=== PATIENT | male | born 1970 | race Caucasian/White ===

== ENCOUNTER → 2017-09-21 10:00 | Outpatient (CLI) | payer BC, SELFPAY ==
[2017-09-21 15:05] LABS: Hematocrit 44.1 % (40-54); Hemoglobin 15.4 g/dl (13.0-16.5); Mean Corp Hgb Conc 34.9 g/gl (32-36); Mean Corpuscular Hgb 31.1 pg (27.0-32.0); Mean Corpuscular Volume 89.1 fL (80-94); Mean Platelet Vol. 10.1 fl (6.2-12.0); Platelet Count 236 K/mm3 (150-450); RBC Distribution Width CV 12.4 % (11.6-14.6); RBC Distribution Width SD 39.9 fl (35.1-43.9); Red Blood Count 4.95 M/mm3 (4.6-6.2); White Blood Count 6.4 K/mm3 (4.4-11.0)
[2017-09-21 15:07] LABS: Scan Indicated on CBC? Y/N NO
[2017-09-21 15:53] LABS: Anion Gap 7 (5-15); BUN 15 mg/dL (7-18); BUN/Creat Ratio 18.7 RATIO (10-20); Chloride 102 mmol/L (98-107); Cholesterol 202 mg/dL (200); EST Glomerular Filtration Rate 110 mL/min (>60); Est Glom Filt Rate - Afr Amer 133 mL/min (>60); Glucose 93 mg/dL (74-106); High Density Lipoprotein 37 mg/dL; Magnesium 2.1 mg/dL (1.6-2.6); PSA,Total - Annual Screen 0.92 ng/mL (0.00-4.00); Potassium 3.6 mmol/L (3.5-5.1); Sodium Level 137 mmol/L (136-145); Triglycerides 156 mg/dL; Very Low Density Lipoprotein 31 mg/dL (5-40)
== END ==
PROVIDERS: Family Provider Internal Medicine; PCP Internal Medicine; Visit Provider Internal Medicine
DX: I10 Essential (primary) hypertension (principal); Z12.5 Encounter for screening for malignant neoplasm of prostate
CPT/HCPCS: 36415; 80048; 80061; 83735; 84153; 85027; G0103

== ENCOUNTER → 2018-12-06 16:47 | Outpatient (CLI) | payer BC, SELFPAY ==
--- NOTE | 2018-12-06 16:50 | RAD_ITS ---
STUDY: X-RAY - RIGHT ELBOW REASON FOR EXAM: Male, 48 years old. Trauma TECHNIQUE: 3 view(s) of the elbow. COMPARISON: None. FINDINGS: Normal visualized humerus, radius and ulna. Normal radiocapitellar and ulnotrochlear articulations. The soft tissue structures are unremarkable. RAD/Elbow min 3 Views IMPRESSION: Normal x-ray examination of the elbow. Electronically Signed: Ede Dickson MD at 23:56 EDT , Service support ,
== END ==
PROVIDERS: Family Provider Internal Medicine; PCP Internal Medicine; Referring Provider Internal Medicine; Visit Provider Internal Medicine
DX: S59.901S Unspecified injury of right elbow, sequela (principal); X58.XXXS Exposure to other specified factors, sequela
CPT/HCPCS: 73080

== ENCOUNTER → 2019-04-14 13:27 | Outpatient (CLI) | payer BC, SELFPAY ==
--- NOTE | 2019-04-14 13:42 | RAD_ITS ---
HISTORY: CONGESTION X 1 MONTH. COUGHING UP FLIM. ADDITIONAL HISTORY: None provided. COMPARISON: None TECHNIQUE: Frontal and lateral chest radiographs. Number of images including paperwork: 2 FINDINGS: LUNGS AND PLEURA: No consolidation, mass or pleural effusion. Peribronchial thickening. Thin linear opacities in the lingula, possibly subsegmental atelectasis versus scarring. CARDIAC SILHOUETTE: Unremarkable. MEDIASTINUM AND DEBORAH: Unremarkable. UPPER ABDOMEN: Unremarkable. SKELETON AND SOFT TISSUES: No acute findings. Degenerative changes. OTHER DEVICES AND HARDWARE: None. RAD/Chest PA and Lateral IMPRESSION: Peribronchial thickening as can be seen with bronchitis and airways disease. Minimal lingular subsegmental atelectasis versus scarring. at 0045 Reported and signed by: Clau Guillermo MD Electronically Signed: Clau Guillermo MD at 0:45 EST Tel , Service support ,
[2019-04-14 14:49] LABS: Hematocrit 46.5 % (40-54); Hemoglobin 15.5 g/dL (13.0-16.5); Mean Corp Hgb Conc 33.3 g/dL (32-36); Mean Corpuscular Hgb 30.5 pg (27.0-32.0); Mean Corpuscular Volume 91.5 fL (80-94); Platelet Count 236 K/mm3 (150-450); RBC Distribution Width CV 12.3 % (11.6-14.6); Red Blood Count 5.08 M/mm3 (4.6-6.2); White Blood Count 6.1 K/mm3 (4.4-11.0)
[2019-04-14 15:23] LABS: BUN 19 mg/dL (7-18); Creatinine, Serum 0.84 mg/dL (0.70-1.30); EST Glomerular Filtration Rate 104 mL/min (>60); Glucose 114 mg/dL (74-106)
[2019-04-14 15:24] LABS: Anion Gap 5 (5-15); BUN/Creat Ratio 22.7 RATIO (10-20); Chloride 102 mmol/L (98-107); Cholesterol 226 mg/dL (200); Est Glom Filt Rate - Afr Amer 126 mL/min (>60); High Density Lipoprotein 44 mg/dL; Potassium 3.9 mmol/L (3.5-5.1); Sodium Level 138 mmol/L (136-145); Triglycerides 147 mg/dL; Very Low Density Lipoprotein 29 mg/dL (5-40)
== END ==
PROVIDERS: Family Provider Internal Medicine; PCP Internal Medicine; Referring Provider Internal Medicine; Visit Provider Internal Medicine
DX: Z79.899 Other long term (current) drug therapy (principal); R05 Cough
CPT/HCPCS: 36415; 71046; 80048; 80061; 85027

== ENCOUNTER → 2019-08-02 18:53 | Outpatient (CLI) | payer BC, SELFPAY ==
--- NOTE | 2019-08-02 18:56 | US_ITS ---
STUDY: SCROTUM ULTRASOUND REASON FOR EXAM: Male, 48 years old. RT INGUINAL DISCOMFORT COMES AND GOES RT TESTICLE SWELLING TECHNIQUE: Ultrasound evaluation of the scrotum was performed with color Doppler and static ulloa-scale imaging. COMPARISON: 06/18/2012. FINDINGS: RIGHT TESTICLE INTRATESTICULAR: There is a normal size of the right testicle. The right testicle measures 4.3 x 3.0 x 2.7 cm. There is a homogenous echotexture. There is normal arterial and normal venous vascularity. There is no demonstrated right testicular mass or cyst. EXTRATESTICULAR: The epididymis is mildly enlarged. The epididymis head measures 1.8 cm. There is normal vascularity of the epididymis. There is no demonstrated epididymal cystic structure. There is a small hydrocele. There is no demonstrated varicocele. There is no demonstrated extratesticular mass or cyst. No hernia is seen. LEFT TESTICLE INTRATESTICULAR: There is a normal size of the left testicle. The left testicle measures 4.3 x 2.8 x 2.3 cm. There is a homogenous echotexture. There is normal arterial and normal venous vascularity. There is no demonstrated left testicular mass or cyst. EXTRATESTICULAR: The epididymis is normal in size. The epididymis head measures 1.3 cm. There is normal vascularity of the epididymis. There is no demonstrated epididymal cystic structure. There is a small hydrocele. There are prominent extratesticular veins consistent with a varicocele. There is no demonstrated extratesticular mass or cyst. US/Testicular with Arterial Flow IMPRESSION: Normal bilateral testicles. Bilateral small hydroceles. Small left varicocele. No hernia seen. Electronically Signed: Cj Sanchez MD at 19:55 EDT , Service support ,
== END ==
PROVIDERS: PCP Internal Medicine; Referring Provider Internal Medicine; Visit Provider Internal Medicine
DX: R10.31 Right lower quadrant pain (principal); N50.811 Right testicular pain; K40.90 Unilateral inguinal hernia, without obstruction or gangrene, not specified as recurrent
CPT/HCPCS: 76870; 93976

== ENCOUNTER → 2019-12-07 17:17 | Outpatient (CLI) | payer BC, SELFPAY ==
[2019-12-07 17:39] LABS: Absolute Lymphocyte Count 1.86 X10^3/uL (0.83-4.51); Absolute Neutrophil Count 3.5 X10^3/uL (2.0-7.7); Basophil# 0.02 X10^3/uL; Basophil% 0.3 % (0-1); Eosinophil# 0.08 X10^3/uL; Eosinophils% 1.3 % (0-5); Hematocrit 45.6 % (40-54); Hemoglobin 15.1 g/dL (13.0-16.5); Lymphocyte # 1.86 X10^3/ul (4.0); Lymphocyte % 30.8 % (19-41); Mean Corp Hgb Conc 33.1 g/dL (32-36); Mean Corpuscular Hgb 29.8 pg (27.0-32.0); Mean Corpuscular Volume 89.9 fL (80-94); Mean Platelet Vol. 9.3 fl (6.2-12.0); NRBC Flagged by Analyzer 0 % (0-5); Neutrophil # 3.46 X10^3/uL (2.7-7.7); Neutrophil % 57.4 % (47-70); Platelet Count 245 K/mm3 (150-450); RBC Distribution Width CV 12.6 % (11.6-14.6); RBC Distribution Width SD 41.1 fl (35.1-43.9); Red Blood Count 5.07 M/mm3 (4.6-6.2)
[2019-12-07 18:38] LABS: ALB/GLOB Ratio 1.1 RATIO (0.9-2.4); AST(SGOT) 19 U/L (15-37); Alanine Aminotransfer ALT/SGPT 36 U/L (16-61); Alkaline Phosphatase 71 U/L (45-117); Anion Gap 6 (5-15); BUN 14 mg/dL (7-18); BUN/Creat Ratio 16.1 RATIO (10-20); Calcium,Total 8.8 mg/dL (8.5-10.1); Chloride 100 mmol/L (98-107); Cholesterol 205 mg/dL (200); Creatinine, Serum 0.87 mg/dL (0.70-1.30); EST Glomerular Filtration Rate 99 mL/min (>60); Est Glom Filt Rate - Afr Amer 120 mL/min (>60); Globulin 3.7 g/dL (2.2-4.2); Glucose 95 mg/dL (74-106); High Density Lipoprotein 42 mg/dL; Potassium 3.8 mmol/L (3.5-5.1); Protein, Total 7.7 g/dL (6.4-8.2); Sodium Level 137 mmol/L (136-145); Triglycerides 156 mg/dL; Very Low Density Lipoprotein 31 mg/dL (5-40)
== END ==
PROVIDERS: PCP Internal Medicine; Visit Provider Internal Medicine
DX: Z00.00 Encounter for general adult medical examination without abnormal findings (principal)
CPT/HCPCS: 36415; 80053; 80061; 85025

== ENCOUNTER → 2020-09-28 08:08 | Outpatient (CLI) | payer BC, SELFPAY | PROVIDERS: PCP Internal Medicine; Visit Provider Pediatrics | DX: Z03.818 Encounter for observation for suspected exposure to other biological agents ruled out (principal) | CPT/HCPCS: 87635; U0002 ==

== ENCOUNTER → 2021-01-23 16:24 | Outpatient (CLI) | payer BC, SELFPAY | PROVIDERS: PCP Internal Medicine; Referring Provider Nurse Practitioner Primary Care; Visit Provider Nurse Practitioner Primary Care | DX: Z20.822 Contact with and (suspected) exposure to COVID-19 (principal) | CPT/HCPCS: 87635; C9803; U0005; U0003 ==

== ENCOUNTER 2021-02-15 05:26 | Day surgery (SDC) | payer BC, SELFPAY ==
[2021-02-15] VITALS (8 sets, daily range): BP systolic 131–151; BP diastolic 78–99; PULSE 54–59; RESP 16; TEMP 36–36.8; O2SAT 93–98; BMI 34.7
[2021-02-15] MEDS: Lactated Ringers 1,000 ML 100 ML IV (05:59)
--- NOTE | 2021-02-15 06:11 | HP.PCM_ITS ---
HPI - General HPI Narrative ROGER MCGOWAN, is a 50 M who presents for screening colonoscopy today. He has no personal history or family history of colon polyps or colon cancer. He enjoys good health. He presents via open access today. He is previously had symptoms of COVID-19 but tested negative. He has been vaccinated. [facility] Medical History (Updated 02/15/21 @ 06:[address] Juan Pablo Lemus MD) Back pain Chronic cough History of stress test HTN (hypertension) Non-smoker Testicular pain, right Wears glasses Home Medications hydrochlorothiazide 25 mg tablet 25 mg PO QDAY 05/04/17 [History Last Taken Unknown] Allergy/AdvReac Type Severity Reaction Status Date / Time azithromycin AdvReac Severe severe Verified 02/15/21 05:45 [From Zithromax Z-Gregg] abdominal pain Family History Mother Heart disease Diabetes Father Heart disease Surgical History S/P cholecystectomy S/P vasectomy Status post scrotal varicocelectomy Social History (Updated 11/30/20 @ 11:28 by Lili Barnett) Smoking Status: Never smoker alcohol intake: former substance use type: does not use ROS Constitutional Constitutional: Reports systems reviewed and no addt'l complaints, except as documented Cardiovascular Cardiovascular: Denies chest pain Respiratory/Chest Respiratory/Chest: Denies shortness of breath at rest Gastrointestinal Gastrointestinal: Denies abdominal pain, change in bowel habits, hematochezia or melena Vital Signs Vital Signs Vital Signs: 02/15/21 05:48 Temperature 98.3 F Temperature Source Temporal Pulse Rate 59 L Respiratory Rate 16 Respiratory Pattern Normal Blood Pressure 134/90 H Blood Pressure Mean 104 Blood Pressure Source Monitor Blood Pressure Position Semi-Fowlers Blood Pressure Location Right Arm Pulse Ox 96 Oxygen Delivery Method Room Air Weight Weight: 242 lb 8.136 oz Body Mass Index (BMI) 34.7 Physical Exam Const alert, oriented x3 and no apparent distress General Appearance: cooperative and comfortable Eyes General Eye: normal appearance of both eyes Neck General: normal visual inspection Chest inspection of chest normal Resp Effort and Inspection: able to speak in complete sentences and symmetric chest movement Auscultation: clear to auscultation bilaterally Cardio regular rate and regular rhythm GI soft to palpation, non-tender and non-distended Extremity no calf tenderness Neuro oriented x3 Psych thought process normal Assessment & Plan Assessment/Plan (1) Screening for intestinal cancer: PLAN: The patient presents today via open access for a screening colonoscopy. He has not had any previous exam. He is asymptomatic. I have discussed with him the technique, benefit, risk, alternatives of a colonoscopy with possible biopsy or polypectomy. He has had an opportunity to ask and have questions answered. We will proceed as noted. Juan Pablo Lemus M.D., F.A.C.S.
[2021-02-15] MEDS: Midazolam 5 MG/ML Syringe (06:15)
--- NOTE | 2021-02-15 06:43 | OP.COLON_ITS ---
Patient Name: Song Mason Procedure Date: 02/15/2021 6:13 AM Date of : 1970 Age: 50 Procedure: Colonoscopy Indications: Screening for colorectal malignant neoplasm Providers: Juan Pablo Lemus MD Medicines: Midazolam 5 mg IV, Meperidine 100 mg IV Patient Profile: Last Colonoscopy: none. The patient's first colonoscopy is today. Complications: No immediate complications. Procedure: Pre-Anesthesia Assessment: - Prior to the procedure, a History and Physical was performed, and patient medications and allergies were reviewed. The patient's tolerance of previous anesthesia was also reviewed. The risks and benefits of the procedure and the sedation options and risks were discussed with the patient. All questions were answered, and informed consent was obtained. Prior Anticoagulants: The patient has taken no previous anticoagulant or antiplatelet agents. ASA Grade Assessment: II - A patient with mild systemic disease. After reviewing the risks and benefits, the patient was deemed in satisfactory condition to undergo the procedure. After I obtained informed consent, the scope was passed under direct vision. Throughout the procedure, the patient's blood pressure, pulse, and oxygen saturations were monitored continuously. The colonoscope was introduced through the anus and advanced to the cecum, identified by appendiceal orifice and ileocecal valve. The colonoscopy was performed without difficulty. The patient tolerated the procedure well. The quality of the bowel preparation was good. The ileocecal valve and the appendiceal orifice were photographed. Moderate Sedation: Moderate (conscious) sedation was personally administered by the endoscopist. The following parameters were monitored: oxygen saturation, heart rate, blood pressure, and response to care. Total physician intraservice time was 15 minutes. Scope In: 6:28:19 AM Scope Withdrawal Time 0 hours 7 minutes 7 seconds Scope Out: 6:38:47 AM Total Procedure Duration Time 0 hours 10 minutes 28 seconds Findings: Hemorrhoids were found on perianal exam. Scattered diverticula were found in the sigmoid colon. The exam was otherwise without abnormality. Impression: - Hemorrhoids found on perianal exam. - Diverticulosis in the sigmoid colon. - The examination was otherwise normal. - No specimens collected. Recommendation: - Discharge patient to home. - Resume previous diet. - Continue present medications. - Repeat colonoscopy in 10 years for screening purposes. Procedure Code(s): --- Professional --- 73353, Colonoscopy, flexible; diagnostic, including collection of specimen(s) by brushing or washing, when performed (separate procedure) 03051, 59, Moderate sedation services provided by the same physician or other qualified health care director rn performing the diagnostic or therapeutic service that the sedation supports, requiring the presence of an independent trained observer to assist in the monitoring of the patient's level of consciousness and physiological status; initial 15 minutes of intraservice time, patient age 5 years or older Diagnosis Code(s): --- Professional --- Z12.11, Encounter for screening for malignant neoplasm of colon K64.9, Unspecified hemorrhoids K57.30, Diverticulosis of large intestine without perforation or abscess without bleeding CPT copyright 2017 [employer]. All rights reserved. The codes documented in this report are preliminary and upon ring attacher review may be revised to meet current compliance requirements. Juan Pablo Lemus MD 02/15/2021 6:42:30 AM This report has been signed electronically. Number of Addenda: 0 Note Initiated On: 02/15/2021 6:13 AM
--- NOTE | 2021-02-15 06:43 | OP.CCLET_ITS ---
02/15/2021 Shirlene Bashir [address] [place] [address] Re : Colonoscopy procedure for Song Mason Dear Dr. Bashir This procedure was performed on Thursday, February 15, 2021. My impressions and recommendations are as follows: Impressions : - Hemorrhoids found on perianal exam. - Diverticulosis in the sigmoid colon. - The examination was otherwise normal. - No specimens collected. Recommendations : - Discharge patient to home. - Resume previous diet. - Continue present medications. - Repeat colonoscopy in 10 years for screening purposes. My findings are described in the full procedure note, which is enclosed. If I can be of further assistance, please feel free to contact me at Doctor phone number(s): Work: . Sincerely, Juan Pablo Lemus MD 02/15/2021 6:42:30 AM This report has been signed electronically.
== END 2021-02-15 07:13 ==
LOC: EN 05:28 → AC 05:28
PROVIDERS: PCP Internal Medicine; Referring Provider Internal Medicine; Visit Provider Surgery
PROC: 0DJD8ZZ Inspection of Lower Intestinal Tract, Via Natural or Artificial Opening Endoscopic (ICD-10-PCS; CPT 45378; principal; 2021-02-15 06:25)
DX: Z12.11 Encounter for screening for malignant neoplasm of colon (principal); K64.9 Unspecified hemorrhoids; K57.30 Diverticulosis of large intestine without perforation or abscess without bleeding; I10 Essential (primary) hypertension
CPT/HCPCS: 45378; 99152; 99153; J7120

== ENCOUNTER → 2021-03-06 08:53 | Outpatient (CLI) | payer BC, SELFPAY | PROVIDERS: PCP Internal Medicine; Visit Provider Physician Assistant | DX: Z78.9 Other specified health status (principal) | CPT/HCPCS: 87635; U0005; U0003 ==

== ENCOUNTER → 2021-04-19 07:17 | Outpatient (CLI) | payer BC, SELFPAY | PROVIDERS: Visit Provider Pediatrics | DX: Z03.818 Encounter for observation for suspected exposure to other biological agents ruled out (principal) | CPT/HCPCS: 87635; U0005; U0003 ==

== ENCOUNTER → 2021-05-11 10:47 | Outpatient (CLI) | payer BC, SELFPAY ==
[2021-05-11 11:43] LABS: Hematocrit 45.5 % (40-54); Mean Corpuscular Hgb 30.1 pg (27.0-32.0); Mean Corpuscular Volume 91.2 fL (80-94); Mean Platelet Vol. 9.7 fl (6.2-12.0); Platelet Count 258 K/mm3 (150-450); RBC Distribution Width CV 12.4 % (11.6-14.6); RBC Distribution Width SD 41.1 fl (35.1-43.9); Red Blood Count 4.99 M/mm3 (4.6-6.2); White Blood Count 4.5 K/mm3 (4.4-11.0)
[2021-05-11 11:56] LABS: Anion Gap 5 (5-15); BUN 18 mg/dL (7-18); BUN/Creat Ratio 20.7 RATIO (10-20); Calcium,Total 9.1 mg/dL (8.5-10.1); Chloride 105 mmol/L (98-107); Cholesterol 192 mg/dL (200); Creatinine, Serum 0.87 mg/dL (0.70-1.30); EST Glomerular Filtration Rate 99 mL/min (>60); Est Glom Filt Rate - Afr Amer 119 mL/min (>60); Glucose 111 mg/dL (74-106); High Density Lipoprotein 43 mg/dL; Potassium 4.4 mmol/L (3.5-5.1); Sodium Level 139 mmol/L (136-145); Triglycerides 107 mg/dL; Very Low Density Lipoprotein 21 mg/dL (5-40)
== END ==
PROVIDERS: PCP Internal Medicine; Visit Provider Internal Medicine
DX: I10 Essential (primary) hypertension (principal); Z79.899 Other long term (current) drug therapy; Z12.5 Encounter for screening for malignant neoplasm of prostate
CPT/HCPCS: 36415; 80048; 80061; 83036; 85027

== ENCOUNTER → 2021-05-13 15:24 | Outpatient (CLI) | payer BC, SELFPAY ==
[2021-05-13 16:48] LABS: PSA,Total - Annual Screen 0.94 ng/mL (0.00-4.00)
== END ==
PROVIDERS: PCP Internal Medicine; Visit Provider Internal Medicine
DX: Z12.5 Encounter for screening for malignant neoplasm of prostate (principal)
CPT/HCPCS: 36415; 84153; G0103

== ENCOUNTER 2021-05-31 08:42 | Outpatient (CLI) | payer BC, SELFPAY | END 2021-05-31 23:59 | disposition short-term general hospital (02) | LOC: LABSPEC 08:43 | PROVIDERS: PCP Internal Medicine; Referring Provider Physician Assistant Surgical; Visit Provider Physician Assistant Surgical | DX: Z11.52 Encounter for screening for COVID-19 (principal) | CPT/HCPCS: 87635; U0003; U0005 ==

== ENCOUNTER 2021-06-13 08:32 | Outpatient (CLI) | payer BC, SELFPAY | END 2021-06-13 23:59 | disposition short-term general hospital (02) | LOC: LABSPEC 06-19 08:32 | PROVIDERS: PCP Internal Medicine; Referring Provider Pediatrics; Visit Provider Pediatrics | DX: Z20.822 Contact with and (suspected) exposure to COVID-19 (principal) | CPT/HCPCS: 87635; U0003; U0005 ==

== ENCOUNTER 2021-06-21 07:43 | Outpatient (CLI) | payer BC, SELFPAY | END 2021-06-21 23:59 | disposition short-term general hospital (02) | LOC: LABSPEC 07:43 | PROVIDERS: PCP Internal Medicine; Referring Provider Pediatrics; Visit Provider Pediatrics | DX: Z20.822 Contact with and (suspected) exposure to COVID-19 (principal) | CPT/HCPCS: 87635; U0003; U0005 ==

== ENCOUNTER 2021-07-10 11:38 | Outpatient (CLI) | payer BC, SELFPAY | END 2021-07-10 23:59 | disposition home or self-care (01) | PROVIDERS: PCP Internal Medicine; Visit Provider Internal Medicine | DX: G47.33 Obstructive sleep apnea (adult) (pediatric) (principal) | CPT/HCPCS: 95806 ==

== ENCOUNTER 2021-08-08 07:33 | Outpatient (CLI) | payer BC, SELFPAY | END 2021-08-08 23:59 | disposition home or self-care (01) | PROVIDERS: PCP Internal Medicine; Referring Provider Pediatrics; Visit Provider Pediatrics | DX: Z20.822 Contact with and (suspected) exposure to COVID-19 (principal) | CPT/HCPCS: 87635; U0003; U0005 ==

== ENCOUNTER 2021-08-19 20:00 | Outpatient (CLI) | payer BC, SELFPAY | END 2021-08-19 23:59 | disposition home or self-care (01) | PROVIDERS: PCP Internal Medicine; Visit Provider Internal Medicine | DX: G47.33 Obstructive sleep apnea (adult) (pediatric) (principal) | CPT/HCPCS: 95811 ==

== ENCOUNTER → 2021-12-12 | Outpatient (CLI) | payer BC, SELFPAY | END | disposition home or self-care (01) | LOC: SL 13:42 | PROVIDERS: PCP Internal Medicine; Visit Provider Internal Medicine | DX: Z46.89 Encounter for fitting and adjustment of other specified devices (principal) ==

== ENCOUNTER → 2022-01-23 | Outpatient (CLI) | payer BC, SELFPAY | END | disposition home or self-care (01) | LOC: LABSPEC 08:28 | PROVIDERS: PCP Internal Medicine; Referring Provider Pediatrics; Visit Provider Pediatrics | DX: Z03.818 Encounter for observation for suspected exposure to other biological agents ruled out (principal) | CPT/HCPCS: 87811 ==

== ENCOUNTER → 2022-04-12 | Outpatient (CLI) | payer BC, SELFPAY ==
[2022-04-12 12:32] LABS: ALB/GLOB Ratio 1.1 RATIO (0.9-2.4); AST(SGOT) 12 U/L (15-37); Alanine Aminotransfer ALT/SGPT 26 U/L (16-61); Albumin, Serum 3.9 g/dL (3.2-5.0); Alkaline Phosphatase 68 U/L (45-117); Anion Gap 2 (5-15); BUN 16 mg/dL (7-18); Calcium,Total 9.2 mg/dL (8.5-10.1); Chloride 102 mmol/L (98-107); Cholesterol 189 mg/dL (200); Creatinine, Serum 0.94 mg/dL (0.70-1.30); EST Glomerular Filtration Rate 90 mL/min (>60); Est Glom Filt Rate - Afr Amer 109 mL/min (>60); Globulin 3.5 g/dL (2.2-4.2); Glucose 143 mg/dL (74-106); High Density Lipoprotein 42 mg/dL; Magnesium 2.2 mg/dL (1.6-2.6); Protein, Total 7.4 g/dL (6.4-8.2); Sodium Level 137 mmol/L (136-145); Thyroid Stim Hormone (TSH) 1.06 uIU/mL (0.358-3.74); Triglycerides 131 mg/dL; Very Low Density Lipoprotein 26 mg/dL (5-40)
[2022-04-14 10:24] LABS: Vitamin B12 421 pg/mL (211-911)
== END | disposition home or self-care (01) ==
LOC: LAB 11:09
PROVIDERS: PCP Internal Medicine; Referring Provider Internal Medicine; Visit Provider Internal Medicine
DX: E78.2 Mixed hyperlipidemia (principal); R55 Syncope and collapse
CPT/HCPCS: 36415; 80053; 80061; 82607; 83735; 84443

== ENCOUNTER → 2022-06-20 | Outpatient (CLI) | payer BC, SELFPAY ==
--- NOTE | 2022-06-20 13:58 | ECHOD_ITS ---
Reason For Study: Chest Pain Procedure This was a 2D Doppler, Color Flow transthoracic echocardiogram. Exam performed in department. Left Ventricle Normal LV size. Left ventricular systolic function is normal. The estimated ejection fraction is 60 %. Normal diastology for age. No regional wall motion abnormalities noted. Right Ventricle Normal RV size. Normal systolic function. Atria Normal left atrium. Normal right atrium. Mitral Valve Normal mitral valve. Tricuspid Valve Normal tricuspid valve. Aortic Valve Normal aortic valve. Trisinus/trileaflet aortic valve. Pulmonic Valve Normal pulmonic valve. Great Vessels Normal aortic root. The pulmonary artery is normal size. Normal inferior vena cava. Pericardium/Pleural No pericardial effusion. MMode/2D Measurements & Calculations LVIDd: 5.0 cm IVSd: 1.1 cm Ao root diam: 3.5 cm LVIDs: 3.3 cm LVPWd: 0.94 cm RVDd: 3.5 cm FS: 32.7 % LAV(MOD-bp): 53.2 ml LVAd ap4: 30.8 cm2 SV(MOD-sp4): 51.4 ml LAV(MOD-bp) Indexed: 23.8 ml/m2 LVLd ap4: 8.8 cm LAV(MOD-sp2): 54.8 ml EDV(MOD-sp4): 86.4 ml LAV(MOD-sp4): 50.7 ml EDV(sp4-el): 91.1 ml LVAs ap4: 17.1 cm2 LVLs ap4: 7.5 cm ESV(MOD-sp4): 35.0 ml ESV(sp4-el): 33.1 ml EF(MOD-sp4): 59.5 % EF(sp4-el): 63.7 % SV(sp4-el): 58.0 ml LA A4 area: 19.2 cm2 LA dimension(2D): 4.4 cm RA A4 area: 15.4 cm2 Time Measurements MV dec time: 0.23 sec Doppler Measurements & Calculations MV E max marcial: 80.3 cm/sec Lat Peak E' Marcial: 16.4 cm/sec Med Peak E' Marcial: 11.6 cm/sec MV A max marcial: 55.6 cm/sec E/E' lat: 4.9 E/E' med: 6.9 MV E/A: 1.4 Ao V2 max: 134.9 cm/sec LV V1 max: 143.1 cm/sec MV dec slope: 354.1 cm/sec2 Ao max P.3 mmHg LV V1 max P.2 mmHg Ao V2 mean: 94.8 cm/sec Ao mean P.9 mmHg Ao V2 VTI: 26.0 cm PA V2 max: 150.8 cm/sec ECHO/Echo Complete Interpretation Summary Normal LV size. Left ventricular systolic function is normal. The estimated ejection fraction is 60 %. Structurally normal valves. Ordering Physician: Jhonatan Robledo Referring Physician: Shirlene Bashir Performed By: Ashanti Valentino, MARIA G, RVT
== END | disposition home or self-care (01) ==
PROVIDERS: PCP Internal Medicine; Visit Provider Internal Medicine Cardiovascular Disease
DX: R07.9 Chest pain, unspecified (principal); R55 Syncope and collapse; I10 Essential (primary) hypertension
CPT/HCPCS: 93306

== ENCOUNTER → 2022-07-28 | Outpatient (CLI) | payer BC, SELFPAY ==
--- NOTE | 2022-07-28 13:04 | CT_ITS ---
INDICATION: HTN EXAMINATION: CT CHEST WITHOUT CONTRAST - CT Chest W/O Contrast Injection. Cardiac over read examination. TECHNIQUE: Helically acquired images were obtained of the chest. A radiation dose optimization technique was used for this scan. IV Contrast dosage and agent: None. COMPARISON: None. FINDINGS: LUNGS, PLEURA AND LARGE AIRWAYS: No masses, consolidation, or edema. No pleural effusion or thickening. No pneumothorax. THYROID: No thyroid lesions. HEART AND PERICARDIUM: Heart size is normal. No pericardial effusion. CORONARY ARTERIES: Coronary artery calcification is seen. VESSELS: Thoracic aorta is not dilated. MEDIASTINUM AND DEBORAH: Small mediastinal lymph nodes. Esophagus is unremarkable. No hiatal hernia. UPPER ABDOMEN: No acute pathology. BONES: No suspicious lytic or blastic abnormality. CT/Limited Chest CT Cardiac Only IMPRESSION: Coronary artery calcification. Small mediastinal lymph nodes. Electronically Signed: Rashaad Saleem MD at 15:18 EST ,
[2022-07-28 13:22] VITALS: BP 146/87; PULSE 59; RESP 16; TEMP 36.6; O2SAT 97; BMI 34.4
--- NOTE | 2022-07-28 14:55 | CA.SCORE ---
Calcium Scoring Date of Study:: 07/28/22 Indications Indications: Hypertension Coronary Calcium Scoring: High-resolution Computed Tomographic imaging of the chest was performed on [07/28/22 ], with particular attention paid to the coronary arteries. Images from the examination were analyzed for the presence and extent of coronary artery calcification , using coronary calcium quantification software. The patient tolerated the procedure well and there were no complications. The results of the coronary calcification analysis are provided below. Findings Coronary Artery Left Main (LM): 5.17 Left Anterior Descending (LAD): 0 Left Circumflex (LCX): 0 Right Coronary Artery (RCA): 0 Total Agatston Score: 5.17 Percentile Rankinth to 50% Calcium Scoring Interpretation: Different methods to categorize the overall amount of coronary plaque. Overall amount CAC SIS Visual of coronary plaque P1 Mild -100 <2 1-2 vessels with mild amount of plaque P2 Moderate 101-300 3-4 1-2 vessels with moderate amount, 3 vessels with mild amount of plaque P3 Severe 301-999 5-7 3 vessels with moderate amount, 1 vessel with severe amount of plaque P4 Extensive >1000 >8 2-3 vessels with severe amount of plaque Calcium Score: Mild: 1-2 vessels w/mild amount of plaque
== END | disposition home or self-care (01) ==
PROVIDERS: PCP Internal Medicine; Visit Provider Internal Medicine Cardiovascular Disease
DX: R55 Syncope and collapse (principal); I10 Essential (primary) hypertension
CPT/HCPCS: 75571; 76380

== ENCOUNTER → 2022-10-04 | Outpatient (CLI) | payer BC, SELFPAY ==
[2022-10-04 11:35] LABS: Hematocrit 46.9 % (40-54); Hemoglobin 15.5 g/dL (13.0-16.5); Mean Corpuscular Hgb 30.6 pg (27.0-32.0); Mean Corpuscular Volume 92.7 fL (80-94); Mean Platelet Vol. 9.8 fl (6.2-12.0); Platelet Count 235 K/mm3 (150-450); RBC Distribution Width CV 12.7 % (11.6-14.6); Red Blood Count 5.06 M/mm3 (4.6-6.2); White Blood Count 6.3 K/mm3 (4.4-11.0)
[2022-10-04 11:51] LABS: Hemoglobin A1c 6.1 % (3.8-5.6)
[2022-10-04 11:57] LABS: Anion Gap 4 (5-15); BUN 15 mg/dL (7-18); BUN/Creat Ratio 18.3 RATIO (10-20); Calcium,Total 8.5 mg/dL (8.5-10.1); Chloride 107 mmol/L (98-107); Cholesterol 196 mg/dL (200); Creatinine, Serum 0.82 mg/dL (0.70-1.30); EST Glomerular Filtration Rate 105 mL/min (>60); Est Glom Filt Rate - Afr Amer 127 mL/min (>60); Glucose 110 mg/dL (74-106); High Density Lipoprotein 42 mg/dL; Potassium 4.3 mmol/L (3.5-5.1); Sodium Level 138 mmol/L (136-145); Triglycerides 89 mg/dL; Very Low Density Lipoprotein 18 mg/dL (5-40)
== END | disposition home or self-care (01) ==
LOC: LAB 10:46
PROVIDERS: PCP Internal Medicine; Referring Provider Internal Medicine; Visit Provider Internal Medicine
DX: I10 Essential (primary) hypertension (principal); Z79.899 Other long term (current) drug therapy
CPT/HCPCS: 36415; 80048; 80061; 83036; 85027

== ENCOUNTER → 2023-07-13 | Outpatient (CLI) | payer BC, SELFPAY ==
[2023-07-13 17:37] LABS: Anion Gap 2 (5-15); BUN 17 mg/dL (7-18); BUN/Creat Ratio 20.2 RATIO (10-20); Calcium,Total 9.1 mg/dL (8.5-10.1); Chloride 106 mmol/L (98-107); Cholesterol 210 mg/dL (200); Creatinine, Serum 0.84 mg/dL (0.70-1.30); EST Glomerular Filtration Rate 101 mL/min (>60); Est Glom Filt Rate - Afr Amer 123 mL/min (>60); Glucose 98 mg/dL (74-106); High Density Lipoprotein 46 mg/dL; Potassium 4.2 mmol/L (3.5-5.1); Sodium Level 138 mmol/L (136-145); Triglycerides 114 mg/dL; Very Low Density Lipoprotein 23 mg/dL (5-40)
[2023-07-13 17:39] LABS: Hemoglobin A1c 6.2 % (3.8-5.6)
== END | disposition home or self-care (01) ==
PROVIDERS: PCP Internal Medicine; Visit Provider Internal Medicine
DX: I10 Essential (primary) hypertension (principal); Z79.899 Other long term (current) drug therapy
CPT/HCPCS: 36415; 80048; 80061; 83036

== ENCOUNTER → 2023-08-10 | Outpatient (CLI) | payer BC, SELFPAY ==
[2023-08-10 18:17] LABS: PSA,Total- Diagnostic 1.04 ng/mL (0.0-4.0)
== END | disposition home or self-care (01) ==
LOC: LAB 16:58
PROVIDERS: PCP Internal Medicine; Referring Provider Nurse Practitioner; Visit Provider Nurse Practitioner
DX: R35.0 Frequency of micturition (principal)
CPT/HCPCS: 36415; 84153

== ENCOUNTER 2023-09-17 13:45 | Emergency (ER) | payer BC, SELFPAY ==
[2023-09-17 13:47] VITALS: BP 134/94; PULSE 111; RESP 18; TEMP 36.9; O2SAT 98; BMI 34.4
--- NOTE | 2023-09-17 14:24 | EX.ED.DYSGE1 ---
HPI History of Present Illness Chief Complaint: Flank Pain Informant: patient Narrative Narrative: 52-year-old male presenting to the emergency room with urinary frequency and pressure. Patient states for about a week he has had pain in his mid thoracic back worse on the right side that is worse with movement. He states he has been rehabbing his son's house and wonders if that had something to do with it. Over the past 5 days he notes some urinary pressure and burning as well as frequency. He states he has pressure with bowel movements as well but the bowel movements have otherwise been normal. No prostatic issues. Denies any fever nausea vomiting. He does endorse some fatigue. No rashes. No abdominal pain. [facility] Medical History Acute sinusitis Back pain Chronic cough Encounter for screening for COVID-19 Essential hypertension History of stress test Hyperlipidemia Neurocardiogenic syncope Non-smoker FELIPA on CPAP Screening for intestinal cancer Testicular pain, right Wears glasses Home Medications valacyclovir 1 gram tablet 1,000 mg PO ONCE PRN 11/18/22 [History Last Taken Unknown] amlodipine 10 mg tablet 10 mg PO DAILY #90 tabs 12/21/22 [Rx Last Taken Unknown] sulfamethoxazole 800 mg-trimethoprim 160 mg tablet 1 tab PO BID #28 TABLETS 09/17/23 [Rx Last Taken Unknown] Allergy/AdvReac Type Severity Reaction Status Date / Time azithromycin AdvReac Severe severe Verified 09/17/23 13:46 [From Zithromax Z-Gregg] abdominal pain Family History Mother Heart disease Diabetes Hypertension Father Heart disease Cardiomyopathy Surgical History History of cholecystectomy History of vasectomy Status post scrotal varicocelectomy Social History Smoking Status: Never smoker alcohol intake: current details: Occasionally substance use type: does not use ROS ROS ED Constitutional Constitutional ED: Denies chills, fever(s) or weight loss Eyes Eyes: Denies change in vision or diplopia ENT ENT ED: Denies ear pain, rhinorrhea or sore throat Cardiovascular Cardiovascular: Denies chest pain, orthopnea, palpitations or racing heartbeat Respiratory/Chest Respiratory/Chest: Denies cough, dyspnea or orthopnea Gastrointestinal Gastrointestinal: Denies abdominal pain, diarrhea, nausea or vomiting Genitourinary Genitourinary ED: Reports dysuria, urinary frequency and other Details: Pelvic pressure with urination ; Denies hematuria Musculoskeletal Musculoskeletal: Reports back pain; Denies arthralgias or myalgias Integumentary Denies abscess or rash Neurologic Neurologic: Denies headache(s) or weakness Psychiatric Psychiatric: Denies anxiety, depression, suicidal ideation or suicidal thoughts Endocrine Endocrinology: Denies polydipsia, polyphagia or polyuria Allergic/Immunologic Allergic/Immunologic ED: Denies mouth swelling, tongue swelling or urticaria EXAM Physical Exam Const Vital Signs: 09/17/23 13:47 09/17/23 15:46 Temperature 98.4 F Temperature Source Temporal Pulse Rate 111 H 84 Respiratory Rate 18 18 Blood Pressure 134/94 H 133/86 H Blood Pressure Mean 107 101 Pulse Ox 98 98 Oxygen Delivery Method Room Air Room Air Positive well nourished and well developed General Appearance ED: well developed HEENT Reports normocephalic, head/scalp atraumatic and moist mucous membranes Eyes PERRL and EOMs intact bilaterally Neck no lymphadenopathy, supple and no JVD Resp normal respiratory effort and clear to auscultation bilaterally Cardio regular rate, regular rhythm and no murmurs GI normal to inspection, nondistended, normoactive bowel sounds and non-tender Palpation: soft Back/Spine no CVA tenderness and normal ROM Extremity normal to inspection General Extremety ED: Negative for edema General Extremity: Negative for edema Neuro oriented x3 and CN's II-XII intact bilaterally Sensorium / Orientation: alert Motor Exam: strength 5/5 throughout Psych mental status grossly normal Mood & Affect: Negative for depressed or tearful Skin no rashes or lesions noted and no wounds MDM MDM MDM Narrative Medical decision making narrative: White count returns at 18,000. Creatinine normal 1.03. Urinalysis grade 100 white cells 1+ bacteria positive nitrates positive leukocyte esterase. Blood and urine cultures were obtained. Patient continues to clinically appear well. Given 1 g ceftriaxone. I talked about his results with him. He denies high risk sexual activity to suspect gonorrhea chlamydia. Because this is out of character for the patient a CT of the abdomen pelvis was obtained. History & Record Review Discussion w/independent historian: Patient Lab Data Attestation: I reviewed the patient's lab results. Labs: Laboratory Results - last 24 hr 09/17/23 09/17/23 14:20 15:17 WBC 18.0 H RBC 5.10 Hgb 15.3 Hct 46.2 MCV 90.6 MCH 30.0 MCHC 33.1 RDW Std Deviation 42.4 RDW Coeff of Altagracia 12.8 Plt Count 227 MPV 9.6 Immature Gran % (Auto) 0.600 Neut % (Auto) 86.8 H Lymph % (Auto) 5.2 L [place] % (Auto) 7.3 Eos % (Auto) 0.0 Baso % (Auto) 0.1 Absolute Neuts (auto) 15.7 H Absolute Lymphs (auto) 0.94 Nucleated RBC % 0 Sodium 134 L Potassium 4.3 Chloride 100 Carbon Dioxide 28.0 Anion Gap 6 BUN 14 Creatinine 1.03 Estim Creat Clear Calc 103.69 Est GFR (MDRD) Af Amer 97 Est GFR (MDRD) Non-Af 80 BUN/Creatinine Ratio 13.6 Glucose 165 H Calcium 9.4 Urine Color Yellow Urine Clarity Cloudy Urine pH 5.0 Ur Specific [place] 1.030 Urine Protein 30 H Urine Glucose (UA) Normal Urine Ketones Negative Urine Occult Blood 150 H Urine Nitrite Positive H Urine Bilirubin Negative Urine Urobilinogen Normal Ur Leukocyte Esterase 500 H Urine RBC 0 SEEN Urine WBC >100 SEEN Ur Squamous Epith Cells 0 SEEN Urine Bacteria 1+ Urine Mucus 0 SEEN Discharge Plan Triage Chief Complaint: Flank Pain ED Provider: Anuel Hawk Dx/Rx/DC Orders Clinical Impression: Acute UTI, Acute prostatitis Instructions: ED Prostatitis Prescriptions: New sulfamethoxazole-trimethoprim [sulfamethoxazole-trimethoprim] 800-160 mg tablet 1 tab PO BID Qty: 28 0RF No Action valacyclovir 1 gram tablet 1,000 mg PO ONCE PRN amlodipine 10 mg tablet 10 mg PO DAILY Qty: 90 3RF Primary Care Provider: Shirlene Bashir Referrals: Shirlene Bashir MD [Primary Care Provider] - Brian Fernandes MD [Med Staff - Active Staff] - As soon as possible Activity Restrictions/Additional Instructions: If you develop fever nausea vomiting worsening pain or have any concerns please return to emergency. I recommend following up with urology.-Please see referral above
[2023-09-17 15:03] LABS: Absolute Lymphocyte Count 0.94 X10^3/uL (0.83-4.51); Absolute Neutrophil Count 15.7 X10^3/uL (2.0-7.7); Basophil# 0.02 X10^3/uL; Basophil% 0.1 % (0-1); Hematocrit 46.2 % (40-54); Hemoglobin 15.3 g/dL (13.0-16.5); Lymphocyte # 0.94 X10^3/ul (0.83-4.51); Lymphocyte % 5.2 % (19-41); Mean Corp Hgb Conc 33.1 g/dL (32-36); Mean Corpuscular Volume 90.6 fL (80-94); Mean Platelet Vol. 9.6 fl (6.2-12.0); Monocyte# 1.31 X10^3/uL; Monocyte% 7.3 % (0-10); NRBC Flagged by Analyzer 0 % (0-5); Neutrophil # 15.65 X10^3/uL (2.7-7.7); Neutrophil % 86.8 % (47-70); Platelet Count 227 K/mm3 (150-450); RBC Distribution Width CV 12.8 % (11.6-14.6); RBC Distribution Width SD 42.4 fl (35.1-43.9)
[2023-09-17 15:12] LABS: Anion Gap 6 (5-15); BUN 14 mg/dL (7-18); BUN/Creat Ratio 13.6 RATIO (10-20); Calcium,Total 9.4 mg/dL (8.5-10.1); Chloride 100 mmol/L (98-107); Creatinine, Serum 1.03 mg/dL (0.70-1.30); EST Glomerular Filtration Rate 80 mL/min (>60); Est Glom Filt Rate - Afr Amer 97 mL/min (>60); Estimated Creatinine Clearance 103.69 ml/min; Glucose 165 mg/dL (74-106); Potassium 4.3 mmol/L (3.5-5.1); Sodium Level 134 mmol/L (136-145)
[2023-09-17 15:23] LABS: Mucous, Urine 0 SEEN /hpf (<or=2+); Red Blood Cells-Urine 0 SEEN /hpf (0-5); Squamous Epithelial Cells - UA 0 SEEN /hpf (0-5)
[2023-09-17 15:30] LABS: Color, Urine Yellow (Yellow); Glucose, Dipstick Normal (Normal); Ketone-Dipstick Negative (Negative); Leukocyte Esterase-Dipstick 500 /ul (Negative); Nitrite-Dipstick Positive (Negative); Occult Blood-Urine 150 /ul (Negative); Protein-Dipstick 30 mg/dl (Negative); Urine Bilirubin Dipstick Negative (Negative); Urine Clarity Cloudy (Clear); Urine Urobilinogen Normal (Normal)
[2023-09-17 15:46] VITALS: BP 133/86; PULSE 84; RESP 18; O2SAT 98
[2023-09-17 16:02] LABS: White Blood Cells >100 SEEN /hpf (0-5)
[2023-09-17 16:03] LABS: Bacteria 1+ /hpf (None Seen)
--- NOTE | 2023-09-17 16:04 | CT_ITS ---
INDICATION: UTI Pain EXAMINATION: CT ABDOMEN AND PELVIS with CONTRAST - CT Abdomen And Pelvis W/ Contrast Injection TECHNIQUE: Multiple axial images were obtained of the abdomen and pelvis following administration of IV contrast. Planar reconstructions obtained. A radiation dose optimization technique was used for this scan. RADIATION DOSAGE (If Supplied By Facility): CTDIvol = ( 14.46 ) mGy, DLP = ( 1210.82 ) mGycm IV Contrast dosage and agent: 100 mL Isovue 300 Oral contrast: None. COMPARISON: No pertinent previous studies for comparison.. FINDINGS: LOWER THORAX: Lungs are clear. Cardiac contour is normal, no pericardial effusion. No coronary vascular calcifications noted. HEPATOBILIARY: Liver: The liver is homogeneous and shows no evidence of focal lesion. Gallbladder: Surgically absent. No ductal dilatation. Pancreas: Pancreas is normal size configuration and density. No mass is noted. Spleen: The spleen is homogeneous and normal in size. . BOWEL: Stomach: The stomach is normal in size configuration, no evidence of focal masses, abnormal calcifications. A small hiatal hernia is present. Bowel: Small and large have normal configuration, no masses or bowel obstruction noted. Scattered nonspecific segments of bowel with air-fluid levels. Appendix: The visualized appendix has normal appearance.: GENITOURINARY: Adrenals: Both adrenal glands are normal in size. Kidneys: Kidneys have normal configuration, mildly lobulated contour. Peripelvic cysts are present on the LEFT. No masses, calcifications or evidence of obstructive uropathy. No perinephric soft tissue stranding.. Bladder: Normal Pelvic organs: Prostate has normal configuration measuring 5.8 x 4.8 cm. RETROPERITONEUM: There is normal appearance of the abdominal aorta and inferior vena cava. LYMPH NODES: No evidence of retroperitoneal or para-aortic masses fluid collections or adenopathy. PERITONEAL CAVITY: No ascites noted ANTERIOR ABDOMINAL WALL: Normal, no hernia identified. BONES AND SOFT TISSUES: Mild lumbar spondylosis. No evidence of fracture destructive bony process. OTHER: None CT/Abdomen/Pelvis W IV Cont ONLY IMPRESSION: 1. No masses bowel obstruction abscess free fluid or free air. Normal appendix noted. 2. No evidence of obstructive uropathy. No evidence of solid renal masses. Benign peripelvic cysts are present on the LEFT. 3. Status post cholecystectomy. No ductal dilatation. 4. Small hiatal hernia. Electronically Signed: Riley Capellan MD at 18:03 EDT ,
[2023-09-17] MEDS: Ceftriaxone 1 GM/50 ML BAG IV (16:37)
[2023-09-17 17:00] VITALS: RESP 15
[2023-09-17 18:09] VITALS: BP 157/87; PULSE 74; RESP 18; TEMP 35.2; O2SAT 98
== END 2023-09-17 18:14 | disposition home or self-care (01) ==
PROVIDERS: Emergency Provider Emergency Medicine; PCP Internal Medicine; Visit Provider Emergency Medicine
DX: N39.0 Urinary tract infection, site not specified (principal); N41.0 Acute prostatitis; I10 Essential (primary) hypertension; E78.5 Hyperlipidemia, unspecified; G47.33 Obstructive sleep apnea (adult) (pediatric); Z99.89 Dependence on other enabling machines and devices; Z79.899 Other long term (current) drug therapy; Z90.49 Acquired absence of other specified parts of digestive tract; Z98.52 Vasectomy status
CPT/HCPCS: 74177; 80048; 81001; 85025; 87040; 87077; 87086; 87088; 87186; 96365; 99283; J7050; Q9967

== ENCOUNTER → 2024-01-21 | Outpatient (CLI) | payer BC, SELFPAY ==
[2024-01-21 15:28] LABS: Anion Gap 5 (5-15); BUN 14 mg/dL (7-18); BUN/Creat Ratio 17.2 RATIO (10-20); Calcium,Total 9.4 mg/dL (8.5-10.1); Chloride 105 mmol/L (98-107); Creatinine, Serum 0.81 mg/dL (0.70-1.30); EST Glomerular Filtration Rate 105 mL/min (>60); Est Glom Filt Rate - Afr Amer 127 mL/min (>60); Glucose 108 mg/dL (74-106); Potassium 4.1 mmol/L (3.5-5.1); Sodium Level 138 mmol/L (136-145)
== END | disposition home or self-care (01) ==
PROVIDERS: PCP Internal Medicine; Referring Provider Internal Medicine; Visit Provider Internal Medicine
DX: I10 Essential (primary) hypertension (principal); R73.03 Prediabetes
CPT/HCPCS: 36415; 80048; 83036

== ENCOUNTER → 2024-02-22 | Outpatient (CLI) | payer BC, SELFPAY ==
--- NOTE | 2024-02-22 12:40 | RAD_ITS ---
STUDY: X-RAY - LEFT FOOT CLINICAL: Male, 53 years old. Peripheral neuropathy. TECHNIQUE: 3 weightbearing view(s) of the foot. COMPARISON: None. FINDINGS: Normal talus, calcaneus, and tarsal bones. Normal visualized subtalar, talonavicular, calcaneocuboid, tarsal and tarsometatarsal articulations. Os trigonum, a normal variant. Normal metatarsi. Normal metatarsophalangeal joint of the great toe. Normal tibial and fibular sesamoid bones. Normal interphalangeal joint of the great toe. Normal phalanges of the great toe. Normal second through fifth metatarsophalangeal joints. Normal interphalangeal joints and phalanges of the lesser toes. The soft tissue structures are normal. RAD/Foot min 3 Views IMPRESSION: No abnormality identified. Electronically Signed: Alejandro Livingston MD at 13:28 EDT ,
--- NOTE | 2024-02-22 12:40 | RAD_ITS ---
STUDY: X-RAY - RIGHT FOOT CLINICAL: Male, 53 years old. Peripheral neuropathy. TECHNIQUE: 3 weightbearing view(s) of the foot. COMPARISON: None. FINDINGS: Normal talus, calcaneus, and tarsal bones. Normal visualized subtalar, talonavicular, calcaneocuboid, tarsal and tarsometatarsal articulations. Os trigonum, a normal variant. Normal metatarsi. Normal metatarsophalangeal joint of the great toe. Normal tibial and fibular sesamoid bones. Normal interphalangeal joint of the great toe. Normal phalanges of the great toe. Normal second through fifth metatarsophalangeal joints. Normal interphalangeal joints and phalanges of the lesser toes. The soft tissue structures are unremarkable. RAD/Foot min 3 Views IMPRESSION: Normal x-ray examination of the foot. Electronically Signed: Alejandro Livingston MD at 13:27 EDT ,
--- NOTE | 2024-02-22 12:40 | RAD_ITS ---
STUDY: X-RAY - LUMBAR SPINE REASON FOR EXAM: Male, 53 years old. Numbness in feet. TECHNIQUE: 2 view(s) of the lumbar spine were obtained. COMPARISON: None FINDINGS: Normal lumbar lordosis. Mild, likely positional, dextroscoliosis. Normal vertebral alignment. Diffuse moderate lower thoracic and lumbosacral facet sclerosis. Diffuse mild intervertebral disc space narrowing. Osteophytes most marked at L2-3, L3-4 and L5-S1. Normal soft tissues. RAD/Lumbar Spine 2 or 3 Views IMPRESSION: Mild lower thoracic and lumbosacral spondylosis. Electronically Signed: Alejandro Livingston MD at 13:29 EDT ,
== END | disposition home or self-care (01) ==
LOC: RAD 12:28
PROVIDERS: PCP Internal Medicine; Referring Provider Nurse Practitioner; Visit Provider Nurse Practitioner
DX: G60.8 Other hereditary and idiopathic neuropathies (principal); G62.9 Polyneuropathy, unspecified; R20.0 Anesthesia of skin
CPT/HCPCS: 72100; 73630

== ENCOUNTER → 2024-03-09 | Outpatient (CLI) | payer BC, SELFPAY ==
--- NOTE | 2024-03-09 12:00 | NEURO_ITS ---
NCS and/or EMG Patient Report Ordering Doctor: PHILL BLACK DATE OF SERVICE: 03/09/24 Song presents for electrodiagnostic testing of the lower limbs. He reports numbness and tingling in the toes and the lateral lower legs bilaterally. Electrodiagnostic findings: Peroneal motor nerve demonstrates normal distal late ncy, amplitude and conduction velocity bilaterally. Normal tibial motor response bilaterally. H?reflexes borderline prolonged but laterally. Prolonged sural latency is noted bilaterally. Normal superficial peroneal response bilaterally. Needle EMG testing was performed in the lower limbs. All muscles tested showed no evidence of denervation with normal motor unit action potentials. Electrodiagnostic impression: This is an abnormal study in the lower limbs. 1. 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 This is consistent with the distribution of the patient's symptoms. 2. There is no electrodiagnostic evidence for peripheral polyneuropathy. 3. There is no electrodiagnostic evidence for lumbosacral radiculopathy. Multi Select Codes Neurology Neurology Interp Codes: 06853-65 Musc test done w/n test comp (interp) (2) and 20490-38 Nrv cndj test 9-10 studies (interp)
== END | disposition home or self-care (01) ==
PROVIDERS: PCP Internal Medicine; Referring Provider Nurse Practitioner; Visit Provider Nurse Practitioner
DX: R20.0 Anesthesia of skin (principal)
CPT/HCPCS: 95886; 95911

== ENCOUNTER → 2024-04-19 | Outpatient (CLI) | payer BC, SELFPAY ==
--- NOTE | 2024-04-19 09:08 | RAD_ITS ---
STUDY: X-RAY - LUMBAR SPINE REASON FOR EXAM: Male, 53 years old. back pain -- please do flex/ext TECHNIQUE: Flexion and extension 3 view(s) of the lumbar spine were obtained. COMPARISON: Lumbar spine February 22, 2024 FINDINGS: Full range of motion without evidence of instability. Normal lumbar lordosis. There is no substantial scoliosis. There is a normal alignment of the vertebrae. Normal vertebral bodies and endplates. Normal disc space heights. The soft tissue structures are unremarkable. RAD/L/S Spine Bending Flex/Ext IMPRESSION: Full range of motion without instability. Normal x-ray examination of the lumbar spine. Electronically Signed: Frederick Guevara MD at 0:20 EST ,
== END | disposition home or self-care (01) ==
LOC: MTRAD 09:08
PROVIDERS: PCP Internal Medicine; Referring Provider Orthopaedic Surgery Orthopaedic Surgery of the Spine; Visit Provider Orthopaedic Surgery Orthopaedic Surgery of the Spine
DX: M54.50 Low back pain, unspecified (principal)
CPT/HCPCS: 72120

== ENCOUNTER 2024-05-23 12:30 | Outpatient (RCR) | payer BC, SELFPAY ==
--- NOTE | 2024-05-04 15:20 | HP.PTEVAL_ITS ---
Patient's Visit Information Visit Information Visit Information: ROGER MCGOWAN is a 53 year old M referred to Physical Therapy by Dr. John Mckeon DPM with a diagnosis of 2/3 metatarsalgia. Date of Evaluation: 05/04/24 Physical Therapist: Teo Whitney DPT, OCS, CSCS Visit Plan Frequency: 1x/Week Duration: 4-6 Weeks Plan: orthotics molded adn sent to [facility] today, cut to fit when they arrive. RPW requested by doctor b/w 2/3 metatarsal on R foot and please do metatarsal mobs, ankle mobs for ROM weach session.Weekly x 3-4 to start. weekly x 4-6 weeks as helpful. IE: Ho given and demonstrated towel toe curls 50x, PF stretch 10 sec 10x and gastroc, soleus wall stretch 30 5x all daily. Subjective Subjective: Last year or so his R toes have been numb. X rays on back and feet and nerve testing in the llast couple months and eveything is good except a neuroma in bottom of R foot. Cortisone may help but might be temporary. 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 Symptoms are numbness in R foot like sock balled up in end of shoe. Worsening in the R foot. Can start to feel it in L foot some. No MRI yet. No worsening or time where it is not present. No pain. Still decent movement in toes. Sleep is OK. 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 50/50 stand and sit and irritating but not limiting. Balance is fine. Hobbies: Gaytan is no problem. No regular exercises or other treatments. Objective Objective: Unremarkable foot posture without much cavus or planus. neutral hindfoot today. Mild flattening of transverse arch. no pain. No tenderness in ankle or metatarsals, - tinels. No change to numbness with palpation or ROM. 5/5 ankle strength B. gastroc and soleus max tight B. AROM ankle DF -3 B, PF 45, inv 30 and eversion 15 without pain or symptoms change. Walking normal and able to raise on toes and heels without a problem. Balance/Special Test Scores Lower Extremity Functional Score: 76 Goals Goal 1:: diminished numbness in toes by 75% patient report Goal Time Frame: 4-6 Weeks Goal 2:: I management of condition Goal Time Frame: 4-6 Weeks Rehabilitation Potential Physical Therapy Diagnosis: numbness in foot worsening. Rehabilitation Potential: Questionable Anticipated Interventions Patient/Client Instruction: Educate patient on: Condition and Plan of Care Other: decrease numbnmess Therapeutic Exercise to Include: Flexibilty training, Passive ROM and Active ROM For the Purpose of:: To improve nutrient delivery to tissue and To increase oxygenation perfusion Manual Therapy Techniques to Include: Mobilization, Passive ROM and Soft tissue mobilization For the Purpose of:: To improve nutrient delivery to tissue and To increase oxygenation perfusion Comment: RPW metatraslgia 2/3 digit R foot For the Purpose of:: To improve nutrient delivery to tissue and To increase oxygenation perfusion Text: Thank you for the opportunity to evaluate your patient. For Medicare and Medicare HMO plans, please review the plan of care and approve it. It will need to be FAXED BACK to us at [phone] for Medicare purposes. For Medicare only, by signing this I certify the plan of care. Please let me know if there are questions or concerns regarding this plan of care. Physician Signature: Date:
--- NOTE | 2024-05-30 07:41 | HP.PTDCSUM ---
Discharge Summary D/C summary: It has been my pleasure to treat ROGER MCGOWAN referred by Dr. John Mckeon DPM, with the diagnosis of 2/3 metatarsalgia for a total of 4 visit(s). Discharge Date: 05/23/24 Please see the following information for a summary of their discharge status. Subjective Subjective: Pt. reports overall having some relief, but 8 hours at most. Pt. reports similar symptoms as previously. He reports being compliant with all of his stretches as exercises. His orthotics did come in and ready for fitting. Pt. rpeorts N/T currently. Objective Objective/Function: Pt. reports not much change with RPW treatments. He is still having tingling in his toes frequently. He does report that his orthotics fit well. He is to call back in if having issues. He had no adverse reaction with manual or with RPW treatment. Pt. reports overall not seeing the progress that he would have liked. His ROM is decent throughout his forefoot. At least point in time I would recommend going back to physician to determine best course of action. He is to wean into this orthotics, progressing ~1 hour per day. Pt. consents. Goals Goal 1:: diminished numbness in toes by 75% patient report Goal Progress: Progressing Goal 2:: I management of condition Goal Progress: Goal Met Plan Plan: DC patient today. D/C Information Discharge Comments: Pt. will be DC from PT today. He was treated with manual PT, orthotics and with RPW. HE continues to have marked tingling in his toes. He will be DC back to physician to determine best course of action at this point in time. d/c sentence: If there are questions or concerns regarding this patient's physical therapy, please feel free to call me at [phone]. Thank you for the referral of this patient. Sincerely, Brice Hawthorneos, DPT Balance/Gait/Functional tests Balance/Special Test Scores Lower Extremity Functional Score: 76
== END 2024-05-23 19:00 | disposition home or self-care (01) ==
LOC: PT 12:30
PROVIDERS: PCP Internal Medicine; Referring Provider Podiatrist; Visit Provider Podiatrist
DX: G57.83 Other specified mononeuropathies of bilateral lower limbs (principal)
CPT/HCPCS: 97140; 97161; 97760; 97763

== ENCOUNTER → 2024-06-23 | Outpatient (CLI) | payer BC, SELFPAY ==
[2024-06-23 08:35] LABS: Hematocrit 43.4 % (40-54); Mean Corp Hgb Conc 34.6 g/dL (32-36); Mean Corpuscular Hgb 30.6 pg (27.0-32.0); Mean Corpuscular Volume 88.6 fL (80-94); Mean Platelet Vol. 9.6 fl (6.2-12.0); Platelet Count 247 K/mm3 (150-450); RBC Distribution Width CV 12.6 % (11.6-14.6); RBC Distribution Width SD 40.8 fl (35.1-43.9); White Blood Count 5.5 K/mm3 (4.4-11.0)
[2024-06-23 09:13] LABS: ALB/GLOB Ratio 1.1 RATIO (0.9-2.4); AST(SGOT) 18 U/L (15-37); Alanine Aminotransfer ALT/SGPT 29 U/L (16-61); Albumin, Serum 3.6 g/dL (3.2-5.0); Alkaline Phosphatase 63 U/L (45-117); Anion Gap 6 (5-15); BUN 15 mg/dL (7-18); Calcium,Total 8.5 mg/dL (8.5-10.1); Chloride 105 mmol/L (98-107); Cholesterol 215 mg/dL (200); Creatinine, Serum 0.83 mg/dL (0.70-1.30); EST Glomerular Filtration Rate 102 mL/min (>60); Est Glom Filt Rate - Afr Amer 124 mL/min (>60); Globulin 3.3 g/dL (2.2-4.2); Glucose 120 mg/dL (74-106); High Density Lipoprotein 44 mg/dL; Potassium 4.3 mmol/L (3.5-5.1); Protein, Total 6.9 g/dL (6.4-8.2); Sodium Level 137 mmol/L (136-145); Triglycerides 131 mg/dL; Very Low Density Lipoprotein 26 mg/dL (5-40)
[2024-06-23 13:44] LABS: Hemoglobin A1c 6.2 % (3.8-5.6)
== END | disposition home or self-care (01) ==
LOC: LAB 07:37
PROVIDERS: PCP Internal Medicine; Referring Provider Nurse Practitioner; Visit Provider Nurse Practitioner
DX: Z00.00 Encounter for general adult medical examination without abnormal findings (principal); E66.01 Morbid (severe) obesity due to excess calories; I10 Essential (primary) hypertension; R73.03 Prediabetes; E66.812 Obesity, class 2; Z68.35 Body mass index [BMI] 35.0-35.9, adult
CPT/HCPCS: 36415; 80053; 80061; 83036; 84443; 85027

== ENCOUNTER → 2024-09-24 | Outpatient (CLI) | payer BC, SELFPAY ==
--- NOTE | 2024-09-24 07:33 | MRI_ITS ---
EXAM: MRI right foot without contrast CLINICAL HISTORY: Right foot metatarsalgia. COMPARISON: None. TECHNIQUE: Multiplanar multisequence MRI of the right foot without contrast. Midfoot and forefoot were evaluated only. FINDINGS: Hindfoot is not evaluated. Imaged midfoot and forefoot are unremarkable. Normal marrow signal. No degenerative changes. No intermetatarsal bursitis or Galindo's neuroma identified. Plantar plates are intact. Imaged tendons are normal. Hallux sesamoids are normal. Lisfranc interosseous ligament is intact. Musculature of the foot is unremarkable. MRI/Lower Ext/No Jt/w/o IMPRESSION: Normal exam. No evidence of bursitis or neuroma. No occult fracture, marrow e blair, or degenerative changes identified. Reading Location: [facility]
== END | disposition home or self-care (01) ==
LOC: MRI 07:04
PROVIDERS: PCP Internal Medicine; Referring Provider Nurse Practitioner; Visit Provider Nurse Practitioner
DX: M77.41 Metatarsalgia, right foot (principal); D36.10 Benign neoplasm of peripheral nerves and autonomic nervous system, unspecified
CPT/HCPCS: 73718

== ENCOUNTER → 2024-11-09 | Outpatient (CLI) | payer BC, SELFPAY ==
[2024-11-09 17:15] LABS: Anion Gap 10 (5-15); BUN 16 mg/dL (4-19); BUN/Creat Ratio 19.7 RATIO (10-20); Calcium,Total 8.9 mg/dL (7.6-11.0); Carbon Dioxide 25.5 mmol/L (21.0-32.0); Chloride 102 mmol/L (98-108); Creatinine, Serum 0.79 mg/dL (0.70-1.20); EST Glomerular Filtration Rate 106 (>60); Glucose 87 mg/dL (70-99); Potassium 4.4 mmol/L (3.3-5.1); Sodium Level 138 mmol/L (133-145)
[2024-11-09 17:36] LABS: Hemoglobin A1c 5.8 % (<=5.6)
[2024-11-09 17:59] LABS: Cholesterol 180 mg/dL (<=200); High Density Lipoprotein 41 mg/dL; Low Density Lipoprotein Calc. 125 mg/dL; Triglycerides 71 mg/dL; Very Low Density Lipoprotein 14 mg/dL (5-40); cholesterol:hdl ratio screen 4.42
--- OUTSIDE RECORDS SUMMARY | 2024-11-09 22:25 | XMS RPT_ITS | CCD ---
Author Organization [facility] Care Team Providers Care Washing And Screening Plant Supervisor Name Role Phone Dr. Aidan Bright Primary Care Provider Dr. Aidan Bright Referring Provider DoctorDr. Arce Attending Provider Dr. Aidan Bright Primary Care Provider Dr. Aidan Bright Referring Provider Roof DIRECTOR OF RECRUITMENT, DIRECTOR OF RECRUITMENT-C Rambo Kulkarni Attending Provider Aidan Bright MD Primary Care Provider Dr. Aidan Bright Primary Care Provider Dr. Aidan Bright Referring Provider Dr. Jhonatan Robledo Attending Provider Dr. Jhonatan Robledo Other Provider Aidan Bright MD Primary Care Provider Aidan Bright MD Primary Care Provider Aidan Bright MD Primary Care Provider SELF, SELF Referring Unavailable AIDAN BRIGHT Primary Care Unavailable MARCUS NUNEZ Attending Unavailable Ashanti Santos PA-C Unavailable [phone] Older ASSOCIATE MARKETING MANAGER.CHARLES, Cheri Unavailable Zoila Tobar PA-C Unavailable Dr. Aidan Bright MD Primary Care Provider OLDER DIRECTOR OF RECRUITMENT-CCHERI Attending Provider OLDER DIRECTOR OF RECRUITMENT-C, CHERI Referring Provider Jeremias Brown Attending Unavailable Ganta, Aidan Primary Care Unavailable OLDER, CHERI Referring Unavailable OLDER, CHERI Consulting Unavailable OLDER, CHERI Referring Unavailable OLDER, CHERI Attending Unavailable Ganta, Aidan Primary Care Unavailable Ganta, Aidan Primary Care Unavailable Ganta, Aidan Attending Unavailable Ganta, Aidan Referring Unavailable Wunning, John Consulting Unavailable OLDER, CHERI Attending Unavailable OLDER, CHERI Referring Unavailable Ganta, Aidan Primary Care Unavailable Ganta, Aidan Primary Care Unavailable OLDER, CHERI Attending Unavailable OLDER, CHERI Referring Unavailable Ganta, Aidan Primary Care Unavailable Boateng, Daniel Attending Unavailable Boateng, Daniel Referring Unavailable Ganta, Aidan Primary Care Unavailable Wunning, John Attending Unavailable Wunning, John Referring Unavailable Ganta, Aidan Primary Care Unavailable OLDER, CHERI Referring Unavailable OLDER, CHERI Attending Unavailable Rasheeda Quiroz Attending Unavailabl e Ganta, Aidan Primary Care Unavailable Ganta, Aidan Referring Unavailable Ganta, Aidan Primary Care Unavailable Boateng, Daniel Attending Unavailable Ganta, Aidan Referring Unavailable SELF Referring Unavailable OLDER, CHERI Attending Unavailable GANTA, AIDAN Primary Care Unavailable GANTA, AIDAN Primary Care Unavailable OLDER, CHERI Attending Unavailable GANTA, AIDAN Primary Care Unavailable OLDER, CHERI Attending Unavailable Allergies Allergy Classification Reported Allergen(s) Allergy Type Date of Onset Reaction(s) Facility (20 sources) Azithromycin; Translations: [AZITHROMYCIN] Drug Allergy 8 GI Upset, Dyspepsia [facility] Work Phone: (20 sources) Lisinopril; Translations: [LISINOPRIL] Drug Allergy 9 Cough [facility] Work Phone: (1 source) Lisinopril Propensity to adverse reactions to drug 9 Cough [facility] (1 source) Azithromycin Drug Allergy 4 [facility] Repository Medications Current Medications Medication Drug Class(es) Dates Sig (Normalized) Sig (Original) amLODIPine 5 mg oral tablet (20 sources) Dihydropyridine Calcium Channel Fátima Start: 12-21-2022 End: 12-09-2023 take 1 tablet by mouth once daily Amlodipine 10 mg tablet Active 10 mg PO DAILY 90 December 09, 2023 5:10pm Start: 11-18-2022 End: 12-21-2022 take 2 tablets by mouth once daily Amlodipine 5 mg tablet Discontinued 10 mg PO DAILY November 18, 2022 4:17pm December 21, 2022 10:32am Start: 11-18-2022 End: 12-21-2022 take 10 mg by mouth once daily Amlodipine Discontinued 10 MG PO DAILY November 18, 2022 4:17pm December 21, 2022 10:32am Start: 06-30-2022 End: 06-22-2024 take 1 tablet by mouth once daily amLODIPine (NORVASC) 5 mg tablet Take 1 tablet by mouth once daily. 90 tablet 1 06/22/2024 Active Comment on above: Take 1 tablet by krysten th once daily. Take 5 mg by mouth. CPAP (20 sources) Start: 08-29-2021 CPAP Initiate Auto PAP @ 7-15 cm of water with humidification. Mask (per patient preference) optional chin strap (if indicated) , filters, tubing, humidifier and lifetime supplies. 1 Each 08/29/2021 Active Start: 08-29-2021 CPAP Initiate Auto PAP @ 7-15 cm of water with humidification. Mask (per patient preference) optional chin strap (if indicated) , filters, tubing, humidifier and lifetime supplies. 1 Each 0 08/29/2021 Active Comment on above: Initiate Auto PAP @ 7-15 cm of water with humidification. Mask (per patient preference) optional chin strap (if indicated) , filters, tubing, humidifier and lifetime supplies. tirzepatide, weight loss (ZEPBOUND) 2.5 mg/0.5 mL pen injector (5 sources) Start: 08-15-2024 tirzepatide, weight loss (ZEPBOUND) 2.5 mg/0.5 mL pen injector Indications: Class 1 obesity with serious comorbidity and body mass index (BMI) of 31.0 to 31.9 in adult, unspecified obesity type , At high risk for cardiovascular disease , Hyperinsulinemia , Prediabetes Inject 2.5 mg subcutaneously one time a week. 6 mL 08/15/2024 Active Start: 06-27-2024 End: 08-15-2024 tirzepatide, weight loss (ZE PBOUND) 2.5 mg/0.5 mL pen injector Indications: Class 2 obesity with body mass index (BMI) of 35.0 to 35.9 in adult, unspecified obesity type, unspecified whether serious comorbidity present , At high risk for cardiovascular disease , Hyperinsulinemia , Prediabetes Inject 2.5 mg subcutaneously one time a week. 6 mL 06/27/2024 08/15/2024 Discontinued Start: 06-27-2024 tirzepatide, w eight loss (ZEPBOUND) 2.5 mg/0.5 mL pen injector Indications: Class 2 obesity with body mass index (BMI) of 35.0 to 35.9 in adult, unspecified obesity type, unspecified whether serious comorbidity present , At high risk for cardiovascular disease , Hyperinsulinemia , Prediabetes Inject 2.5 mg subcutaneously one time a week. 6 mL 06/27/2024 Active valACYclovir 1000 mg oral tablet (20 sources) Herpesvirus Nucleoside Analog DNA Polymerase Inhibitor, Herpes Simplex Virus Nucleoside Analog DNA Polymerase Inhibitor, Herpes Zoster Virus Nucleoside Analog DNA Polymerase Inhibitor Start: 04-19-2024 take 1 tablet by mouth twice daily as needed Valacyclovir (Valtrex) 500 mg tablet Active 500 mg PO TWICE A DAY as needed April 19, 2024 1:00am Start: 01-29-2023 End: 02-07-2023 take 1 tablet by mouth three times daily valACYclovir (VALTREX) 1 gram Take 1 tablet by mouth three times daily for 3 days. 9 tablet 0 02/04/2023 02/07/2023 Active Start: 10-10-2022 End: 06-22-2024 take 2 tablets by mouth twice daily valACYclovir (VALTREX) 1 gram tablet Indications: Herpes simplex labialis Take by mouth. 2 tablets twice a day 32 tablet 2 06/22/2024 Active Start: 09-26-2022 take 2 tablets by mo uth twice daily valACYclovir (VALTREX) 1 gram Indications: Herpes simplex labialis Take by mouth. 2 tablets twice a day 32 tablet 2 09/26/2022 Active Start: 09-19-2022 take 1 tablet by krysten th once daily valACYclovir (VALTREX) 1 gram Indications: Herpes simplex labialis Take 1 tablet by mouth once daily. Take for 5 days 5 tablet 2 09/19/2022 Active Start: 05-21-2022 End: 01-21-2024 Valacyclovir 1 gram tablet Discontinued 1000 mg PO ONCE as needed November 18, 2022 3:31pm January 21, 2024 2:20pm Start: 05-21-2022 End: 11-18-2022 take 1000 mg by mouth once Valacyclovir Active 1000 MG PO ONCE November 18, 2022 3:31pm Start: 05-13-2021 take 2 tablets by mo [facility] twice daily valACYclovir (VALTREX) 1 gram Indications: Herpes simplex labialis Take by mouth. 2 tablets twice a day 32 tablet 2 05/13/2021 Active Comment on above: Take by mouth. 2 tab lets twice a day Take 1 tablet by krysten once daily. Take for 5 days Take 1 tablet by krysten three times daily for 7 days. Take 1 tablet by krysten three times daily for 3 days. Completed/Discontinued Medications Medication Drug Class(es) Dates Sig (Normalized) Sig (Original) amoxicillin 875 mg / clavulanate 125 mg oral tablet (14 sources) Penicillin-class Antibacterial Start: 12-14-2022 End: 12-21-2022 Amoxicillin-Pot Clavulanate 875-125 mg tablet Discontinued 1 {tbl} PO TWICE A DAY 14 December 14, 2022 12:00am December 20, 2022 12:00am December 21, 2022 12:03am Start: 12-14-2022 End: 12-21-2022 take 1 tablet by mouth twice daily Amoxicillin-Pot Clavulanate Discontinued 1 TABLET PO TWICE A DAY 14 December 14, 2022 12:00am December 21, 2022 12:03am Start: 11-30-2020 End: 12-10-2020 Amoxicillin-Pot Clavulanate (Augmentin) 875-125 mg tablet Discontinued 1 {tbl} PO Q12H 20 November 30, 2020 12:00am December 09, 2020 12:00am December 10, 2020 12:01am aspirin 81 mg delayed release oral tablet (17 sources) Platelet Aggregation Inhibitor, Nonsteroidal Anti-inflammatory Drug Start: 10-13-2007 End: 11-30-2020 take 1 tablet by mouth once daily Aspirin 81 mg tablet,delayed release (DR/EC) Discontinued 81 mg PO daily May 04, 2017 1:00am November 30, 2020 11:28am Comment on above: Take one(1) tablet d aily. cyclobenzaprine hydrochloride 5 mg oral tablet (16 sources) Muscle Relaxant Start: 12-14-2022 End: 12-21-2022 take 1 tablet by mouth three times daily as needed for muscle spasms Cyclobenzaprine 5 mg tablet Discontinued 5 mg PO THREE TIMES A DAY as needed for muscle spasm 7 December 14, 2022 12:00am December 20, 2022 12:00am December 21, 2022 12:03am Start: 07-20-2020 End: 11-18-2022 take 1 tablet by mouth at bedtime Cyclobenzaprine 10 mg tablet Discontinued 10 mg PO BEDTIME May 21, 2022 1:00am November 18, 2022 3:31pm Comment on above: Take 0.5-1 tablets b y mouth at bedtime as needed for Muscle Spasm. gabapentin 300 mg oral capsule (7 sources) Anti-epileptic Agent Start: 02-04-2023 End: 07-15-2023 take 1 capsule by mouth once daily at bedtime gabapentin (NEURONTIN) 300 mg capsule Take 1 capsule by mouth daily at bedtime for 60 days. 30 capsule 1 02/04/2023 07/15/2023 Discontinued Start: 01-29-2023 End: 03-30-2023 take 1 capsule by mouth once daily at bedtime gabapentin (NEURONTIN) 100 mg capsule Take 1 capsule by mouth daily at bedtime for 60 days. 30 capsule 1 01/29/2023 02/04/2023 Discontinued Comment on above: Take 1 capsule by mo [facility] daily at bedtime for 60 days. hydroCHLOROthiazide 25 mg oral tablet (18 sources) Thiazide Diuretic Start: 2016 End: 2022 take 1 tablet by mouth once daily Hydrochlorothiazide 25 mg tablet Discontinued 25 mg PO daily May 04, 2017 1:00am June 30, 2022 12:49pm Comment on above: [facility] hydrOXYzine hydrochloride 25 mg oral tablet (4 sources) Antihistamine Start: 2022 End: 2023 take 1 tablet by mouth every eight hours as needed hydrOXYzine HCl (ATARAX) 25 mg tablet Take 1 tablet by mouth three times a day as needed for anxiety (and/or insomnia). 30 tablet 1 05/01/2023 07/15/2023 Discontinued Comment on above: Take 1 tablet by krysten three times a day as needed for anxiety (and/or insomnia). predniSONE 10 mg oral tablet (4 sources) Start: 2022 End: 2022 Prednisone 10 mg tablet Discontinued 10 mg PO .COMPLEX 35 December 14, 2022 12:00am December 28, 2022 12:00am December 21, 2022 10:30am 10 mg orally; 40mg x5 days, 20mg x5 days, 10mg x5 days Start: 12-14-2022 End: 12-21-2022 Prednisone Discontinued 10 M G PO .COMPLEX 35 December 14, 2022 12:00am December 21, 2022 10:30am 10 mg orally; 40mg x5 days, 20mg x5 days, 10mg x5 days sertraline 50 mg oral tablet (4 sources) Serotonin Reuptake Inhibitor Start: 05-01-2023 End: 07-15-2023 take 1 tablet by mouth once daily sertraline (ZOLOFT) 50 mg tablet Take 1 tablet by mouth once daily. 30 tablet 1 05/01/2023 07/15/2023 Discontinued (Discontinued by Patient) Comment on above: Take 1 tablet by krysten once daily. sulfamethoxazole 800 mg / trimethoprim 160 mg oral tablet (12 sources) Dihydrofolate Reductase Inhibitor Antibacterial, Sulfonamide Antimicrobial Start: 09-17-2023 End: 01-21-2024 Sulfamethoxazole-T rimethoprim 800-160 mg tablet Discontinued 1 {tbl} PO TWICE A DAY September 17, 2023 12:00am January 21, 2024 2:20pm Start: 09-17-2023 take 1 tablet by krysten twice daily Sulfamethoxazole-Trimethoprim Active 1 T ABLET PO TWICE A DAY September 17, 2023 12:00am Start: 05-04-2017 End: 05-09-2017 Sulfamethoxazole-Trimethopri m 800-160 mg tablet Discontinued 1 {tbl} PO TWICE A DAY 02 26May 04, 2017 1:00am May 08, 2017 1:00am May 09, 2017 1:06am Start: 05-04-2017 End: 05-09-2017 take 1 tablet by mouth twice daily Sulfamethoxazole-Trimethoprim Discontinu ed 1 TABLET PO TWICE A DAY 10 May 04, 2017 1:00am May 09, 2017 1:06am Problems Active Problems Problem Classification Problem Date Documented Date Episodic/Chronic Administrative/social admission (2 sources) Sickness in the family; Translations: [Other stressful life events affecting family and household] 05-03-2023 Episodic Anxiety disorders (3 sources) Anxiety; Translations: [Other specified anxiety disorders] 04-10-2023 Chronic Disorders of lipid metabolism (9 sources) Mixed hyperlipidemia; Translations: [Mixed hyperlipidemia] Chronic Essential hypertension (20 sources) Benign hypertension; Translations: [Essential (primary) hypertension] Onset: 10-04-2007 Chronic Genitourinary symptoms and ill-defined conditions (1 source) Increased frequency of urination; Translations: [Frequency of micturition] 07-15-2023 Episodic Hyperplasia of prostate (3 sources) Benign prostatic hyperplasia; Translations: [Benign prostatic hyperplasia with lower urinary tract symptoms] Onset: 10-30-2023 10-30-2023 Chronic Mood disorders (2 sources) Reactive depression (situational); Translations: [Major depressive disorder, single episode, unspecified] 05-03-2023 Chronic Other and unspecified benign neoplasm (2 sources) Neuroma; Translations: [Benign neoplasm of peripheral nerves and autonomic nervous system, unspecified] 08-15-2024 Episodic Other connective tissue disease (4 sources) Spasm; Translations: [Other muscle spasm] 12-14-2022 Episodic Other connective tissue disease (1 source) Pain in right foot; Translations: [Pain in right foot] 02-03-2024 Episodic Other connective tissue disease (2 sources) Metatarsalgia of right foot; Translations: [Metatarsalgia, right foot] 08-15-2024 Episodic Other connective tissue disease (1 source) Metatarsalgia, right foot; Translations: [Metatarsalgia, right foot] Onset: 09-29-2024 Episodic Other endocrine disorders (2 sources) Hyperinsulinism; Translations: [Other hypoglycemia] 06-27-2024 Chronic Other lower respiratory disease (1 source) Chronic cough; Translations: [Chronic cough] Episodic Other male genital disorders (10 sources) Pain of right testicle; Translations: [Right testicular pain] 05-21-2022 Episodic Other nervous system disorders (3 sources) Sural neuropathy; Translations: [Unspecified mononeuropathy of unspecified lower limb] 03-28-2024 Chronic Other nervous system disorders (1 source) Other hereditary and idiopathic neuropathies; Translations: [Other hereditary and idiopathic neuropathies] Onset: 03-22-2024 Chronic Other nervous system disorders (1 source) Numbness of toe; Translations: [Anesthesia of skin] 04-10-2023 Episodic Other nervous system disorders (6 sources) Numbness of foot ; Translations: [Anesthesia of skin] 02-03-2024 Episodic Other nutritional; endocrine; and metabolic disorders (1 source) Severe obesity; Translations: [Class 2 severe obesity with serious comorbidity and body mass index (BMI) of 35.0 to 35.9 in adult, unspecified obesity type (HCC)] 06-22-2024 Chronic Other nutritional; endocrine; and metabolic disorders (2 sources) Obesity; Translations: [Class 2 obesity with body mass index (BMI) of 35.0 to 35.9 in adult, unspecified obesity type, unspecified whether serious comorbidity present] 06-27-2024 Chronic Other nutritional; endocrine; and metabolic disorders (1 source) Morbid (severe) obesity due to excess calories; Translations: [Class 2 severe obesity with serious comorbidity and body mass index (BMI) of 35.0 to 35.9 in adult, unspecified obesity type (HCC)] Onset: 06-22-2024 Chronic Other nutritional; endocrine; and metabolic disorders (1 source) Body mass index (BMI) 35.0-35.9, adult; Translations: [Class 2 severe obesity with serious comorbidity and body mass index (BMI) of 35.0 to 35.9 in adult, unspecified obesity type (HCC)] Onset: 06-22-2024 Chronic Other screening for suspected conditions (not mental disorders or infectious disease) (2 sources) Encounter for screening for malignant neoplasm of prostate; Translations: [Encounter for screening for malignant neoplasm of prostate] Onset: 10-30-2023 Episodic Other upper respiratory infections (14 sources) Acute sinusitis; Translations: [Acute sinusitis, unspecified] 05-21-2022 Episodic Residual codes; unclassified (3 sources) Sleep apnea; Translations: [Other sleep apnea] Chronic Residual codes; unclassified (6 sources) Obstructive sleep apnea syndrome; Translations: [Obstructive sleep apnea (adult) (pediatric)] 05-21-2022 Chronic Residual codes; unclassified (1 source) Other sleep apnea; Translations: [Other sleep apnea] Onset: 02-03-2024 Chronic Residual codes; unclassified (10 sources) Other specified health status; Translations: [Patient travels] 03-06-2021 Episodic Residual codes; unclassified (2 sources) Insomnia; Translations: [Insomnia, unspecified] 05-03-2023 Episodic Residual codes; unclassified (2 sources) Other specified personal risk factors, not elsewhere classified; Translations: [Other specified personal history presenting hazards to health] 06-27-2024 Episodic Spondylosis; intervertebral disc disorders; other back problems (1 source) Lumbar spondylosis; Translations: [Spondylosis without myelopathy or radiculopathy, lumbar region] 04-19-2024 Chronic Syncope (9 sources) Vasovagal syncope; Translations: [Syncope and collapse] Episodic Unclassified (2 sources) Low back pain, unspecified; Translations: [Low back pain, unspecified] Onset: 04-19-2024 Unclassified (1 source) Class 2 severe obesity with serious comorbidity and body mass index (BMI) of 35.0 to 35.9 in adult, unspecified obesity type (HCC); Translations: [Class 2 severe obesity with serious comorbidity and body mass index (BMI) of 35.0 to 35.9 in adult, unspecified obesity type (HCC)] Onset: 06-22-2024 Urinary tract infections (2 sources) Acute urinary tract infection; Translations: [Urinary tract infection, site not specified] 09-17-2023 Episodic Past or Other Problems Problem Classification Problem Date Documented Date Episodic/Chronic Abdominal pain (11 sources) Abdominal pain; Translations: [Unspecified abdominal pain] Onset: 04-14-2005 Resolved: 12-29-2014 12-29-2014 Episodic Biliary tract disease (11 sources) Biliary calculus; Translations: [Calculus of gallbladder without cholecystitis without obstruction] Onset: 06-11-2012 Resolved: 09-21-2017 09-21-2017 Episodic Diabetes mellitus without complication (7 sources) Prediabetes; Translations: [Prediabetes] Onset: 02-03-2024 07-15-2023 Episodic Headache; including migraine (11 sources) Migraine; Translations: [Migraine, unspecified, not intractable, without status migrainosus] Onset: 03-31-2011 Resolved: 12-29-2014 12-29-2014 Chronic Immunizations and screening for infectious disease (20 sources) Patient encounter status; Translations: [Encounter for screening for COVID-19] Onset: 08-05-2007 Episodic Inflammatory conditions of male genital organs (11 sources) Prostatocystitis; Translations: [Prostatocystitis] Onset: 04-14-2005 Resolved: 12-29-2014 12-29-2014 Episodic Other connective tissue disease (1 source) Pain in right foot; Translations: [Right foot pain] Onset: 02-03-2024 Episodic Other diseases of veins and lymphatics (11 sources) Varicocele; Translations: [Scrotal varices] Onset: 04-14-2005 Resolved: 09-21-2017 09-21-2017 Episodic Other male genital disorders (11 sources) Male infertility; Translations: [Male infertility, unspecified] Onset: 04-14-2005 Resolved: 12-29-2014 12-29-2014 Episodic Other male genital disorders (11 sources) Pain in testicle; Translations: [Testicular pain, unspecified] Onset: 09-04-2009 Resolved: 12-29-2014 12-29-2014 Episodic Other nervous system disorders (3 sources) Anesthesia of skin; Translations: [Anesthesia of skin] Onset: 02-03-2024 Episodic Viral infection (6 sources) Herpes labialis; Translations: [Herpesviral vesicular dermatitis] Onset: 06-22-2024 Episodic Results Test Name Value Interpretation Reference Range Facility [facility] 10-18-2024 [facility]ER [facility] ([id number]) 1970 M Date Time Provider Department 10/18/24 AIDAN BRIGHT [facility] During your visit today, we recorded the following information about you: Juana Reece LPN 10/18/2024 4:31 PM Signed Pt's last OV: 08/15/24 calls in regards to MRI of right foot done at [facility] on 09/24/24(results scanned in pt's chart). reports she had wanted MRI of pt's back also. is requesting results of Mri of foot. Also requesting MRI of pt's back because issues with lower back can cause numbness in feet. Please review and advise. ROE You Joy, APRN.CHARLES 10/21/2024 7:46 AM Signed I agree, but with normal xrays, I would like him to see a neurologist for further examination prior to anymore diagostic studies. I have placed the order. Please fax consult to wherever they need it sent Thank you Cheri Torres APRN.Vesta Dawson MA 10/21/2024 10:55 AM Signed Left detailed message on 's secure VM. Clau Brown RN 11/01/2024 10:03 AM Signed Patient's calls back and states that she had contacted Dr. Julián Miguel office with [facility]. states that this is where patient would like to go. states that this office is requiring PCP to order the MRI of Back. asking if provider can order this and fax order to [facility]. requesting to be notified if able to place order and when order is faxed to [facility]. Please review and advise, KURT Young Joy, APRN.CHARLES 11/04/2024 12:53 PM Signed Unfortunately he will need to come in for full exam and documentation for insurance to make sure this is covered. Thank you Cheri Torres APRN.Daysi Machuca MA 11/04/2024 1:48 PM Signed Spoke to on 11/14 has appointment in office will keep and discuss than Daysi Anderson MA Allergies As of Date: 10/18/2024 Noted Allergy Reaction LISINOPRIL 01/09/2009 3 - Cough ZITHROMAX Z-ENDER (AZITHROMYCIN) 08/11/2007 8 - GI Upset Date Reviewed: 08/15/2024 Reviewed by: Vesta Lorenzo MA - Fully Assessed Reason for Visit: Results [95] Orders [681] Primary Visit Diagnosis:Sural neuropathy, unspecified laterality [G57.90] Other Visit Diagnosis:Numbness in feet [R20.0] Order(s):CONSULT TO NEUROLOGY [9046] Order #: [id number]: 1 FUTURE Prescriptions as of 11/04/2024 - tirzepatide, weight loss (ZEPBOUND) 2.5 mg/0.5 mL pen injector Inject 2.5 mg subcutaneously one time a week. - amLODIPine (NORVASC) 5 mg tablet Take 1 tablet by mouth once daily. - valACYclovir (VALTREX) 1 gram tablet Take by mouth. 2 tablets twice a day - CPAP Initiate Auto PAP @ 7-15 cm of water with humidification. Mask (per patient preference) optional chin strap (if indicated) , filters, tubing, humidifier and lifetime supplies. 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] 04/14/2005 09/21/2017 STERILIZATION [Z30.2] 08/05/2007 Essential hypertension [I10] 10/04/2007 Pain in testicle [N50.819] 09/04/2009 12/29/2014 Migraine [G43.909] 03/31/2011 12/29/2014 Cholelithiasis [K80.20] 06/11/2012 09/21/2017 Encounter for annual health examination [Z00.00]07/22/2012 Routine general medical examination at [facility]*12/26/2012 12/26/2012 Encounter Status:Closed by DAYSI ANDERSON on 11/04/24 [facility] Lower Ext/No Jt/w/oon 2024 Lower Ext/No Jt/w/o [facility] Imaging Services [address] [place] [address] [place], [place] [id number] Lower Ext/No Jt/w/o MR#: [id number] Acct: [id number] Name: ROGER MASON Rep #: [id number] : 1970 M 53 From: Joe Valentino DO PCP: Dr. Aidan Bright MD Status: REG CLI Study: Lower Ext/No Jt/w/o Date of Exam: 09/24/24 Exam# [id number] Ordering Dr: CHERI TORRES EXAM: MRI right foot without contrast CLINICAL HISTORY: Right foot metatarsalgia. COMPARISON: None. TECHNIQUE: Multiplanar multisequence MRI of the right foot without contrast. Midfoot and forefoot were evaluated only. FINDINGS: Hindfoot is not evaluated. Imaged midfoot and forefoot are unremarkable. Normal marrow signal. No degenerative changes. No intermetatarsal bursitis or Galindo's neuroma identified. Plantar plates are intact. Imaged tendons are normal. Hallux sesamoids are normal. Lisfranc interosseous ligament is intact. Musculature of the foot is unremarkable. MRI/Lower Ext/No Jt/w/o IMPRESSION: Normal exam. No evidence of bursitis or neuroma. No occult fracture, marrow edema, or degenerative changes identified. Reading Location: [facility] CC: KE TORRES; Dr. Aidan Bright MD Solvent Station Attendant: Signed Normal [facility] Magnetic resonance imaging r eportOrdered By: Joe Valentino on 09-24-2024 Study report [facility] Imaging Services [address] [place] [address] Lower Ext/No Jt/w/o MR#: [id number] Acct: [id number] Name: ROGER MASON Rep #: [id number] : 1970 M 53 From: Joe Valentino DO PCP: Dr. Aidan Bright MD Status: REG C LI Study:Lower Ext/No Jt/w/o Date of Exam: 09/24/24 Exam# [id number] Ordering Dr: KARL TORRES EXAM: MRI right foot without contrast CLINICAL HISTORY: Right foot metatarsalgia. COMPARISON: None. TECHNIQUE: Multiplanar multisequence MRI of the right foot without contrast. Midfoot and forefoot were evaluated only. FINDINGS: Hindfoot is not evaluated. Imaged midfoot and forefoot are unremarkable. Normal marrow signal. No degenerative changes. No intermetatarsal bursitis or Galindo's neuroma identified. Plantar plates are intact. Imaged tendons are normal. Hallux sesamoids are normal. Lisfranc interosseous ligament is intact. Musculature ofthe foot is unremarkable. MRI/Lower Ext/No Jt/w/o IMPRESSION: Normal exam. No evidence of bursitis or neuroma. No occult fracture, marrow edema, or degenerative changes identified. Reading Location: [facility] CC: KE TORRES; Dr. Aidan Bright MD ~ Solvent Station Attendant: S[facility] Office [facility] (INTMWS ) ROGER MASON ([id number]) 1970 M Date Time Provider Department 08/15/24 3:20 PM CHERI TORRES During your visit today, we recorded the following information about you: Pulse Respiration Blood pressure Weight 72/minute 16/minute 132/80 103 kg Cheri Torres APRN.FOOD PRODUCTION MANAGER 08/15/2024 4:31 PM Signed CC: Patient presents with: Recheck: Medication follow up HPI Roger Mason is a 53 year old male who presents today for follow up on starting zepbound for weight loss. Started this medication almost 8 weeks ago and has lost almost 27 pounds. Has been changing his diet. Has stopped eating bread, chips, junk food, and soda. Working out by cutting wood and working in the yard along with increasing lean meats. No symptoms of low blood sugar. Denies nausea, vomiting, constipation, or other concerns. Still with the numbness and tingling that was discussed in last visits that he was hoping losing weight would help. Has had an EMG that he went to podiatry for, went to physical therapy and had stretching, used sole inserts, but nothing is helping. Is needing an MRI for further evaluation. Xray of right foot was normal but thought to have a neuroma REVIEW OF SYSTEMS See HPI PAST MEDICAL HISTORY Diagnosis Date Unspecified essential hypertension 10/04/2007 PAST SURGICAL HISTORY Procedure Laterality Date EXC VARICOCELE/LIGATION SPERMATIC VEINS SPX 2006 Variocele repair LAPS SURG CHOLECSTC W/EXPL COMMON DUCT 06-22-12 [facility] VASECTOMY 2006 ALLERGIES Lisinopril and Zithromax Z-Ender [Azithromycin] MEDICATIONS tirzepatide, weight loss (ZEPBOUND) 2.5 mg/0.5 mL pen injector Inject 2.5 mg subcutaneously one time a week. amLODIPine (NORVASC) 5 mg tablet Take 1 tablet by mouth once daily. valACYclovir (VALTREX) 1 gram tablet Take by mouth. 2 tablets twice a day CPAP Initiate Auto PAP @ 7-15 cm of water with humidification. Mask (per patient preference) optional chin strap (if indicated) , filters, tubing, humidifier and lifetime supplies. FAMILY HISTORY Problem Relation Age of Onset Heart Father enlarged heart Hypertension Mother Social History Tobacco Use Smoking status: Never Smokeless tobacco: Never Substance Use Topics Alcohol use: Yes Comment: occasional PHYSICAL EXAM BP 132/80 Pulse 72 Resp 16 Wt 103 kg (227 lb) SpO2 97% BMI 31.43 kg/m? General Appearance: well appearing, in no acute distress, alert Pysch: mood and affect broad and appropriate Eyes: conjunctiva pink and moist, no icterus, sclera white, non-injected Lungs: Lungs clear to auscultation. No wheezing, rhonchi, rales. Heart: RRR without murmur, gallop, or rubs. No ectopy Health maintenance reviewed with patient: Depression Screening Never done Anxiety Screening Never done Hepatitis C Screening Never done HIV Screening Never done BP Controlled (<130/80) Never done Diabetes Screening due on 09/21/2020 Shingrix Vaccine(1 of 2) Never done Pneumococcal Vaccine: 50+(1 of 1 - PCV) Never done Lipid Screening due on 09/21/2022 Influenza Vaccine(1) due on 11/21/2024 Hepatitis B Vaccine(1 of 3 - 19+ 3-dose series) due on 02/02/2025 Colorectal Cancer Screening due on 01/23/2031 Annual PCP Team Chronic Disease Visit due on 06/22/2025 DTaP,Tdap,Td Vaccine(3 - Td or Tdap) due on 10/10/2032 Covid-19 Vaccine Discontinued DATA REVIEWED: Most recent imaging ASSESSMENT/PLAN: 1. Class 1 obesity with serious comorbidity and body mass index (BMI) of 31.0 to 31.9 in adult, unspecified obesity type - ICD9: 278.00, V85.31, ICD10: E66.811, Z68.31 (primary diagnosis) Weight decreasing - Behavioral and pharmacological intervention - TIRZEPATIDE (WEIGHT LOSS) 2.5 MG/0.5 ML SUBCUTANEOUS PEN INJECTOR - tolerating well and losing weight, will continue this dose Follow up in 3months 2. Metatarsalgia of right foot - ICD9: 726.70, ICD10: M77.41 Has done PT and used orthotics with no improvement in symptoms - MRI FOOT/TOES WO IVCON RIGHT 3. Neuroma - ICD9: 215.9, ICD10: D36.10 As above - MRI FOOT/TOES WO IVCON RIGHT 4. At high risk for cardiovascular disease - ICD9: V15.89, ICD10: Z91.89 See #1 - TIRZEPATIDE (WEIGHT LOSS) 2.5 MG/0.5 ML SUBCUTANEOUS PEN INJECTOR 5. Hyperinsulinemia - ICD9: 251.1, ICD10: E16.1 See#1 - TIRZEPATIDE (WEIGHT LOSS) 2.5 MG/0.5 ML SUBCUTANEOUS PEN INJECTOR 6. Prediabetes - ICD9: 790.29, ICD10: R73.03 See #1 - TIRZEPATIDE (WEIGHT LOSS) 2.5 MG/0.5 ML SUBCUTANEOUS PEN INJECTOR - BASIC METABOLIC PANEL - HEMOGLOBIN A1C 7. Encounter for immunization - ICD9: V03.89, ICD10: Z23 - PNEUMOCOCCAL VACCINE, 20 VALENT (PREVNAR 20) Prescription instructions reviewed with patient as applicable. Potential red flag symptoms discussed with the patient. Reviewed appropriate action plan to take if red flag symptoms occur. Patient agreeable to treatment plan. YAQUELIN Cope (more content not included)... Normal [facility] [place] 06-24-2024 CHARLESN Telephone (FAMPWS) ROGER MASON ([id number]) 1970 M Date Time Provider Department 06/24/24 CHERI TORRES During your visit today, we recorded the following information about you: Cheri Torres APRN.CHARLES 06/24/2024 1:18 PM Signed Results received and reviewed from [facility]. Cholesterol slightly elevated and HnvSa2h remains in prediabetic range at 6.2. Weight loss with healthy well balanced diet and exercise will help improve these as discussed in visit. Insurance would not cover injectables for diabetes. He can call his insurance to see if they cover weight loss injectables like wegovy or zepbound and if so we can look into this. If not, there is the option of getting them from a compounding pharmacy as I know he was interested in this as his friends have found success in this. These can have GI side effects like nausea, heartburn and bowel changes. Another option is a daily medication called phentermine we discussed. It is a stimulant and controlled substance that increases energy, and helps control appetite. Typically is well tolerated but as it is a stimulant can have some adverse reactions of anxiety, heart racing, or constipation. Which would he like to try? Thank you Cheri Torres APRN.Vesta Dawson MA 06/24/2024 2:39 PM Signed Left message for return call. Cydney Carey, RN 06/24/2024 3:04 PM Signed Patient returned call and given provider's message below with verbalized understanding. Patient agreeable to try the phentermine, since it is covered by insurance, he thinks. Rasheeda Montes De Oca, KURT 06/24/2024 3:28 PM Signed patient return called and spoke with his insurance co. Insurance co informed him that with prior auth injectable medication is covered at a 90 supply. patient is asking to have the injectable prior auth completed. PRIOR AUTHORIZATION Medication for Prior Authorization: injectable weight loss medication Other formulary meds available : NO Insurance Company: [employer] ([employer]) Insurance Company phone number: [phone] Patient insurance ID number: rx card: [id number] - [employer] card: [id number] Patient would like called when this is completed. Rasheeda Daysi Cotto LPN, MA 06/27/2024 1:06 PM Signed Before PA can be done zepbound need sent no rx on file CARISSA Granados Chitra, MD 06/27/2024 5:17 PM Signed Filed Aidan Toure MD, [place], [place] 06/27/2024 5:30 PM Signed PA submitted for zepbound CARISSA Granados [place], [place] 06/28/2024 10:51 AM Signed PA approve Authorized from May 28, 2024 to February 22, 2025 Information received electronically from payer Patient was notified of approval going to check to see how much with [facility] and will call let us know if needs re-sent Daysi Anderson MA Allergies As of Date: 06/24/2024 Noted Allergy Reaction LISINOPRIL 01/09/2009 3 - Cough ZITHROMAX Z-ENDER (AZITHROMYCIN) 08/11/2007 8 - GI Upset Date Reviewed: 06/22/2024 Reviewed by: Vesta Lorenzo MA - Fully Assessed Reason for Visit: Results [95] Primary Visit Diagnosis:At high risk for cardiovascular disease [Z91.89] Other Visit Diagnoses:Class 2 obesity with body mass index (BMI) of 35.0 to 35.9 in adult, unspecified obesity type, unspecified whether serious comorbidity present [E66.812, Z68.35] Hyperinsulinemia [E16.1] Prediabetes [R73.03] Order(s):tirzepatide, weight loss (ZEPBOUND) 2.5 mg/0.5 mL pen injectorInject 2.5 mg subcutaneously one time a week.Disp: 6 mLRfl: 0 Prescriptions as of 06/29/2024 - tirzepatide, weight loss (ZEPBOUND) 2.5 mg/0.5 mL pen injector Inject 2.5 mg subcutaneously one time a week. - amLODIPine (NORVASC) 5 mg tablet Take 1 tablet by mouth once daily. - valACYclovir (VALTREX) 1 gram tablet Take by mouth. 2 tablets twice a day - CPAP Initiate Auto PAP @ 7-15 cm of water with humidification. Mask (per patient preference) optional chin strap (if indicated) , filters, tubing, humidifier and lifetime supplies. 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 (more content not included)... Normal [facility] Albumin to globulin ratioOrd ered By: CHERI TORRES on 06-23-2024 Albumin/Globulin [Mass ratio] 1.1 {ratio} 0.9-2.4 [facility] Bilirubin, totalOrdered By: CHERI TORRES on 06-23-2024 Bilirubin [Mass/Vol] 0.50 mg/dL 0.20-1.00 [facility] Comment on above: For patients on eltr ombopag therapy, use of Dimension [place] TBIL is not recommended. Blood urea nitrogen (BUN)/cr eatinine ratioOrdered By: CHERI BRIAN on 06-23-2024 Urea nitrogen/Creatinine [Mass ratio] 18.0 mg/mg 10-20 [facility] CBC-Complete Blood Cnt No Di ffon 06-23-2024 Erythrocyte distribution width (RBC) [Ratio] 12.6 % Normal 11.6-14.6 [facility] Comment on above: Performed By: #### L 500.4050, L500.4100, L100.0500, L501.9520, L501.9985 #### [facility] [address] [place], [address] Hematocrit (Bld) [Volume fraction] 43.4 % Normal 40-54 [facility] Comment on above: Performed By: #### L 500.4050, L500.4100, L100.0500, L501.9520, L501.9985 #### [facility] [address] [place], [address] Hemoglobin (Bld) [Mass/Vol] 15.0 g/dL Normal 13.0-16.5 [facility] Comment on above: Performed By: #### L 500.4050, L500.4100, L100.0500, L501.9520, L501.9985 #### [facility] [address] [place], [address] MCH (RBC) [Entitic mass] 30.6 pg Normal 27.0-32.0 [facility] Comment on above: Performed By: #### L 500.4050, L500.4100, L100.0500, L501.9520, L501.9985 #### [facility] [address] [place], [address] MCHC (RBC) [Mass/Vol] 34.6 g/dL Normal 32-36 [facility] Comment on above: Performed By: #### L 500.4050, L500.4100, L100.0500, L501.9520, L501.9985 #### [facility] [address] [place], [address] MCV (RBC) [Entitic vol] 88.6 fL Normal 80-94 [facility] Comment on above: Performed By: #### L 500.4050, L500.4100, L100.0500, L501.9520, L501.9985 #### [facility] [address] [place], [address] Platelet mean volume (Bld) [Entitic vol] 9.6 fL Normal 6.2-12.0 [facility] Comment on above: Performed By: #### L 500.4050, L500.4100, L100.0500, L501.9520, L501.9985 #### [facility] [address] [place], [address] Platelets (Bld) [#/Vol] 247 10*3/uL Normal 150-450 [facility] Comment on above: Performed By: #### L 500.4050, L500.4100, L100.0500, L501.9520, L501.9985 #### [facility] [address] [place], [address] RBC (Bld) [#/Vol] 4.90 10*6/uL Normal 4.6-6.2 [facility] Comment on above: Performed By: #### L 500.4050, L500.4100, L100.0500, L501.9520, L501.9985 #### [facility] [address] [place], [address] RDW SD 40.8 fl Normal 35.1-43.9 [facility] Comment on above: Performed By: #### L 500.4050, L500.4100, L100.0500, L501.9520, L501.9985 #### [facility] [address] [place], [address] WBC (Bld) [#/Vol] 5.5 10*3/uL Normal 4.4-11.0 [facility] Comment on above: Performed By: #### L 500.4050, L500.4100, L100.0500, L501.9520, L501.9985 #### [facility] [address] [place], [address] Carbon dioxide measurementOr dered By: CHERI TORRES on 06-23-2024 CO2 [Moles/Vol] 26.0 mmol/L 21.0-32.0 [facility] Chloride measurementOrdered By: CHERI TORRES on 06-23-2024 Chloride [Moles/Vol] 105 mmol/L 98-107 [facility] Comprehensive Metabolic Prof ilon 06-23-2024 Albumin [Mass/Vol] 3.6 g/dL Normal 3.2-5.0 [facility] Comment on above: Performed By: #### L 500.4050, L500.4100, L100.0500, L501.9520, L501.9985 ####[facility] [address] [place], [address] Albumin/Globulin [Mass ratio] 1.1 {ratio} Normal 0.9-2.4 [facility] Comment on above: Performed By: #### L 500.4050, L500.4100, L100.0500, L501.9520, L501.9985 ####[facility] [address] [place], [address] ALK P 63 U/L Normal 45-117 [facility] Comment on above: Performed By: #### L 500.4050, L500.4100, L100.0500, L501.9520, L501.9985 ####[facility] [address] [place], [address] ALT [Catalytic activity/Vol] 29 U/L Normal 16-61 [facility] Comment on above: Performed By: #### L 500.4050, L500.4100, L100.0500, L501.9520, L501.9985 ####[facility] [address] [place], [address] AST [Catalytic activity/Vol] 18 U/L Normal 15-37 [facility] Comment on above: Performed By: #### L 500.4050, L500.4100, L100.0500, L501.9520, L501.9985 ####[facility] [address] [place], [address] Bilirubin [Mass/Vol] 0.50 mg/dL Normal 0.20-1.00 [facility] Comment on above: Result Comment: For patients on eltrombopag therapy, use of Dimension [place] TBIL is not recommended. Performed By: #### L 500.4050, L500.4100, L100.0500, L501.9520, L501.9985 ####[facility] [address] [place], [address] BUN/CRE 18.0 RATIO Normal 10-20 [facility] Comment on above: Performed By: #### L 500.4050, L500.4100, L100.0500, L501.9520, L501.9985 ####[facility] [address] [place], [address] CA,Total 8.5 mg/dL Normal 8.5-10.1 [facility] Comment on above: Performed By: #### L 500.4050, L500.4100, L100.0500, L501.9520, L501.9985 ####[facility] [address] [place], [address] Chloride [Moles/Vol] 105 mmol/L Normal 98-107 [facility] Comment on above: Performed By: #### L 500.4050, L500.4100, L100.0500, L501.9520, L501.9985 ####[facility] [address] [place], [address] CO2 [Moles/Vol] 26.0 mmol/L Normal 21.0-32.0 [facility] Comment on above: Performed By: #### L 500.4050, L500.4100, L100.0500, L501.9520, L501.9985 ####[facility] [address] [place], [address] Creatinine [Mass/Vol] 0.83 mg/dL Normal 0.70-1.30 [facility] Comment on above: Result Comment: The validity of the calculated GFR GFRAA in patients over 70 years has not been determined. Clinical correlation is essential. Performed By: #### L 500.4050, L500.4100, L100.0500, L501.9520, L501.9985 ####[facility] [address] [place], [address] EST GFR - AA 124 mL/min Normal >60 [facility] Comment on above: Result Comment: Afri can Kazakh GFR Calc Performed By: #### L 500.4050, L500.4100, L100.0500, L501.9520, L501.9985 ####[facility] [address] [place], [address] GAP 6 Normal 5-15 [facility] Comment on above: Performed By: #### L 500.4050, L500.4100, L100.0500, L501.9520, L501.9985 ####[facility] [address] [place], [address] GFR/1.73 sq M.predicted among non-blacks MDRD (S/P/Bld) [Vol rate/Area] 102 mL/min/{1.73_m2} Normal >60 [facility] Comment on above: Result Comment: Non- GFR Calc Performed By: #### L 500.4050, L500.4100, L100.0500, L501.9520, L501.9985 ####[facility] [address] [place], [address] Globulin (S) [Mass/Vol] 3.3 g/dL Normal 2.2-4.2 [facility] Comment on above: Performed By: #### L 500.4050, L500.4100, L100.0500, L501.9520, L501.9985 ####[facility] [address] [place], [address] Glucose [Mass/Vol] 120 mg/dL High 74-106 [facility] Comment on above: Result Comment: Fast ing Glucose result from 100 to 125 mg/dL suggests IMPAIRED HOMEOSTASIS per A.D.A. criteria. Performed By: #### L 500.4050, L500.4100, L100.0500, L501.9520, L501.9985 ####[facility] [address] [place], [address] Potassium [Moles/Vol] 4.3 mmol/L Normal 3.5-5.1 [facility] Comment on above: Performed By: #### L 500.4050, L500.4100, L100.0500, L501.9520, L501.9985 ####[facility] [address] [place], [address] Sodium [Moles/Vol] 137 mmol/L Normal 136-145 [facility] Comment on above: Performed By: #### L 500.4050, L500.4100, L100.0500, L501.9520, L501.9985 ####[facility] [address] [place], [address] T PROT 6.9 g/dL Normal 6.4-8.2 [facility] Comment on above: Performed By: #### L 500.4050, L500.4100, L100.0500, L501.9520, L501.9985 ####[facility] [address] [place], [place], [address] Urea nitrogen [Mass/Vol] 15 mg/dL Normal 7-18 [facility] Comment on above: Performed By: #### L 500.4050, L500.4100, L100.0500, L501.9520, L501.9985 ####[facility] [address] [place], [address] Erythrocyte distribution wid th ratioOrdered By: CHERI TORRES on 06-23-2024 Erythrocyte distribution width (RBC) [Ratio] 12.6 % 11.6-14.6 [facility] Erythrocyte distribution wid th standard deviationOrdered By: CHERI TORRES on 06-23-2024 Erythrocyte distribution width (RBC) [Ratio] 40.8 fl 35.1-43.9 [facility] Glomerular filtration rate ( GFR) estimationOrdered By: CHERI TORRES on 06-23-2024 GFR/1.73 sq M.predicted among non-blacks MDRD (S/P/Bld) [Vol rate/Area] 102 mL/min/{1.73_m2} >60 [facility] Comment on above: Non- GFR Calc Glucose measurementOrdered B y: CHERI TORRES on 06-23-2024 Glucose [Mass/Vol] 120 mg/dL High 74-106 [facility] Comment on above: Fasting Glucose resu lt from 100 to 125 mg/dL suggests IMPAIRED HOMEOSTASIS per A.D.A. criteria. Hematocrit Auto (Bld) [Volum e fraction]Ordered By: CHERI TORRES on 06-23-2024 Hematocrit (Bld) [Volume fraction] 43.4 % 40-54 [facility] Hemoglobin A1con 06-23-2024 HbA1c (Bld) [Mass fraction] 6.2 % High 3.8-5.6 [facility] Comment on above: Result Comment: Norm al < 5.7 % Prediabetic 5.7 - 6.4 % Diabetic >or= 6.5 % Please note range changes. Performed By: #### L 500.4050, L500.4100, L100.0500, L501.9520, L501.9985 ####[facility] [address] [place], [address] Hemoglobin A1c percentageOrd ered By: CHERI TORRES on 06-23-2024 HbA1c (Bld) [Mass fraction] 6.2 % High 3.8-5.6 [facility] Comment on above: Normal < 5.7 % Predi abetic 5.7 - 6.4 % Diabetic >or= 6.5 % Please note range changes. Hemoglobin measurementOrdere d By: CHERI TORRES on 06-23-2024 Hemoglobin (Bld) [Mass/Vol] 15.0 g/dL 13.0-16.5 [facility] High density lipoprotein (HD L) measurementOrdered By: CHERI TORRES on 06-23-2024 Cholesterol in HDL [Mass/Vol] 44 mg/dL >40 [facility] Comment on above: The drugs N-Acetylcy steine and Metamizole may falsely depress this assay. Reference Range HDL <40 mg/dL Low HDL Cholesterol HDL >or= 60 mg/dL High HDL Cholesterol Laboratory - Chemistry and C hemistry - challengeOrdered By: CHERI TORRES on 06-23-2024 AST [Catalytic activity/Vol] 18 U/L 15-37 [facility] Lipid Profileon 06-23-2024 Cholesterol [Mass/Vol] 215 mg/dL High 200 [facility] Comment on above: Result Comment: <200 mg/dL Desirable 200-240 mg/dL Borderline >240 mg/dL High Risk Performed By: #### L 500.4050, L500.4100, L100.0500, L501.9520, L501.9985 ####[facility] [address] [place], [address] Cholesterol in HDL [Mass/Vol] 44 mg/dL Normal [facility] Comment on above: Result Comment: The drugs N-Acetylcysteine and Metamizole may falsely depress this assay. Reference Range HDL <40 mg/dL Low HDL Cholesterol HDL >or= 60 mg/dL High HDL Cholesterol Performed By: #### L 500.4050, L500.4100, L100.0500, L501.9520, L501.9985 ####[facility] [address] [place], [address] Cholesterol in LDL [Mass/Vol] 145 mg/dL High 0-130 [facility] Comment on above: Performed By: #### L 500.4050, L500.4100, L100.0500, L501.9520, L501.9985 ####[facility] [address] [place], [address] Cholesterol in VLDL [Mass/Vol] 26 mg/dL Normal 5-40 [facility] Comment on above: Performed By: #### L 500.4050, L500.4100, L100.0500, L501.9520, L501.9985 ####[facility] [address] [place], [address] Triglyceride [Mass/Vol] 131 mg/dL Normal [facility] Comment on above: Result Comment: The drugs N-Acetylcysteine and Metamizole may falsely depress this assay. Serum Triglycerides Reference Interval Normal <150 mg/dL Borderline high 150 - 199 mg/dL High 200 - 499 mg/dL Very High > or = 500 mg/dL Performed By: #### L 500.4050, L500.4100, L100.0500, L501.9520, L501.9985 ####[facility] [address] [place], [address] Low density lipoprotein (LDL ) cholesterol measurementOrdered By: CHERI TORRES on 06-23-2024 Cholesterol in LDL [Mass/Vol] 145 mg/dL High 0-130 [facility] MCV (mean corpuscular volume ) determinationOrdered By: CHERI TORRES on 06-23-2024 MCV (RBC) [Entitic vol] 88.6 fL 80-94 [facility] Mean corpuscular hemoglobin (MCH) determinationOrdered By: CHERI TORRES on 06-23-2024 MCH (RBC) [Entitic mass] 30.6 pg 27.0-32.0 [facility] Mean corpuscular hemoglobin concentration (MCHC) determinationOrdered By: CHERI TORRES on 06-23-2024 MCHC (RBC) [Mass/Vol] 34.6 g/dL 32-36 [facility] Mean platelet volume determi nationOrdered By: CHERI TORRES on 06-23-2024 Platelet mean volume (Bld) [Entitic vol] 9.6 fL 6.2-12.0 [facility] Platelet countOrdered By: KARL TORRES on 06-23-2024 Platelets (Bld) [#/Vol] 247 10*3/uL 150-450 [facility] Potassium measurementOrdered By: CHERI TORRES on 06-23-2024 Potassium [Moles/Vol] 4.3 mmol/L 3.5-5.1 [facility] RBC Auto (Bld) [#/Vol]Ordere d By: CHERI TORRES on 06-23-2024 RBC (Bld) [#/Vol] 4.90 10*6/uL 4.6-6.2 [facility] Serum anion gap measurementO rdered By: CHERI TORRES on 06-23-2024 Anion gap [Moles/Vol] 6 mmol/L 5-15 [facility] Serum globulin measurementOr dered By: CHERI TORRES on 06-23-2024 Globulin (S) [Mass/Vol] 3.3 g/dL 2.2-4.2 [facility] Serum or plasma alanine parsons otransferase (ALT) measurementOrdered By: CHERI TORRES on 06-23-2024 ALT [Catalytic activity/Vol] 29 U/L 16-61 [facility] Serum or plasma albumin jacki urement (mass/volume)Ordered By: CHERI TORRES on 06-23-2024 Albumin [Mass/Vol] 3.6 g/dL 3.2-5.0 [facility] Serum or plasma alkaline swetha sphatase measurementOrdered By: CHERI TORRES on 06-23-2024 ALP [Catalytic activity/Vol] 63 U/L 45-117 [facility] Serum or plasma calcium jacki urement (mass/volume)Ordered By: CHERI TORRES on 06-23-2024 Calcium [Mass/Vol] 8.5 mg/dL 8.5-10.1 [facility] Serum or plasma cholesterol measurement (mass/volume)Ordered By: CHERI TORRES on 06-23-2024 Cholesterol [Mass/Vol] 215 mg/dL High <200 [facility] Comment on above: <200 mg/dL Desirable 200-240 mg/dL Borderline >240 mg/dL High Risk Serum or plasma creatinine m easurement (mass/volume)Ordered By: CHERI TORRES on 06-23-2024 Creatinine [Mass/Vol] 0.83 mg/dL 0.70-1.30 [facility] Comment on above: The validity of the calculated GFR & GFRAA in patients over 70 years has not been determined. Clinical correlation is essential. Serum or plasma thyroid stim ulating hormone (TSH) measurement (units/volume)Ordered By: CHERI TORRES on 06-23-2024 TSH Qn 1.620 uIU/mL 0.358-3.740 [facility] Serum or plasma urea nitroge n measurement (mass/volume)Ordered By: CHERI TORRES on 06-23-2024 Urea nitrogen [Mass/Vol] 15 mg/dL 7-18 [facility] Sodium levelOrdered By: CHERI TORRES on 06-23-2024 Sodium [Moles/Vol] 137 mmol/L 136-145 [facility] Thyroid Stim Hormone (TSH)on 06-23-2024 TSH 1.620 uIU/mL Normal 0.358-3.740 [facility] Comment on above: Performed By: #### L 500.4050, L500.4100, L100.0500, L501.9520, L501.9985 ####[facility] [address] [place], [place], [id number] Total proteinOrdered By: CHERITessy TORRES on 06-23-2024 Protein [Mass/Vol] 6.9 g/dL 6.4-8.2 [facility] Triglycerides measurementOrd ered By: CHERITessy TORRES on 06-23-2024 Triglyceride [Mass/Vol] 131 mg/dL <199 [facility] Comment on above: The drugs N-Acetylcy steine and Metamizole may falsely depress this assay.Serum Triglycerides Reference Interval Normal <150 mg/dL Borderline high 150 - 199 mg/dL High 200 - 499 mg/dL Very High > or = 500 mg/dL Very low density lipoprotein (VLDL) cholesterol measurementOrdered By: CHERI TORRES on 06-23-2024 Very low density lipoprotein (VLDL) cholesterol measurement 26 mg/dL 5-40 [facility] White blood cell (WBC) count Ordered By: CHERI TORRES on 06-23-2024 WBC (Bld) [#/Vol] 5.5 10*3/uL 4.4-11.0 [facility] CNOVon 06-22-2024 CNOV Office Visit (INTMWS ) ROGER MASON ([id number]) 1970 M Date Time Provider Department 06/22/24 3:20 PM CHERI TORRES INTSAVITA During your visit today, we recorded the following information about you: Pulse Respiration Blood pressure Weight 74/minute 16/minute 132/80 115.7 kg Cheri Torres APRN.FOOD PRODUCTION MANAGER 06/22/2024 5:33 PM Signed CC: Patient presents with: Recheck: Follow up B/L feet numbness GRAHAM Mason is a 53 year old male who presents today for wanting to discuss obesity and ongoing numbness. Continuing with podiatry, physical therapy, and has seen neurology with no improvement in numbness of feet. Would like to try a weight loss medicine to see if weight loss would help. 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 Eats out 1-2 times every few weeks. But typically packs his lunch and eats at home. Has never tried any weight loss medications previously but has had friends who have been on zepbound. Does have history of prediabetes. Denies any fatigue, low motivation, recurrent infections, chest pain, shortness of breath, edema, palpitations, cough, wheezing, heartburn, upper abdominal pain, constipation, personal or family history of thyroid cancer, headaches, dizziness, weakness, syncope, increased thirst/hunger/urinatio n, or intolerance to heat/cold. HTN: Mr. Mason denies headache, chest pain, palpitations, dyspnea, and peripheral edema. Patient denies any side effects of his medication(s) and is compliant with their regimen. Last 3 Encounter BP Readings: Date: BP: 06/22/2024 132/80 02/03/2024 130/78 07/15/2023 128/82' REVIEW OF SYSTEMS See HPI PAST MEDICAL HISTORY Diagnosis Date Unspecified essential hypertension 10/04/2007 PAST SURGICAL HISTORY Procedure Laterality Date EXC VARICOCELE/LIGATION SPERMATIC VEINS SPX 2006 Variocele repair LAPS SURG CHOLECSTC W/EXPL COMMON DUCT 06-22-12 [facility] VASECTOMY 2007 ALLERGIES Lisinopril and Zithromax Z-Ender [Azithromycin] MEDICATIONS valACYclovir (VALTREX) 1 gram tablet Take by mouth. 2 tablets twice a day amLODIPine (NORVASC) 5 mg tablet Take 1 tablet by mouth once daily. CPAP Initiate Auto PAP @ 7-15 cm of water with humidification. Mask (per patient preference) optional chin strap (if indicated) , filters, tubing, humidifier and lifetime supplies. FAMILY HISTORY Problem Relation Age of Onset Heart Father enlarged heart Hypertension Mother Social History Tobacco Use Smoking status: Never Smokeless tobacco: Never Substance Use Topics Alcohol use: Yes Comment: occasional PHYSICAL EXAM BP 132/80 Pulse 74 Resp 16 Wt 115.7 kg (255 lb) SpO2 95% BMI 35.31 kg/m? General Appearance: well appearing, in no acute distress, alert Pysch: mood and affect broad and appropriate Eyes: conjunctiva pink and moist, no icterus, sclera white, non-injected Lungs: Lungs clear to auscultation. No wheezing, rhonchi, rales. Heart: RRR without murmur, gallop, or rubs. No ectopy Health maintenance reviewed with patient: Depression Screening Never done Anxiety Screening Never done Hepatitis C Screening Never done HIV Screening Never done BP Controlled (<130/80) Never done Diabetes Screening due on 09/21/2020 Shingrix Vaccine(1 of 2) Never done Pneumococcal Vaccine: 50+(1 of 1 - PCV) Never done Lipid Screening due on 09/21/2022 Influenza Vaccine(1) due on 11/21/2024 Hepatitis B Vaccine(1 of 3 - 19+ 3-dose series) due on 02/02/2025 Colorectal Cancer Screening due on 01/23/2031 Annual PCP Team Chronic Disease Visit due on 06/22/2025 DTaP,Tdap,Td Vaccine(3 - Td or Tdap) due on 10/10/2032 Covid-19 Vaccine Discontinued DATA REVIEWED: No new labs ASSESSMENT/PLAN: 1. Essential hypertension - ICD9: 401.9, ICD10: I10 (primary diagnosis) - Controlled - Continue current medications - Recommend home blood pressure monitoring, to bring results to next visit - Encouraged sodium restriction, DASH or Mediterranean diet - Recommend regular aerobic exercise - COMPLETE BLOOD COUNT - COMPREHENSIVE METABOLIC PANEL - HEMOGLOBIN A1C 2. Prediabetes - ICD9: 790.29, ICD10: R73.03 Unsure on control - due for labs - COMPLETE BLOOD COUNT - COMPREHENSIVE METABOLIC PANEL - THYROID STIMULATING HORMONE - HEMOGLOBIN A1C 3. Class 2 severe obesity with serious comorbidity and body mass index (BMI) of 35.0 to 35.9 in adult, unspecified obesity type (HCC) - ICD9: 278.01, V85.35, ICD10: E66.812, E66.01, Z68.35 Weight increasing - Behavioral and pharmacological intervention - will review blood work and give recommendations on options of weight loss medications. - LIPID PANEL BASIC - COMPLETE BLOOD COUNT - COMPREHENSIVE METABOLIC PANEL - THYROID STIMULATING HORMONE - HEMOGLOBIN A1C 4. Numbness in feet - ICD9: 782.0, ICD10: R20.0 Call leather seasoner for further evaluation (more content not included)... Normal [facility] PT D/C Summary (1)on 025 PT D/C Summary (1) [facility] Physical Therapy [facility] [address] [place] [address] / REHABILITATION SERVICES DISCHARGE SUMMARY MR#: [id number] Acct: [id number] Name: ROGER MASON Rep #: [id number] : 1970 53 From: Brice DOMINGUEZT Referring Dr.: LUPIS Mckeon Status: REG RCR Insurance: [employer] SELF PAY INSURANCE Discharge Summary D/C summary: It has been my pleasure to treat ROGER MASON referred by Dr. John Mckeon DPM, with the diagnosis of 2/3 metatarsalgia for a total of 4 visit(s). Discharge Date: 05/23/24 Please see the following information for a summary of their discharge status. Subjective Subjective: Pt. reports overall having some relief, but 8 hours at most. Pt. reports similar symptoms as previously. He reports being compliant with all of his stretches as exercises. His orthotics did come in and ready for fitting. Pt. rpeorts N/T currently. Objective Objective/Function: Pt. reports not much change with RPW treatments. He is still having tingling in his toes frequently. He does report that his orthotics fit well. He is to call back in if having issues. He had no adverse reaction with manual or with RPW treatment. Pt. reports overall not seeing the progress that he would have liked. His ROM is decent throughout his forefoot. At least point in time I would recommend going back to physician to determine best course of action. He is to wean into this orthotics, progressing 1 hour per day. Pt. consents. Goals Goal 1:: diminished numbness in toes by 75% patient report Goal Progress: Progressing Goal 2:: I management of condition Goal Progress: Goal Met Plan Plan: DC patient today. D/C Information Discharge Comments: Pt. will be DC from PT today. He was treated with manual PT, orthotics and with RPW. HE continues to have marked tingling in his toes. He will be DC back to physician to determine best course of action at this point in time. d/c sentence: If there are questions or concerns regarding this patient's physical therapy, please feel free to call me at [phone]. Thank you for the referral of this patient. Sincerely, Brice Fuller, [place] Balance/Gait/Functiona l tests Balance/Special Test Scores Lower Extremity Functional Score: 76 05/30/24 0741 CC: LUPIS Mckeon; Dr. Aidan Bright MD CLS Signed Normal [facility] Inital Evaluation (1) - PTon 05-04-2024 Inital Evaluation (1) - PT [facility] Physical Therapy [facility] [address] [place] [address] / REHABILITATION SERVICES INITIAL EVALUATION MR#: [id number] Acct: [id number] Name: ROGER MASON Rep #: [id number] : 1970 53 From: Marcus Whitney DPT, OCS, CSCS Referring Dr.: Dr. John Mckeon DPM Status: REG RCR Insurance: [employer] SELF PAY INSURANCE Patient's Visit Information Visit Information Visit Information: ROGER MASON is a 53 year old M referred to Physical Therapy by Dr. John Mckeon DPM with a diagnosis of 2/3 metatarsalgia. Date of Evaluation: 05/04/24 Physical Therapist: Marcus Whitney DPT, BRIDGETTE, CSCS Visit Plan Frequency: 1x/Week Duration: 4-6 Weeks Plan: orthotics molded adn sent to DPM today, cut to fit when they arrive. RPW requested by doctor b/w 2/3 metatarsal on R foot and please do metatarsal mobs, ankle mobs for ROM weach session.Weekly x 3-4 to start. weekly x 4-6 weeks as helpful. IE: Ho given and demonstrated towel toe curls 50x, PF stretch 10 sec 10x and gastroc, soleus wall stretch 30 5x all daily. Subjective Subjective: Last year or so his R toes have been numb. X rays on back and feet and nerve testing in the llast couple months and eveything is good except a neuroma in bottom of R foot. Cortisone may help but might be temporary. 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 Symptoms are numbness in R foot like sock balled up in end of shoe. Worsening in the R foot. Can start to feel it in L foot some. No MRI yet. No worsening or time where it is not present. No pain. Still decent movement in toes. Sleep is OK. 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 50/50 stand and sit and irritating but not limiting. Balance is fine. Hobbies: Gaytan is no problem. No regular exercises or other treatments. Objective Objective: Unremarkable foot posture without much cavus or planus. neutral hindfoot today. Mild flattening of transverse arch. no pain. No tenderness in ankle or metatarsals, - tinels. No change to numbness with palpation or ROM. 5/5 ankle strength B. gastroc and soleus max tight B. AROM ankle DF -3 B, PF 45, inv 30 and eversion 15 without pain or symptoms change. Walking normal and able to raise on toes and heels without a problem. Balance/Special Test Scores Lower Extremity Functional Score: 76 Goals Goal 1:: diminished numbness in toes by 75% patient report Goal Time Frame: 4-6 Weeks Goal 2:: I management of condition Goal Time Frame: 4-6 Weeks Rehabilitation Potential Physical Therapy Diagnosis: numbness in foot worsening. Rehabilitation Potential: Questionable Anticipated Interventions Patient/Client Instruction: Educate patient on: Condition and Plan of Care Other: decrease numbnmess Therapeutic Exercise to Include: Flexibilty training, Passive ROM and Active ROM For the Purpose of:: To improve nutrient delivery to tissue and To increase oxygenation perfusion Manual Therapy Techniques to Include: Mobilization, Passive ROM and Soft tissue mobilization For the Purpose of:: To improve nutrient delivery to tissue and To increase oxygenation perfusion Comment: RPW metatraslgia 2/3 digit R foot For the Purpose of:: To improve nutrient delivery to tissue and To increase oxygenation perfusion Text: Thank you for the opportunity to evaluate your patient. For Medicare and Medicare HMO plans, please review the plan of care and approve it. It will need to be FAXED BACK to us at [phone] for Medicare purposes. For Medicare only, by signing this I certify the plan of care. Please let me know if there are questions or concerns regarding this plan of care. Physician Signature: Date:__ 05/04/24 1520 CC: LUPIS Mckeon; Dr. Aidan Bright MD EBG Signed Normal [facility] L/S Spine Bending Flex/[place] 04-19-2024 L/S Spine Bending Flex/Ext [facility] Imaging Services [address] [place] [address] L/S Spine Bending Flex/Ext MR#: [id number] Acct: [id number] Name: ROGER MASON Rep #: [id number] : 1970 M 53 From: Frederick Gutierrez PCP: Dr. Aidan Bright MD Status: REG CLI Study: L/S Spine Bending Flex/Ext Date of Exam: 04/19 Exam# [id number] Ordering Dr: Daniel Boateng MD [id number] STUDY: X-RAY - LUMBAR SPINE REASON FOR EXAM: Male, 53 years old. back pain -- please do flex/ext TECHNIQUE: Flexion and extension 3 view(s) of the lumbar spine were obtained. COMPARISON: Lumbar spine February 22, 2024 FINDINGS: Full range of motion without evidence of instability. Normal lumbar lordosis. There is no substantial scoliosis. There is a normal alignment of the vertebrae. Normal vertebral bodies and endplates. Normal disc space heights. The soft tissue structures are unremarkable. RAD/L/S Spine Bending Flex/Ext IMPRESSION: Full range of motion without instability. Normal x-ray examination of the lumbar spine. Electronically Signed: Frederick Guevara MD at 0:20 EST , CC: Dr. Daniel Boateng MD; Dr. Aidan Bright MD Solvent Station Attendant: Signed Normal [facility] Orthopedic Visit Reporton Orthopedic Visit Report [facility] [address] [place] [address] [address] [place] [address] OFFICE VISIT Date of Service: 04/19/24 MR#: [id number] Acct: [id number] Name: ROGER MASON Rep #: [id number] : 1970 Provider: Dr. Daniel Boateng MD Age/Sex: 53/M Location: [facility].PEG Status: Signed Intake Vital Signs 01/21/24 14:19 Height 5 ft 10.08 in Intake Visit Reasons: lumbar spine Accompanied by: Is patient in pain?: Yes Pain scale (1-10): 8 Allergies azithromycin (From Zithromax Z-Ender) Adverse Reaction (Severe, Verified 04/19/24 08:48) severe abdominal pain Medications ???Medication ???Instructions ???Recorded ???Confirmed ???Type amlodipine 10 mg tablet 10 mg PO DAILY #90 tabs 12/09/23 04/19/24 Rx valacyclovir 500 mg tablet 500 mg PO BID PRN 04/19/24 04/19/24 History (Valtrex) PFSH Medical History Neurocardiogenic syncope FELIPA on CPAP Hyperlipidemia Essential hypertension Encounter for screening for COVID-19 Screening for intestinal cancer Wears glasses Non-smoker Chronic cough History of stress test Acute sinusitis Testicular pain, right Back pain Surgical History History of vasectomy History of cholecystectomy Status post scrotal varicocelectomy Family History Mother Heart disease Diabetes Hypertension Father Heart disease Cardiomyopathy Social History Smoking Status: Never smoker alcohol intake: current details: Occasionally substance use type: does not use HPI lumbar spine Details: This documentation accurately reflects the service provided and the decisions made by me, Dr. Daniel Boateng MD 04/19/24 0845. Part of today???s visit was documented by Saloni HERNANDEZ , acting as scribe. ROGER MASON is a 53 year old M here today for Lumbar pain. Patient states he has numbness in his feet. Patient states this has been going on for a year and it started in the right foot and then is moving to the left foot, Patient states it in the toes. Patient states he does have chronic back pain that comes and goes. Patient states no numbness that goes down his legs and no pain or tingling that goes down his legs. Patient states that he hurt his back on Thursday and his pain in on the tailbone. 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 Patient has ever injection done. Patient has done PT and Chiropractor. Patient states PT didn't help him and the chiropractor helps. Patient did ice last night for about a hour and he said that it helped then. Patient did use heat on Thursday and that did help him. Patient takes Ibuprofen for his pain. Patient states when he took a muscle relaxer it did help him and he slept good last night. Ortho Exam General General: Yes no acute distress Neurologic: Yes alert and Yes oriented x3 Spine SPINE TESTING CERVICAL THORACIC LUMBAR Musculoskeletal Strength 0=absent - 5=normal Details: Neurological exam of the lower extremities shows 5x5 power. Normal sensations across all dermatomes. No hyperreflexia. No clonus. No midline or paraspinal tenderness. Pain with extension, relieves with flexion. Coding Level of Care Code Off vis,new,level 4 Diagnoses Spondylosis of lumbar region without myelopathy or radiculopathy M47.816 Time Spent (min) 45 Assessment and Plan Assessment and Plan (1) Spondylosis of lumbar region without myelopathy or radiculopathy: Status: Acute Orders: Orders L/S Spine Bending Flex/Ext Today M54.50 - Low back pain, unspecified Plan Obtained and reviewed flexion/extension xrays today with the patient and reviewed prior imaging. Imaging shows multilevel disc height loss and facet arthrosis. No dynamic instability on flexion/extension views. No MRI. Explained imaging findings in detail. He has had a lower extremity EMG on 03/09/24 which showed bilateral sural neuropathy, but has not followed up with podiatry yet. Discussed that it is okay to continue seeing the chiropractor for the back pain if it is beneficial to him. He has done some daily stretches that a physical therapist friend has given him. If his back pain persists for more than 4 to 5 weeks despite physical therapy or chiropractic treatment, he can call us and we can order an MRI. Patient will then see me back after the MRI. Patient was in agreement. 04/19/24 1036 Date Daniel Boateng MD Cosigner Signature: Date (if applicable) CC: DPCydney Mark (more content not included)... [facility]ER [facility] ([id number]) 1970 M Date Time Provider Department 03/28/24 AIDAN BRIGHT During your visit today, we recorded the following information about you: Daphne Sher 03/28/2024 10:46 AM Signed Roger is calling Aidan Bright MD today to request the results of the recent radiology as well as the EMG procedure completed at [facility] , have they been sent to Dr. Bright? Per , Michelle on the phone these show resulted , please call with results. Patient has been identified by name and birthdate. Duration of symptoms: N/A Person calling: self Call patient at: cell -verified [phone] (cell) Was an appointment scheduled: No Closing statement: Results or non-symptom based questions: Thank you for calling [facility], your call will be returned within the next business day. Daphne Garcia [facility] Ashanti Fitzpatrick MA 03/28/2024 10:48 AM Signed Cheri, please review and advise. View External Procedures - Neurology [ID [id number]] CARISSA Pond Joy, APRN.CHARLES 03/28/2024 12:32 PM Signed EMG showing sural neuropathy. I would like him to see neurology Thank you Cheri Torres APRN.Toña Tony RN 03/28/2024 12:51 PM Signed Called and left a voicemail for the Patient's to call back and ask for a nurse to receive the providers message. KURT Joyce Laurie Lynn, LPN 03/28/2024 1:54 PM Signed given results below. will call back when they decide where they want to go. Emil Reyes LPN Allergies As of Date: 03/28/2024 Noted Allergy Reaction LISINOPRIL 01/09/2009 3 - Cough ZITHROMAX Z-ENDER (AZITHROMYCIN) 08/11/2007 8 - GI Upset Date Reviewed: 02/03/2024 Reviewed by: Vesta Lorenzo MA - Fully Assessed Reason for Visit: Results [95] Primary Visit Diagnosis:Sural neuropathy, unspecified laterality [G57.90] Other Visit Diagnosis:Numbness in feet [R20.0] Order(s):CONSULT TO NEUROLOGY [9019] Order #: [id number]: 1 FUTURE Prescriptions as of 03/28/2024 - amLODIPine (NORVASC) 5 mg tablet Take 1 tablet by mouth once daily. - valACYclovir (VALTREX) 1 gram Take by mouth. 2 tablets twice a day - CPAP Initiate Auto PAP @ 7-15 cm of water with humidification. Mask (per patient preference) optional chin strap (if indicated) , filters, tubing, humidifier and lifetime supplies. 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] 04/14/2005 09/21/2017 STERILIZATION [Z30.2] 08/05/2007 Essential hypertension [I10] 10/04/2007 Pain in testicle [N50.819] 09/04/2009 12/29/2014 Migraine [G43.909] 03/31/2011 12/29/2014 Cholelithiasis [K80.20] 06/11/2012 09/21/2017 Encounter for annual health examination [Z00.00]07/22/2012 Routine general medical examination at a health*12/26/2012 12/26/2012 Encounter Status:Closed by EMIL REYES on 03/28/24 Normal [facility] NCS and/or EMG Patienton NCS and/or EMG Patient [facility] Pulmonary Services/Neurology [address] [place] [address] MR#: [id number] Acct: [id number] Name: ROGER MASON Rep #: [id number] : 1970 53 From: Jeremias Brown MD Referring Dr: CHERI TORRES DIRECTOR OF RECRUITMENT-C Status: REG CLI Location: PSN Date: 03/09/24 Sex: M C NCS and/or EMG Patient Report Ordering Doctor: CHERI TORRES DATE OF SERVICE: 03/09/24 Roger presents for electrodiagnostic testing of the lower limbs. He reports numbness and tingling in the toes and the lateral lower legs bilaterally. Electrodiagnostic findings: Peroneal motor nerve demonstrates normal distal latency, amplitude and conduction velocity bilaterally. Normal tibial motor response bilaterally. H???reflexes borderline prolonged but laterally. Prolonged sural latency is noted bilaterally. Normal superficial peroneal response bilaterally. Needle EMG testing was performed in the lower limbs. All muscles tested showed no evidence of denervation with normal motor unit action potentials. Electrodiagnostic impression: This is an abnormal study in the lower limbs. 1. 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 This is consistent with the distribution of the patient's symptoms. 2. There is no electrodiagnostic evidence for peripheral polyneuropathy. 3. There is no electrodiagnostic evidence for lumbosacral radiculopathy. Multi Select Codes Neurology Neurology Interp Codes: 94575-70 Musc test done w/n test comp (interp) (2) and 25145-46 Nrv cndj test 9-10 studies (interp) 03/09/24 1202 Date Jeremias Brown MD CC: DIRECTOR OF RECRUITMENT-C CHERI TORRES; Dr. Jeremias Brown MD; Dr. Aidan Bright MD Date Dictated: 03/09/241199 Date Transcribed: 03/09/241199 Solvent Station Attendant: AA Signed Normal [facility] Foot min 3 Viewson 4 Foot min 3 Views [facility] Imaging Services [address] [place], [place] [address] Foot min 3 Views MR#: [id number] Acct: [id number] Name: ROGER MASON Rep #: [id number] : 1970 M 53 From: Alejandro Livingston MD PCP: Dr. Aidan Bright MD Status: REG CLI Study: Foot min 3 Views Date of Exam: 02/22/24 Exam# [id number] Ordering Dr: John Mckeon DPM [id number] STUDY: X-RAY - RIGHT FOOT CLINICAL: Male, 53 years old. Peripheral neuropathy. TECHNIQUE: 3 weightbearing view(s) of the foot. COMPARISON: None. FINDINGS: Normal talus, calcaneus, and tarsal bones. Normal visualized subtalar, talonavicular, calcaneocuboid, tarsal and tarsometatarsal articulations. Os trigonum, a normal variant. Normal metatarsi. Normal metatarsophalangeal joint of the great toe. Normal tibial and fibular sesamoid bones. Normal interphalangeal joint of the great toe. Normal phalanges of the great toe. Normal second through fifth metatarsophalangeal joints. Normal interphalangeal joints and phalanges of the lesser toes. The soft tissue structures are unremarkable. RAD/Foot min 3 Views IMPRESSION: Normal x-ray examination of the foot. Electronically Signed: Aeljandro Livingston MD at 13:27 EDT , CC: LUPIS Mckeon; Dr. Aidan Bright MD Solvent Station Attendant: Signed Normal [facility] Foot min 3 Views [facility] Imaging Services [address] [place], [place] [address] Foot min 3 Views MR#: [id number] Acct: [id number] Name: ROGER MASON Rep #: [id number] : 1970 M 53 From: Alejandro Livingston MD PCP: Dr. Aidan Bright MD Status: REG CLI Study: Foot min 3 Views Date of Exam: 02/22/24 Exam# [id number] Ordering Dr: John Mckeon DPCydney [id number] STUDY: X-RAY - LEFT FOOT CLINICAL: Male, 53 years old. Peripheral neuropathy. TECHNIQUE: 3 weightbearing view(s) of the foot. COMPARISON: None. FINDINGS: Normal talus, calcaneus, and tarsal bones. Normal visualized subtalar, talonavicular, calcaneocuboid, tarsal and tarsometatarsal articulations. Os trigonum, a normal variant. Normal metatarsi. Normal metatarsophalangeal joint of the great toe. Normal tibial and fibular sesamoid bones. Normal interphalangeal joint of the great toe. Normal phalanges of the great toe. Normal second through fifth metatarsophalangeal joints. Normal interphalangeal joints and phalanges of the lesser toes. The soft tissue structures are normal. RAD/Foot min 3 Views IMPRESSION: No abnormality identified. Electronically Signed: Alejandro Livingston MD at 13:28 EDT , CC: LUPIS Mckeon; Dr. Aidan Bright MD Solvent Station Attendant: Signed [facility] Lumbar Spine 2 or 3 Viewson 02-22-2024 Lumbar Spine 2 or 3 Views [facility] Imaging Services [address] [place] [address] Lumbar Spine 2 or 3 Views MR#: [id number] Acct: [id number] Name: ROGER MASON Rep #: [id number] : 1970 M 53 From: Alejandro Livingston MD PCP: Dr. Aidan Bright MD Status: REG CLI Study: Lumbar Spine 2 or 3 Views Date of Exam: Exam# [id number] Ordering Dr: CHERI TORRES [id number] STUDY: X-RAY - LUMBAR SPINE REASON FOR EXAM: Male, 53 years old. Numbness in feet. TECHNIQUE: 2 view(s) of the lumbar spine were obtained. COMPARISON: None FINDINGS: Normal lumbar lordosis. Mild, likely positional, dextroscoliosis. Normal vertebral alignment. Diffuse moderate lower thoracic and lumbosacral facet sclerosis. Diffuse mild intervertebral disc space narrowing. Osteophytes most marked at L2-3, L3-4 and L5-S1. Normal soft tissues. RAD/Lumbar Spine 2 or 3 Views IMPRESSION: Mild lower thoracic and lumbosacral spondylosis. Electronically Signed: Alejandro Livingston MD at 13:29 EDT , CC: KE TORRES; Dr. Aidan Bright MD Solvent Station Attendant: Signed [facility] CNPSridevi 02-08-2024 CNPN Telephone (INTMWS) ROGER MASON ([id number]) 1970 M Date Time Provider Department 02/08/24 CHERI TORRES During your visit today, we recorded the following information about you: Cheri Torres APRN.CHARLES 02/08/2024 1:30 PM Signed [facility] wanting specific worded order with bilateral in comments. Reordered, please print and fax to [facility] Thank you Cheri Torres APRN.Vesta Dawson MA 02/08/2024 1:38 PM Signed Faxed as requested to [facility]. Allergies As of Date: 02/08/2024 Noted Allergy Reaction LISINOPRIL 01/09/2009 3 - Cough ZITHROMAX Z-ENDER (AZITHROMYCIN) 08/11/2007 8 - GI Upset Date Reviewed: 02/03/2024 Reviewed by: Vesta Lorenzo MA - Fully Assessed Reason for Visit: Orders [681] Primary Visit Diagnosis:Numbness in feet [R20.0] Order(s):EMG(NEURO/NI) [4423219] Order #: [id number]: 1 FUTURE Prescriptions as of 02/08/2024 - amLODIPine (NORVASC) 5 mg tablet Take 1 tablet by mouth once daily. - valACYclovir (VALTREX) 1 gram Take by mouth. 2 tablets twice a day - CPAP Initiate Auto PAP @ 7-15 cm of water with humidification. Mask (per patient preference) optional chin strap (if indicated) , filters, tubing, humidifier and lifetime supplies. 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] 04/14/2005 09/21/2017 STERILIZATION [Z30.2] 08/05/2007 Essential hypertension [I10] 10/04/2007 Pain in testicle [N50.819] 09/04/2009 12/29/2014 Migraine [G43.909] 03/31/2011 12/29/2014 Cholelithiasis [K80.20] 06/11/2012 09/21/2017 Encounter for annual health examination [Z00.00]07/22/2012 Rout[facility]12/26/2012 12/26/2012 Encounter Status:Closed by VESTA LORENZO on 02/08/24 [facility] CNOVon 02-03-2024 CNOV Office Visit (INTMWS ) ISABELLAROGER Malachi ([id number]) 1970 M Date Time Provider Department 02/03/24 4:20 PM CHERI TORRES During your visit today, we recorded the following information about you: Pulse Blood pressure Weight 73/minute 130/78 113.9 kg Cheri Torres APRN.CNP 02/03/2024 5:29 PM Signed CC: Patient presents with: Recheck: 6 month follow up HPI Roger Ly Isabella is a 53 year old male who presents today for routine follow up. Prediabetic: HGBA1c 6.0 previoius 7 months ago was 6.2. Diet controlled. Denies increase in thirst hunger or urination. FELIPA: Has not been wearing his cpap. Does not feel tired during the day but does gets told he snores. HTN: Mr. Mason indicates that he is feeling well and denies any symptoms referable to elevated blood pressure. Specifically denies headache, chest pain, palpitations, dyspnea, and peripheral edema. Patient denies any side effects of his medication(s) and is compliant with their regimen. He does check BP's away from this office with average BP's in the 130s/90s range. 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 He watches his diet for sodium, low fat and low cholesterol generally not very much. Last 3 Encounter BP Readings: Date: BP: 02/03/2024 130/78 07/15/2023 128/82 04/09/2023 132/85[Toño BP[ 02/04/2023 154/92' Ongoing numbness to bilateral feet. Is present to 3rd and 4th toes originally with right but now left involved as well. Was evaluated for this previously but never got lumbar xray completed. Had a pain to bottom of right foot a few weeks ago and scratched at spot and the pain went away. Right foot numbness is worse then left Denies falls, injuries, back pain, abdominal pain, weakness, edema, loss of bowel/bladder control, or any other concern REVIEW OF SYSTEMS See HPI PAST MEDICAL HISTORY 10/04/2007: Unspecified essential hypertension PAST SURGICAL HISTORY 2006: EXC VARICOCELE/LIGATION SPERMATIC VEINS SPX Comment: Variocele repair 06-22-12: LAPS SURG CHOLECSTC W/EXPL COMMON DUCT Comment: [facility] 2007: VASECTOMY ALLERGIES Lisinopril and Zithromax Z-Ender [Azithromycin] MEDICATIONS amLODIPine (NORVASC) 5 mg tablet Take 1 tablet by mouth once daily. CPAP Initiate Auto PAP @ 7-15 cm of water with humidification. Mask (per patient preference) optional chin strap (if indicated) , filters, tubing, humidifier and lifetime supplies. valACYclovir (VALTREX) 1 gram Take by mouth. 2 tablets twice a day FAMILY HISTORY Problem Relation Age of Onset Heart Father enlarged heart Hypertension Mother Social History Tobacco Use Smoking status: Never Smokeless tobacco: Never Substance Use Topics Alcohol use: Yes Comment: occasional PHYSICAL EXAM BP 130/78 Pulse 73 Wt 113.9 kg (251 lb 1.7 oz) SpO2 97% BMI 34.77 kg/m? General Appearance: well appearing, in no acute distress, alert Pysch: mood and affect broad and appropriate Eyes: conjunctiva pink and moist, no icterus, sclera white, non-injected Back: No pain to palpation, Full and painless ROM including flexion, extension, lateral side bending and rotation, Reflexes 2+ and symmetric Lungs: Lungs clear to auscultation. No wheezing, rhonchi, rales. Heart: RRR without murmur, gallop, or rubs. No ectopy Abdomen: Abdomen soft, non-tender. Bowel sounds normal. No masses, organomegaly Extremities: No deformities, edema, skin discoloration, clubbing or cyanosis. Good capillary refill. Small white are to bottom of right foot appearing like plantar wart. No tenderness, redness, drainage, or concern Health maintenance reviewed with patient: Depression Screening Never done Anxiety Screening Never done Hepatitis C Screening Never done HIV Screening Never done BP Controlled (<130/80) Never done Diabetes Screening due on 09/21/2020 Shingrix Vaccine(1 of 2) Never done Lipid Screening due on 09/21/2022 Influenza Vaccine(1) due on 11/21/2024 Hepatitis B Vaccine(1 of 3 - 19+ 3-dose series) due on 02/02/2025 Colorectal Cancer Screening due on 01/23/2031 Annual PCP Team Chronic Disease Visit due on 02/02/2025 DTaP,Tdap,Td Vaccine(3 - Td or Tdap) due on 10/10/2032 Covid-19 Vaccine Discontinued DATA REVIEWED: Most recent labs ASSESSMENT/PLAN: 1. Prediabetes - ICD9: 790.29, ICD10: R73.03 (primary diagnosis) Controlled Focus on healthy well portioned diet low in sweet, carb controlled to allow for continued control and weight loss. 2. Essential hypertension - ICD9: 401.9, ICD10: I10 Controlled - Continue current medications - Recommend home blood pressure monitoring, to bring results to next visit - Encouraged sodium restriction, DASH or Mediterranean diet - Recommend regular aerobic exercise 3. Other sleep apnea - ICD9: 327.29, ICD10: G47.39 Start using cpap as ordered 4. Numbness in feet - ICD9: 782.0, ICD10: R20.0 Needs further worked up. No back injury (more content not included)... Normal [facility] Basic Metabolic Profile (BMP )on 01-21-2024 BUN/CRE 17.2 RATIO Normal 10-20 [facility] Comment on above: Performed By: #### L 501.9985, L500.2500 #### [facility] [address] [place], [address] CA,Total 9.4 mg/dL Normal 8.5-10.1 [facility] Comment on above: Performed By: #### L 501.9985, L500.2500 #### [facility] [address] [place], [address] Chloride [Moles/Vol] 105 mmol/L Normal 98-107 [facility] Comment on above: Performed By: #### L 501.9985, L500.2500 #### [facility] [address] [place], [address] CO2 [Moles/Vol] 28.0 mmol/L Normal 21.0-32.0 [facility] Comment on above: Performed By: #### L 501.9985, L500.2500 #### [facility] [address] [place], [address] Creatinine [Mass/Vol] 0.81 mg/dL Normal 0.70-1.30 [facility] Comment on above: Result Comment: The validity of the calculated GFR GFRAA in patients over 70 years has not been determined. Clinical correlation is essential. Performed By: #### L 501.9985, L500.2500 #### [facility] [address] [place], [address] EST GFR - AA 127 mL/min Normal >60 [facility] Comment on above: Result Comment: Afri can Kazakh GFR Calc Performed By: #### L 501.9985, L500.2500 #### [facility] [address] [place], [address] GAP 5 Normal 5-15 [facility] Comment on above: Performed By: #### L 501.9985, L500.2500 #### [facility] [address] [place], [address] GFR/1.73 sq M.predicted among non-blacks MDRD (S/P/Bld) [Vol rate/Area] 105 mL/min/{1.73_m2} Normal >60 [facility] Comment on above: Result Comment: Non- GFR Calc Performed By: #### L 501.9985, L500.2500 #### [facility] [address] [place], [address] Glucose [Mass/Vol] 108 mg/dL High 74-106 [facility] Comment on above: Result Comment: Fast ing Glucose result from 100 to 125 mg/dL suggests IMPAIRED HOMEOSTASIS per A.D.A. criteria. Performed By: #### L 501.9985, L500.2500 #### [facility] [address] [place], [address] Potassium [Moles/Vol] 4.1 mmol/L Normal 3.5-5.1 [facility] Comment on above: Performed By: #### L 501.9985, L500.2500 #### [facility] [address] [place], [address] Sodium [Moles/Vol] 138 mmol/L Normal 136-145 [facility] Comment on above: Performed By: #### L 501.9985, L500.2500 #### [facility] [address] [place], [address] Urea nitrogen [Mass/Vol] 14 mg/dL Normal 7-18 [facility] Comment on above: Performed By: #### L 501.9985, L500.2500 #### [facility] [address] [place], [address] Cardiology Visit Reporton Cardiology Visit Report [facility] [address] [place] [address] OFFICE VISIT Date of Service: 01/21/24 MR#: [id number] Acct: [id number] Name: ROGER MASON Rep #: [id number] : 1970 Provider: AUGUSTUS Hagen Age/Sex: 53/M Location: [facility] Status: Signed [facility] History of Present Illness Details: Roger Mason is a 53-year-old gentleman that presents here today for cardiovascular follow-up. He has a history of hypertension, neurocardiogenic syncope, hyperlipidemia and FELIPA. He does always use his CPAP. Coronary calcium score in 2022 was 5. Echocardiogram in 2022 demonstrated structurally normal valves with a preserved ejection fraction of 60%. From a cardiac standpoint, patient is doing well. She does not have any chest discomfort/heaviness/t ightness. Her exercise tolerance is stable for her age. She does not have any worsening symptoms of shortness of breath. She does not have any orthopnea. She denies PND. She does not have any symptoms of congestive heart failure. She does not have any palpitations that she is aware of. She does not have any lightheadedness or dizziness. She does not have any near- syncope or syncope. She does not have any lower extremity edema. She does not have any symptoms of claudication. 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 Is patient in pain?: No Allergies azithromycin (From Zithromax Z-Ender) Adverse Reaction (Severe, Verified 01/21/24 14:19) severe abdominal pain Medications ???Medication ???Instructions ???Recorded ???Confirmed ???Type amlodipine 10 mg tablet 10 mg PO DAILY #90 tabs 12/09/23 01/21/24 Rx PFSH Medical History Neurocardiogenic syncope FELIPA on CPAP Hyperlipidemia Essential hypertension Encounter for screening for COVID-19 Screening for intestinal cancer Wears glasses Non-smoker Chronic cough History of stress test Acute sinusitis Testicular pain, right Back pain Surgical History History of vasectomy History of cholecystectomy Status post scrotal varicocelectomy Family History Mother Heart disease Diabetes Hypertension Father Heart disease Cardiomyopathy Social History Smoking Status: Never smoker alcohol intake: current details: Occasionally substance use type: does not use ROS Const Const: Negative for fatigue, weakness, body ache, fever(s) or chills ENT ENT: Negative for dizziness or Nosebleed/epistaxis Cardio Chest Pain: No Palpitations: No Edema: None Muscle aches with walking: None Resp Respiratory: Negative for SOB with activity, SOB at rest, SOB orthopnea SOB lying down, Cough or paroxysmal nocturnal dyspnea GI GI: Negative nausea, vomiting blood/hematemesis, bright, red blood in stools or black,tarry stools : Negative for hematuria or frequent nighttime urination/ nocturia Musc Musc: Negative for muscle aches/ myalgia Skin Skin: Negative non-healing lesions or rash Neuro Neuro: Negative for dizziness, lightheadedness, near syncope, syncope, orthostatic symptoms or weakness Endo Endo: Negative for fatigue Allergy Allergy/Immunology: Negative for rash Cardiology Exam Const Appearance: cooperative, healthy appearing, comfortable and no acute distress Nutritional Appearance: average body habitus and well nourished Orientation: alert, awake and oriented x3 Head Head: normal to inspection Ears: hearing grossly normal bilaterally Nose: external nose normal Face and Sinus: face symmetric Mouth: moist mucous membranes Eyes General: appearance normal, both eyes and all related structures Eyelids: eyelids normal EOM: EOM intact bilaterally Neck Neck: normal visual inspection and no JVD Carotids: normal carotid upstroke Chest Chest inspection: normal inspection of the chest, symmetric chest movement and normal respiratory effort; Negative cough Auscultation: Bilateral: Clear to Auscultation Cardio Rate: regular rate Rhythm: regular rhythm Heart sounds: S1 normal and S2 normal; Negative rub, gallop or murmur GI GI: normal to inspection Neuro General: patient alert, patient awake, patient oriented x3 and CN's II-XI intact bilaterally Skin Skin: no rashes or lesions noted Extremities Pulses: Normal: Right Posterior T (more content not included)... Normal [facility] Hemoglobin A1con 01-21-2024 HbA1c (Bld) [Mass fraction] 6.0 % High 3.8-5.6 [facility] Comment on above: Result Comment: Norm al < 5.7 % Prediabetic 5.7 - 6.4 % Diabetic >or= 6.5 % Please note range changes. Performed By: #### L 501.9985, L500.2500 #### [facility] [place], [address] POCT URINE DIPSTICK AUTOMATE DOrdered By: Elaine Ling on 10-30-2023 Amorphous sediment LM Ql (Urine sed) [facility] Appearance (U) Clear [facility] Bacteria LM Ql (Urine sed) [facility] Bilirubin Ql (U) Negative [facility] Casts LM.LPF (Urine sed) [#/Area] [facility] Color (U) Yellow [facility] Crystals LM Nom (Urine sed) [facility] Epithelial cells.squamous LM.HPF (Urine sed) [#/Area] [facility] Flow cytometry specialist review Roberto (Unsp spec) [Interp] [facility] Glucose Auto test strip (U) [Mass/Vol] Negative mg/dL [facility] Ketones [Mass/Vol] Negative mg/dL [facility] Leukocyte esterase Qn (U) [facility] Leukocyte esterase Test strip Ql (U) Negative [facility] Microscopic observation Gram stain Nom (Bronch spec) [facility] Nitrite Ql (U) Negative [facility] pH (U) 6.0 [pH] 5 - 7 [facility] Protein Ql (U) Negative mg/dL [facility] RBC LM.HPF (Urine sed) [#/Area] [facility] RBC Ql (U) Negative [facility] Specific gravity (U) [Rel density] 1.030 1.001 - 1.035 [facility] Transitional cells LM Ql (Urine sed) [facility] Urobilinogen Qn (U) 0.2 [facility] WBC LM.HPF (Urine sed) [#/Area] [facility] Absolute lymphocyte countOrd ered By: Anuel Hawk on 09-17-2023 Lymphocytes Auto (Unsp spec) [#/Vol] 0.94 10*3/uL 0.83-4.51 [facility] Automated lymphocyte count a s percentage of total leukocytesOrdered By: Anuel Hawk on 09-17-2023 Lymphocytes/100 WBC Auto (Unsp spec) 5.2 % 19-41 [facility] Basophil percentageOrdered B y: Anuel Hawk on 09-17-2023 Basophil percentage >100 SEEN /hpf 0-5 [facility] Basophils/100 WBC (Bld) 0.1 % 0-1 [facility] Chloride [Moles/Vol] 100 mmol/L 98-107 [facility] Eosinophils/100 WBC (Bld) 0.0 % 0-5 [facility] Glucose [Mass/Vol] 165 mg/dL 74-106 [facility] Comment on above: Fasting Glucose resu lt greater than or equal to 126 mg/dL suggests DIABETES MELLITUS per A.D.A. criteria. Hemoglobin (Bld) [Mass/Vol] 15.3 g/dL 13.0-16.5 [facility] Monocytes/100 WBC (Bld) 7.3 % 0-10 [facility] Neutrophils (Bld) [#/Vol] 15.7 10*3/uL 2.0-7.7 [facility] Neutrophils/100 WBC (Bld) 86.8 % 47-70 [facility] Potassium [Moles/Vol] 4.3 mmol/L 3.5-5.1 [facility] Sodium [Moles/Vol] 134 mmol/L 136-145 [facility] WBC (Bld) [#/Vol] 18.0 10*3/uL 4.4-11.0 [facility] Bilirubin Test strip Ql (U)O rdered By: Anuel Hawk on 09-17-2023 Bilirubin Ql (U) Negative Negative [facility] Determination of erythrocyte mean corpuscular volume (MCV)Ordered By: Anuel Hawk on 04-25-2024 MCV (RBC) [Entitic vol] 90.6 fL 80-94 [facility] Erythrocyte distribution wid th ratioOrdered By: Anuel Hawk on 09-17-2023 Erythrocyte distribution width (RBC) [Ratio] 12.8 % 11.6-14.6 [facility] Erythrocyte distribution wid th standard deviationOrdered By: Anuel Hawk on 09-17-2023 Erythrocyte distribution width (RBC) [Entitic vol] 42.4 fL 35.1-43.9 [facility] Hematocrit Auto (Bld) [Volum e fraction]Ordered By: Anuel Hawk on 09-17-2023 Hematocrit (Bld) [Volume fraction] 46.2 % 40-54 [facility] Immature granulocytes/100 WB C Auto (Bld)Ordered By: Anuel Hawk on 09-17-2023 Immature granulocytes/100 WBC (Bld) 0.600 % 0.0-0.9 [facility] Comment on above: IG% - Immature Granu locytes (promyelocytes, myelocytes and metamyelocytes) > 1% indicates that a LEFT SHIFT is Present. Ketones Test strip Ql (U)Ord ered By: Anuel Hawk on 09-17-2023 Ketones Ql (U) Negative Negative [facility] Laboratory - Chemistry and C hemistry - challengeOrdered By: Anuel Hawk on 09-17-2023 CO2 [Moles/Vol] 28.0 mmol/L 21.0-32.0 [facility] Urea nitrogen/Creatinine [Mass ratio] 13.6 mg/mg 10-20 [facility] Laboratory - Hematology and Cell countsOrdered By: Anuel Hawk on 09-17-2023 MCH (RBC) [Entitic mass] 30.0 pg 27.0-32.0 [facility] MCHC (RBC) [Mass/Vol] 33.1 g/dL 32-36 [facility] Nucleated RBC/100 WBC (Bld) [Ratio] 0 % 0-5 [facility] Platelet mean volume (Bld) [Entitic vol] 9.6 fL 6.2-12.0 [facility] Platelets (Bld) [#/Vol] 227 10*3/uL 150-450 [facility] Mucus LM Ql (Urine sed)Order ed By: Anuel Hawk on 09-17-2023 Mucus Ql (Urine sed) 0 SEEN /hpf [facility] Nitrite Test strip Ql (U)Ord ered By: Anuel Hawk on 09-17-2023 Nitrite Ql (U) Positive Negative [facility] No Panel InformationOrdered By: Anuel Hawk on 09-17-2023 Urine RBC 0 SEEN /hpf 0-5 [facility] Estimated Creatinine Clearance Calc 103.69 ml/min [facility] Estimated GFR (MDRD) Amer 97 mL/min >60 [facility] Comment on above: GFR Calc Estimated GFR (MDRD) Non-Af Amer 80 mL/min >60 [facility] Comment on above: Non- GFR Calc Protein Test strip Ql (U)Ord ered By: Anuel Hawk on 09-17-2023 Protein Ql (U) 30 mg/dl Negative [facility] RBC Auto (Bld) [#/Vol]Ordere d By: Anuel Hawk on 09-17-2023 RBC (Bld) [#/Vol] 5.10 10*6/uL 4.6-6.2 [facility] Serum or plasma calcium jacki urement (mass/volume)Ordered By: Anuel Hawk on 09-17-2023 Calcium [Mass/Vol] 9.4 mg/dL 8.5-10.1 [facility] Serum or plasma creatinine m easurement (mass/volume)Ordered By: Anuel Hawk on 09-17-2023 Creatinine [Mass/Vol] 1.03 mg/dL 0.70-1.30 [facility] Comment on above: The validity of the calculated GFR & GFRAA in patients over 70 years has not been determined. Clinical correlation is essential. Serum or plasma urea nitroge n measurement (mass/volume)Ordered By: Anuel Hawk on 09-17-2023 Urea nitrogen [Mass/Vol] 14 mg/dL 7-18 [facility] Squamous epithelial cells de tection in urine sediment by light microscopyOrdered By: Anuel Hawk on 09-17-2023 Epithelial cells.squamous LM Ql (Urine sed) 0 SEEN /hpf 0-5 [facility] Thin prep Papanicolaou smear with manual screeningOrdered By: Anuel Hawk on 09-17-2023 Thin prep Papanicolaou smear with manual screening 6 5-15 [facility] Urine blood detectionOrdered By: Anuel Hawk on 09-17-2023 RBC Ql (U) 150 /ul Negative [facility] Urine clarityOrdered By: Ender Hawk on 09-17-2023 Clarity (U) Cloudy Clear [facility] Urine color determinationOrd ered By: Anuel Hawk on 09-17-2023 Color (U) Yellow Yellow [facility] Urine glucose detectionOrder ed By: Anuel Hawk on 09-17-2023 Glucose Ql (U) Normal mg/dl Normal [facility] Urine leukocyte esterase det ection by dipstickOrdered By: Anuel Hawk on 09-17-2023 Leukocyte esterase Test strip Ql (U) 500 /ul Negative [facility] Urine pHOrdered By: Anuel wise on 09-17-2023 pH (U) 5.0 [pH] 5.0 - 8.0 [facility] Urine sediment bacteria coun t by microscopy (number/high power field)Ordered By: Anuel Hawk on 09-17-2023 Bacteria LM.HPF (Urine sed) [#/Area] 1 /[HPF] None Seen [facility] Urine specific gravity measu rementOrdered By: Anuel Hawk on 09-17-2023 Specific gravity (U) [Rel density] 1.030 1.002-1.030 [facility] Urine urobilinogen measureme ntOrdered By: Anuel Hawk on 09-17-2023 Urobilinogen Ql (U) Normal mg/dl Normal [facility] Basophil percentageOrdered B y: CHERI OLDER on 08-10-2023 Basophil percentage 1.04 ng/mL 0.0-4.0 [facility] Comment on above: This test was perfor med using the TPSA assay method for the[facility]. Values obtained with differentassay methods cannot be used interchangably.When changing PSA assays in the course of monitoring apatient, additional sequential testing should be carriedout to confirm baseline values. UA DIP, URINE (POC)on 2023 BILIRUBIN UA (POCT) Negative Negative [facility] CLARITY UA (POCT) Clear [facility] COLOR UA (POCT) Yellow [facility] GLUCOSE UA (POCT) Negative Negative mg/dL [facility] Hemoglobin Ql (U) Negative Negative [facility] KETONE UA (POCT) Negative Negative mg/dL [facility] LEUKOCYTES UA (POCT) Negative Negative [facility] NITRITE UA (POCT) Negative Negative [facility] PH UA (POCT) 6.0 4.5 - 8.0 [facility] Protein Ql (U) Negative Negative mg/dL [facility] SPECIFIC GRAVITY UA (POCT) >=1.030 1.005 - 1.030 [facility] UROBILINOGEN UA (POCT) 0.2 E.U./dL Kirsten l E.U./dL [facility] Basophil percentageOrdered B y: Aidan Bright on 07-13-2023 Chloride [Moles/Vol] 106 mmol/L 98-107 [facility] Cholesterol [Mass/Vol] 210 mg/dL <200 [facility] Comment on above: <200 mg/dL Desirable 200-240 mg/dL Borderline >240 mg/dL High Risk Glucose [Mass/Vol] 98 mg/dL 74-106 [facility] Potassium [Moles/Vol] 4.2 mmol/L 3.5-5.1 [facility] Sodium [Moles/Vol] 138 mmol/L 136-145 [facility] Triglyceride [Mass/Vol] 114 mg/dL <199 [facility] Comment on above: The drugs N-Acetylcy steine and Metamizole may falsely depress this assay.Serum Triglycerides Reference Interval Normal <150 mg/dL Borderline high 150 - 199 mg/dL High 200 - 499 mg/dL Very High > or = 500 mg/dL Laboratory - Chemistry and C hemistry - challengeOrdered By: Aidan Bright on 07-13-2023 Cholesterol in HDL [Mass/Vol] 46 mg/dL >40 [facility] Comment on above: The drugs N-Acetylcy steine and Metamizole may falsely depress this assay. Reference Range HDL <40 mg/dL Low HDL Cholesterol HDL >or= 60 mg/dL High HDL Cholesterol Cholesterol in LDL [Mass/Vol] 141 mg/dL 0-130 [facility] CO2 [Moles/Vol] 30.0 mmol/L 21.0-32.0 [facility] Urea nitrogen/Creatinine [Mass ratio] 20.2 mg/mg 10-20 [facility] No Panel InformationOrdered By: Aidan Bright on 07-13-2023 Estimated GFR (MDRD) Amer 123 mL/min >60 [facility] Comment on above: GFR Calc Estimated GFR (MDRD) Non-Af Amer 101 mL/min >60 [facility] Comment on above: Non- GFR Calc VLDL Cholesterol 23 mg/dL 5-40 [facility] Serum or plasma calcium jacki urement (mass/volume)Ordered By: Aidan Bright on 07-13-2023 Calcium [Mass/Vol] 9.1 mg/dL 8.5-10.1 [facility] Serum or plasma creatinine m easurement (mass/volume)Ordered By: Aidan Bright on 07-13-2023 Creatinine [Mass/Vol] 0.84 mg/dL 0.70-1.30 [facility] Comment on above: The validity of the calculated GFR & GFRAA in patients over 70 years has not been determined. Clinical correlation is essential. Serum or plasma urea nitroge n measurement (mass/volume)Ordered By: Aidan Bright on 07-13-2023 Urea nitrogen [Mass/Vol] 17 mg/dL -18 [facility] Thin prep Papanicolaou smear with manual screeningOrdered By: Aidanra Bright on 07-13-2023 Thin prep Papanicolaou smear with manual screening 2 5-15 [facility] Whole blood hemoglobin A1c/t otal hemoglobin ratio (mass fraction)Ordered By: Aidan Bright on 07-13-2023 HbA1c (Bld) [Mass fraction] 6.2 % 3.8-5.6 [facility] Comment on above: Normal < 5.7 % Predi abetic 5.7 - 6.4 % Diabetic >or= 6.5 % Please note range changes. Basophil percentageOrdered B y: Dr. Bright on 04-12-2022 Bilirubin [Mass/Vol] 0.60 mg/dL 0.20-1.00 [facility] Comment on above: For patients on eltr ombopag therapy, use of Dimension [place] TBIL is not recommended. Chloride [Moles/Vol] 102 mmol/L 98-107 [facility] Cholesterol [Mass/Vol] 189 mg/dL <200 [facility] Comment on above: <200 mg/dL Desirable 200-240 mg/dL Borderline >240 mg/dL High Risk Glucose [Mass/Vol] 143 mg/dL 74-106 [facility] Comment on above: Fasting Glucose resu lt greater than or equal to 126 mg/dL suggests DIABETES MELLITUS per A.D.A. criteria. Potassium [Moles/Vol] 4.0 mmol/L 3.5-5.1 [facility] Protein [Mass/Vol] 7.4 g/dL 6.4-8.2 [facility] Sodium [Moles/Vol] 137 mmol/L 136-145 [facility] Triglyceride [Mass/Vol] 131 mg/dL <199 [facility] Comment on above: The drugs N-Acetylcy steine and Metamizole may falsely depress this assay.Serum Triglycerides Reference Interval Normal <150 mg/dL Borderline high 150 - 199 mg/dL High 200 - 499 mg/dL Very High > or = 500 mg/dL Laboratory - Chemistry and C hemistry - challengeOrdered By: Dr. Bright on 04-12-2022 ALP [Catalytic activity/Vol] 68 U/L 45-117 [facility] ALT [Catalytic activity/Vol] 26 U/L 16-61 [facility] CO2 [Moles/Vol] 33.0 mmol/L 21.0-32.0 [facility] Cobalamin (Vitamin B12) [Mass/Vol] 421 pg/mL 211-911 [facility] Globulin (S) [Mass/Vol] 3.5 g/dL 2.2-4.2 [facility] Magnesium [Mass/Vol] 2.2 mg/dL 1.6-2.6 [facility] Urea nitrogen/Creatinine [Mass ratio] 17.0 mg/mg 10-20 [facility] No Panel InformationOrdered By: Dr. Bright on 04-12-2022 Estimated GFR (MDRD) Amer 109 mL/min >60 [facility] Comment on above: GFR Calc Estimated GFR (MDRD) Non-Af Amer 90 mL/min >60 [facility] Comment on above: Non- GFR Calc Thyroid Stimulating Hormone (TSH) 1.06 uIU/mL 0.358-3.74 [facility] Serum or plasma albumin jacki urement (mass/volume)Ordered By: Dr. Bright on 04-12-2022 Albumin [Mass/Vol] 3.9 g/dL 3.2-5.0 [facility] Serum or plasma albumin/glob ulin mass ratioOrdered By: Dr. Bright on 04-12-2022 Albumin/Globulin [Mass ratio] 1.1 {ratio} 0.9-2.4 [facility] Serum or plasma calcium jacki urement (mass/volume)Ordered By: Dr. Bright on 04-12-2022 Calcium [Mass/Vol] 9.2 mg/dL 8.5-10.1 [facility] Serum or plasma cholesterol in HDL measurement (mass/volume)Ordered By: Dr. Bright on 04-12-2022 Cholesterol in HDL [Mass/Vol] 42 mg/dL >40 [facility] Comment on above: The drugs N-Acetylcy steine and Metamizole may falsely depress this assay. Reference Range HDL <40 mg/dL Low HDL Cholesterol HDL >or= 60 mg/dL High HDL Cholesterol Serum or plasma cholesterol in VLDL measurement (mass/volume)Ordered By: Dr. Bright on 04-12-2022 Cholesterol in VLDL [Mass/Vol] 26 mg/dL 5-40 [facility] Serum or plasma creatinine m easurement (mass/volume)Ordered By: Dr. Bright on 04-12-2022 Creatinine [Mass/Vol] 0.94 mg/dL 0.70-1.30 [facility] Comment on above: The validity of the calculated GFR & GFRAA in patients over 70 years has not been determined. Clinical correlation is essential. Serum or plasma low density lipoprotein (LDL) cholesterol measurement (mass/volume)Ordered By: Dr. Bright on 04-12-2022 Cholesterol in LDL [Mass/Vol] 121 mg/dL 0-130 [facility] Serum or plasma urea nitroge n measurement (mass/volume)Ordered By: Dr. Bright on 04-12-2022 Urea nitrogen [Mass/Vol] 16 mg/dL 7-18 [facility] Thin prep Papanicolaou smear with manual screeningOrdered By: Dr. Bright on 04-12-2022 Thin prep Papanicolaou smear with manual screening 12 U/L 15-37 [facility] Thin prep Papanicolaou smear with manual screening 2 5-15 [facility] No Panel Informationon 11-09 POC SARS CoV-2 Antigen Negative [facility] Work Phone: Laboratory - Microbiology an d Antimicrobial susceptibilityon 08-08-2021 SARS-CoV-2 (COVID-19) RNA SANKET+probe Ql (Unsp spec) Not detected Not Detect [facility] Work Phone: Comment on above: Normal Reference Ran ge: Not DetectedMethod:(RT-PCR) real-time reverse transcriptase PCRLuminex MELISSA Instrument*The Food and Drug Administration (FDA) has issued an Emergency Use Authorization (EAU) for the MELISSA SARS-CoV-2 Assay for the rapid detection of the virus that causes COVID-19. This test has been validated, but the FDAs independent review of this validation is pending.*Negative results do not preclude infection and should not be used as the sole basis for treatment or patient management. Optimum specimen types and timing for peak viral levels during infections caused by SARS-CoV-2 have not been determined. Collection of multiple specimens from the same patient may be necessary to detect the virus. The possibility of a false negative result should be considered if the patient has clinical presentation or has had recent exposure. Laboratory - Microbiology an d Antimicrobial susceptibilityon 06-21-2021 SARS-CoV-2 (COVID-19) RNA SANKET+probe Ql (Unsp spec) Not detected Not Detect [facility] Work Phone: Comment on above: Normal Reference Ran ge: Not DetectedMethod:(RT-PCR) real-time reverse transcriptase PCRLuminex MELISSA Instrument*The Food and Drug Administration (FDA) has issued an Emergency Use Authorization (EAU) for the MELISSA SARS-CoV-2 Assay for the rapid detection of the virus that causes COVID-19. This test has been validated, but the [facility] independent review of this validation is pending.*Negative results do not preclude infection and should not be used as the sole basis for treatment or patient management. Optimum specimen types and timing for peak viral levels during infections caused by SARS-CoV-2 have not been determined. Collection of multiple specimens from the same patient may be necessary to detect the virus. The possibility of a false negative result should be considered if the patient has clinical presentation or has had recent exposure. Laboratory - Microbiology an d Antimicrobial susceptibilityon 06-13-2021 SARS-CoV-2 (COVID-19) RNA SANKET+probe Ql (Unsp spec) Not detected Not Detect [facility] Work Phone: Comment on above: Normal Reference Ran ge: Not DetectedMethod:(RT-PCR) real-time reverse transcriptase PCRLuminex MELISSA Instrument*The Food and Drug Administration (FDA) has issued an Emergency Use Authorization (EAU) for the MELISSA SARS-CoV-2 Assay for the rapid detection of the virus that causes COVID-19. This test has been validated, but the FDAs independent review of this validation is pending.*Negative results do not preclude infection and should not be used as the sole basis for treatment or patient management. Optimum specimen types and timing for peak viral levels during infections caused by SARS-CoV-2 have not been determined. Collection of multiple specimens from the same patient may be necessary to detect the virus. The possibility of a false negative result should be considered if the patient has clinical presentation or has had recent exposure. SARS coronavirus RNA [Presen ce] in Unspecified specimen by SANKET with probe detectionon 05-31-2021 SARS-CoV RNA SANKET+probe Ql (Unsp spec) Not detected Not Detected [facility] Work Phone: Comment on above: This nucleic acid am plification test was developed and itsperformance characteristics determined by [facility]. Nucleic acid amplification tests include RT-PCR and TMA. This test has not been FDA cleared orapproved. This test has been authorized by FDA under anEmergency Use Authorization (EUA). This test is onlyauthorized for the duration of time the declaration thatcircumstances exist justifying the authorization of theemergency use of in vitro diagnostic tests for detection [id number] virus and/or diagnosis of COVID-19 infectionunder section 564(b)(1) of the Act, 21 U.S.C. 360bbb-3(b)(1), unless the authorization is terminated or revokedsooner.When diagnostic testing is negative, the possibility of afalse negative result should be considered in the contextof a patient's recent exposures and the presence ofclinical signs and symptoms consistent with COVID-19. Anindividual without symptoms of COVID-19 and who is notshedding SARS-CoV-2 virus would expect to have a negative(not detected) result in this assay. No Panel Informationon 05-13 Prostate Specific Antigen Screen 0.94 ng/mL 0.00-4.00 [facility] Work Phone: Comment on above: This test was perfor med using the TPSA assay method for [employer] chemistry system. Values obtained with differentassay methods cannot be used interchangably.When changing PSA assays in the course of monitoring apatient, additional sequential testing should be carriedout to confirm baseline values. Basophil percentageon 2020 Chloride [Moles/Vol] 105 mmol/L 98-107 [facility] Work Phone: Cholesterol [Mass/Vol] 192 mg/dL <200 [facility] Work Phone: Comment on above: <200 mg/dL Desirable 200-240 mg/dL Borderline >240 mg/dL High Risk Glucose [Mass/Vol] 111 mg/dL 74-106 [facility] Work Phone: Comment on above: Fasting Glucose resu lt from 100 to 125 mg/dL suggests IMPAIRED HOMEOSTASIS per A.D.A. criteria.Please note revised GLUCOSE reference range effective 2017. Potassium [Moles/Vol] 4.4 mmol/L 3.5-5.1 [facility] Work Phone: Sodium [Moles/Vol] 139 mmol/L 136-145 [facility] Work Phone: Triglyceride [Mass/Vol] 107 mg/dL [facility] Work Phone: Comment on above: The drugs N-Acetylcy steine and Metamizole may falsely depress this assay.Serum Triglycerides Reference Interval Normal <150 mg/dL Borderline high 150 - 199 mg/dL High 200 - 499 mg/dL Very High > or = 500 mg/dL WBC (Bld) [#/Vol] 4.5 10*3/uL 4.4-11.0 [facility] Work Phone: Blood erythrocytes count (nu mber/volume)on 05-11-2021 RBC (Bld) [#/Vol] 4.99 10*6/uL 4.6-6.2 [facility] Work Phone: [phone] Blood hemoglobin measurement (mass/volume)on 05-11-2021 Hemoglobin (Bld) [Mass/Vol] 15.0 g/dL 13.0-16.5 [facility] Work Phone: [phone] Blood platelet mean volumeon 05-11-2021 Platelet mean volume (Bld) [Entitic vol] 9.7 fL 6.2-12.0 [facility] Work Phone: [phone] Determination of erythrocyte mean corpuscular volume (MCV)on 05-11-2021 MCV (RBC) [Entitic vol] 91.2 fL 80-94 [facility] Work Phone: [phone] Hematocrit Auto (Bld) [Volum e fraction]on 05-11-2021 Hematocrit (Bld) [Volume fraction] 45.5 % 40-54 [facility] Work Phone: [phone] Laboratory - Chemistry and C hemistry - challengeon 05-11-2021 CO2 [Moles/Vol] 29.0 mmol/L 21.0-32.0 [facility] Work Phone: [phone] Urea nitrogen/Creatinine [Mass ratio] 20.7 mg/mg 10-20 [facility] Work Phone: [phone] Laboratory - Hematology and Cell countson 05-11-2021 Erythrocyte distribution width (RBC) [Entitic vol] 41.1 fL 35.1-43.9 [facility] Work Phone: [phone] Erythrocyte distribution width (RBC) [Ratio] 12.4 % 11.6-14.6 [facility] Work Phone: [phone] MCH (RBC) [Entitic mass] 30.1 pg 27.0-32.0 [facility] Work Phone: MCHC Auto (RBC) [Mass/Vol]on 05-11-2021 MCHC (RBC) [Mass/Vol] 33.0 g/dL 32-36 [facility] Work Phone: No Panel Informationon 05-11 Estimated GFR (MDRD) Amer 119 mL/min >60 [facility] Work Phone: Comment on above: GFR Calc Estimated GFR (MDRD) Non-Af Amer 99 mL/min >60 [facility] Work Phone: Comment on above: Non- GFR Calc Platelets bldon 05-11-2021 Platelets (Bld) [#/Vol] 258 10*3/uL 150-450 [facility] Work Phone: Serum or plasma calcium jacki urement (mass/volume)on 05-11-2021 Calcium [Mass/Vol] 9.1 mg/dL 8.5-10.1 [facility] Work Phone: Serum or plasma cholesterol in HDL measurement (mass/volume)on 05-11-2021 Cholesterol in HDL [Mass/Vol] 43 mg/dL [facility] Work Phone: Comment on above: The drugs N-Acetylcy steine and Metamizole may falsely depress this assay. Reference Range HDL <40 mg/dL Low HDL Cholesterol HDL >or= 60 mg/dL High HDL Cholesterol Serum or plasma cholesterol in VLDL measurement (mass/volume)on 05-11-2021 Cholesterol in VLDL [Mass/Vol] 21 mg/dL 5-40 [facility] Work Phone: Serum or plasma creatinine m easurement (mass/volume)on 05-11-2021 Creatinine [Mass/Vol] 0.87 mg/dL 0.70-1.30 [facility] Work Phone: Comment on above: The validity of the calculated GFR & GFRAA in patients over 70 years has not been determined. Clinical correlation is essential. Serum or plasma low density lipoprotein (LDL) cholesterol measurement (mass/volume)on 05-11-2021 Cholesterol in LDL [Mass/Vol] 128 mg/dL 0-130 [facility] Work Phone: Serum or plasma urea nitroge n measurement (mass/volume)on 05-11-2021 Urea nitrogen [Mass/Vol] 18 mg/dL 7-18 [facility] Work Phone: Thin prep Papanicolaou smear with manual screeningon 05-11-2021 Thin prep Papanicolaou smear with manual screening 5 5-15 [facility] Work Phone: Whole blood hemoglobin A1c/t otal hemoglobin ratio (mass fraction)on 05-11-2021 HbA1c (Bld) [Mass fraction] 6.0 % 3.8-5.6 [facility] Work Phone: Comment on above: Normal < 5.7 % Predi abetic 5.7 - 6.4 % Diabetic >or= 6.5 % Please note range changes. COVID-19 virus antigen assay SARS-CoV-2 (COVID-19) Ag IA.rapid Ql (Resp) [facility] Work Phone: Vital Signs Date Time Vital Sign Value Performing Clinician Facility 08-15-2024 14:54-0400 Body mass index (BMI) [Ratio] 31.43 kg/m2 Cheri Older ASSOCIATE MARKETING MANAGER.FOOD PRODUCTION MANAGER Work Phone: [facility] 08-15-2024 14:54-0400 Body weight 102.97 kg Older ASSOCIATE MARKETING MANAGER.FOOD PRODUCTION MANAGER Work Phone: [facility] 08-15-2024 14:54-0400 Diastolic blood pressure 80 mm[Hg] Cheri Older ASSOCIATE MARKETING MANAGER.FOOD PRODUCTION MANAGER Work Phone: [facility] 08-15-2024 14:54-0400 Heart rate 72 /min Cheri Older ASSOCIATE MARKETING MANAGER.FOOD PRODUCTION MANAGER Work Phone: [facility] 08-15-2024 14:54-0400 Respiratory rate 16 /min Cheri Older ASSOCIATE MARKETING MANAGER.FOOD PRODUCTION MANAGER Work Phone: [facility] 08-15-2024 14:54-0400 SaO2% (BldA) [Mass fraction] 97 % Cheri Older ASSOCIATE MARKETING MANAGER.FOOD PRODUCTION MANAGER Work Phone: [facility] 08-15-2024 14:54-0400 Systolic blood pressure 132 mm[Hg] Cheri Older ASSOCIATE MARKETING MANAGER.FOOD PRODUCTION MANAGER Work Phone: [facility] 06-22-2024 15:21-0500 Body mass index (BMI) [Ratio] 35.31 kg/m2 Cheri Older ASSOCIATE MARKETING MANAGER.FOOD PRODUCTION MANAGER Work Phone: [facility] 06-22-2024 15:21-0500 Body weight 115.67 kg Cheri Older ASSOCIATE MARKETING MANAGER.FOOD PRODUCTION MANAGER Work Phone: [facility] 06-22-2024 15:21-0500 Diastolic blood pressure 80 mm[Hg] Cheri Older ASSOCIATE MARKETING MANAGER.FOOD PRODUCTION MANAGER Work Phone: [facility] 06-22-2024 15:21-0500 Heart rate 74 /min Cheri Older ASSOCIATE MARKETING MANAGER.FOOD PRODUCTION MANAGER Work Phone: [facility] 06-22-2024 15:21-0500 Respiratory rate 16 /min Cheri Older ASSOCIATE MARKETING MANAGER.FOOD PRODUCTION MANAGER Work Phone: [facility] 06-22-2024 15:21-0500 SaO2% (BldA) [Mass fraction] 95 % Cheri Older ASSOCIATE MARKETING MANAGER.FOOD PRODUCTION MANAGER Work Phone: [facility] 06-22-2024 15:21-0500 Systolic blood pressure 132 mm[Hg] Cheri Older ASSOCIATE MARKETING MANAGER.FOOD PRODUCTION MANAGER Work Phone: [facility] 02-03-2024 16:44-0400 Diastolic blood pressure 78 mm[Hg] Cheri Older ASSOCIATE MARKETING MANAGER.FOOD PRODUCTION MANAGER Work Phone: [facility] 02-03-2024 16:44-0400 Systolic blood pressure 130 mm[Hg] Cheri Older ASSOCIATE MARKETING MANAGER.FOOD PRODUCTION MANAGER Work Phone: [facility] 02-03-2024 16:19-0400 Body mass index (BMI) [Ratio] 34.77 kg/m2 Cheri Older ASSOCIATE MARKETING MANAGER.FOOD PRODUCTION MANAGER Work Phone: [facility] 02-03-2024 16:19-0400 Body weight 113.9 kg Cheri Older ASSOCIATE MARKETING MANAGER.FOOD PRODUCTION MANAGER Work Phone: [facility] 02-03-2024 16:19-0400 Heart rate 73 /min Cheri Older ASSOCIATE MARKETING MANAGER.FOOD PRODUCTION MANAGER Work Phone: [facility] 02-03-2024 16:19-0400 SaO2% (BldA) [Mass fraction] 97 % Cheri Older ASSOCIATE MARKETING MANAGER.FOOD PRODUCTION MANAGER Work Phone: [facility] 10-30-2023 15:52-0400 Body height 177.8 cm Marcus Nunez MD Work Phone: [facility] 10-30-2023 15:52-0400 Body mass index (BMI) [Ratio] 35.44 kg/m2 Marcus Nunez MD Work Phone: [facility] 10-30-2023 15:52-0400 Body temperature 98.6 [degF] Marcus Nunez MD Work Phone: [facility] 10-30-2023 15:52-0400 Body weight 112.04 kg Marcus Nunez MD Work Phone: [facility] 10-30-2023 15:52-0400 Diastolic blood pressure 98 mm[Hg] Marcus Nunez MD Work Phone: [facility] 10-30-2023 15:52-0400 Heart rate 80 /min Marcus Nunez MD Work Phone: [facility] 10-30-2023 15:52-0400 SaO2% (BldA) [Mass fraction] 96 % Marcus Nunez MD Work Phone: [facility] 10-30-2023 15:52-0400 Systolic blood pressure 152 mm[Hg] Marcus Nunez MD Work Phone: [facility] 09-17-2023 18:09-0400 Body temperature 95.4 [degF] [facility] 09-17-2023 18:09-0400 Diastolic blood pressure 87 mm[Hg] [facility] 09-17-2023 18:09-0400 Heart rate 74 /min [facility] 09-17-2023 18:09-0400 Respiratory rate 18 /min [facility] 09-17-2023 18:09-0400 SaO2% (BldA) [Mass fraction] 98 % [facility] 09-17-2023 18:09-0400 Systolic blood pressure 157 mm[Hg] [facility] 09-17-2023 13:47-0400 Body height 178 cm [facility] 09-17-2023 13:47-0400 Body mass index (BMI) [Ratio] 34.4 kg/m2 [facility] 09-17-2023 13:47-0400 Body weight 108.95 kg [facility] 07-15-2023 16:50-0500 Diastolic blood pressure 82 mm[Hg] Cheri Older ASSOCIATE MARKETING MANAGER.FOOD PRODUCTION MANAGER Work Phone: [facility] 07-15-2023 16:50-0500 Systolic blood pressure 128 mm[Hg] Cheri Older ASSOCIATE MARKETING MANAGER.FOOD PRODUCTION MANAGER Work Phone: [facility] 07-15-2023 16:17-0500 Body height 181 cm Cheri Older ASSOCIATE MARKETING MANAGER.FOOD PRODUCTION MANAGER Work Phone: [facility] 07-15-2023 16:17-0500 Body weight 110.22 kg Cheri Older ASSOCIATE MARKETING MANAGER.FOOD PRODUCTION MANAGER Work Phone: [facility] 07-15-2023 16:17-0500 Heart rate 68 /min Cheri Older ASSOCIATE MARKETING MANAGER.FOOD PRODUCTION MANAGER Work Phone: [facility] 07-15-2023 16:17-0500 Respiratory rate 16 /min Cheri Older ASSOCIATE MARKETING MANAGER.FOOD PRODUCTION MANAGER Work Phone: [facility] 07-15-2023 16:17-0500 SaO2% (BldA) [Mass fraction] 98 % Cheri Older ASSOCIATE MARKETING MANAGER.FOOD PRODUCTION MANAGER Work Phone: [facility] 04-09-2023 15:32-0500 Diastolic blood pressure 85 mm[Hg] Cheri Older ASSOCIATE MARKETING MANAGER.FOOD PRODUCTION MANAGER Work Phone: [facility] 04-09-2023 15:32-0500 Systolic blood pressure 132 mm[Hg] Cheri Older ASSOCIATE MARKETING MANAGER.FOOD PRODUCTION MANAGER Work Phone: [facility] 04-09-2023 15:03-0500 Body weight 112.67 kg Cheri Older ASSOCIATE MARKETING MANAGER.FOOD PRODUCTION MANAGER Work Phone: [facility] 04-09-2023 15:03-0500 Heart rate 62 /min Cheri Older ASSOCIATE MARKETING MANAGER.FOOD PRODUCTION MANAGER Work Phone: [facility] 04-09-2023 15:03-0500 Respiratory rate 16 /min Cheri Older ASSOCIATE MARKETING MANAGER.FOOD PRODUCTION MANAGER Work Phone: [facility] 04-09-2023 15:03-0500 SaO2% (BldA) [Mass fraction] 96 % Cheri Older ASSOCIATE MARKETING MANAGER.FOOD PRODUCTION MANAGER Work Phone: [facility] 02-04-2023 18:00-0400 Body temperature 98.49 [degF] Cheri Older ASSOCIATE MARKETING MANAGER.FOOD PRODUCTION MANAGER Work Phone: [facility] 02-04-2023 18:00-0400 Body weight 114.76 kg Cheri Older ASSOCIATE MARKETING MANAGER.FOOD PRODUCTION MANAGER Work Phone: [facility] 02-04-2023 18:00-0400 Diastolic blood pressure 92 mm[Hg] Cheri Older ASSOCIATE MARKETING MANAGER.FOOD PRODUCTION MANAGER Work Phone: [facility] 02-04-2023 18:00-0400 Heart rate 78 /min Cheri Older ASSOCIATE MARKETING MANAGER.FOOD PRODUCTION MANAGER Work Phone: [facility] 02-04-2023 18:00-0400 Respiratory rate 16 /min Cheri Older ASSOCIATE MARKETING MANAGER.FOOD PRODUCTION MANAGER Work Phone: [facility] 02-04-2023 18:00-0400 SaO2% (BldA) [Mass fraction] 97 % Cheri Older ASSOCIATE MARKETING MANAGER.FOOD PRODUCTION MANAGER Work Phone: [facility] 02-04-2023 18:00-0400 Systolic blood pressure 154 mm[Hg] Cheri Older ASSOCIATE MARKETING MANAGER.FOOD PRODUCTION MANAGER Work Phone: [facility] 01-29-2023 08:53-0400 Body temperature 98.2 [degF] Cheri Older ASSOCIATE MARKETING MANAGER.FOOD PRODUCTION MANAGER Work Phone: [facility] 01-29-2023 08:53-0400 Body weight 113.85 kg Cheri Older ASSOCIATE MARKETING MANAGER.FOOD PRODUCTION MANAGER Work Phone: [facility] 01-29-2023 08:53-0400 Diastolic blood pressure 90 mm[Hg] Cheri Older ASSOCIATE MARKETING MANAGER.FOOD PRODUCTION MANAGER Work Phone: [facility] 01-29-2023 08:53-0400 Heart rate 60 /min Cheri Older ASSOCIATE MARKETING MANAGER.FOOD PRODUCTION MANAGER Work Phone: [facility] 01-29-2023 08:53-0400 Respiratory rate 16 /min Cheri Older ASSOCIATE MARKETING MANAGER.FOOD PRODUCTION MANAGER Work Phone: [facility] 01-29-2023 08:53-0400 Systolic blood pressure 142 mm[Hg] Cheri Older ASSOCIATE MARKETING MANAGER.FOOD PRODUCTION MANAGER Work Phone: [facility] 07-28-2022 13:22-0500 Body height 177.[address] Aidan Bright Work Phone: [facility] 07-28-2022 13:22-0500 Body mass index (BMI) [Ratio] 34.4 kg/m2 Dr. Aidan Bright Work Phone: [facility] 07-28-2022 13:22-0500 Body temperature 97.9 [degF] Dr. Aidan Bright Work Phone: [facility] 07-28-2022 13:22-0500 Body weight 108.[address] Aidan Bright Work Phone: [facility] 07-28-2022 13:22-0500 Diastolic blood pressure 87 mm[Hg] Dr. Aidan Bright Work Phone: [facility] 07-28-2022 13:22-0500 Heart rate 59 /min Dr. Aidan Bright Work Phone: [facility] 07-28-2022 13:22-0500 Respiratory rate 16 /min Dr. Aidan Bright Work Phone: 9(761)839-563007 [place] [address] 07-28-2022 13:22-0500 SaO2% (BldA) [Mass fraction] 97 % Dr. Aidan Bright Work Phone: 7(413)264-227707 [place] [address] 07-28-2022 13:22-0500 Systolic blood pressure 146 mm[Hg] Dr. Aidan Bright Work Phone: 4(694)654-788807 [place] [address] 06-11-2022 15:03-0500 Body height 177.[address] Aidan Bright Work Phone: 4(817)791-372807 [place] [address] 06-11-2022 15:03-0500 Body mass index (BMI) [Ratio] 34.1 kg/m2 Dr. Aidan Bright Work Phone: 4(667)247-413507 [place] [address] 06-11-2022 15:03-0500 Body weight 107.[address] Aidan Bright Work Phone: 6(162)295-289007 [place] [address] 06-11-2022 15:03-0500 Diastolic blood pressure 79 mm[Hg] Dr. Aidan Bright Work Phone: 9(912)223-301107 [place] [address] 06-11-2022 15:03-0500 Heart rate 56 /min Dr. Aidan Bright Work Phone: 3(520)542-875007 [place] [address] 06-11-2022 15:03-0500 Respiratory rate 16 /min Dr. Aidan Bright Work Phone: 7(959)767-731207 [place] [address] 06-11-2022 15:03-0500 SaO2% (BldA) [Mass fraction] 95 % Dr. Aidan Bright Work Phone: 2(085)350-252607 [place] [address] 06-11-2022 15:03-0500 Systolic blood pressure 129 mm[Hg] Dr. Aidan Bright Work Phone: 3(584)984-431507 [place] [address] 04-11-2022 15:52-0500 Body height 177.8 cm Aidan Bright MD Work Phone: [facility] 04-11-2022 15:52-0500 Body temperature 98.4 [degF] iAdan Bright MD Work Phone: [facility] 04-11-2022 15:52-0500 Body weight 105.23 kg Aidan Bright MD Work Phone: [facility] 04-11-2022 15:52-0500 Diastolic blood pressure 76 mm[Hg] Aidan Bright MD Work Phone: [facility] 04-11-2022 15:52-0500 Heart rate 60 /min Aidan Bright MD Work Phone: [facility] 04-11-2022 15:52-0500 Respiratory rate 14 /min Aidan Bright MD Work Phone: [facility] 04-11-2022 15:52-0500 SaO2% (BldA) [Mass fraction] 97 % Aidan Bright MD Work Phone: [facility] 04-11-2022 15:52-0500 Systolic blood pressure 138 mm[Hg] Aidan Bright MD Work Phone: [facility] 01-13-2022 13:00-0400 Body height 177.8 cm Aidan Bright MD Work Phone: [facility] 01-13-2022 13:00-0400 Body temperature 98.91 [degF] Aidan Bright MD Work Phone: [facility] 01-13-2022 13:00-0400 Body weight 113.4 kg Aidan Bright MD Work Phone: [facility] 01-13-2022 13:00-0400 Diastolic blood pressure 80 mm[Hg] Aidan Bright MD Work Phone: [facility] 01-13-2022 13:00-0400 Heart rate 63 /min Aidan Bright MD Work Phone: [facility] 01-13-2022 13:00-0400 Respiratory rate 12 /min Aidan Bright MD Work Phone: [facility] 01-13-2022 13:00-0400 SaO2% (BldA) [Mass fraction] 96 % Aidan Bright MD Work Phone: [facility] 01-13-2022 13:00-0400 Systolic blood pressure 122 mm[Hg] Aidan Bright MD Work Phone: [facility] 11-09-2021 11:33-0400 Body temperature 98.1 [degF] Dr. Aidan Bright Work Phone: [facility] Work Phone: 11-09-2021 11:33-0400 Diastolic blood pressure 96 mm[Hg] Dr. Aidan Bright Work Phone: [facility] Work Phone: 11-09-2021 11:33-0400 Heart rate 61 /min Dr. Aidan Bright Work Phone: [facility] Work Phone: 11-09-2021 11:33-0400 Respiratory rate 14 /min Dr. Aidan Bright Work Phone: [facility] Work Phone: 11-09-2021 11:33-0400 SaO2% (BldA) [Mass fraction] 97 % Dr. Aidan Bright Work Phone: [facility] Work Phone: 11-09-2021 11:33-0400 Systolic blood pressure 132 mm[Hg] Dr. Aidan Bright Work Phone: [facility] Work Phone: Encounters Encounter Date Encounter Type Care Provider Facility Start: 11-01-2024 End: 11-04-2024 ambulatory Aidan Bright MD Work Phone: [facility] [place] [address] Start: 10-18-2024 End: 11-04-2024 Telephone encounter Aidan Bright MD Work Phone: [facility] [place] Comment on above: Results; Orders Start: 09-24-2024 End: 09-24-[address] Aidan Bright MD Work Phone: [facility] Work Phone: Start: 09-24-2024 End: 09-24-2024 Patient encounter procedure CHERI TORRES NP-Dany -MRI - [facility] Work Phone: Start: 09-24-2024 End: 09-24-2024 ambulatory [facility] Facility:[facility] Start: 08-15-2024 End: 08-15-2024 ambulatory [facility] Facility:[facility] Start: 08-15-2024 End: 08-15-2024 Patient encounter procedure Cheri Torres APRN.FOOD PRODUCTION MANAGER Work Phone: [facility] [place] Comment on above: Class 1 obesity with serious comorbidity and body mass index (BMI) of 31.0 to 31.9 in adult, unspecified obesity type (Primary Dx); Metatarsalgia of right foot; Neuroma; At high risk for cardiovascular disease; Hyperinsulinemia; Prediabetes; Encounter for immunization Start: 07-12-2024 Encounter for genera l adult medical examination without abnormal findings [facility] Start: 06-24-2024 End: 06-29-2024 Telephone encounter Cheri Torres APRN.FOOD PRODUCTION MANAGER Work Phone: [facility] [place] Comment on above: Results Start: 06-23-2024 End: 06-23-2024 Patient encounter procedure CHERI DEMPSEY -Laboratory Work Phone: Start: 06-22-2024 End: 06-23-2024 [facility] Facility:[facility] Start: 06-22-2024 End: 06-22-2024 Patient encounter procedure Cheri Torres ASSOCIATE MARKETING MANAGER.FOOD PRODUCTION MANAGER Work Phone: [facility] [place] Comment on above: Essential hypertensi on (Primary Dx); Prediabetes; Class 2 severe obesity with serious comorbidity and body mass index (BMI) of 35.0 to 35.9 in adult, unspecified obesity type (HCC); Numbness in feet; Annual physical exam; Herpes simplex labialis Start: 05-23-2024 End: 05-23-2024 [facility] Facility:[facility] Start: 04-19-2024 End: 04-19-2024 [facility] Facility:[facility] Start: 04-19-2024 End: 04-19-2024 ambulatory [facility] Facility:[facility] Start: 03-28-2024 End: 03-28-2024 Telephone encounter Aidan Bright MD Work Phone: Family [facility] Comment on above: Results Refill Request Start: 03-09-2024 ambulatory Jeremias Brown Facility:[facility] Start: 03-09-2024 End: 03-09-2024 ambulatory [facility] Facility:[facility] Start: 02-22-2024 End: 02-22-2024 ambulatory John Mckeon Facility:[facility] Start: 02-08-2024 End: 02-08-2024 Telephone encounter Cheri Torres APRN.FOOD PRODUCTION MANAGER Work Phone: [facility] [place] Comment on above: Orders Start: 02-03-2024 End: 02-03-2024 Patient encounter procedure Cheri Torres APRN.FOOD PRODUCTION MANAGER Work Phone: [facility] [place] Comment on above: Prediabetes (Primary Dx); Essential hypertension; Other sleep apnea; Numbness in feet; Right foot pain Start: 02-03-2024 End: 02-03-2024 ambulatory SELF Facility:[facility] [place] Start: 01-21-2024 End: 01-21-2024 ambulatory Rasheeda Cydney YuQuiroz Facility:[facility] Start: 01-21-2024 End: 01-21-2024 ambulatory [facility] Facility:[facility] Start: 01-05-2024 ambulatory Aidan Gutierrez Work Phone: [facility] [place] [address] Start: 10-30-2023 End: 10-30-2023 Office outpatient new 30 minutes Marcus Nunez MD Work Phone: [facility] [place] Comment on above: Benign non-nodular p rostatic hyperplasia with lower urinary tract symptoms (Primary Dx); Screening for prostate cancer Start: 10-30-2023 ambulatory SELF SELF Facility:[facility] Start: 09-17-2023 Telephone encounter Aidan aquino MD Work Phone: [facility] [place] Comment on above: Patient concern Start: 09-17-2023 End: 09-17-2023 Emergency department patient visit [facility]gency [facility] Work Phone: Start: 08-11-2023 Telephone encounter Cheir Brian ASSOCIATE MARKETING MANAGER.FOOD PRODUCTION MANAGER Work Phone: [facility] Comment on above: Results Start: 08-10-2023 End: 08-10-2023 ambulatory [facility] Work Phone: Start: 08-10-2023 End: 08-10-2023 Patient encounter procedure [facility]Laboratory Work Phone: Start: 08-10-2023 Telephone encounter Cheri Torres APRN.FOOD PRODUCTION MANAGER Work Phone: Family [facility] Comment on above: Orders Start: 07-15-2023 End: 07-15-2023 Patient encounter procedure Cheri Torres APRN.FOOD PRODUCTION MANAGER Work Phone: [facility] Comment on above: Increased urinary fr equency (Primary Dx); Essential hypertension; Prediabetes; Mixed hyperlipidemia; Other sleep apnea; Reactive depression; Situational anxiety; Insomnia, unspecified type Start: 07-13-2023 End: 07-13-2023 [facility] Work Phone: Start: 07-13-2023 End: 07-13-2023 Patient encounter procedure [facility] Work Phone: Start: 07-02-2023 Patient Msg Linda Veloz [facility] Comment on above: Your PCP has placed lab orders for your upcoming appointment Start: 06-30-2023 ambulatory Aidan Gutierrez Work Phone: [facility] Start: 05-01-2023 End: 05-01-2023 ambulatory Cheri Torres APRN.FOOD PRODUCTION MANAGER Work Phone: [facility] Comment on above: Reactive depression (Primary Dx); Situational anxiety; Insomnia, unspecified type; Parent coping with child illness or disability; Dependent family member needing care at home Start: 05-01-2023 End: 05-01-2023 Telemedicine consultation with patient Cheri Torres ASSOCIATE MARKETING MANAGER.FOOD PRODUCTION MANAGER Work Phone: [facility] Start: 04-22-2023 Telephone encounter Cheri Torres APRN.FOOD PRODUCTION MANAGER Work Phone: [facility] [place] Comment on above: Patient Question Start: 04-09-2023 End: 04-09-2023 Patient encounter procedure Cheri Torres ASSOCIATE MARKETING MANAGER.FOOD PRODUCTION MANAGER Work Phone: [facility] [place] Comment on above: Essential hypertensi on (Primary Dx); Numbness of toes; Situational anxiety Start: 03-24-2023 ambulatory Aidan Gutierrez Work Phone: Internal [facility] Start: 02-04-2023 End: 02-04-2023 Patient encounter procedure Cheri Torres ASSOCIATE MARKETING MANAGER.FOOD PRODUCTION MANAGER Work Phone: [facility] [place] Comment on above: Herpes zoster withou t complication (Primary Dx); Essential hypertension Start: 01-29-2023 End: 01-29-2023 Patient encounter procedure Cheri Torres ASSOCIATE MARKETING MANAGER.FOOD PRODUCTION MANAGER Work Phone: [facility] [place] Comment on above: Herpes zoster withou t complication (Primary Dx) Start: 10-22-2022 Telephone encounter Aidan aquino MD Work Phone: [facility] [place] Comment on above: Medication Request Start: 09-25-2022 Patient Msg [facility] Provider Internal [facility] Comment on above: Your primary care ph ysician has placed lab orders for your upcoming appointment. Start: 09-24-2022 Telephone encounter Aidan aquino MD Work Phone: [facility] [place] Comment on above: Medication Question Start: 09-23-2022 ambulatory Aidan Gutierrez Work Phone: [facility] Start: 07-28-2022 Non-patient / Non-visit Dr. Ted Bright Work Phone: [facility] Start: 07-28-2022 End: 07-28-[address] Aidan Bright Work Phone: [facility] Work Phone: Start: 07-28-2022 End: 07-28-[address] Aidan Bright Work Phone: [facility] Start: 06-20-2022 Non-patient / Non-visit Dr. Ted Bright Work Phone: [facility] Start: 06-20-2022 End: 06-20-[address] Aidan Bright Work Phone: [facility] Work Phone: Start: 06-20-2022 End: 06-20-[address] Aidan Bright Work Phone: [facility] Start: 06-11-2022 End: 06-11-[address] Aidan Bright Work Phone: [facility] Start: 04-12-2022 End: 04-12-2022 ambulatory [facility] Work Phone: Start: 04-12-2022 End: 04-12-2022 Patient encounter procedure [facility] Start: 04-11-2022 End: 04-11-2022 Patient encounter procedure Aidan Bright MD Work Phone: [facility] [place] Comment on above: Chronic cough (Prima ry Dx); Neurocardiogenic syncope; Essential hypertension; Mixed hyperlipidemia Start: 01-23-2022 End: 01-23-[address] Aidan Bright Work Phone: [facility] Work Phone: Start: 01-23-2022 End: 01-23-[address] Aidan Bright Work Phone: [facility]-Laboratory, Specimen Start: 01-13-2022 End: 01-13-2022 Patient encounter procedure Aidan Bright MD Work Phone: [facility] [place] Comment on above: Other sleep apnea (P rimary Dx); Essential hypertension Start: 01-07-2022 Refill Aidan Gutierrez Work Phone: [facility] [place] Comment on above: Refill Request Start: 12-12-2021 End: 12-12-[address] [facility] Bright [facility] Start: 11-09-2021 End: 11-09-[address] Aidan Bright Work Phone: [facility] Start: 08-19-2021 End: 08-19-[address] Aidan Bright [facility] Start: 08-08-2021 End: 08-08-[address] Aidan Bright [facility] Start: 07-10-2021 End: 07-10-[address] Aidan Bright Work Phone: [facility] Start: 06-21-2021 End: 06-21-[address] Aidan Bright [facility] Start: 06-13-2021 End: 06-13-[address] Aidan Bright [facility] Start: 05-31-2021 End: 05-31-[address] Aidan Bright [facility] Start: 05-31-2021 End: 05-31-[address] Aidan Bright Work Phone: [facility] Start: 05-13-[address] Aidan Bright [facility] Start: 05-11-[address] Aidan Bright Work Phone: [facility] [facility]: [facility]26[facility]2012 End: 12-26-2012 Patient encounter status Aidan Bright MD Work Phone: [facility] Start: 07-22-2012 Patient encounter procedure Aidan Bright MD Work Phone: [facility] Procedures Date Procedure Procedure Detail Performing Clinician Start: 09-24-2024 MRI of lower extremity Dr. Aidan Bright MD Work Phone: Start: 06-23-2024 Measurement of renal function Dr. Aidan Birght MD Work Phone: Comment on above: GFR Calc Start: 10-30-2023 Urnls dip stick/tabl et rgnt auto w/o microscopy Marcus Nunez MD Work Phone: Start: 09-17-2023 Computed tomography of abdomen and pelvis with intravenous contrast Start: 07-15-2023 Urnls dip stick/tabl et rgnt auto w/o microscopy Cheri Torres ASSOCIATE MARKETING MANAGER.FOOD PRODUCTION MANAGER Work Phone: Start: 07-28-2022 CT angiography of co ronary arteries Dr. Aidan Bright Work Phone: Start: 01-13-2022 Adult depression scr eening assessment Aidan Bright MD Work Phone: Start: 02-15-2021 Colonoscopy Aidan aquino MD Work Phone: Start: 12-06-2018 Adult depression scr eening assessment Aidan Bright MD Work Phone: Start: 09-21-2017 Lipid 1996 panel - S elbert or Plasma Cheri Torres ASSOCIATE MARKETING MANAGER.FOOD PRODUCTION MANAGER Work Phone: Viral antigen assay Dr. Jomar Bright Work Phone: Plan of Treatment Date Care Activity Detail Author Start: 10-10-2032 Tetanus vaccination TETANUS [facility] Start: 10-10-2032 Urine microalbumin profile [facility] Start: 01-23-2031 COLORECTAL CANCER SCREENING COLORECTAL CANCER SCREENING [facility] Comment on above: Postponed from 10/15 (Postponed To Appropriate Date) Start: 01-23-2031 Screening for malign ant neoplasm of colon Colorectal Cancer Screening [facility] Comment on above: Postponed from 10/15 (Postponed To Appropriate Date) Start: 08-15-2025 Annual PCP Team Hospitalist Nocturnist Physician jessica Disease Visit Annual PCP Team Chronic Disease Visit [facility] Start: 08-15-2025 Hepatitis C screening Hepatitis C Sc angus [facility] Comment on above: Postponed from 10/15 (Declined at this time) Start: 08-15-2025 HIV screening HIV Screening [facility] Comment on above: Postponed from 10/15 (Declined at this time) Start: 06-22-2025 Annual PCP Team Hospitalist Nocturnist Physician jessica Disease Visit Annual PCP Team Chronic Disease Visit [facility] Start: 02-02-2025 Annual PCP Team Hospitalist Nocturnist Physician jessica Disease Visit Annual PCP Team Chronic Disease Visit [facility] Start: 02-02-2025 Hepatitis B Vaccine (1 of 3 - 19+ 3-dose series) Hepatitis B Vaccine (1 of 3 - 19+ 3-dose series) [facility] Comment on above: Postponed from 10/15 (Declined at this time) Start: 01-23-2025 Influenza vaccination Influenz a Vaccine (Season Ended) [facility] Start: 11-21-2024 Influenza vaccination Influenza Vacc ine (#1) [facility] Comment on above: Postponed from 01/23 (Declined at this time) Start: 11-15-2024 End: 02-14-2025 Basic metabolic 2000 panel - Serum or Plasma BASIC METABOLIC PANEL Lab Routine Prediabetes Expected: 11/15/2024 (Approximate), Expires: 02/14/2025 [facility] Comment on above: Expected: 11/15/2024 (Approximate), Expires: 02/14/2025 Start: 11-15-2024 End: 02-14-2025 Hemoglobin A1c in Blood HEMOGLOBIN A1C Lab Routine Prediabetes Expected: 11/15/2024 (Approximate), Expires: 02/14/2025 [facility] Comment on above: Expected: 11/15/2024 (Approximate), Expires: 02/14/2025 Start: 11-14-2024 End: 11-14-2024 Patient encounter procedure 11/14/2024 3:20 PM EDT Office Visit Internal [facility] [place] [address] [place] [address] Cheri Torres APRN.FOOD PRODUCTION MANAGER [address] [place] [address] 3 month follow up [facility] [place] Comment on above: 3 month follow up Start: 11-01-2024 End: 01-31-2025 Lipid 1996 panel - Serum or Plasma LIPID PANEL, FASTING Lab Routine Essential hypertension Expected: 11/01/2024, Expires: 01/31/2025 [facility] Work Phone: Comment on above: Expected: 11/01/2024 , Expires: 01/31/2025 Start: 10-29-2024 Prostate specific antigen measurement PROSTATE CANCER SCREENING DISCUSSION [facility] Start: 08-10-2024 End: 08-10-2024 Patient encounter procedure 08/10/2024 4:20 PM EDT Office Visit Internal Medicine [place] [address] [facility] [place] [address] Cheri Torres APRN.FOOD PRODUCTION MANAGER [address] [place] [address] 6 month follow up [facility] [place] Comment on above: 6 month follow up Start: 08-03-2024 End: 08-03-2024 Patient encounter procedure 08/03/2024 4:00 PM EDT Office Visit Internal [facility] [place] [address] [facility] [place] [address] Cheri Torres APRN.FOOD PRODUCTION MANAGER [address] [place] [address] 6 month follow up [facility] [place] Comment on above: 6 month follow up Start: 07-15-2024 Annual PCP Team Hospitalist Nocturnist Physician jessica Disease Visit Annual PCP Team Chronic Disease Visit [facility] Start: 06-22-2024 End: 09-21-2024 CBC panel - Blood by Automated count COMPLETE BLOOD COUNT Lab Routine Essential hypertension Prediabetes Annual physical exam Class 2 severe obesity with serious comorbidity and body mass index (BMI) of 35.0 to 35.9 in adult, unspecified obesity type (HCC) Expected: 06/22/2024, Expires: 09/21/2024 [facility] Comment on above: Expected: 06/22/2024 , Expires: 09/21/2024 Start: 06-22-2024 End: 09-21-2024 Comprehensive metabolic 2000 panel - Serum or Plasma COMPREHENSIVE METABOLIC PANEL Lab Routine Essential hypertension Prediabetes Annual physical exam Class 2 severe obesity with serious comorbidity and body mass index (BMI) of 35.0 to 35.9 in adult, unspecified obesity type (HCC) Expected: 06/22/2024, Expires: 09/21/2024 [facility] Comment on above: Expected: 06/22/2024 , Expires: 09/21/2024 Start: 06-22-2024 End: 09-21-2024 Hemoglobin A1c in Blood HEMOGLOBIN A1C Lab Routine Essential hypertension Prediabetes Annual physical exam Class 2 severe obesity with serious comorbidity and body mass index (BMI) of 35.0 to 35.9 in adult, unspecified obesity type (HCC) Expected: 06/22/2024, Expires: 09/21/2024 [facility] Comment on above: Expected: 06/22/2024 , Expires: 09/21/2024 Start: 06-22-2024 End: 09-21-2024 Lipid 1996 panel - Serum or Plasma LIPID PANEL BASIC Lab Routine Annual physical exam Class 2 severe obesity with serious comorbidity and body mass index (BMI) of 35.0 to 35.9 in adult, unspecified obesity type (HCC) Expected: 06/22/2024, Expires: 09/21/2024 [facility] Work Phone: Comment on above: Expected: 06/22/2024 , Expires: 09/21/2024 Start: 06-22-2024 End: 09-21-2024 Thyrotropin [Units/volume] in Serum or Plasma THYROID STIMULATING HORMONE Lab Routine Prediabetes Class 2 severe obesity with serious comorbidity and body mass index (BMI) of 35.0 to 35.9 in adult, unspecified obesity type (HCC) Expected: 06/22/2024, Expires: 09/21/2024 [facility] Comment on above: Expected: 06/22/2024 , Expires: 09/21/2024 Start: 05-01-2024 Annual PCP Team Hospitalist Nocturnist Physician jessica Disease Visit Annual PCP Team Chronic Disease Visit [facility] Start: 04-09-2024 Annual PCP Team Hospitalist Nocturnist Physician jessica Disease Visit Annual PCP Team Chronic Disease Visit [facility] Start: 04-09-2024 Covid-19 Vaccine ( season) Covid-19 Vaccine () [facility] Comment on above: Postponed from 01/23 (Declined at this time) Start: 02-05-2024 Annual PCP Team Hospitalist Nocturnist Physician jessica Disease Visit Annual PCP Team Chronic Disease Visit [facility] Start: 01-30-2024 Annual PCP Team Hospitalist Nocturnist Physician jessica Disease Visit Annual PCP Team Chronic Disease Visit [facility] Start: 01-24-2024 Influenza vaccination [facility] Start: 01-20-2024 End: 01-20-2024 Patient encounter procedure 01/20/2024 4:00 PM EDT Office Visit Internal Medicine [place] [address] [place], [place] [id number] Cheri Torres APRN.FOOD PRODUCTION MANAGER [address] [place], [place] [address] 6 month follow up [facility] [place] Comment on above: 6 month follow up Start: 01-05-2024 End: 04-05-2024 Basic metabolic 2000 panel - Serum or Plasma BASIC METABOLIC PANEL Lab Routine Essential hypertension Expected: 01/05/2024, Expires: 04/05/2024 [facility] Work Phone: Comment on above: Expected: 01/05/2024 , Expires: 04/05/2024 Start: 01-05-2024 End: 04-05-2024 Hemoglobin A1c in Blood HEMOGLOBIN A1C Lab Routine Prediabetes Expected: 01/05/2024, Expires: 04/05/2024 [facility] Comment on above: Expected: 01/05/2024 , Expires: 04/05/2024 Start: 01-05-2024 End: 04-05-2024 Lipid 1996 panel - Serum or Plasma LIPID PANEL BASIC Lab Routine Mixed hyperlipidemia Expected: 01/05/2024, Expires: 04/05/2024 [facility] Comment on above: Expected: 01/05/2024 , Expires: 04/05/2024 Start: 11-22-2023 Influenza vaccination Influenza Vacc ine (#1) [facility] Comment on above: Postponed from 01/23 (Declined at this time) Start: 10-11-2023 ANNUAL PCP TEAM HEAD TENNIS PROFESSIONAL JESSICA DISEASE VISIT ANNUAL PCP TEAM CHRONIC DISEASE VISIT [facility] Start: 10-11-2023 COVID-19 VACCINE (3 - Booster for Leeroy series) COVID-19 VACCINE (3 - Booster for Leeroy series) [facility] Comment on above: Postponed from 07/24 (Declined at this time) Start: 10-11-2023 HEPATITIS B (1 of 3 - 3-dose series) HEPATITIS B (1 of 3 - 3-dose series) [facility] Comment on above: Postponed from 10/15 (Declined at this time) Start: 10-11-2023 Hepatitis B Vaccine (1 of 3 - 19+ 3-dose series) Hepatitis B Vaccine (1 of 3 - 19+ 3-dose series) [facility] Comment on above: Postponed from 10/15 (Declined at this time) Start: 10-11-2023 Hepatitis B Vaccine (1 of 3 - 3-dose series) Hepatitis B Vaccine (1 of 3 - 3-dose series) [facility] Comment on above: Postponed from 10/15 (Declined at this time) Start: 10-11-2023 HEPATITIS C SCREENING HEPATITIS C [facility] Comment on above: Postponed from 10/15 (Declined at this time) Start: 10-11-2023 Hepatitis C screening Hepatitis C [facility] Comment on above: Postponed from 10/15 (Declined at this time) Start: 10-11-2023 HIV SCREENING HIV SCRE[address]ING [facility] Comment on above: Postponed from 10/15 (Declined at this time) Start: 10-11-[address] [facility] Comment on above: Postponed from 10/15 (Declined at this time) Start: 10-11-2023 SHINGRIX VACCINE (1 of 2) SHINGRIX VACCINE (1 of 2) [facility] Comment on above: Postponed from 10/15 (Declined at this time) Start: 09-17-2023 [facility] Start: 09-17-2023 End: 09-17-2023 Blood culture [facility] Start: 09-17-2023 [facility] Start: 09-17-2023 Bacteria identified in Blood by Culture Blood Culture [facility] Start: 09-17-2023 Bacteria identified in Urine by Culture [facility] Start: 07-15-2023 End: 10-14-2023 Prostate specific Ag [Mass/volume] in Serum or Plasma PSA/PROSTSPECAG DIAG Lab Routine Increased urinary frequency Expected: 07/15/2023, Expires: 10/14/2023 [facility] Work Phone: Comment on above: Expected: 07/15/2023 , Expires: 10/14/2023 Start: 06-30-2023 End: 09-29-2023 Basic metabolic 2000 panel - Serum or Plasma BASIC METABOLIC PNL Lab Routine Essential hypertension Expected: 06/30/2023, Expires: 09/29/2023 [facility] Work Phone: Comment on above: Expected: 06/30/2023 , Expires: 09/29/2023 Start: 06-30-2023 End: 09-29-2023 Hemoglobin A1c in Blood HGB A1C Lab Routine Medication management Expected: 06/30/2023, Expires: 09/29/2023 [facility] Work Phone: Comment on above: Expected: 06/30/2023 , Expires: 09/29/2023 Start: 06-30-2023 End: 09-29-2023 Lipid 1996 panel - Serum or Plasma LIPID PANEL BASIC Lab Routine Essential hypertension Expected: 06/30/2023, Expires: 09/29/2023 [facility] Work Phone: Comment on above: Expected: 06/30/2023 , Expires: 09/29/2023 Start: 05-25-2023 Behavioral Health Screening Behavioral Health Screening [facility] Start: 05-25-2023 Depression Assessment Depression Ass essment [facility] Start: 04-11-2023 ANNUAL PCP TEAM HEAD TENNIS PROFESSIONAL JESSICA DISEASE VISIT ANNUAL PCP TEAM CHRONIC DISEASE VISIT [facility] Start: 03-24-2023 End: 06-23-2023 Basic metabolic 2000 panel - Serum or Plasma BASIC METABOLIC PNL Lab Routine Essential hypertension Expected: 03/24/2023, Expires: 06/23/2023 [facility] Work Phone: Comment on above: Expected: 03/24/2023 , Expires: 06/23/2023 Start: 03-24-2023 End: 06-23-2023 Hemoglobin A1c in Blood HGB A1C Lab Routine Medication management Expected: 03/24/2023, Expires: 06/23/2023 [facility] Work Phone: Comment on above: Expected: 03/24/2023 , Expires: 06/23/2023 Start: 03-24-2023 End: 06-23-2023 Lipid 1996 panel - Serum or Plasma LIPID PANEL BASIC Lab Routine Essential hypertension Expected: 03/24/2023, Expires: 06/23/2023 [facility] Work Phone: Comment on above: Expected: 03/24/2023 , Expires: 06/23/2023 Start: 01-23-2023 Covid-19 Vaccine () Covid-19 Vaccine () [facility] Start: 01-23-2023 Influenza vaccination [facility] Start: 01-13-2023 Adult depression screening assessment DEPRESSION SCREENING [facility] Start: 01-13-2023 ANNUAL PCP TEAM HEAD TENNIS PROFESSIONAL JESSICA DISEASE VISIT ANNUAL PCP TEAM CHRONIC DISEASE VISIT [facility] Start: 09-23-2022 End: 11-23-2022 Basic metabolic 2000 panel - Serum or Plasma BASIC METABOLIC PNL Lab Routine Essential hypertension Expected: 09/23/2022, Expires: 11/23/2022 [facility] Work Phone: Comment on above: Expected: 09/23/2022 , Expires: 11/23/2022 Start: 09-23-2022 End: 11-23-2022 CBC panel - Blood by Automated count CBC Lab Routine Medication management Expected: 09/23/2022, Expires: 11/23/2022 [facility] Work Phone: Comment on above: Expected: 09/23/2022 , Expires: 11/23/2022 Start: 09-23-2022 End: 11-23-2022 Hemoglobin A1c in Blood HGB A1C Lab Routine Medication management Expected: 09/23/2022, Expires: 11/23/2022 [facility] Work Phone: Comment on above: Expected: 09/23/2022 , Expires: 11/23/2022 Start: 09-23-2022 End: 11-23-2022 Lipid 1996 panel - Serum or Plasma LIPID PANEL BASIC Lab Routine Essential hypertension Expected: 09/23/2022, Expires: 11/23/2022 [facility] Work Phone: Comment on above: Expected: 09/23/2022 , Expires: 11/23/2022 Start: 09-21-2022 Lipid 1996 panel - Serum or Plasma Lipid Screening [facility] Start: 09-21-2022 Lipid panel Lipid Screening [facility] Start: 09-21-2022 LIPID SCREEN LIPID SCREEN [facility] Start: 05-25-2022 DEPRESSION ASSESSMENT DEPRESSION ASS ESSMENT [facility] Start: 05-13-2022 ANNUAL PCP TEAM HEAD TENNIS PROFESSIONAL JESSICA DISEASE VISIT ANNUAL PCP TEAM CHRONIC DISEASE VISIT [facility] Start: 05-13-2022 BP CONTROLLED (<130/80) BP CONTROLLE D (<130/80) [facility] Start: 04-11-2022 End: 06-11-2022 Cobalamin (Vitamin B12) [Mass/volume] in Serum or Plasma VITAMIN B12 BLOOD Lab Routine Neurocardiogenic syncope Expected: 04/11/2022, Expires: 06/11/2022 [facility] Work Phone: Comment on above: Expected: 04/11/2022 , Expires: 06/11/2022 Start: 04-11-2022 End: 06-11-2022 Comprehensive metabolic 2000 panel - Serum or Plasma COMP METABOLIC PANEL Lab Routine Neurocardiogenic syncope Expected: 04/11/2022, Expires: 06/11/2022 [facility] Work Phone: Comment on above: Expected: 04/11/2022 , Expires: 06/11/2022 Start: 04-11-2022 End: 06-11-2022 Lipid 1996 panel - Serum or Plasma LIPID PANEL BASIC Lab Routine Mixed hyperlipidemia Expected: 04/11/2022, Expires: 06/11/2022 [facility] Work Phone: Comment on above: Expected: 04/11/2022 , Expires: 06/11/2022 Start: 04-11-2022 End: 06-11-2022 Magnesium [Mass/volume] in Serum or Plasma MAGNESIUM BLD Lab Routine Neurocardiogenic syncope Expected: 04/11/2022, Expires: 06/11/2022 [facility] Work Phone: Comment on above: Expected: 04/11/2022 , Expires: 06/11/2022 Start: 04-11-2022 End: 06-11-2022 Thyrotropin [Units/volume] in Serum or Plasma TSH BLD Lab Routine Neurocardiogenic syncope Expected: 04/11/2022, Expires: 06/11/2022 [facility] Work Phone: Comment on above: Expected: 04/11/2022 , Expires: 06/11/2022 Start: 02-15-2022 Colonoscopy COLONOSCOPY [facility] Start: 02-15-2022 COLORECTAL CANCER SCREENING COLORECTAL CANCER SCREENING [facility] Start: 02-15-2022 Screening for malign ant neoplasm of colon Colonoscopy [facility] Start: 01-23-2022 Influenza vaccination INFLUENZA (#1) [facility] Start: 09-26-2021 COVID-19 VACCINE (3 - Booster for Leeroy series) COVID-19 VACCINE (3 - Booster for Leeroy series) [facility] Start: 07-24-2021 COVID-19 VACCINE (3 - Booster for Leeroy series) COVID-19 VACCINE (3 - Booster for Leeroy series) [facility] Start: 10-25-2020 COVID-19 VACCINE (2 - Booster for Leeroy series) COVID-19 VACCINE (2 - Booster for Leeroy series) [facility] Start: 2020 Pneumococcal Vaccine : 50+ (1 of 1 - PCV) Pneumococcal Vaccine: 50+ (1 of 1 - PCV) [facility] Start: 2020 SHINGRIX VACCINE (1 of 2) SHINGRIX VACCINE (1 of 2) [facility] Start: 2020 Zoster vaccine hzv l jamarcus for subcutaneous use ZOSTER (SHINGLES) VACCINE (1 of 2) [facility] Start: 09-21-2020 DIABETES SCREEN DIABETES SCREEN [facility] Start: 09-21-2020 Diabetes Screening Diabetes Screenin g [facility] Start: 12-07-2019 Adult depression screening assessment DEPRESSION SCREENING [facility] Start: 10-12-2017 Urine microalbumin profile DTAP,TDAP,TD (2 - Td or Tdap) [facility] Start: 10-16-2015 COLOGUARD (FIT-DNA) COLOGUARD (FIT-D NA) [facility] Start: 10-16-[address] COLONOGRAPHY [facility] Start: 10-16-2015 FECAL OCCULT BLOOD FECAL OCCULT BLOO D [facility] Start: 10-16-2015 Screening for malign ant neoplasm of colon [facility] Start: 10-16-[address] [facility] Start: 2010 Lipid panel LIPID SCREENING [facility] Start: 1989 Hepatitis B vaccination HEP B VACCINE (1 of 3 - 19+ 3-dose series) [facility] Start: 1989 Hepatitis B Vaccine (1 of 3 - 19+ 3-dose series) Hepatitis B Vaccine (1 of 3 - 19+ 3-dose series) [facility] Start: 1988 Anxiety Screening Anxiety Screening [facility] Start: 1988 BP CONTROLLED (<130/80) BP CONTROLLE D (<130/80) [facility] Start: 1988 Depression Screening Depression Scre [facility] Start: 1988 HEPATITIS C SCREENING HEPATITIS C [facility] Start: 1988 Hepatitis C screening Hepatitis C [facility] Start: 1988 HIV SCREENING HIV SCREENING [facility] Start: 1988 HIV screening HIV Screening [facility] Start: 1985 HIV screening HIV SCREENING DISCUSSI ON [facility] Start: 1970 HEPATITIS B (1 of 3 - 3-dose series) HEPATITIS B (1 of 3 - 3-dose series) [facility] Start: 1970 Hepatitis C screening HEPATITI S C VIRUS SCREENING [facility] CT angiography of coronary arteries [facility] End: 04-09-2024 EMG(NEURO/NI) EMG(NEURO/NI) EMG Routine Numbness of toes 1 Occurrences starting 04/09/2023 until 04/09/2024 [facility] Work Phone: Comment on above: 1 Occurrences starti ng 04/09/2023 until 04/09/2024 End: 02-02-2025 EMG(NEURO/NI) EMG(NEURO/NI) EMG Routine Numbness in feet 1 Occurrences starting 02/03/2024 until 02/02/2025 [facility] Comment on above: 1 Occurrences starti ng 02/03/2024 until 02/02/2025 End: 02-07-2025 EMG(NEURO/NI) EMG(NEURO/NI) EMG Routine Numbness in feet 1 Occurrences starting 02/08/2024 until 02/07/2025 [facility] Work Phone: Comment on above: 1 Occurrences starti ng 02/08/2024 until 02/07/2025 End: 09-14-2025 MR Foot - right WO contrast MRI FOOT/TOES WO IVCON RIGHT Radiology Routine Metatarsalgia of right foot Neuroma 1 Occurrences starting 08/15/2024 until 09/14/2025 [facility] Work Phone: Comment on above: 1 Occurrences starti ng 08/15/2024 until 09/14/2025 Patient Education [facility] Work Phone: Patient referral [facility] Work Phone: End: 10-31-2023 [place] POST VOID RESIDUAL [place] POST VOID RESIDUAL [place] - OFFICE PERFORMED Routine Benign non-nodular prostatic hyperplasia with lower urinary tract symptoms Once a week for 1 Occurrences starting 10/30/2023 until 10/31/2023 [facility] Comment on above: Once a week for 1 Oc currences starting 10/30/2023 until 10/31/2023 End: 05-08-2024 Radex spine lumbosacral 2/3 views XR LUMBAR GENERAL 3V AP/LAT/L5-S1 Radiology Routine Numbness of toes 1 Occurrences starting 04/09/2023 until 05/08/2024 [facility] Work Phone: Comment on above: 1 Occurrences starti ng 04/09/2023 until 05/08/2024 End: 03-04-2025 XR Lumbar spine 3 Views XR LUMBAR GENERAL 3V AP/LAT/L5-S1 Radiology Routine Numbness in feet 1 Occurrences starting 02/03/2024 until 03/04/2025 [facility] Work Phone: Comment on above: 1 Occurrences starti ng 02/03/2024 until 03/04/2025 [facility] Immunizations Immunization Date Immunization Notes Care Provider Amaury pineda 08-15-2024 pneumococcal Conjuga te, unspecified formulation Cheri Torres ASSOCIATE MARKETING MANAGER.FOOD PRODUCTION MANAGER Work Phone: [facility] 08-15-2024 pneumococcal conjuga te (PCV20) vaccine, 20 valent (PREVNAR 20) Cheri Torres ASSOCIATE MARKETING MANAGER.FOOD PRODUCTION MANAGER Work Phone: [facility] 10-10-2022 tetanus toxoid, redu pete diphtheria toxoid, and acellular pertussis vaccine, adsorbed Aidan Bright MD Work Phone: [facility] Work Phone: 03-05-2021 influenza, seasonal, injectable Aidan Bright MD Work Phone: [facility] 03-05-2021 influenza virus vaccine, unspecified formulation Cheri Torres ASSOCIATE MARKETING MANAGER.FOOD PRODUCTION MANAGER Work Phone: [facility] 10-13-2007 tetanus toxoid, redu pete diphtheria toxoid, and acellular pertussis vaccine, adsorbed Aidan Bright MD Work Phone: [facility] Work Phone: Payers Date Payer Category Payer Blue [facility] BLUE CARD PPO OOS [id number] 2023 Self-pay [id number] 2012 Unknown [id number] 2010 Unknown [id number] 2010 Unknown [id number] 1970 Unknown [id number] Unknown [id number] Unknown [id number] Unknown [id number] Unknown [id number] Unknown [id number] Unknown [id number] Unknown [id number] Unknown [id number] Unknown [id number] Unknown [id number] Social History Date Type Detail Facility Start: 03-06-2021 End: 09-17-2023 Tobacco smoking status NEIS Unknown if ever smoked [facility] Start: 09-26-2020 None [facility] Start: 09-26-2020 Non-smoker [facility] Start: 1970 Sex Assigned At Male [facility] Start: 11-15-2010 End: 09-17-2023 Tobacco smoking status NHIS Never smoked tobacco [facility] Work Phone: Start: 11-15-2010 End: 10-30-2023 Tobacco use and exposure Smokeless tobacco non-user [facility] Work Phone: Start: 05-13-2021 End: 07-15-2023 Alcohol intake Current drinker of alcohol (finding) [facility] Start: 1970 Sex Assigned At Not on file [facility] Start: 12-28-2021 End: 01-13-2022 Exposure to SARS-CoV-2 (event) Not sure [facility] Start: 04-07-2022 History SDOH Alcohol Frequency 5 [facility] Start: 04-07-2022 History SDOH Alcohol Std Drinks 1 [facility] Start: 04-07-2022 History SDOH Social Connections Get Together 2 [facility] Start: 04-07-2022 History SDOH Social Connections Living 3 [facility] Start: 04-07-2022 History SDOH Stress 4 [facility] Start: 04-07-2022 End: 10-10-2022 History of Social function [facility] Start: 04-07-2022 End: 10-10-2022 Social connection and isolation panel [facility] Do you belong to any clubs or organizations such as alevism groups, unions, fraternal or athletic groups, or school groups? Yes [facility] Are you now , , , , never or living with a partner? [facility] How often to you hav e a drink containing alcohol? 4 or more times a week [facility] How many standard dr inks containing alcohol do you have on a typical day? 1 or 2 [facility] How often do you hav e 6 or more drinks on 1 occasion? Never [facility] How hard is it for y ou to pay for the very basics like food, housing, medical care, and heating Not hard at all [facility] Do you feel stress - tense, restless, nervous, or anxious, or unable to sleep at night because your mind is troubled all the time - these days [OSQ] Rather much [facility] (I/We) worried wheth er (my/our) food would run out before (I/we) got money to buy more. Never true [facility] In the past 12 month s, was there a time when you were not able to pay the mortgage or rent on time? No [facility] How often to you hav e a drink containing alcohol? 2-4 times a month [facility] Do you feel stress - tense, restless, nervous, or anxious, or unable to sleep at night because your mind is troubled all the time - these days [OSQ] To some extent [facility] Start: 10-30-2023 Alcoholic beverage intake Ex-drinker (finding) [facility] Start: 09-30-2023 Gender identity Identifies as male gender (finding) [facility] Start: 09-30-2023 Sexual orientation Heterosexual (finding) [facility] Functional Status Date Assessment Result Facility 12-29-2014 Are you deaf, or do you have serious difficulty hearing No 12/29/2014 3:36 PM Tonie Tong RN No [facility] 12-29-2014 Are you blind, or do you have serious difficulty seeing, even when wearing glasses No 12/29/2014 3:36 PM Tonie Tong RN No [facility] 12-29-2014 Do you have serious difficulty walking or climbing stairs No 12/29/2014 3:36 PM Tonie Tong RN No [facility] 12-29-2014 Do you have difficul ty dressing or bathing No 12/29/2014 3:36 PM Tonie Tong RN No [facility] 12-29-2014 Because of a physica l, mental, or emotional condition, do you have difficulty doing errands alone such as visiting a physician's office or shopping No 12/29/2014 3:36 PM Tonie Tong RN No [facility] Mental Status Date Assessment Result Facility 07-28-2022 Cognitive function Voice/Name [facility] Work Phone: 12-29-2014 Because of a physica l, mental, or emotional condition, do you have serious difficulty concentrating, remembering, or making decisions No 12/29/2014 3:36 PM EDT Tonie Desir RN No [facility] Clinical Notes 12-26-2012 to 11-04-2024 Telephone Encounter - Daysi Anderson MA - 11/04/2024 1:47 PM EDTTelephone Encounter - Daysi Anderson MA - 11/04/2024 1:47 PM EDTPatient InstructionsPatient Instructions Note Date & Type Note Facility 11-04-2024 Telephone encounter Note Spoke to on 11/14 has appointment in office will keep and discuss than Daysi Anderson MA [facility] 11-04-2024 Miscellaneous Notes Spoke to on 11/14 has appointment in office will keep and discuss than Daysi Anderson MA Unfortunately he will need to come in for full exam and documentation for insurance to make sure this is covered. Thank you Cheri Torres APRN.CHARLES Patient's calls back and states that she had contacted Dr. Julián Miguel office with [facility]. states that this is where patient would like to go. states that this office is requiring PCP to order the MRI of Back. asking if provider can order this and fax order to [facility]. requesting to be notified if able to place order and when order is faxed to [facility]. Please review and advise, Clau Brown RN Left detailed message on 's secure VM. I agree, but with normal xrays, I would like him to see a neurologist for further examination prior to anymore diagostic studies. I have placed the order. Please fax consult to wherever they need it sent Thank you Cheri Torres APRN.CHARLES Pt's last OV: 08/15/24 calls in regards to MRI of right foot done at [facility] on 09/24/24(results scanned in pt's chart). reports she had wanted MRI of pt's back also. is requesting results of Mri of foot. Also requesting MRI of pt's back because issues with lower back can cause numbness in feet. Please review and advise. Juana Reece LPN documented in this encounter [facility] 11-04-2024 Telephone encounter Note Unfortunately he will need to come in for full exam and documentation for insurance to make sure this is covered. Thank you Cheri Torres APRN.FOOD PRODUCTION MANAGER [facility] 11-01-2024 Telephone encounter Note Patient's calls back and states that she had contacted Dr. Julián Miguel office with [facility]. states that this is where patient would like to go. states that this office is requiring PCP to order the MRI of Back. asking if provider can order this and fax order to [facility]. requesting to be notified if able to place order and when order is faxed to [facility]. Please review and advise, Clau Brown RN [facility] 11-01-2024 Note Patient Outreach (IN TMMN) ISABELLAROGER Malachi ([id number]) 1970 M Date Time Provider Department 11/01/24 AIDAN BRIGHT During your visit today, we recorded the following information about you: Allergies As of Date: 11/01/2024 Noted Allergy Reaction LISINOPRIL 01/09/2009 3 - Cough ZITHROMAX Z-ENDER (AZITHROMYCIN) 08/11/2007 8 - GI Upset Date Reviewed: 08/15/2024 Reviewed by: Vesta Lorenzo MA - Fully Assessed Visit Diagnosis:Essential hypertension [I10] Order(s):LIPID PANEL, FASTING [SQLIPB] Order #: [id number] FUTURE Prescriptions as of 11/04/2024 - tirzepatide, weight loss (ZEPBOUND) 2.5 mg/0.5 mL pen injector Inject 2.5 mg subcutaneously one time a week. - amLODIPine (NORVASC) 5 mg tablet Take 1 tablet by mouth once daily. - valACYclovir (VALTREX) 1 gram tablet Take by mouth. 2 tablets twice a day - CPAP Initiate Auto PAP @ 7-15 cm of water with humidification. Mask (per patient preference) optional chin strap (if indicated) , filters, tubing, humidifier and lifetime supplies. 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 [facility] 10-21-2024 Telephone encounter Note I agree, but with normal xrays, I would like him to see a neurologist for further examination prior to anymore diagostic studies. I have placed the order. Please fax consult to wherever they need it sent Thank you Cheri Torres APRN.CNP [facility] 10-18-2024 Telephone encounter Note Pt's last OV: 08/15/24 calls in regards to MRI of right foot done at [facility] on 09/24/24(results scanned in pt's chart). reports she had wanted MRI of pt's back also. is requesting results of Mri of foot. Also requesting MRI of pt's back because issues with lower back can cause numbness in feet. Please review and advise. Juana Reece LPN [facility] 08-15-2024 Instructions Cheri Torres APRN.CNP - 08/15/2024 3:16 PM EDT Check with insurance regarding if shingles vaccine is covered. documented in this encounter [facility] 08-15-2024 Note HNO ID: [id number] Author: CHERI TORRES APRN.FOOD PRODUCTION MANAGER Service: ? Author Type: Nurse Practitioner Type: Progress Notes Filed: 08/15/2024 16:31 Note Text: CC: Patient presents with: Recheck: Medication follow up HPI Roger Mason is a 53 year old male who presents today for follow up on starting zepbound for weight loss. Started this medication almost 8 weeks ago and has lost almost 27 pounds. Has been changing his diet. Has stopped eating bread, chips, junk food, and soda. Working out by cutting wood and working in the yard along with increasing lean meats. No symptoms of low blood sugar. Denies nausea, vomiting, constipation, or other concerns. Still with the numbness and tingling that was discussed in last visits that he was hoping losing weight would help. Has had an EMG that he went to podiatry for, went to physical therapy and had stretching, used sole inserts, but nothing is helping. Is needing an MRI for further evaluation. Xray of right foot was normal but thought to have a neuroma REVIEW OF SYSTEMS See HPI PAST MEDICAL HISTORY Diagnosis Date Unspecified essential hypertension 10/04/2007 PAST SURGICAL HISTORY Procedure Laterality Date EXC VARICOCELE/LIGATION SPERMATIC VEINS SPX 2006 Variocele repair LAPS SURG CHOLECSTC W/EXPL COMMON DUCT 06-22-12 [facility] VASECTOMY 2007 ALLERGIES Lisinopril and Zithromax Z-Ender [Azithromycin] MEDICATIONS tirzepatide, weight loss (ZEPBOUND) 2.5 mg/0.5 mL pen injector Inject 2.5 mg subcutaneously one time a week. amLODIPine (NORVASC) 5 mg tablet Take 1 tablet by mouth once daily. valACYclovir (VALTREX) 1 gram tablet Take by mouth. 2 tablets twice a day CPAP Initiate Auto PAP @ 7-15 cm of water with humidification. Mask (per patient preference) optional chin strap (if indicated) , filters, tubing, humidifier and lifetime supplies. FAMILY HISTORY Problem Relation Age of Onset Heart Father enlarged heart Hypertension Mother Social History Tobacco Use Smoking status: Never Smokeless tobacco: Never Substance Use Topics Alcohol use: Yes Comment: occasional PHYSICAL EXAM BP 132/80 Pulse 72 Resp 16 Wt 103 kg (227 lb) SpO2 97% BMI 31.43 kg/m? General Appearance: well appearing, in no acute distress, alert Pysch: mood and affect broad and appropriate Eyes: conjunctiva pink and moist, no icterus, sclera white, non-injected Lungs: Lungs clear to auscultation. No wheezing, rhonchi, rales. Heart: RRR without murmur, gallop, or rubs. No ectopy Health maintenance reviewed with patient: Depression Screening Never done Anxiety Screening Never done Hepatitis C Screening Never done HIV Screening Never done BP Controlled (<130/80) Never done Diabetes Screening due on 09/21/2020 Shingrix Vaccine(1 of 2) Never done Pneumococcal Vaccine: 50+(1 of 1 - PCV) Never done Lipid Screening due on 09/21/2022 Influenza Vaccine(1) due on 11/21/2024 Hepatitis B Vaccine(1 of 3 - 19+ 3-dose series) due on 02/02/2025 Colorectal Cancer Screening due on 01/23/2031 Annual PCP Team Chronic Disease Visit due on 06/22/2025 DTaP,Tdap,Td Vaccine(3 - Td or Tdap) due on 10/10/2032 Covid-19 Vaccine Discontinued DATA REVIEWED: Most recent imaging ASSESSMENT/PLAN: 1. Class 1 obesity with serious comorbidity and body mass index (BMI) of 31.0 to 31.9 in adult, unspecified obesity type - ICD9: 278.00, V85.31, ICD10: E66.811, Z68.31 (primary diagnosis) Weight decreasing - Behavioral and pharmacological intervention - TIRZEPATIDE (WEIGHT LOSS) 2.5 MG/0.5 ML SUBCUTANEOUS PEN INJECTOR - tolerating well and losing weight, will continue this dose Follow up in 3months 2. Metatarsalgia of right foot - ICD9: 726.70, ICD10: M77.41 Has done PT and used orthotics with no improvement in symptoms - MRI FOOT/TOES WO IVCON RIGHT 3. Neuroma - ICD9: 215.9, ICD10: D36.10 As above - MRI FOOT/TOES WO IVCON RIGHT 4. At high risk for cardiovascular disease - ICD9: V15.89, ICD10: Z91.89 See #1 - TIRZEPATIDE (WEIGHT LOSS) 2.5 MG/0.5 ML SUBCUTANEOUS PEN INJECTOR 5. Hyperinsulinemia - ICD9: 251.1, ICD10: E16.1 See#1 - TIRZEPATIDE (WEIGHT LOSS) 2.5 MG/0.5 ML SUBCUTANEOUS PEN INJECTOR 6. Prediabetes - ICD9: 790.29, ICD10: R73.03 See #1 - TIRZEPATIDE (WEIGHT LOSS) 2.5 MG/0.5 ML SUBCUTANEOUS PEN INJECTOR - BASIC METABOLIC PANEL - HEMOGLOBIN A1C 7. Encounter for immunization - ICD9: V03.89, ICD10: Z23 - PNEUMOCOCCAL VACCINE, 20 VALENT (PREVNAR 20) Prescription instructions reviewed with patient as applicable. Potential red flag symptoms discussed with the patient. Reviewed appropriate action plan to take if red flag symptoms occur. Patient agreeable to treatment plan. Cheri Torres APRN.[facility] 08-15-2024 History of Presen t illness Narrative CC: Patient presents with: Recheck: Medication follow up HPI Roger Mason is a 53 year old male who presents today for follow up on starting zepbound for weight loss. Started this medication almost 8 weeks ago and has lost almost 27 pounds. Has been changing his diet. Has stopped eating bread, chips, junk food, and soda. Working out by cutting wood and working in the yard along with increasing lean meats. No symptoms of low blood sugar. Denies nausea, vomiting, constipation, or other concerns. Still with the numbness and tingling that was discussed in last visits that he was hoping losing weight would help. Has had an EMG that he went to podiatry for, went to physical therapy and had stretching, used sole inserts, but nothing is helping. Is needing an MRI for further evaluation. Xray of right foot was normal but thought to have a neuroma REVIEW OF SYSTEMS See HPI PAST MEDICAL HISTORY Diagnosis Date Unspecified essential hypertension 10/04/2007 PAST SURGICAL HISTORY Procedure Laterality Date EXC VARICOCELE/LIGATION SPERMATIC VEINS SPX 2006 Variocele repair LAPS SURG CHOLECSTC W/EXPL COMMON DUCT 06-22-12 [facility] VASECTOMY 2007 ALLERGIES Lisinopril and Zithromax Z-Ender [Azithromycin] MEDICATIONS tirzepatide, weight loss (ZEPBOUND) 2.5 mg/0.5 mL pen injector Inject 2.5 mg subcutaneously one time a week. amLODIPine (NORVASC) 5 mg tablet Take 1 tablet by mouth once daily. valACYclovir (VALTREX) 1 gram tablet Take by mouth. 2 tablets twice a day CPAP Initiate Auto PAP @ 7-15 cm of water with humidification. Mask (per patient preference) optional chin strap (if indicated) , filters, tubing, humidifier and lifetime supplies. FAMILY HISTORY Problem Relation Age of Onset Heart Father enlarged heart Hypertension Mother Social History Tobacco Use Smoking status: Never Smokeless tobacco: Never Substance Use Topics Alcohol use: Yes Comment: occasional PHYSICAL EXAM BP 132/80 Pulse 72 Resp 16 Wt 103 kg (227 lb) SpO2 97% BMI 31.43 kg/m General Appearance: well appearing, in no acute distress, alert Pysch: mood and affect broad and appropriate Eyes: conjunctiva pink and moist, no icterus, sclera white, non-injected Lungs: Lungs clear to auscultation. No wheezing, rhonchi, rales. Heart: RRR without murmur, gallop, or rubs. No ectopy Health maintenance reviewed with patient: Depression Screening Never done Anxiety Screening Never done Hepatitis C Screening Never done HIV Screening Never done BP Controlled (<130/80) Never done Diabetes Screening due on 09/21/2020 Shingrix Vaccine(1 of 2) Never done Pneumococcal Vaccine: 50+(1 of 1 - PCV) Never done Lipid Screening due on 09/21/2022 Influenza Vaccine(1) due on 11/21/2024 Hepatitis B Vaccine(1 of 3 - 19+ 3-dose series) due on 02/02/2025 Colorectal Cancer Screening due on 01/23/2031 Annual PCP Team Chronic Disease Visit due on 06/22/2025 DTaP,Tdap,Td Vaccine(3 - Td or Tdap) due on 10/10/2032 Covid-19 Vaccine Discontinued DATA REVIEWED: Most recent imaging ASSESSMENT/PLAN: 1. Class 1 obesity with serious comorbidity and body mass index (BMI) of 31.0 to 31.9 in adult, unspecified obesity type - ICD9: 278.00, V85.31, ICD10: E66.811, Z68.31 (primary diagnosis) Weight decreasing - Behavioral and pharmacological intervention - TIRZEPATIDE (WEIGHT LOSS) 2.5 MG/0.5 ML SUBCUTANEOUS PEN INJECTOR - tolerating well and losing weight, will continue this dose Follow up in 3months 2. Metatarsalgia of right foot - ICD9: 726.70, ICD10: M77.41 Has done PT and used orthotics with no improvement in symptoms - MRI FOOT/TOES WO IVCON RIGHT 3. Neuroma - ICD9: 215.9, ICD10: D36.10 As above - MRI FOOT/TOES WO IVCON RIGHT 4. At high risk for cardiovascular disease - ICD9: V15.89, ICD10: Z91.89 See #1 - TIRZEPATIDE (WEIGHT LOSS) 2.5 MG/0.5 ML SUBCUTANEOUS PEN INJECTOR 5. Hyperinsulinemia - ICD9: 251.1, ICD10: E16.1 See#1 - TIRZEPATIDE (WEIGHT LOSS) 2.5 MG/0.5 ML SUBCUTANEOUS PEN INJECTOR 6. Prediabetes - ICD9: 790.29, ICD10: R73.03 See #1 - TIRZEPATIDE (WEIGHT LOSS) 2.5 MG/0.5 ML SUBCUTANEOUS PEN INJECTOR - BASIC METABOLIC PANEL - HEMOGLOBIN A1C 7. Encounter for immunization - ICD9: V03.89, ICD10: Z23 - PNEUMOCOCCAL VACCINE, 20 VALENT (PREVNAR 20) Prescription instructions reviewed with patient as applicable. Potential red flag symptoms discussed with the patient. Reviewed appropriate action plan to take if red flag symptoms occur. Patient agreeable to treatment plan. Cheri Torres APRN.CNP documented in this encounter [facility] 06-28-2024 Telephone encounter Note PA approve Authorized from May 28, 2024 to February 22, 2025 Information received electronically from pay Patient was notified of approval going to check to see how much with [facility] and will call let us know if needs re-sent Daysi Anderson MA [facility] 06-28-2024 Miscellaneous Notes PA approve Authorized from May 28, 2024 to February 22, 2025 Information received electronically from [facility] Patient was notified of approval going to check to see how much with [facility] and will call let us know if needs re-sent Daysi Anderson MA PA submitted for zepbound Daysi Anderson MA Filed RegardsAidan MD Before PA can be done zepbound need sent no rx on file Daysi Anderson MA patient return called and spoke with his insurance co. Insurance co informed him that with prior auth injectable medication is covered at a 90 supply. patient is asking to have the injectable prior auth completed. PRIOR AUTHORIZATION Medication for Prior Authorization: injectable weight loss medication Other formulary meds available : NO Insurance Company: [employer] ([employer] Insurance Company phone number: [phone] Patient insurance ID number: rx card: [id number] - [employer] card: [id number] Patient would like called when this is completed. Rasheeda Montes De Oca LPN Patient returned call and given provider's message below with verbalized understanding. Patient agreeable to try the phentermine, since it is covered by insurance, he thinks. Left message for return call. Results received and reviewed from [facility]. Cholesterol slightly elevated and [id number] remains in prediabetic range at 6.2. Weight loss with healthy well balanced diet and exercise will help improve these as discussed in visit. Insurance would not cover injectables for diabetes. He can call his insurance to see if they cover weight loss injectables like wegovy or zepbound and if so we can look into this. If not, there is the option of getting them from a compounding pharmacy as I know he was interested in this as his friends have found success in this. These can have GI side effects like nausea, heartburn and bowel changes. Another option is a daily medication called phentermine we discussed. It is a stimulant and controlled substance that increases energy, and helps control appetite. Typically is well tolerated but as it is a stimulant can have some adverse reactions of anxiety, heart racing, or constipation. Which would he like to try? Thank you Cheri Torres APRN.FOOD PRODUCTION MANAGER documented in this encounter [facility] 06-27-2024 Telephone encounter Note PA submitted for zepbound Daysi Anderson MA [facility] 06-27-2024 Telephone encounter Note Filed Aidan Toure MD [facility] 06-27-2024 Telephone encounter Note Before PA can be done zepbound need sent no rx on file Daysi Anderson MA [facility] 06-24-2024 Telephone encounter Note patient return called and spoke with his insurance co. Insurance co informed him that with prior auth injectable medication is covered at a 90 supply. patient is asking to have the injectable prior auth completed. PRIOR AUTHORIZATION Medication for Prior Authorization: injectable weight loss medication Other formulary meds available : NO Insurance Company: [employer] ([employer]) Insurance Company phone number: [phone] Patient insurance ID number: rx card: [id number] - [facility] card: [id number] Patient would like called when this is completed. Rasheeda Montes De Oca LPN [facility] 06-24-2024 Telephone encounter Note Patient returned call and given provider's message below with verbalized understanding. Patient agreeable to try the phentermine, since it is covered by insurance, he thinks. [facility] 06-24-2024 Telephone encounter Note Left message for return call. [facility] 06-24-2024 Telephone encounter Note Results received and reviewed from [facility]. Cholesterol slightly elevated and UfmDc2d remains in prediabetic range at 6.2. Weight loss with healthy well balanced diet and exercise will help improve these as discussed in visit. Insurance would not cover injectables for diabetes. He can call his insurance to see if they cover weight loss injectables like wegovy or zepbound and if so we can look into this. If not, there is the option of getting them from a compounding pharmacy as I know he was interested in this as his friends have found success in this. These can have GI side effects like nausea, heartburn and bowel changes. Another option is a daily medication called phentermine we discussed. It is a stimulant and controlled substance that increases energy, and helps control appetite. Typically is well tolerated but as it is a stimulant can have some adverse reactions of anxiety, heart racing, or constipation. Which would he like to try? Thank you Cheri Torres APRN.CHARLES [facility] 06-22-2024 Note HNO ID: [id number] Author: CHERI TORRES APRN.CNP Service: ? Author Type: Nurse Practitioner Type: Progress Notes Filed: 06/22/2024 17:33 Note Text: CC: Patient presents with: Recheck: Follow up B/L feet numbness HPI Roger Mason is a 53 year old male who presents today for wanting to discuss obesity and ongoing numbness. Continuing with podiatry, physical therapy, and has seen neurology with no improvement in numbness of feet. Would like to try a weight loss medicine to see if weight loss would help. 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 Eats out 1-2 times every few weeks. But typically packs his lunch and eats at home. Has never tried any weight loss medications previously but has had friends who have been on zepbound. Does have history of prediabetes. Denies any fatigue, low motivation, recurrent infections, chest pain, shortness of breath, edema, palpitations, cough, wheezing, heartburn, upper abdominal pain, constipation, personal or family history of thyroid cancer, headaches, dizziness, weakness, syncope, increased thirst/hunger/urination, or intolerance to heat/cold. HTN: Mr. Mason denies headache, chest pain, palpitations, dyspnea, and peripheral edema. Patient denies any side effects of his medication(s) and is compliant with their regimen. Last 3 Encounter BP Readings: Date: BP: 06/22/2024 132/80 02/03/2024 130/78 07/15/2023 128/82' REVIEW OF SYSTEMS See HPI PAST MEDICAL HISTORY Diagnosis Date Unspecified essential hypertension 10/04/2007 PAST SURGICAL HISTORY Procedure Laterality Date EXC VARICOCELE/LIGATION SPERMATIC VEINS SPX 2006 Variocele repair LAPS SURG CHOLECSTC W/EXPL COMMON DUCT 06-22-12 [facility] VASECTOMY 2007 ALLERGIES Lisinopril and Zithromax Z-Ender [Azithromycin] MEDICATIONS valACYclovir (VALTREX) 1 gram tablet Take by mouth. 2 tablets twice a day amLODIPine (NORVASC) 5 mg tablet Take 1 tablet by mouth once daily. CPAP Initiate Auto PAP @ 7-15 cm of water with humidification. Mask (per patient preference) optional chin strap (if indicated) , filters, tubing, humidifier and lifetime supplies. FAMILY HISTORY Problem Relation Age of Onset Heart Father enlarged heart Hypertension Mother Social History Tobacco Use Smoking status: Never Smokeless tobacco: Never Substance Use Topics Alcohol use: Yes Comment: occasional PHYSICAL EXAM BP 132/80 Pulse 74 Resp 16 Wt 115.7 kg (255 lb) SpO2 95% BMI 35.31 kg/m? General Appearance: well appearing, in no acute distress, alert Pysch: mood and affect broad and appropriate Eyes: conjunctiva pink and moist, no icterus, sclera white, non-injected Lungs: Lungs clear to auscultation. No wheezing, rhonchi, rales. Heart: RRR without murmur, gallop, or rubs. No ectopy Health maintenance reviewed with patient: Depression Screening Never done Anxiety Screening Never done Hepatitis C Screening Never done HIV Screening Never done BP Controlled (<130/80) Never done Diabetes Screening due on 09/21/2020 Shingrix Vaccine(1 of 2) Never done Pneumococcal Vaccine: 50+(1 of 1 - PCV) Never done Lipid Screening due on 09/21/2022 Influenza Vaccine(1) due on 11/21/2024 Hepatitis B Vaccine(1 of 3 - 19+ 3-dose series) due on 02/02/2025 Colorectal Cancer Screening due on 01/23/2031 Annual PCP Team Chronic Disease Visit due on 06/22/2025 DTaP,Tdap,Td Vaccine(3 - Td or Tdap) due on 10/10/2032 Covid-19 Vaccine Discontinued DATA REVIEWED: No new labs ASSESSMENT/PLAN: 1. Essential hypertension - ICD9: 401.9, ICD10: I10 (primary diagnosis) - Controlled - Continue current medications - Recommend home blood pressure monitoring, to bring results to next visit - Encouraged sodium restriction, DASH or Mediterranean diet - Recommend regular aerobic exercise - COMPLETE BLOOD COUNT - COMPREHENSIVE METABOLIC PANEL - HEMOGLOBIN A1C 2. Prediabetes - ICD9: 790.29, ICD10: R73.03 Unsure on control - due for labs - COMPLETE BLOOD COUNT - COMPREHENSIVE METABOLIC PANEL - THYROID STIMULATING HORMONE - HEMOGLOBIN A1C 3. Class 2 severe obesity with serious comorbidity and body mass index (BMI) of 35.0 to 35.9 in adult, unspecified obesity type (HCC) - ICD9: 278.01, V85.35, ICD10: E66.812, E66.01, Z68.35 Weight increasing - Behavioral and pharmacological intervention - will review blood work and give recommendations on options of weight loss medications. - LIPID PANEL BASIC - COMPLETE BLOOD COUNT - COMPREHENSIVE METABOLIC PANEL - THYROID STIMULATING HORMONE - HEMOGLOBIN A1C 4. Numbness in feet - ICD9: 782.0, ICD10: R20.0 Call leather seasoner for further evaluation 5. Annual physical exam - ICD9: V70.0, ICD10: Z00.00 Not discussed today, blood work ordered to be reviewed at next appointment. - LIPID PANEL BASIC - COMPLETE BLOOD COUNT - COMPREHENSIVE METABOLIC PANEL - HEMOGLOBIN A1C 6. Herpes simplex labialis - (more content not included)... [facility] 06-22-2024 History of Presen t illness Narrative CC: Patient presents with: Recheck: Follow up B/L feet numbness HPI Roger Mason is a 53 year old male who presents today for wanting to discuss obesity and ongoing numbness. Continuing with podiatry, physical therapy, and has seen neurology with no improvement in numbness of feet. Would like to try a weight loss medicine to see if weight loss would help. 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 Eats out 1-2 times every few weeks. But typically packs his lunch and eats at home. Has never tried any weight loss medications previously but has had friends who have been on zepbound. Does have history of prediabetes. Denies any fatigue, low motivation, recurrent infections, chest pain, shortness of breath, edema, palpitations, cough, wheezing, heartburn, upper abdominal pain, constipation, personal or family history of thyroid cancer, headaches, dizziness, weakness, syncope, increased thirst/hunger/urination, or intolerance to heat/cold. HTN: Mr. Mason denies headache, chest pain, palpitations, dyspnea, and peripheral edema. Patient denies any side effects of his medication(s) and is compliant with their regimen. Last 3 Encounter BP Readings: Date: BP: 06/22/2024 132/80 02/03/2024 130/78 07/15/2023 128/82' REVIEW OF SYSTEMS See HPI PAST MEDICAL HISTORY Diagnosis Date Unspecified essential hypertension 10/04/2007 PAST SURGICAL HISTORY Procedure Laterality Date EXC VARICOCELE/LIGATION SPERMATIC VEINS SPX 2006 Variocele repair LAPS SURG CHOLECSTC W/EXPL COMMON DUCT 06-22-12 [facility] VASECTOMY 2007 ALLERGIES Lisinopril and Zithromax Z-Ender [Azithromycin] MEDICATIONS valACYclovir (VALTREX) 1 gram tablet Take by mouth. 2 tablets twice a day amLODIPine (NORVASC) 5 mg tablet Take 1 tablet by mouth once daily. CPAP Initiate Auto PAP @ 7-15 cm of water with humidification. Mask (per patient preference) optional chin strap (if indicated) , filters, tubing, humidifier and lifetime supplies. FAMILY HISTORY Problem Relation Age of Onset Heart Father enlarged heart Hypertension Mother Social History Tobacco Use Smoking status: Never Smokeless tobacco: Never Substance Use Topics Alcohol use: Yes Comment: occasional PHYSICAL EXAM BP 132/80 Pulse 74 Resp 16 Wt 115.7 kg (255 lb) SpO2 95% BMI 35.31 kg/m General Appearance: well appearing, in no acute distress, alert Pysch: mood and affect broad and appropriate Eyes: conjunctiva pink and moist, no icterus, sclera white, non-injected Lungs: Lungs clear to auscultation. No wheezing, rhonchi, rales. Heart: RRR without murmur, gallop, or rubs. No ectopy Health maintenance reviewed with patient: Depression Screening Never done Anxiety Screening Never done Hepatitis C Screening Never done HIV Screening Never done BP Controlled (<130/80) Never done Diabetes Screening due on 09/21/2020 Shingrix Vaccine(1 of 2) Never done Pneumococcal Vaccine: 50+(1 of 1 - PCV) Never done Lipid Screening due on 09/21/2022 Influenza Vaccine(1) due on 11/21/2024 Hepatitis B Vaccine(1 of 3 - 19+ 3-dose series) due on 02/02/2025 Colorectal Cancer Screening due on 01/23/2031 Annual PCP Team Chronic Disease Visit due on 06/22/2025 DTaP,Tdap,Td Vaccine(3 - Td or Tdap) due on 10/10/2032 Covid-19 Vaccine Discontinued DATA REVIEWED: No new labs ASSESSMENT/PLAN: 1. Essential hypertension - ICD9: 401.9, ICD10: I10 (primary diagnosis) - Controlled - Continue current medications - Recommend home blood pressure monitoring, to bring results to next visit - Encouraged sodium restriction, DASH or Mediterranean diet - Recommend regular aerobic exercise - COMPLETE BLOOD COUNT - COMPREHENSIVE METABOLIC PANEL - HEMOGLOBIN A1C 2. Prediabetes - ICD9: 790.29, ICD10: R73.03 Unsure on control - due for labs - COMPLETE BLOOD COUNT - COMPREHENSIVE METABOLIC PANEL - THYROID STIMULATING HORMONE - HEMOGLOBIN A1C 3. Class 2 severe obesity with serious comorbidity and body mass index (BMI) of 35.0 to 35.9 in adult, unspecified obesity type (HCC) - ICD9: 278.01, V85.35, ICD10: E66.812, E66.01, Z68.35 Weight increasing - Behavioral and pharmacological intervention - will review blood work and give recommendations on options of weight loss medications. - LIPID PANEL BASIC - COMPLETE BLOOD COUNT - COMPREHENSIVE METABOLIC PANEL - THYROID STIMULATING HORMONE - HEMOGLOBIN A1C 4. Numbness in feet - ICD9: 782.0, ICD10: R20.0 Call leather seasoner for further evaluation 5. Annual physical exam - ICD9: V70.0, ICD10: Z00.00 Not discussed today, blood work ordered to be reviewed at next appointment. - LIPID PANEL BASIC - COMPLETE BLOOD COUNT - COMPREHENSIVE METABOLIC PANEL - HEMOGLOBIN A1C 6. Herpes simplex labialis - ICD9: 054.9, ICD10: B00.1 Not reviewed today, refill needed - VALACYCLOVIR 1 GRAM TABLET Prescription instructions reviewed with patient as applicable. Potential red flag symptoms discussed with the patient. Reviewed appropriate action plan to take if red flag symptoms occur. Patient agreeable to treatment plan. Cheri Torres APRN.CNP documented in this encounter [facility] 03-28-2024 Telephone encounter Note given results below. will call back when they decide where they want to go. Emil Reyes LPN [facility] 03-28-2024 Miscellaneous Notes given results below. will call back when they decide where they want to go. Emil Reyes LPN Called and left a voicemail for the Patient's to call back and ask for a nurse to receive the providers message. Toña Walsh, RN EMG showing sural neuropathy. I would like him to see neurology Thank you Cheri Torres APRN.CNP Cheri, please review and advise. View External Procedures - Neurology [ID [id number]] Ashanti Fitzpatrick MA Roger is calling Aidan Bright MD today to request the results of the recent radiology as well as the EMG procedure completed at [facility] , have they been sent to Dr. Bright? Per Michelle on the phone these show resulted , please call with results. Patient has been identified by name and birthdate. Duration of symptoms: N/A Person calling: self Call patient at: cell -verified [phone] (cell) Was an appointment scheduled: No Closing statement: Results or non-symptom based questions: Thank you for calling [facility], your call will be returned within the next business day. Daphne Landry documented in this encounter [facility] 03-28-2024 Telephone encounter Note Called and left a voicemail for the Patient's to call back and ask for a nurse to receive the providers message. Toña Walsh RN [facility] 03-28-2024 Telephone encounter Note EMG showing sural neuropathy. I would like him to see neurology Thank you Cheri Torrse APRN.CNP [facility] 03-28-2024 Telephone encounter Note Cheri, please review and advise. View External Procedures - Neurology [ID [id number]] Ashanti Fitzpatrick MA [facility] 03-28-2024 Telephone encounter Note Prescription Refill Information The patient has been identified by name and date of : Yes Caregiver verified no other encounters exist for this prescription request: Yes Caregiver confirmed with patient/requestor that no other refills are due, in the near future, with this provider at this time: Yes The last office visit in the department: 02/03/2024 Does the patient have a future office visit with this provider/department: Yes Requested Prescriptions Pending Prescriptions Disp Refills valACYclovir (VALTREX) 1 gram tablet 32 tablet 2 Sig: Take by mouth. 2 tablets twice a day Daphne Landry March 28, 2024 10:47 AM [facility] 03-28-2024 Miscellaneous Notes Prescription Refill Information The patient has been identified by name and date of : Yes Caregiver verified no other encounters exist for this prescription request: Yes Caregiver confirmed with patient/requestor that no other refills are due, in the near future, with this provider at this time: Yes The last office visit in the department: 02/03/2024 Does the patient have a future office visit with this provider/department: Yes Requested Prescriptions Pending Prescriptions Disp Refills valACYclovir (VALTREX) 1 gram tablet 32 tablet 2 Sig: Take by mouth. 2 tablets twice a day Daphne Landry March 28, 2024 10:47 AM documented in this encounter [facility] 03-28-2024 Telephone encounter Note Roger is calling Aidan Bright MD today to request the results of the recent radiology as well as the EMG procedure completed at [facility] , have they been sent to Dr. Bright? Per , Michelle on the phone these show resulted , please call with results. Patient has been identified by name and birthdate. Duration of symptoms: N/A Person calling: self Call patient at: cell -verified [phone] (cell) Was an appointment scheduled: No Closing statement: Results or non-symptom based questions: Thank you for calling [facility], your call will be returned within the next business day. Daphne Landry [facility] 02-08-2024 Telephone encounter Note Faxed as requested to [facility]. [facility] 02-08-2024 Miscellaneous Notes Faxed as requested to [facility]. [facility] wanting specific worded order with bilateral in comments. Reordered, please print and fax to [facility] Thank you Cheri Torres APRN.CNP documented in this encounter [facility] 02-08-2024 Telephone encounter Note [facility] wanting specific worded order with bilateral in comments. Reordered, please print and fax to [facility] Thank you Cheri Torres APRN.CNP [facility] 02-03-2024 Instructions Cheri Torres APRN.CNP - 02/03/2024 4:44 PM EDT Call insurance to ask about shingles vaccination coverage. documented in this encounter [facility] 02-03-2024 Note HNO ID: [id number] Author: CHERI TORRES APRN.FOOD PRODUCTION MANAGER Service: ? Author Type: Nurse Practitioner Type: Progress Notes Filed: 02/03/2024 17:29 Note Text: CC: Patient presents with: Recheck: 6 month follow up HPI Roger Mason is a 53 year old male who presents today for routine follow up. Prediabetic: HGBA1c 6.0 previoius 7 months ago was 6.2. Diet controlled. Denies increase in thirst hunger or urination. FELIPA: Has not been wearing his cpap. Does not feel tired during the day but does gets told he snores. HTN: Mr. Mason indicates that he is feeling well and denies any symptoms referable to elevated blood pressure. Specifically denies headache, chest pain, palpitations, dyspnea, and peripheral edema. Patient denies any side effects of his medication(s) and is compliant with their regimen. He does check BP's away from this office with average BP's in the 130s/90s range. 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 He watches his diet for sodium, low fat and low cholesterol generally not very much. Last 3 Encounter BP Readings: Date: BP: 02/03/2024 130/78 07/15/2023 128/82 04/09/2023 132/85[Toño BP[ 02/04/2023 154/92' Ongoing numbness to bilateral feet. Is present to 3rd and 4th toes originally with right but now left involved as well. Was evaluated for this previously but never got lumbar xray completed. Had a pain to bottom of right foot a few weeks ago and scratched at spot and the pain went away. Right foot numbness is worse then left Denies falls, injuries, back pain, abdominal pain, weakness, edema, loss of bowel/bladder control, or any other concern REVIEW OF SYSTEMS See HPI PAST MEDICAL HISTORY 10/04/2007: Unspecified essential hypertension PAST SURGICAL HISTORY 2006: EXC VARICOCELE/LIGATION SPERMATIC VEINS SPX Comment: Variocele repair 06-22-12: LAPS SURG CHOLECSTC W/EXPL COMMON DUCT Comment: [facility] 2007: VASECTOMY ALLERGIES Lisinopril and Zithromax Z-Ender [Azithromycin] MEDICATIONS amLODIPine (NORVASC) 5 mg tablet Take 1 tablet by mouth once daily. CPAP Initiate Auto PAP @ 7-15 cm of water with humidification. Mask (per patient preference) optional chin strap (if indicated) , filters, tubing, humidifier and lifetime supplies. valACYclovir (VALTREX) 1 gram Take by mouth. 2 tablets twice a day FAMILY HISTORY Problem Relation Age of Onset Heart Father enlarged heart Hypertension Mother Social History Tobacco Use Smoking status: Never Smokeless tobacco: Never Substance Use Topics Alcohol use: Yes Comment: occasional PHYSICAL EXAM BP 130/78 Pulse 73 Wt 113.9 kg (251 lb 1.7 oz) SpO2 97% BMI 34.77 kg/m? General Appearance: well appearing, in no acute distress, alert Pysch: mood and affect broad and appropriate Eyes: conjunctiva pink and moist, no icterus, sclera white, non-injected Back: No pain to palpation, Full and painless ROM including flexion, extension, lateral side bending and rotation, Reflexes 2+ and symmetric Lungs: Lungs clear to auscultation. No wheezing, rhonchi, rales. Heart: RRR without murmur, gallop, or rubs. No ectopy Abdomen: Abdomen soft, non-tender. Bowel sounds normal. No masses, organomegaly Extremities: No deformities, edema, skin discoloration, clubbing or cyanosis. Good capillary refill. Small white are to bottom of right foot appearing like plantar wart. No tenderness, redness, drainage, or concern Health maintenance reviewed with patient: Depression Screening Never done Anxiety Screening Never done Hepatitis C Screening Never done HIV Screening Never done BP Controlled (<130/80) Never done Diabetes Screening due on 09/21/2020 Shingrix Vaccine(1 of 2) Never done Lipid Screening due on 09/21/2022 Influenza Vaccine(1) due on 11/21/2024 Hepatitis B Vaccine(1 of 3 - 19+ 3-dose series) due on 02/02/2025 Colorectal Cancer Screening due on 01/23/2031 Annual PCP Team Chronic Disease Visit due on 02/02/2025 DTaP,Tdap,Td Vaccine(3 - Td or Tdap) due on 10/10/2032 Covid-19 Vaccine Discontinued DATA REVIEWED: Most recent labs ASSESSMENT/PLAN: 1. Prediabetes - ICD9: 790.29, ICD10: R73.03 (primary diagnosis) Controlled Focus on healthy well portioned diet low in sweet, carb controlled to allow for continued control and weight loss. 2. Essential hypertension - ICD9: 401.9, ICD10: I10 Controlled - Continue current medications - Recommend home blood pressure monitoring, to bring results to next visit - Encouraged sodium restriction, DASH or Mediterranean diet - Recommend regular aerobic exercise 3. Other sleep apnea - ICD9: 327.29, ICD10: G47.39 Start using cpap as ordered 4. Numbness in feet - ICD9: 782.0, ICD10: R20.0 Needs further worked up. No back injury and glucose controlled - XR LUMBAR GENERAL 3V AP/LAT/L5-S1 - EMG(NEURO/NI) - CONSULT TO PODIATRY 5. Right foot pain - ICD9: 729.5, ICD10: M79.671 Probable plantar wart but with the numbness will need to see podiatry first. Pres (more content not included)... [facility] 02-03-2024 History of Presen t illness Narrative CC: Patient presents with: Recheck: 6 month follow up HPI Roger Mason is a 53 year old male who presents today for routine follow up. Prediabetic: HGBA1c 6.0 previoius 7 months ago was 6.2. Diet controlled. Denies increase in thirst hunger or urination. FELIPA: Has not been wearing his cpap. Does not feel tired during the day but does gets told he snores. HTN: Mr. Mason indicates that he is feeling well and denies any symptoms referable to elevated blood pressure. Specifically denies headache, chest pain, palpitations, dyspnea, and peripheral edema. Patient denies any side effects of his medication(s) and is compliant with their regimen. He does check BP's away from this office with average BP's in the 130s/90s range. 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 He watches his diet for sodium, low fat and low cholesterol generally not very much. Last 3 Encounter BP Readings: Date: BP: 02/03/2024 130/78 07/15/2023 128/82 04/09/2023 132/85[Toño BP[ 02/04/2023 154/92' Ongoing numbness to bilateral feet. Is present to 3rd and 4th toes originally with right but now left involved as well. Was evaluated for this previously but never got lumbar xray completed. Had a pain to bottom of right foot a few weeks ago and scratched at spot and the pain went away. Right foot numbness is worse then left Denies falls, injuries, back pain, abdominal pain, weakness, edema, loss of bowel/bladder control, or any other concern REVIEW OF SYSTEMS See HPI PAST MEDICAL HISTORY 10/04/2007: Unspecified essential hypertension PAST SURGICAL HISTORY 2006: EXC VARICOCELE/LIGATION SPERMATIC VEINS SPX Comment: Variocele repair 06-22-12: LAPS SURG CHOLECSTC W/EXPL COMMON DUCT Comment: [facility] 2007: VASECTOMY ALLERGIES Lisinopril and Zithromax Z-Ender [Azithromycin] MEDICATIONS amLODIPine (NORVASC) 5 mg tablet Take 1 tablet by mouth once daily. CPAP Initiate Auto PAP @ 7-15 cm of water with humidification. Mask (per patient preference) optional chin strap (if indicated) , filters, tubing, humidifier and lifetime supplies. valACYclovir (VALTREX) 1 gram Take by mouth. 2 tablets twice a day FAMILY HISTORY Problem Relation Age of Onset Heart Father enlarged heart Hypertension Mother Social History Tobacco Use Smoking status: Never Smokeless tobacco: Never Substance Use Topics Alcohol use: Yes Comment: occasional PHYSICAL EXAM BP 130/78 Pulse 73 Wt 113.9 kg (251 lb 1.7 oz) SpO2 97% BMI 34.77 kg/m General Appearance: well appearing, in no acute distress, alert Pysch: mood and affect broad and appropriate Eyes: conjunctiva pink and moist, no icterus, sclera white, non-injected Back: No pain to palpation, Full and painless ROM including flexion, extension, lateral side bending and rotation, Reflexes 2+ and symmetric Lungs: Lungs clear to auscultation. No wheezing, rhonchi, rales. Heart: RRR without murmur, gallop, or rubs. No ectopy Abdomen: Abdomen soft, non-tender. Bowel sounds normal. No masses, organomegaly Extremities: No deformities, edema, skin discoloration, clubbing or cyanosis. Good capillary refill. Small white are to bottom of right foot appearing like plantar wart. No tenderness, redness, drainage, or concern Health maintenance reviewed with patient: Depression Screening Never done Anxiety Screening Never done Hepatitis C Screening Never done HIV Screening Never done BP Controlled (<130/80) Never done Diabetes Screening due on 09/21/2020 Shingrix Vaccine(1 of 2) Never done Lipid Screening due on 09/21/2022 Influenza Vaccine(1) due on 11/21/2024 Hepatitis B Vaccine(1 of 3 - 19+ 3-dose series) due on 02/02/2025 Colorectal Cancer Screening due on 01/23/2031 Annual PCP Team Chronic Disease Visit due on 02/02/2025 DTaP,Tdap,Td Vaccine(3 - Td or Tdap) due on 10/10/2032 Covid-19 Vaccine Discontinued DATA REVIEWED: Most recent labs ASSESSMENT/PLAN: 1. Prediabetes - ICD9: 790.29, ICD10: R73.03 (primary diagnosis) Controlled Focus on healthy well portioned diet low in sweet, carb controlled to allow for continued control and weight loss. 2. Essential hypertension - ICD9: 401.9, ICD10: I10 Controlled - Continue current medications - Recommend home blood pressure monitoring, to bring results to next visit - Encouraged sodium restriction, DASH or Mediterranean diet - Recommend regular aerobic exercise 3. Other sleep apnea - ICD9: 327.29, ICD10: G47.39 Start using cpap as ordered 4. Numbness in feet - ICD9: 782.0, ICD10: R20.0 Needs further worked up. No back injury and glucose controlled - XR LUMBAR GENERAL 3V AP/LAT/L5-S1 - EMG(NEURO/NI) - CONSULT TO PODIATRY 5. Right foot pain - ICD9: 729.5, ICD10: M79.671 Probable plantar wart but with the numbness will need to see podiatry first. Prescription instructions reviewed with patient as applicable. Potential red flag symptoms discussed with the patient. Reviewed appropriate action plan to take if red flag symptoms occur. Patient agreeable to treatment plan. Cheri Torres APRN.CNP documented in this encounter [facility] 01-05-2024 Note Patient Outreach (IN [facility]) [facility] MASON ([id number]) 1970 M Date Time Provider Department 01/05/24 AIDAN BRIGHT During your visit today, we recorded the following information about you: Allergies As of Date: 01/05/2024 Noted Allergy Reaction LISINOPRIL 01/09/2009 3 - Cough ZITHROMAX Z-ENDER (AZITHROMYCIN) 08/11/2007 8 - GI Upset Date Reviewed: 04/09/2023 Reviewed by: Haydee Licona - Fully Assessed Visit Diagnoses:Essential hypertension [I10] Prediabetes [R73.03] Mixed hyperlipidemia [E78.2] Order(s):BASIC METABOLIC PANEL [SQBMP] Order #: [id number] FUTURE HEMOGLOBIN A1C [RTHPZ5S] Order #: [id number] FUTURE LIPID PANEL BASIC [SQLIPB] Order #: [id number] FUTURE Prescriptions as of 01/08/2024 - amLODIPine (NORVASC) 5 mg tablet Take 1 tablet by mouth once daily. - valACYclovir (VALTREX) 1 gram Take by mouth. 2 tablets twice a day - CPAP Initiate Auto PAP @ 7-15 cm of water with humidification. Mask (per patient preference) optional chin strap (if indicated) , filters, tubing, humidifier and lifetime supplies. 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 Result of 53 entered into Urology Flowsheet. Chief Complaint BPH/LUTS HPI Mr. Mason is a 53 y.o. male who presents with BPH/LUTS. He notes that he has been having issues with urination for the last ~5-6 months. He started developing nocturia, he will get up 4-5 times at night. He does have 3-4 large cups of water in the evening - about 64oz. Will have issues during the day as well. He has some difficulty with initiation of flow. Stream is described as weak. He has intermittency with some spraying of the stream. He will have some urgency as well, although on questioning, this is less of a strong urge. He denies any bothersome leakage. He was seen at an urgent care in September ([place]) for back pain and was diagnosed with a kidney infection. No gross hematuria. Patient denies fevers, chills, nausea, vomiting, constipation, or flank pain. Past Medical History He has a past medical history of Benign prostatic hyperplasia. Past Surgical History He has no past surgical history on file. Medications He has a current medication list which includes the following prescription(s): amlodipine. Allergies He is allergic to azithromycin and lisinopril. Social History He reports that he has never smoked. He has never used smokeless tobacco. He reports that he does not currently use alcohol. He reports that he does not use drugs. Family History He family history is not on file. Review of Systems Pertinent review of systems as noted in HPI Physical Exam BP (!) 152/98 (BP Location: Left arm, BP Position: Sitting) Pulse 80 Temp 98.6 F (37 C) (Infrared) Ht 1.778 m (5' 10) Wt 112 kg (247 lb) SpO2 96% BMI 35.44 kg/m Smoking Status Never Constitutional: NAD, WDWN. HEENT: NCAT. Conjunctivae normal. MMM. Cardiovascular: No peripheral edema noted Pulmonary/Chest: Respirations are even and non-labored bilaterally. Abdominal: Soft, nontender, nondistended. No CVA tenderness. Neurological: A + O x 3. Cranial Nerves II-XII grossly intact. Normal gait. Extremities: LESVIA x 4, Warm. No clubbing. No cyanosis. Skin: [place], warm and dry. No rashes noted. Genitourinary Penis: circumcised penis, glans normal, no penile discharge. No rashes/lesions. Testes: descended bilaterally, no masses, nontender to palpation. Remainder of scrotal contents normal. No hernia appreciated. Rectal: Normal tone, no masses. Prostate: 40 grams. Symmetric, non-tender, anodular and no induration. Labs POCT APPEARANCE, URINE (no units) Date Value 10/30/2023 Clear POCT COLOR, URINE (no units) Date Value 10/30/2023 Yellow POCT BILIRUBIN, URINE (no units) Date Value 10/30/2023 Negative POCT SPECIFIC GRAVITY, URINE (no units) Date Value 10/30/2023 1.030 POCT BLOOD, URINE (no units) Date Value 10/30/2023 Negative POCT PH, URINE (no units) Date Value 10/30/2023 6.0 POCT PROTEIN, URINE (mg/dL) Date Value 10/30/2023 Negative POCT UROBILINOGEN, URINE (E.U./dL) Date Value 10/30/2023 0.2 POCT NITRITE, URINE (no units) Date Value 10/30/2023 Negative POCT LEUKOCYTE, URINE (no units) Date Value 10/30/2023 Negative PVR: 53mL International Prostate Symptom Score (I-PSS) Incomplete emptying: Not at all Frequency: More than half the time Intermittency: Less than half the time Urgency: Almost always Weak stream: Almost always Straining: More than half the time Nocturia: 4 times Total AUA score: 24 QOL: 5 PSA (08/10/23) - 1.04 (personally reviewed) Assessment Mr. Mason is a 53 y.o. male who presents with BPH/LUTS. Plan 1. BPH/LUTS -We had a detailed discussion about options for treating his BPH. As he is not in retention, any intervention would be for his QOL -Discussed options of behavior modification vs. medical management (alpha blockers/PDE-5i) vs. Diagnostic workup 2. Prostate cancer screening -CHERYL and PSA normal Marcus Nunez MD documented in this encounter [facility] 09-17-2023 Discharge summary Note Date/Time September 17, 2023 2:26pm [facility] Medical Records Department [address] [place] [address] Emergency Department Summary 09/17/23 MR#: [id number] Acct: [id number] Name: ROGER MASON Rep #:[id number] : 1970 52 From: Anuel Garcia PCP: Dr. Aidan Bright MD Status:REG E R Location: ED HPI History of Present Illness Chief Complaint: Flank Pain Informant: patient Narrative Narrative: 52-year-old male presenting to the emergency room with urinary frequency and pressure. Patient states for about a week he has had pain in his mid thoracic back worse on the right side that is worse with movement. 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 Overthe past 5 days he notes some urinary pressure and burning as well as frequency. He states he has pressure with bowel movements as well but the bowel movements have otherwise been normal. No prostatic issues. Denies any fever nausea vomiting. He does endorse some fatigue. No rashes. No abdominal pain. [facility] Medical History Acute sinusitis Back pain Chronic cough Encounter for screening for COVID-19 Essential hypertension History of stress test Hyperlipidemia Neurocardiogenic syncope Non-smoker FELIPA on CPAP Screening for intestinal cancer Testicular pain, right Wears glasses Home Medications valacyclovir 1 gram tablet 1,000 mg PO ONCE PRN 11/18/22 [History Last Taken Unknown] amlodipine 10 mg tablet 10 mg PO DAILY #90 tabs 12/21/22 [Rx Last Taken Unknown] sulfamethoxazole 800 mg-trimethoprim 160 mg tablet 1 tab PO BID #28 TABLETS 09/17/23 [Rx Last Taken Unknown] Allergy/AdvReac Type Severity Reaction Status Date / Time azithromycin AdvReac Severe severe Verified 09/17/23 13:46 [From Zithromax Z-Ender] abdominal pain Family History Mother Heart disease Diabetes Hypertension Father Heart disease Cardiomyopathy Surgical History History of cholecystectomy History of vasectomy Status post scrotal varicocelectomy Social History Smoking Status: Never smoker alcohol intake: current details: Occasionally substance use type: does not use ROS ROS ED Constitutional Constitutional ED: Denies chills, fever(s) or weight loss Eyes Eyes: Denies change in vision or diplopia ENT ENT ED: Denies ear pain, rhinorrhea or sore throat Cardiovascular Cardiovascular: Denies chest pain, orthopnea, palpitations or racing heartbeat Respiratory/Chest Respiratory/Chest: Denies cough, dyspnea or orthopnea Gastrointestinal Gastrointestinal: Denies abdominal pain, diarrhea, nausea or vomiting Genitourinary Genitourinary ED: Reports dysuria, urinary frequency and other Details: Pelvic pressure with urination ; Denies hematuria Musculoskeletal Musculoskeletal: Reports back pain; Denies arthralgias or myalgias Integumentary Denies abscess or rash Neurologic Neurologic: Denies headache(s) or weakness Psychiatric Psychiatric: Denies anxiety, depression, suicidal ideation or suicidal thoughts Endocrine Endocrinology: Denies polydipsia, polyphagia or polyuria Allergic/Immunologic Allergic/Immunologic ED: Denies mouth swelling, tongue swelling or urticaria EXAM Physical Exam Const Vital Signs: 09/17/23 13:47 09/17/23 15:46 Temperature 98.4 F Temperature Source Temporal Pulse Rate 111 H 84 Respiratory Rate 18 18 Blood Pressure 134/94 H 133/86 H Blood Pressure Mean 107 101 Pulse Ox 98 98 Oxygen Delivery Method Room Air Room Air Positive well nourished and well developed General Appearance ED: well developed HEENT Reports normocephalic, head/scalp atraumatic and moist mucous membranes Eyes PERRL and EOMs intact bilaterally Neck no lymphadenopathy, supple and no JVD Resp normal respiratory effort and clear to auscultation bilaterally Cardio regular rate, regular rhythm and no murmurs GI normal to inspection, nondistended, normoactive bowel sounds and non-tender Palpation: soft Back/Spine no CVA tenderness and normal ROM Extremity normal to inspection General Extremety ED: Negative for edema General Extremity: Negative for edema Neuro oriented x3 and CN's II-XII intact bilaterally Sensorium / Orientation: alert Motor Exam: strength 5/5 throughout Psych mental status grossly normal Mood & Affect: Negative for depressed or tearful Skin no rashes or lesions noted and no wounds MDM MDM MDM Narrative Medical decision making narrative: White count returns at 18,000. Creatinine normal 1.03. Urinalysis grade 100 white cells 1+ bacteria positive nitrates positive leukocyte esterase. Blood and urine cultures were obtained. Patient continues to clinically appear well. Given 1 g ceftriaxone. I talked about his results with him. He denies high risk sexual activity to suspect gonorrhea chlamydia. Because this is out of character for the patient a CT of the abdomen pelvis was obtained. History & Record Review Discussion w/independent historian: Patient Lab Data Attestation: I reviewed the patient's lab results. Labs: Laboratory Results - last 24 hr 09/17/23 09/17/23 14:20 15:17 WBC 18.0 H RBC 5.10 Hgb 15.3 Hct 46.2 MCV 90.6 MCH 30.0 MCHC 33.1 RDW Std Deviation 42.4 RDW Coeff of Altagracia 12.8 Plt Count 227 MPV 9.6 Immature Gran % (Auto) 0.600 Neut % (Auto) 86.8 H Lymph % (Auto) 5.2 L [place] % (Auto) 7.3 Eos % (Auto) 0.0 Baso % (Auto) 0.1 Absolute Neuts (auto) 15.7 H Absolute Lymphs (auto) 0.94 Nucleated RBC % 0 Sodium 134 L Potassium 4.3 Chloride 100 Carbon Dioxide 28.0 Anion Gap 6 BUN 14 Creatinine 1.03 Estim Creat Clear Calc 103.69 Est GFR (MDRD) Af Amer 97 Est GFR (MDRD) Non-Af 80 BUN/Creatinine Ratio 13.6 Glucose 165 H Calcium 9.4 Urine Color Yellow Urine Clarity Cloudy Urine pH 5.0 Ur Specific [place] 1.030 Urine Protein 30 H Urine Glucose (UA) Normal Urine Ketones Negative Urine Occult Blood 150 H Urine Nitrite Positive H Urine Bilirubin Negative Urine Urobilinogen Normal Ur Leukocyte Esterase 500 H Urine RBC 0 SEEN Urine WBC >100 SEEN Ur Squamous Epith Cells 0 SEEN Urine Bacteria 1+ Urine Mucus 0 SEEN Discharge Plan Triage Chief Complaint: Flank Pain ED Provider: Anuel Hawk Dx/Rx/DC Orders Clinical Impression: Acute UTI, Acute prostatitis Instructions: ED Prostatitis Prescriptions: New sulfamethoxazole-trimethoprim [sulfamethoxazole-trimethoprim] 800-160 mg tablet 1 tab PO BID Qty: 28 0RF No Action valacyclovir 1 gram tablet 1,000 mg PO ONCE PRN amlodipine 10 mg tablet 10 mg PO DAILY Qty: 90 3RF Primary Care Provider: Aidan Bright Referrals: Aidan Bright MD [Primary Care Provider] - Brian Fernandes MD [Med Staff - Active Staff] - As soon as possible Activity Restrictions/Additional Instructions: If you develop fever nausea vomiting worsening pain or have any concerns please return to emergency. I recommend following up with urology.-Please see referral above What to do if you have Problems For any increased pain, shortness of breath, bleeding, nausea or vomiting, chestpain, or any unexpected problems, contact your Primary Care Provider. Call [facility] ([phone]) or report to the closest Emergency Room. Call 911 if necessary. 09/17/23 1755 <Electronically signed by Anuel Hawk DO> Cosigner Signature (if applicable): CC: Dr. Aidan Bright MD ~ Signed [facility] Work Phone: [phone] 171-317704-25-2024 Telephone encounter Note* Telephone Encounter - Cydney Carey RN - 09/17/2023 12:56 PM EDT reports patient's back gave out and he's been in bed all day. Reports patient is also having burning with urination. asking if there is an opening with Cheri today. Advised there are no more openings in IN[facility] today. reports patient can barely walk. does not know if patient is having numbness or tingling or if the pain radiates. Reports this is new, patient has never had back problems before. Advised since patient can barely walk, should take him to ER. states she will see how he is doing (she isnot with patient right now), and if doing bad may take him to ER, otherwise will take him to urgentcare. Reports she is a nurse and works at [employer]. [facility]04-25-[facility]24 Miscellaneous Notes* Telephone Encounter - Cdyney Carey RN - 09/17/2023 12:56 PM EDT reports patient's back gave out and he's been in bed all day. Reports patient is also having burning with urination. asking if there is an opening with Cheri today. Advised there are no more openings in INTM today. reports patient can barely walk. does not know if patient is having numbness or tingling or if the pain radiates. Reports this is new, patient has never had back problems before. Advised since patient can barely walk, should take him to ER. states she will see how he is doing (she isnot with patient right now), and if doing bad may take him to ER, otherwise will take him to urgentcare. Reports she is a nurse and works at [employer]. documented in this encounterCl[facility]03-[facility] Miscellaneous Notes* Telephone Encounter - Sonia Corbin MA - 08/12/2023 1:58 PM EDT Patient informed and verbalized understanding. Sonia Corbin MA * Telephone Encounter - Cheri Torres APRN.CNP - 08/12/2023 8:07 AM EDT PSA is normal. Limit fluid a few hours prior to going to bed and follow up for any further concerns. Thank you Cheri Torres APRN.CNP * Telephone Encounter - Debbie Isbell MA - 08/11/2023 1:10 PM EDT Pt has PSA labs done at [facility]. Results below. View External Labs - Miscellaneous Lab [ID [id number]] Debbie Isbell MA documented in this encounterClerm[facility]03-[facility]-2024 Miscellaneous Notes* Telephone Encounter - Juana Reece LPN - 08/10/2023 4:44 PM EDT Pt calls to request lab order for PSA be faxed to [facility] outpatient lab. Order faxed to: [phone]. Juana Reece LPN documented in this encounterClerm[facility]02-21-[facility]24 History of Present illness Narrative* Cheri Torres APRN.FOOD PRODUCTION MANAGER - 07/15/2023 4:41 PM EST CC: Patient presents with: Recheck: 3 month follow up HPI Roger Mason is a 52 year old male who presents today for routine follow up. Situation depression and anxiety: Stopped his sertraline 2 weeks ago, no longer needing hydroxyzine, and had last counseling appointment 1.5 weeks ago. Doing very well and back at work. Sleep: is described as normal Alcohol use: does not drink any alcohol Drug use: No Appetite: good Suicidal Thoughts: No suicidal or homicidal ideation, intent or plan HTN and HLD: Mr. Mason indicates that he is feeling well and denies any symptoms referable to elevated blood pressure. Specifically denies headache, chest pain, palpitations, dyspnea, and peripheral edema. Patient denies any side effects of his medication(s) and is compliant with their regimen.He does not check BP's generally. 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 He watches his dietfor sodium, low fat and low cholesterol most of the time. Last 3 Encounter BP Readings: Date: BP: 07/15/2023 128/82 04/09/2023 132/85[Toño BP[ 02/04/2023 154/92 Prediabetes: Denies increase in thirst and hunger. Urinates during the night 2-4 times over the past 2.5 months. Has not had this for the past 2 months. Denies fever, chills, abdominal pain, blood in his urine, pain with urination, hesitancy, or difficulty urinating. Does drink a large amount of urine in the evenings. FELIPA: Using Cpap but if it wakes him up he doesn't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 child. REVIEW OF SYSTEMS General: no fevers, no chills, no night sweats, no recurrent infections, no change in appetite, andno significant changes in weight Respiratory: no cough, no wheezing, no shortness of breath, no hemoptysis Cardiovascular: no chest pain, no chest pressure, no palpitations, and no swelling Neurologic: No headache, weakness, numbness, tingling, neck stiffness, tremor, vertigo, dizziness, memory loss, syncope. PAST MEDICAL HISTORY Diagnosis Date Unspecified essential hypertension 10/04/2007 PAST SURGICAL HISTORY Procedure Laterality Date EXC VARICOCELE/LIGATION SPERMATIC VEINS SPX 2006 Variocele repair LAPS SURG CHOLECSTC W/EXPL COMMON DUCT 06-22-12 [facility] VASECTOMY 2007 ALLERGIES Lisinopril and Zithromax Z-Ender [Azithromycin] MEDICATIONS amLODIPine (NORVASC) 5 mg tablet Take 1 tablet by mouth once daily. valACYclovir (VALTREX) 1 gram Take by mouth. 2 tablets twice a day CPAP Initiate Auto PAP @ 7-15 cm of water with humidification. Mask (per patient preference) optional chin strap (if indicated) , filters, tubing, humidifier and lifetime supplies. FAMILY HISTORY Problem Relation Age of Onset Heart Father enlarged heart Hypertension Mother Social History Tobacco Use Smoking status: Never Smokeless tobacco: Never Substance Use Topics Alcohol use: Yes Comment: occasional PHYSICAL EXAM BP 142/90 Pulse 60 Temp 36.8 C (98.2 F) (Temporal) Resp 16 Wt 113.9 kg (251 lb) BMI 36.01kg/m General Appearance: well appearing, in no acute distress, alert Skin: patches of red rash with gina raised areas from right lower back extending to right lower abdomen. Eyes: conjunctiva pink and moist, no icterus, sclera white, non-injected Back: No pain to palpation, Full and painless ROM including flexion, extension, lateral side bending and rotation, Reflexes 2+ and symmetric Lungs: Lungs clear to auscultation. No wheezing, rhonchi, rales. Heart: RRR without murmur, gallop, or rubs. No ectopy Extremities: No deformities, edema, skin discoloration, clubbing or cyanosis. Good capillary refill. Health maintenance reviewed with patient: BP CONTROLLED (<130/80) Never done DIABETES SCREEN due on 09/21/2020 DEPRESSION ASSESSMENT due on 05/25/2022 LIPID SCREEN due on 09/21/2022 INFLUENZA(1) due on 01/23/2023 HEPATITIS B(1 of 3 - 3-dose series) due on 10/11/2023 HEPATITIS C SCREENING due on 10/11/2023 HIV SCREENING due on 10/11/2023 SHINGRIX VACCINE(1 of 2) due on 10/11/2023 COVID-19 VACCINE(3 - Booster for Leeroy series) due on 10/11/2023 COLORECTAL CANCER SCREENING due on 01/23/2031 ANNUAL PCP TEAM CHRONIC DISEASE VISIT due on 10/11/2023 DTAP,TDAP,TD(3 - Td or Tdap) due on 10/10/2032 DATA REVIEWED: No new labs ASSESSMENT/PLAN: 1. Herpes zoster without complication - ICD9: 053.9, ICD10: B02.9 - classic presentation of shingles with pain prior to rash, and appearance and formation of rash - valtrex as ordered - gabapentin as ordered prior to bed, can use tylenol and ibuprofen during the day for pain - follow up next week or earlier for any new concerns or worsening of symptoms. Prescription instructions reviewed with patient as applicable. Potential red flag symptoms discussed with the patient. Reviewed appropriate action plan to take if red flag symptoms occur. Patient agreeable to treatment plan. Cheri Torres APRN.CNP documented in this encounterClermont [facility]06-01-2023 Miscellaneous Notes* Telephone Encounter - Vesta Lorenzo Ma - 10/23/2022 12:32 PM EDT Left detailed message on [employer]. * Telephone Encounter - Cheri Torres APRN.CNP - 10/23/2022 12:23 PM EDT Prescription has been sent as requested. Thank you Cheri Torres APRN.CNP * Telephone Encounter - Olivia Mendoza RN - 10/23/2022 8:17 AM EDT Pt states he does not need short term dose sent to a local pharmacy. Just needs 90 day supply (with refills) to [facility]. Please call pt once script has been sent. Thank you. * Telephone Encounter - Cheri Torres APRN.CNP - 10/23/2022 7:04 AM EDT I will get that sent in today. Does he need a short dose sent to a local pharmacy? If so, where? Thank you Cheri Torres APRN.CNP * Telephone Encounter - Olivia Mendoza RN - 10/22/2022 10:16 AM EDT Patient calling to give Cheri Torres CNP a message. States this past June when he was at [facility] ER, his hydrochlorothiazide medication was discontinued and pt was ordered amlodipine [address] Robledo in cardiology. He states he did not mention this to Cheri Torres at recent OV on 10/10/22 to update his medication list. Patient states he needs new 90 day script for the amlodipine 5mg-he is out. Pt uses [facility]. Pt states he is using discontinued hydrochlorothiazide script until he can receive his amlodipine. Please call pt with update/response. Thank you. documented in this encounterClermont [facility]05-12-2023 Miscellaneous Notes* Telephone Encounter - Jennifer Kemp RN - 10/03/2022 4:21 PM EDT Patient calls and requests to have lab orders faxed to [facility]. Faxed to [phone] per request. Jennifer Kemp RN documented in this encounterClermont [facility] Hospital05-05-2023 Miscellaneous Notes* Telephone Encounter - Aidan Bright MD - 09/26/2022 5:04 PM EDT I sent the original refill for 32 days He keeps them for as needed so he does not have to call every time he gets an outbreak Since his insurance did not have an issue in the past , will keep it the way it s Regards, Aidan Bright MD * Telephone Encounter - Cheri Torres APRN.CNP - 09/26/2022 3:[address] Bright This is the patient I was discussing with you where I was unclear if he was getting outbreaks so often he should have a lower dose to take regularly. Please advise Take care Cheri Torres APRN.CHARLES * Telephone Encounter - Bushra Melgar Pss - 09/24/2022 2:29 PM EDT Michelle is calling on Roger's behalf. She states normally he gets his valcyclovir as a qty of 30. She would like to know why only 5 with refills were called in and if Dr. Bright can prescribe it like she normally does. Please call Roger back at [phone] documented in this encounterClermont County Hospital11-18-2022 History of Present illness Narrative* Aidan Bright MD - 04/11/2022 4:07 PM EST Reason for Visit No chief complaint on file. Roger Mason is a 51 year old male who presents here today for Above Complaints. Health Maintenance HEPATITIS B(1 of 3 - 3-dose series) HEPATITIS C SCREENING HIV SCREENING BP CONTROLLED (<130/80) DTAP,TDAP,TD(2 - Td or Tdap) DIABETES SCREEN SHINGRIX VACCINE(1 of 2) DEPRESSION ASSESSMENT COVID-19 VACCINE(3 - Booster for Leeroy series) INFLUENZA(1) COLORECTAL CANCER SCREENING HPI Had episodes of high bp at home. Struggling with issues with daughter who tried committing suicide a couple times and it has been devastating for the parents. He has been trying to loose weight around 18 pounds and currently the bp is well controlled Last week he had an episode where he was stooped down for a while and then stood up, as he was feeling a little queasy, went for a walk and then started with diffuse numbness and tingling in hands and legs for a few minutes. No problem-specific Assessment & Plan notes found for this encounter. PAST MEDICAL HISTORY Diagnosis Date Unspecified essential hypertension 10/04/2007 PAST SURGICAL HISTORY Procedure Laterality Date EXC VARICOCELE/LIGATION SPERMATIC VEINS SPX 2006 Variocele repair LAPS SURG CHOLECSTC W/EXPL COMMON DUCT 06-22-12 [facility] VASECTOMY 2007 FAMILY HISTORY Problem Relation Age of Onset Heart Father enlarged heart Hypertension Mother Social History Tobacco Use Smoking status: Never Smokeless tobacco: Never Substance Use Topics Alcohol use: Yes Comment: occasional Past medical history, appointments, medications, allergies reviewed. Pertinent Lab/Diagnostic Studies are reviewed and discussed today Current Outpatient Medications: hydroCHLOROthiazide (HYDRODIURIL, ESIDRIX) 25 mg tablet CPAP valACYclovir (VALTREX) 1 gram cyclobenzaprine (FLEXERIL) 10 mg tablet aspirin(ECOTRIN LOW STRENGTH 81 MG TAB) Review of Systems CONSTITUTIONAL: No fevers, chills night sweats, unintended weight loss CARDIOVASCULAR: No chest pain, dyspnea, palpitations, orthopnea, PND, ankle edema. PULM: No dyspnea, unexplained cough. GI: No dysphagia/odynophagia, problematic reflux, constipation, diarrhea, changes in stool habits, hematochezia, melena. : No new urinary complaints, including dysuria, gross hematuria or pyuria. NEURO: No new balance problems, peripheral weakness/paresthesias or numbness of concern. Physical Exam BP 138/76 (BP Site: Left Arm, BP Position: Sitting, BP Cuff Size: Large Adult) Pulse 60 Temp 36.9 C (98.4 F) Resp 14 Ht 177.8 cm (5' 10) Wt 105.2 kg (232 lb) SpO2 97% BMI 33.29 kg/m General appearance: Well appearing, alert, in no acute distress, well nourished. Skin: Skin color, texture, turgor normal, no suspicious rashes or lesions Head: Normocephalic, no masses, lesions, tenderness or abnormalities Eyes: Anicteric sclera. Pupils are equally round and reactive to light. Extraocular movements are intact. Lungs: Lungs clear to auscultation. No wheezing, rhonchi, rales Heart: RRR without murmur, gallop, or rubs. Extremities: No deformities, edema, skin discoloration, clubbing or cyanosis. Good capillary refill. ASSESSMENT/PLAN: 1. Neurocardiogenic syncope - ICD9: 780.2, ICD10: R55 Most likely it is from the stooped postures orthostatics and other circulation issues that ensued - TSH BLD - COMP METABOLIC PANEL - MAGNESIUM BLD - VITAMIN B12 BLOOD ASSESSMENT/PLAN: 1. Neurocardiogenic syncope - ICD9: 780.2, ICD10: R55 (primary diagnosis) - TSH BLD - COMP METABOLIC PANEL - MAGNESIUM BLD - VITAMIN B12 BLOOD 2. Chronic cough - ICD9: 786.2, ICD10: R05.3 - CONSULT TO PULM/CRITICAL CARE 3. Essential hypertension - ICD9: 401.9, ICD10: I10 Her bp was better controlled today - Recommended regular aerobic exercise. - Recommend home blood pressure monitoring, to bring results in on next visit - Goal of BP <130/80 4. Mixed hyperlipidemia - ICD9: 272.2, ICD10: E78.2 - good control - Continue current medication. - LIPID PANEL BASIC Aidan Bright MD [facility] History of Present illness Narrative* Aidan Bright MD - 01/13/2022 1:10 PM EDT Reason for Visit Patient presents with: Yearly Exam: physical with form needs labs Roger Mason is a 51 year old male who presents here today for Above Complaints.. Health Maintenance HEPATITIS B(1 of 3 - 3-dose series) HEPATITIS C SCREENING HIV SCREENING DTAP,TDAP,TD(2 - Td or Tdap) DIABETES SCREEN SHINGRIX VACCINE(1 of 2) COVID-19 VACCINE(3 - Booster for Leeroy series) HPI Felipa: the patient has been using the sleep machine on a daily basis for 6 hours at least. He has noticed a significant improvement. Hyperlipidemia: he has changed his food habits, eats more vegetables and nothing he eats is fried in oil it is mostly grilled or baked. No problem-specific Assessment & Plan notes found for this encounter. PAST MEDICAL HISTORY Diagnosis Date Unspecified essential hypertension 10/04/2007 PAST SURGICAL HISTORY Procedure Laterality Date EXC VARICOCELE/LIGATION SPERMATIC VEINS SPX 2006 Variocele repair LAPS SURG CHOLECSTC W/EXPL COMMON DUCT 06-22-12 [facility] VASECTOMY 2007 FAMILY HISTORY Problem Relation Age of Onset Heart Father enlarged heart Hypertension Mother Social History Tobacco Use Smoking status: Never Smokeless tobacco: Never Substance Use Topics Alcohol use: Yes Comment: occasional Past medical history, appointments, medications, allergies reviewed. Pertinent Lab/Diagnostic Studies are reviewed and discussed today Current Outpatient Medications: hydroCHLOROthiazide (HYDRODIURIL, ESIDRIX) 25 mg tablet CPAP valACYclovir (VALTREX) 1 gram cyclobenzaprine (FLEXERIL) 10 mg tablet aspirin(ECOTRIN LOW STRENGTH 81 MG TAB) Review of Systems CONSTITUTIONAL: No fevers, chills night sweats, unintended weight loss CARDIOVASCULAR: No chest pain, dyspnea, palpitations, orthopnea, PND, ankle edema. PULM: No dyspnea, unexplained cough. GI: No dysphagia/odynophagia, problematic reflux, constipation, diarrhea, changes in stool habits, hematochezia, melena. : No new urinary complaints, including dysuria, gross hematuria or pyuria. NEURO: No new balance problems, peripheral weakness/paresthesias or numbness of concern. Physical Exam BP 122/80 (BP Site: Left Arm, BP Position: Sitting, BP Cuff Size: Large Adult) Pulse 63 Temp 37.2 C (98.9 F) Resp 12 Ht 177.8 cm (5' 10) Wt 113.4 kg (250 lb) SpO2 96% BMI 35.87 kg/m General appearance: Well appearing, alert, in no acute distress, well nourished. Skin: Skin color, texture, turgor normal, no suspicious rashes or lesions Head: Normocephalic, no masses, lesions, tenderness or abnormalities Eyes: Anicteric sclera. Pupils are equally round and reactive to light. Extraocular movements are intact. Lungs: Lungs clear to auscultation. No wheezing, rhonchi, rales Heart: RRR without murmur, gallop, or rubs. Extremities: No deformities, edema, skin discoloration, clubbing or cyanosis. Good capillary refill. ASSESSMENT/PLAN: 1. Other sleep apnea - ICD9: 327.29, ICD10: G47.39 (primary diagnosis) To cont the sleep machine 2. Essential hypertension - ICD9: 401.9, ICD10: I10 - good control - Recommended regular aerobic exercise. - Recommend home blood pressure monitoring, to bring results in on next visit - Goal of BP <130/80 Aidan Bright MD documented [facility] Miscellaneous Notes* Telephone Encounter - Toña Walsh RN - 01/07/2022 3:15 PM EDT Pt called about medication refill. Pt reports he did his sleep study 3 months ago, and received hismachine 4 weeks ago and has been using it faithfully every night. Pt wanted to let provider know. Pt was scheduled for his annual exam. Patient has been identified by name and date of : Yes Patient phones for refill(s): Requested Prescriptions Pending Prescriptions Disp Refills hydroCHLOROthiazide (HYDRODIURIL, ESIDRIX) 25 mg tablet 90 tablet 3 Sig: Take 1 tablet by mouth once daily. Date of last office visit in primary care: 05/14/2021 Future visit: 01/13/22 Last 2 Encounter Wt Readings: Date: Wt: 05/13/2021 112.5 kg (248 lb) 07/20/2020 113.4 kg (250 lb) Previous labs/tests for medication: Blood Pressure: No results found for: BUN, NA Last 1 Encounter BP Readings: Date: BP: 05/13/2021 128/68 Liver Function: No results found for: ALT, AST Please advise. Thank you. 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 documented as of this encounter (statuses as of 01/08/2022) [facility] of Past illness Narrative* Problem Noted Date Resolved Date Routine general medical exam ination at a health care facility 12/26/2012 12/26/2012 Cholelithiasis 06/11/2012 09/21/2017 Migraine 03/31/2011 12/29/2014 Pain in testicle 09/04/2009 12/29/2014 Prostatocystitis 04/14/2005 12/29/2014 Abdominal pain, other specified site 04/14/2005 12/29/2014 Male infertility, unspecified 04/14/2005 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 documented as of this encounter (statuses as of 01/13/2022) [facility] of [facility] illness Narrative* Problem Noted Date Resolved Date Routine general medical exam ination at a health care facility 12/26/2012 12/26/2012 Cholelithiasis 06/11/2012 09/21/2017 Migraine 03/31/2011 12/29/2014 Pain in testicle 09/04/2009 12/29/2014 Prostatocystitis 04/14/2005 12/29/2014 Abdominal pain, other specified site 04/14/2005 12/29/2014 Male infertility, unspecified 04/14/2005 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 documented as of this encounter (statuses as of 04/11/2022) [facility] Narrative* Problem Noted Date Resolved Date Routine general medical exam ination at a health care facility 12/26/2012 12/26/2012 Cholelithiasis 06/11/2012 09/21/2017 Migraine 03/31/2011 12/29/2014 Pain in testicle 09/04/2009 12/29/2014 Prostatocystitis 04/14/2005 12/29/2014 Abdominal pain, other specified site 04/14/2005 12/29/2014 Male infertility, unspecified 04/14/2005 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 documented as of this encounter (statuses as of 09/26/2022) [facility] illness Narrative* Problem Noted Date Resolved Date Routine general medical exam ination at a health care facility 12/26/2012 12/26/2012 Cholelithiasis 06/11/2012 09/21/2017 Migraine 03/31/2011 12/29/2014 Pain in testicle 09/04/2009 12/29/2014 Prostatocystitis 04/14/2005 12/29/2014 Abdominal pain, other specified site 04/14/2005 12/29/2014 Male infertility, unspecified 04/14/2005 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 documented as of this encounter (statuses as of 09/29/2022) [facility] Narrative* Problem Noted Date Resolved Date Routine general medical exam ination at a health care facility 12/26/2012 12/26/2012 Cholelithiasis 06/11/2012 09/21/2017 Migraine 03/31/2011 12/29/2014 Pain in testicle 09/04/2009 12/29/2014 Prostatocystitis 04/14/2005 12/29/2014 Abdominal pain, other specified site 04/14/2005 12/29/2014 Male infertility, unspecified 04/14/2005 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 documented as of this encounter (statuses as of 10/04/2022) [facility] Narrative* Problem Noted Date Resolved Date Routine general medical exam ination at a health care facility 12/26/2012 12/26/2012 Cholelithiasis 06/11/2012 09/21/2017 Migraine 03/31/2011 12/29/2014 Pain in testicle 09/04/2009 12/29/2014 Prostatocystitis 04/14/2005 12/29/2014 Abdominal pain, other specified site 04/14/2005 12/29/2014 Male infertility, unspecified 04/14/2005 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 documented as of this encounter (statuses as of 10/23/2022) [facility] Narrative* Problem Noted Date Diagnosed Date Resolved Date Routine general medical exam ination at a [facility] care facility 12/26/2012 12/26/2012 Cholelithiasis 06/11/2012 09/21/2017 Migraine 03/31/2011 12/29/2014 Pain in testicle 09/04/2009 12/29/2014 Prostatocystitis 04/14/2005 12/29/2014 Abdominal pain, other specified site 04/14/2005 12/29/2014 Male infertility, unspecified 04/14/2005 12/29/2014 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 documented as of this encounter (statuses as of 02/04/2023) [facility] Narrative* Problem Noted Date Diagnosed Date Resolved Date Routine general medical exam ination at a [facility] care facility 12/26/2012 12/26/2012 Cholelithiasis 06/11/2012 09/21/2017 Migraine 03/31/2011 12/29/2014 Pain in testicle 09/04/2009 12/29/2014 Prostatocystitis 04/14/2005 12/29/2014 Abdominal pain, other specified site 04/14/2005 12/29/2014 Male infertility, unspecified 04/14/2005 12/29/2014 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 documented as of this encounter (statuses as of 02/05/2023) [facility] Narrative* Problem Noted Date Diagnosed Date Resolved Date Routine general medical exam ination at a health care facility 12/26/2012 12/26/2012 Cholelithiasis 06/11/2012 09/21/2017 Migraine 03/31/2011 12/29/2014 Pain in testicle 09/04/2009 12/29/2014 Prostatocystitis 04/14/2005 12/29/2014 Abdominal pain, other specified site 04/14/2005 12/29/2014 Male infertility, unspecified 04/14/2005 12/29/2014 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 documented as of this encounter (statuses as of 03/27/2023) [facility] Narrative* Problem Noted Date Diagnosed Date Resolved Date Routine general medical exam ination at a [facility] care facility 12/26/2012 12/26/2012 Cholelithiasis 06/11/2012 09/21/2017 Migraine 03/31/2011 12/29/2014 Pain in testicle 09/04/2009 12/29/2014 Prostatocystitis 04/14/2005 12/29/2014 Abdominal pain, other specified site 04/14/2005 12/29/2014 Male infertility, unspecified 04/14/2005 12/29/2014 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 documented as of this encounter (statuses as of 04/10/2023) [facility] Narrative* Problem Noted Date Diagnosed Date Resolved Date Routine general medical exam ination at a [facility] care facility 12/26/2012 12/26/2012 Cholelithiasis 06/11/2012 09/21/2017 Migraine 03/31/2011 12/29/2014 Pain in testicle 09/04/2009 12/29/2014 Prostatocystitis 04/14/2005 12/29/2014 Abdominal pain, other specified site 04/14/2005 12/29/2014 Male infertility, unspecified 04/14/2005 12/29/2014 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 documented as of this encounter (statuses as of 04/23/2023) [facility] Narrative* Problem Noted Date Diagnosed Date Resolved Date Routine general medical exam ination at a health care facility 12/26/2012 12/26/2012 Cholelithiasis 06/11/2012 09/21/2017 Migraine 03/31/2011 12/29/2014 Pain in testicle 09/04/2009 12/29/2014 Prostatocystitis 04/14/2005 12/29/2014 Abdominal pain, other specified site 04/14/2005 12/29/2014 Male infertility, unspecified 04/14/2005 12/29/2014 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 documented as of this encounter (statuses as of 05/03/2023) [facility] Narrative* Problem Noted Date Diagnosed Date Resolved Date Routine general medical exam ination at a health care facility 12/26/2012 12/26/2012 Cholelithiasis 06/11/2012 09/21/2017 Migraine 03/31/2011 12/29/2014 Pain in testicle 09/04/2009 12/29/2014 Prostatocystitis 04/14/2005 12/29/2014 Abdominal pain, other specified site 04/14/2005 12/29/2014 Male infertility, unspecified 04/14/2005 12/29/2014 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 documented as of this encounter (statuses as of 07/03/2023) [facility] Narrative* Problem Noted Date Diagnosed Date Resolved Date Routine general medical exam ination at a health care facility 12/26/2012 12/26/2012 Cholelithiasis 06/11/2012 09/21/2017 Migraine 03/31/2011 12/29/2014 Pain in testicle 09/04/2009 12/29/2014 Prostatocystitis 04/14/2005 12/29/2014 Abdominal pain, other specified site 04/14/2005 12/29/2014 Male infertility, unspecified 04/14/2005 12/29/2014 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 documented as of this encounter (statuses as of 07/13/2023) [facility] Narrative* Problem Noted Date Diagnosed Date Resolved Date Routine general medical exam ination at a health care facility 12/26/2012 12/26/2012 Cholelithiasis 06/11/2012 09/21/2017 Migraine 03/31/2011 12/29/2014 Pain in testicle 09/04/2009 12/29/2014 Prostatocystitis 04/14/2005 12/29/2014 Abdominal pain, other specified site 04/14/2005 12/29/2014 Male infertility, unspecified 04/14/2005 12/29/2014 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 documented as of this encounter (statuses as of 07/15/2023) [facility] Narrative* Problem Noted Date Diagnosed Date Resolved Date Routine general medical exam ination at a health care facility 12/26/2012 12/26/2012 Cholelithiasis 06/11/2012 09/21/2017 Migraine 03/31/2011 12/29/2014 Pain in testicle 09/04/2009 12/29/2014 Prostatocystitis 04/14/2005 12/29/2014 Abdominal pain, other specified site 04/14/2005 12/29/2014 Male infertility, unspecified 04/14/2005 12/29/2014 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 documented as of this encounter (statuses as of 08/11/2023) [facility] Narrative* Problem Noted Date Diagnosed Date Resolved Date Routine general medical exam ination at a health care facility 12/26/2012 12/26/2012 Cholelithiasis 06/11/2012 09/21/2017 Migraine 03/31/2011 12/29/2014 Pain in testicle 09/04/2009 12/29/2014 Prostatocystitis 04/14/2005 12/29/2014 Abdominal pain, other specified site 04/14/2005 12/29/2014 Male infertility, unspecified 04/14/2005 12/29/2014 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 documented as of this encounter (statuses as of 08/12/2023) [facility] noteNo assessment information availableWChildren[facility] Work Phone: Evaluation note* Diagnosis Onset Date Resolution Status Encounter for screening for COVID-19 [facility] Work Phone: Evaluation note* Diagnosis Essential hypertension Unspecified essential hypertension documented in this encounter [facility] note* Diagnosis Other sleep apnea- Primary Essential hypertension Unspecified essential hypertension documented in this encounter [facility] note* Diagnosis Chronic cough- Primary Cough Neurocardiogenic syncope Syncope and collapse Essential hypertension Unspecified essential hypertension Mixed hyperlipidemia [facility]* Diagnosis Onset Date Resolution Status Neurocardiogenic syncope acu te Essential hypertension chron [facility] Work Phone: Evaluation note* Diagnosis Essential hypertension Unspecified essential hypertension Medication management Encounter for long-term (current) use of other medications [facility]* Diagnosis Herpes simplex labialis Herpes simplex without mention of complication [facility] Diagnosis Herpes zoster without complication- Primary Herpes zoster without mention of complication [facility]* Diagnosis Herpes zoster without complication- Primary Herpes zoster without mention of complication Essential hypertension Unspecified essential hypertension [facility] Diagnosis Essential hypertension Unspecified essential hypertension Medication management Encounter for long-term (current) use of other medications [facility] encounter [facility]* Diagnosis Essential hypertension- Primary Unspecified essential hypertension Numbness of toes Disturbance of skin sensation Situational anxiety Other anxiety states [facility] this encounter [facility]* Diagnosis Reactive depression- Primary Dysthymic disorder Situational anxiety Other anxiety states Insomnia, unspecified type Parent coping with child illness or disability Other health problem within the family Dependent family member needing care at home Other health problem within the family [facility] Essential hypertension Unspecified essential hypertension Medication management Encounter for long-term (current) use of other medications [facility] encounter [facility]* Diagnosis Increased urinary frequency- Primary Urinary frequency Essential hypertension Unspecified essential hypertension Prediabetes Other abnormal glucose Mixed hyperlipidemia Other sleep apnea Reactive depression Dysthymic disorder Situational anxiety Other anxiety states Insomnia, unspecified type [facility]* Diagnosis Benign non-nodular prostatic hyperplasia with lower urinary tract symptoms- Primary Screening for prostate cancer Special screening for malignant neoplasm of prostate [facility] Essential hypertension Unspecified essential hypertension Prediabetes Other abnormal glucose Mixed hyperlipidemia [facility] this encounter [facility]* Diagnosis Prediabetes- Primary Other abnormal glucose Essential hypertension Unspecified essential hypertension Other sleep apnea Numbness in feet Disturbance of skin sensation Right foot pain Pain in limb [facility]* Diagnosis Numbness in feet- Primary Disturbance of skin sensation [facility] Diagnosis Sural neuropathy, unspecified laterality- Primary Numbness in feet Disturbance of skin sensation [facility] Diagnosis Herpes simplex labialis Herpes simplex without mention of complication [facility] Diagnosis Essential hypertension- Primary Unspecified essential hypertension Prediabetes Other abnormal glucose Class 2 severe obesity with serious comorbidity and body mass index (BMI) of 35.0 to 35.9 in adult, unspecified obesity type (HCC) Numbness in feet Disturbance of skin sensation Annual physical exam Routine general medical examination at a [facility] care facility Herpes simplex labialis Herpes simplex without mention of complication [facility]* Diagnosis At high risk for cardiovascular disease- Primary Class 2 obesity with body mass index (BMI) of 35.0 to 35.9 in adult, unspecified obesity type, unspecified whether serious comorbidity present Hyperinsulinemia Other specified hypoglycemia Prediabetes Other abnormal glucose [facility]* Diagnosis Class 1 obesity with serious comorbidity and body mass index (BMI) of 31.0 to 31.9 in adult, unspecified obesity type- Primary Metatarsalgia of right foot Enthesopathy of ankle and tarsus, unspecified Neuroma Other benign neoplasm of connective and other soft tissue of unspecified site At high risk for cardiovascular disease Hyperinsulinemia Other specified hypoglycemia Prediabetes Other abnormal glucose Encounter for immunization Need for other specified prophylactic vaccination against single bacterial disease [facility] encounter [facility]* Diagnosis Essential hypertension Unspecified essential hypertension [facility]* Diagnosis Sural neuropathy, unspecified laterality- Primary Numbness in feet Disturbance of skin sensation [facility] Additional Instructions If you develop fever nausea vomiting worsening pain or have any concerns please return to emergency. I recommend following up with urology.-Please see referral [facility] Work Phone: Reason for referral (narrative)* Outpatient Procedure (Routine) - Pending Review Specialty Diagnoses / Procedures Referred By Betito ching Referred To Contact [facility] Diagnoses Numbness of toes Procedures EMG(NEURO/NI) NERVE CONDUCTION STUDIES 9-10 STUDIES Cheri Torres APRN.FOOD PRODUCTION MANAGER [address] [place] [address] [facility] [address] [place] [id number] Referral ID Status Reason Start Date Expiration Date Visits Requested Visits Authorized [id number] Pending Review Auto-Generat ed Referral 3 04/09/2024 1 1 * Diagnostic Procedure Only (Routine) - Pending Review Specialty Diagnoses / Procedures Referred By Betito ching Referred To Contact XR IMAGING Diagnoses Numbness of toes Procedures XR LUMBAR GENERAL 3V AP/LAT/L5-S1 RADEX SPINE LUMBOSACRAL 2/3 VIEWS Cheri Torres APRN.FOOD PRODUCTION MANAGER [address] [id number] [facility] [place] [address] Referral ID Status Reason Start Date Expiration Date Visits Requested Visits Authorized [id number] Pending Review Auto-Generat ed Referral 3 05/08/2024 1 1 [facility] Outpatient Procedure (Routine) - New Request Specialty Diagnoses / Procedures Referred By Betito ching Referred To Contact [facility] Diagnoses Numbness in feet Procedures EMG(NEURO/NI) NERVE CONDUCTION STUDIES 9-10 STUDIES Cheri Torres APRN.FOOD PRODUCTION MANAGER [address] [place] [address] [facility] [address] [place] [address] Referral ID Status Reason Start Date Expiration Date Visits Requested Visits Authorized [id number] New Request Auto-Generat ed Referral 02/08/2024 02/07/2025 1 [facility]No reason for referral information availableWChildren's [facility] Work Phone: Chief Complaint and Reason for Visit Chief Complaint COVID TEST FELIPA, MB APPROVED ADD ON; LM 2/15 SEVERE FELIPA; LM 08/14 Chief Complaint SEVERE FELIPA; LM 08/14 ANTIGEN COVID TEST/TRAVEL FELIPA; AUTO CPAP *INVENTORY TAGGED Reason for Visit Encounter for screen ing for COVID-19 Chief Complaint ANTIGEN COVID TEST/T RAVEL FELIPA; AUTO CPAP *INVENTORY TAGGED Reason for Visit Encounter for screen ing for COVID-19 Chief Complaint palp, dizziness CHEST PAIN Reason for Visit Neurocardiogenic syn cope Essential hypertension Chief Complaint palp, dizziness CHEST PAIN HYPERTENSION HYPERTENSION Reason for Visit Neurocardiogenic syn cope Essential hypertension Chief Complaint PSA Chief Complaint PSA flank pain Chief Complaint Admit Date RIGHT FOOT METATARSALGIA September 24, 2024 7 :03am Family History No Family History Records Found Relationship Condition Age at Onset Recorded Date/T quique mother Cardiac disease Unknown Diabetes mellitus Unknown father Cardiac disease Unknown Relationship Condition Age at Onset Recorded Date/T quique mother Cardiac disease Unknown Diabetes mellitus Unknown Hypertension Unknown father Cardiac disease Unknown Cardiomyopathy Unknown Advance Directives No Advanced Directives Records Found Advance Directive Response Recorded Date/ Time Living Will No February 12, 2021 8:41am Power of Engrosser No January 8:41am Advance Directive Response Recorded Date/ Time Living Will No February 12, 2021 7:41am Power of Engrosser No January 7:41am Advance Directive Response Recorded Date/ Time Living Will No September 17, 2023 1:46pm Power of Engrosser No September 16 1:46pm Summary Purpose Reason for Referral Specialty Diagnoses / Procedures Referred By Betito ching Referred To Contact Podiatry Diagnoses Numbness in feet Procedures CONSULT TO PODIATRY OFFICE/OUTPATIENT NEW HIGH MDM 60 MINUTES Cheri Torres APRN.FOOD PRODUCTION MANAGER [address] [place] [address] Referral ID Status Reason Start Date Expiration Date Visits Requested Visits Authorized [id number] Authorized PCP Requested Referral 02/03/2024 02/02/2025 1 1 Specialty Diagnoses / Procedures Referred By Betito ching Referred To Contact [facility] Diagnoses Numbness in feet Procedures EMG(NEURO/NI) NERVE CONDUCTION STUDIES 9-10 STUDIES Cheri Torres APRN.FOOD PRODUCTION MANAGER [address] [place] [address] [facility] [address] [place] [address] Referral ID Status Reason Start Date Expiration Date Visits Requested Visits Authorized [id number] New Request Auto-Generat ed Referral 02/03/2024 02/02/2025 1 1 Specialty Diagnoses / Procedures Referred By Contac t Referred To Contact XR IMAGING Diagnoses Numbness in feet Procedures XR LUMBAR GENERAL 3V AP/LAT/L5-S1 RADEX SPINE LUMBOSACRAL 2/3 VIEWS Cheri Torres APRN.FOOD PRODUCTION MANAGER [address] [place] [address] [place] [address] Referral ID Status Reason Start Date Expiration Date Visits Requested Visits Authorized [id number] New Request Auto-Generat ed Referral 02/03/2024 03/04/2025 1 1 Specialty Diagnoses / Procedures Referred By Contac t Referred To Contact Neurology Diagnoses Sural neuropathy, unspecified laterality Numbness in feet Procedures CONSULT TO NEUROLOGY OFFICE/OUTPATIENT NEW HIGH MDM 60 MINUTES Cheri Torres APRN.FOOD PRODUCTION MANAGER [address] [place] [address] Referral ID Status Reason Start Date Expiration Date Visits Requested Visits Authorized [id number] Authorized PCP Requested Referral 03/28/2024 03/28/2025 1 1 Specialty Diagnoses / Procedures Referred By Contac t Referred To Contact Diagnoses Class 2 obesity with body mass index (BMI) of 35.0 to 35.9 in adult, unspecified obesity type, unspecified whether serious comorbidity present At high risk for cardiovascular disease Hyperinsulinemia Prediabetes Aidan Bright MD [address] [place] [address] Referral ID Status Reason Start Date Expiration Date V isits Requested Visits Authorized [id number] Authorized 05/28/2024 02/22/2025 1 1 Additional Source Comments Goals (unrecognized section and content) Goals may be documented in a n alternate sectionGoals may be documented in an alternate sectionGoals may be documented in an alternate sectionGoals may be documented in an alternate sectionGoals may be documented in an alternate sectionGoals may be documented in an alternate sectionGoals may be documented in an alternate sectionGoals may be documented in an alternate sectionGoals may be documented in an alternate sectionGoals may be documented in an alternate section Source Comments (unrecognize d section and content) In the event this informatio n is protected by the Federal Confidentiality of Alcohol and Drug Abuse Patient Records regulations: The Federal rules restrict any use of the information to criminally investigate or prosecute any alcohol or drug abuse patient.[facility] the event this information is protected by the Federal Confidentiality of Alcohol and Drug Abuse Patient Records regulations: The Federal rules restrict any use of the information to criminally investigate or prosecute any alcohol or drug abuse patient.[facility] the event this information is protected by the Federal Confidentiality of Alcohol and Drug Abuse Patient Records regulations: The Federal rules restrict any use of the information to criminally investigate or prosecute any alcohol or drug abuse patient.[facility] the event this information is protected by the Federal Confidentiality of Alcohol and Drug Abuse Patient Records regulations: The Federal rules restrict any use of the information to criminally investigate or prosecute any alcohol or drug abuse patient.[facility] the event this information is protected by the Federal Confidentiality of Alcohol and Drug Abuse Patient Records regulations: The Federal rules restrict any use of the information to criminally investigate or prosecute any alcohol or drug abuse patient.[facility] the event this information is protected by the Federal Confidentiality of Alcohol and Drug Abuse Patient Records regulations: The Federal rules restrict any use of the information to criminally investigate or prosecute any alcohol or drug abuse patient.[facility] the event this information is protected by the Federal Confidentiality of Alcohol and Drug Abuse Patient Records regulations: The Federal rules restrict any use of the information to criminally investigate or prosecute any alcohol or drug abuse patient.[facility] the event this information is protected by the Federal Confidentiality of Alcohol and Drug Abuse Patient Records regulations: The Federal rules restrict any use of the information to criminally investigate or prosecute any alcohol or drug abuse patient.[facility] the event this information is protected by the Federal Confidentiality of Alcohol and Drug Abuse Patient Records regulations: The Federal rules restrict any use of the information to criminally investigate or prosecute any alcohol or drug abuse patient.[facility] the event this information is protected by the Federal Confidentiality of Alcohol and Drug Abuse Patient Records regulations: The Federal rules restrict any use of the information to criminally investigate or prosecute any alcohol or drug abuse patient.[facility] the event this information is protected by the Federal Confidentiality of Alcohol and Drug Abuse Patient Records regulations: The Federal rules restrict any use of the information to criminally investigate or prosecute any alcohol or drug abuse patient.[facility] the event this information is protected by the Federal Confidentiality of Alcohol and Drug Abuse Patient Records regulations: The Federal rules restrict any use of the information to criminally investigate or prosecute any alcohol or drug abuse patient.[facility] the event this information is protected by the Federal Confidentiality of Alcohol and Drug Abuse Patient Records regulations: The Federal rules restrict any use of the information to criminally investigate or prosecute any alcohol or drug abuse patient.[facility] the event this information is protected by the Federal Confidentiality of Alcohol and Drug Abuse Patient Records regulations: The Federal rules restrict any use of the information to criminally investigate or prosecute any alcohol or drug abuse patient.[facility] the event this information is protected by the Federal Confidentiality of Alcohol and Drug Abuse Patient Records regulations: The Federal rules restrict any use of the information to criminally investigate or prosecute any alcohol or drug abuse patient.[facility] the event this information is protected by the Federal Confidentiality of Alcohol and Drug Abuse Patient Records regulations: The Federal rules restrict any use of the information to criminally investigate or prosecute any alcohol or drug abuse patient.[facility] the event this information is protected by the Federal Confidentiality of Alcohol and Drug Abuse Patient Records regulations: The Federal rules restrict any use of the information to criminally investigate or prosecute any alcohol or drug abuse patient.[facility] the event this information is protected by the Federal Confidentiality of Alcohol and Drug Abuse Patient Records regulations: The Federal rules restrict any use of the information to criminally investigate or prosecute any alcohol or drug abuse patient.[facility] the event this information is protected by the Federal Confidentiality of Alcohol and Drug Abuse Patient Records regulations: The Federal rules restrict any use of the information to criminally investigate or prosecute any alcohol or drug abuse patient.[facility] the event this information is protected by the Federal Confidentiality of Alcohol and Drug Abuse Patient Records regulations: The Federal rules restrict any use of the information to criminally investigate or prosecute any alcohol or drug abuse patient.[facility] the event this information is protected by the Federal Confidentiality of Alcohol and Drug Abuse Patient Records regulations: The Federal rules restrict any use of the information to criminally investigate or prosecute any alcohol or drug abuse patient.[facility]In the event this information is protected by the Federal Confidentiality of Alcohol and Drug Abuse Patient Records regulations: The Federal rules restrict any use of the information to criminally investigate or prosecute any alcohol or drug abuse patient.[facility]In the event this information is protected by the Federal Confidentiality of Alcohol and Drug Abuse Patient Records regulations: The Federal rules restrict any use of the information to criminally investigate or prosecute any alcohol or drug abuse patient.[facility] the event this information is protected by the Federal Confidentiality of Alcohol and Drug Abuse Patient Records regulations: The Federal rules restrict any use of the information to criminally investigate or prosecute any alcohol or drug abuse patient.[facility]In the event this information is protected by the Federal Confidentiality of Alcohol and Drug Abuse Patient Records regulations: The Federal rules restrict any use of the information to criminally investigate or prosecute any alcohol or drug abuse patient.[facility]In the event this information is protected by the Federal Confidentiality of Alcohol and Drug Abuse Patient Records regulations: The Federal rules restrict any use of the information to criminally investigate or prosecute any alcohol or drug abuse patient.[facility]In the event this information is protected by the Federal Confidentiality of Alcohol and Drug Abuse Patient Records regulations: The Federal rules restrict any use of the information to criminally investigate or prosecute any alcohol or drug abuse patient.[facility]In the event this information is protected by the Federal Confidentiality of Alcohol and Drug Abuse Patient Records regulations: The Federal rules restrict any use of the information to criminally investigate or prosecute any alcohol or drug abuse patient.[facility]In the event this information is protected by the Federal Confidentiality of Alcohol and Drug Abuse Patient Records regulations: The Federal rules restrict any use of the information to criminally investigate or prosecute any alcohol or drug abuse patient.[facility] Reason for Visit (unrecogniz ed section and content) Reason Onset Date Comments Refill Request 01/07/2022 Reason Comments Yearly Exam physical with form n eeds labs Reason Comments Medication Question Reason Comments Medication Request Reason Comments Left Hip Pain L hip pain, rash Reason Comments Recheck Shingles follow up Reason Comments F/U 6 months Reason Comments Patient Question Reason Comments Depression Reason Comments Recheck 3 month follow up Reason Comments Orders Reason Comments Results Reason Comments Patient concern Reason Comments New Patient BPH w/ LUTS Reason Comments Recheck 6 month follow up Reason Comments Orders Reason Comments Results Reason Comments Refill Request Reason Comments Recheck Follow up B/L feet n umbness Reason Comments Recheck Medication follow up Reason Comments Results Orders Care Teams (unrecognized sec tion and content) Washing And Screening Plant Supervisor Relationship Specialty Start Date End Date Aidan Bright MD [address] [place] [address] PCP - General Internal Medicine 09/21/17 Washing And Screening Plant Supervisor Relationship Specialty Start Date End Date Aidan Bright MD [address] [place] [address] PCP - General Internal Medicine 09/21/17 Team Status: Active Member Role Status Dates Dr. Aidan Bright MD Family Provider Active Dr. Aidan Bright MD Primary Care Provider Active Team Status: Inactive Member Role Status Dates Dr. Aidan Bright MD Primary Care Provider, Referring Provider Active Dr. Jhonatan Robledo MD Attending Provider Active Team Status: Active Member Role Status Dates Dr. Aidan Bright MD Primary Care Provider Active Dr. Jhonatan Robledo MD Attending Provider Active Team Status: Inactive Member Role Status Dates Dr. Aidan Bright MD Primary Care Provi rivera, Attending Provider, Referring Provider Active Team Status: Inactive Member Role Status Dates Dr. Aidan Bright MD Primary Care Provider Active Dr. Jhonatan Robledo MD Attending Provider Active Team Status: Active Member Role Status Dates Dr. Aidan Bright MD Primary Care Provider Active Dr. Jhonatan Robledo MD Attending Provider, Other Provide r Active Washing And Screening Plant Supervisor Relationship Specialty Start Date End Date Aidan Bright MD [address] [place] [address] PCP - General Internal Medicine 09/21/17 Washing And Screening Plant Supervisor Relationship Specialty Start Date End Date Aidan Bright MD [address] [place] [address] PCP - General Internal Medicine 09/21/17 Washing And Screening Plant Supervisor Relationship Specialty Start Date End Date Aidan Bright MD [address] [place] [address] PCP - General Internal Medicine 09/21/17 Washing And Screening Plant Supervisor Relationship Specialty Start Date End Date Aidan Bright MD [address] [place] [address] PCP - General Internal Medicine 09/21/17 Washing And Screening Plant Supervisor Relationship Specialty Start Date End Date Aidan Bright MD [address] [place] [address] PCP - General Internal Medicine 09/21/17 Washing And Screening Plant Supervisor Relationship Specialty Start Date End Date Aidan Bright MD [address] [place] [address] PCP - General Internal Medicine 09/21/17 Washing And Screening Plant Supervisor Relationship Specialty Start Date End Date Aidan Bright MD [address] [place] [address] PCP - General Internal Medicine 09/21/17 Washing And Screening Plant Supervisor Relationship Specialty Start Date End Date Aidan Bright MD [address] [place] [address] PCP - General Internal Medicine 09/21/17 Washing And Screening Plant Supervisor Relationship Specialty Start Date End Date Aidan Bright MD [address] [place] [address] PCP - General Internal Medicine 09/21/17 Washing And Screening Plant Supervisor Relationship Specialty Start Date End Date Aidan Bright MD [address] [place] [address] PCP - General Internal Medicine 09/21/17 Washing And Screening Plant Supervisor Relationship Specialty Start Date End Date Aidan Bright MD [address] [place] [address] PCP - General Internal Medicine 09/21/17 Team Status: Inactive Member Role Status Dates Dr. Aidan Bright MD Primary Care Provider, Attending Provider Active Washing And Screening Plant Supervisor Relationship Specialty Start Date End Date Aidan Bright MD [address] [place] [address] PCP - General Internal Medicine 09/21/17 Team Status: Inactive Member Role Status Dates Dr. Aidan Bright MD Primary Care Provider Active CHERI TORRES , DIRECTOR OF RECRUITMENT-C Attending Provider, Referring Provide r Active Team Status: Inactive Member Role Status Dates Dr. Aidan Bright MD Primary Care Provider Active Dr. Anuel Hawk , DO Emergency Provider Active Washing And Screening Plant Supervisor Relationship Specialty Start Date End Date Aidan Bright MD [address] [place] [address] PCP - General Internal Medicine 09/21/17 Washing And Screening Plant Supervisor Relationship Specialty Start Date End Date Aidan Bright MD [address] [place] [address] PCP - General Internal Medicine 10/30/23 Washing And Screening Plant Supervisor Relationship Specialty Start Date End Date Aidan Bright MD [address] [place] [address] PCP - General Internal Medicine 09/21/17 Washing And Screening Plant Supervisor Relationship Specialty Start Date End Date Aidan Bright MD [address] [place] [address] PCP - General Internal Medicine 09/21/17 Washing And Screening Plant Supervisor Relationship Specialty Start Date End Date Aidan Bright MD [address] [place] [address] PCP - General Internal Medicine 09/21/17 Washing And Screening Plant Supervisor Relationship Specialty Start Date End Date Aidan Bright MD [address] [place] [address] PCP - General Internal Medicine 09/21/17 Ashanti Santos PA-C [address] [place] [address] Sales Audit Clerk Family Medicine 05/01/24 Cheri Torres APRN.FOOD PRODUCTION MANAGER [address] [facility] [place] [address] Sales Audit Clerk Internal Medicine 05/01/24 Zoila Tobar PA-C [address] [place] [address] Sales Audit Clerk Family [facility] 05/01/24 Washing And Screening Plant Supervisor Relationship Specialty Start Date End Date Aidan Bright MD [address] [place] [address] PCP - General Internal Medicine 09/21/17 Ashanti Santos PA-C [address] [place] [address] [facility] Family Medicine 05/01/24 Cheri Torres APRN.FOOD PRODUCTION MANAGER [address] [facility] [place] [address] [facility] Internal Medicine 05/01/24 Zoila Tobar PA-C [address] [place] [address] [facility] 05/01/24 Washing And Screening Plant Supervisor Relationship Specialty Start Date End Date Aidan Bright MD [address] [place] [address] PCP - General Internal Medicine 09/21/17 Cheri Torres APRN.FOOD PRODUCTION MANAGER [address] [facility] [place] [address] [facility] Internal Medicine 05/01/24 Team Status: Active Member Role Status Dates Dr. Aidan Bright MD Primary Care Provider Active Team Status: Inactive Member Role Status Dates Dr. Aidan Bright MD Primary Care Provider Active Start: June 23, 2024 End: June 23, 2024 CHERI OLDER , DIRECTOR OF RECRUITMENT-C Attending Provider Active Start : June 23, 2024 End: June 23, 2024 CHERI OLDER , DIRECTOR OF RECRUITMENT-C Referring Provider Active Start : June 23, 2024 End: June 23, 2024 Team Status: Inactive Member Role Status Dates Dr. Aidan Bright MD Primary Care Provider Active Start: September 24, 2024 End: September 24, 2024 CHERI OLDER , DIRECTOR OF RECRUITMENT-C Attending Provider Active Start : September 24, 2024 End: September 24, 2024 CHERI OLDER , DIRECTOR OF RECRUITMENT-C Referring Provider Active Start : September 24, 2024 End: September 24, 2024 Washing And Screening Plant Supervisor Relationship Specialty Start Date End Date Aidan Bright MD [address] [place], [place] [address] PCP - General Internal Medicine 09/21/17 Cheri Torres, ASSOCIATE MARKETING MANAGER.FOOD PRODUCTION MANAGER [address] [place], [place] [id number] Sales Audit Clerk Internal Medicine 05/01/24 Washing And Screening Plant Supervisor Relationship Specialty Start Date End Date Aidan Bright MD [address] [place], [place] [address] PCP - General Internal Medicine 09/21/17 Cheri Torres, ASSOCIATE MARKETING MANAGER.FOOD PRODUCTION MANAGER [address] [place] [address] Sales Audit Clerk Internal Medicine 05/01/24 (unrecognized sect ion and content) No Status Records FoundNo Status Records FoundNo Status Records Found INFORMATION SOURCE (unrecogn ized section and content) DATE CREATED AUTHOR 11/01/2023 [facility] DATE CREATED AUTHOR AUTHOR'S ORGANIZ ATION 10/01/2024 [facility] DATE CREATED AUTHOR AUTHOR'S BLADIMIR CONDON 11/06/2024 [facility] FOR RECORDS PERTAINING TO PATIENTS WHO ARE OR HAVE BEEN ENROLLED IN A CHEMICAL DEPENDENCY/SUBSTANCEABUSE PROGRAM, SOME INFORMATION MAY BE OMITTED. This clinical summary was aggregated from multiple sources. Caution should be exercised in using it in the provision of clinical care. This summary normalizes information from multiple sources, and as a consequence, information in this document may materially change the coding, format and clinical context of patient data. In addition, data may be omitted in some cases. CLINICAL DECISIONS SHOULD BE BASED ON THE PRIMARY CLINICAL RECORDS. [facility]. provides no warranty or guarantee of the accuracy or completeness of information in this document.
== END | disposition home or self-care (01) ==
LOC: LAB 14:51
PROVIDERS: PCP Internal Medicine; Referring Provider Internal Medicine; Visit Provider Internal Medicine
DX: R73.03 Prediabetes (principal); I10 Essential (primary) hypertension
CPT/HCPCS: 36415; 80048; 80061; 83036

== ENCOUNTER → 2024-12-28 | Outpatient (CLI) | payer BC, SELFPAY ==
--- NOTE | 2024-12-28 14:25 | MRI_ITS ---
PROCEDURE: MRI SPINE LUMBAR (ROUTINE) 12/28/2024 REASON FOR EXAM: LBP SCIATICA TECHNIQUE: MRI SPINE LUMBAR (ROUTINE) COMPARISON: Lumbar spine study of 02/22/2024. FINDINGS: Vertebrae: No acute osseous signal changes seen. No fracture site is evident. Alignment: No subluxation is seen. No evidence of spondylolysis. Conus Medullaris: Unremarkable appearance, terminating at the L1 level. L1-2: Mild posterior facet and ligamentum flavum hypertrophy is seen. No significant spinal canal stenosis or neural foraminal narrowing is seen. L2-3: Mild posterior facet and ligamentum flavum hypertrophy is seen. A very mild diffuse disc bulge is seen. No significant degree of spinal canal stenosis or neural foraminal narrowing is seen. L3-4: Mild posterior facet and ligamentum flavum hypertrophy is seen. A very mild diffuse disc bulge is noted. No significant spinal canal stenosis. Mild bilateral neural foraminal narrowing is noted. L4-5: Mild posterior facet and ligamentum flavum hypertrophy is noted. A mild broad-based disc protrusion is noted. Mild spinal canal narrowing is noted, as well as [id number] bilateral neural foraminal narrowing. L5-S1: Asymmetric mild right posterior facet hypertrophy is seen. A mild broad- based disc protrusion is noted. No significant spinal canal stenosis is seen. Moderate right and probable mild left neural foraminal narrowing also noted. Sacrum: Limited imaging shows mild bilateral sacroiliac joint degenerative changes. MRI/Spine Lumbar (Routine) IMPRESSION: Multilevel lumbar degenerative disc disease, as described. Reading Location: [place] [id number]
--- NOTE | 2024-12-28 14:25 | MRI_ITS ---
PROCEDURE: MRI SPINE LUMBAR (ROUTINE) 12/28/2024 REASON FOR EXAM: LBP SCIATICA TECHNIQUE: MRI SPINE LUMBAR (ROUTINE) COMPARISON: Lumbar spine study of 02/22/2024. FINDINGS: Vertebrae: No acute osseous signal changes seen. No fracture site is evident. Alignment: No subluxation is seen. No evidence of spondylolysis. Conus Medullaris: Unremarkable appearance, terminating at the L1 level. L1-2: Mild posterior facet and ligamentum flavum hypertrophy is seen. No significant spinal canal stenosis or neural foraminal narrowing is seen. L2-3: Mild posterior facet and ligamentum flavum hypertrophy is seen. A very mild diffuse disc bulge is seen. No significant degree of spinal canal stenosis or neural foraminal narrowing is seen. L3-4: Mild posterior facet and ligamentum flavum hypertrophy is seen. A very mild diffuse disc bulge is noted. No significant spinal canal stenosis. Mild bilateral neural foraminal narrowing is noted. L4-5: Mild posterior facet and ligamentum flavum hypertrophy is noted. A mild broad-based disc protrusion is noted. Mild spinal canal narrowing is noted, as well as [id number] bilateral neural foraminal narrowing. L5-S1: Asymmetric mild right posterior facet hypertrophy is seen. A mild broad- based disc protrusion is noted. No significant spinal canal stenosis is seen. Moderate right and probable mild left neural foraminal narrowing also noted. Sacrum: Limited imaging shows mild bilateral sacroiliac joint degenerative changes. MRI/Spine Lumbar (Routine) IMPRESSION: Multilevel lumbar degenerative disc disease, as described. Reading Location: [place] [id number]
== END | disposition home or self-care (01) ==
LOC: MRI 14:22
PROVIDERS: PCP Internal Medicine; Referring Provider Internal Medicine; Visit Provider Internal Medicine
DX: M54.50 Low back pain, unspecified (principal); G89.29 Other chronic pain; M51.16 Intervertebral disc disorders with radiculopathy, lumbar region; R20.0 Anesthesia of skin
CPT/HCPCS: 72148

== ENCOUNTER → 2025-02-10 | Outpatient (CLI) | payer BC, SELFPAY ==
[2025-02-10 16:38] LABS: Anion Gap 10 (5-15); BUN 16 mg/dL (4-19); BUN/Creat Ratio 18.9 RATIO (10-20); Calcium,Total 9.5 mg/dL (7.6-11.0); Carbon Dioxide 25.1 mmol/L (21.0-32.0); Chloride 104 mmol/L (98-108); Cholesterol 186 mg/dL (<=200); Glucose 94 mg/dL (70-99); Low Density Lipoprotein Calc. 123 mg/dL; Potassium 4.6 mmol/L (3.3-5.1); Triglycerides 80 mg/dL; Very Low Density Lipoprotein 16 mg/dL (5-40); cholesterol:hdl ratio screen 3.92
== END | disposition home or self-care (01) ==
LOC: LAB 14:44
PROVIDERS: PCP Internal Medicine; Referring Provider Internal Medicine; Visit Provider Internal Medicine
DX: E78.5 Hyperlipidemia, unspecified (principal); R73.03 Prediabetes
CPT/HCPCS: 36415; 80048; 80061; 83036

== ENCOUNTER → 2025-05-19 | Outpatient (CLI) | payer BC, SELFPAY ==
--- OUTSIDE RECORDS SUMMARY | 2025-05-19 11:40 | XMS RPT_ITS | CCD ---
Author Organization [facility] Care Team Providers Care Retread Technician Name Role Phone Dr. Aidan Bright Primary Care Provider Dr. Aidan Bright Referring Provider DoctorDr. Arce Attending Provider Dr. Aidan Bright Primary Care Provider Dr. Aidan Bright Referring Provider Roof COUNTERPERSON, COUNTERPERSON-C Rambo Kulkarni Attending Provider Aidan Bright MD [...] NUNEZ Attending Unavailable Ashanti Santos PA-C Unavailable [phone] Older MANAGER ATHLETICS.CHARLES, Cheri Unavailable Zoila Tobar PA-C Unavailable Dr. Aidan Bright MD Primary Care Provider OLDER COUNTERPERSON-CCHERI Attending Provider OLDER COUNTERPERSON-C, CHERI Referring Provider Dr. Aidan Bright MD Primary Care Provider OLDER COUNTERPERSON-C, CHERI Attending Provider OLDER COUNTERPERSON-C, CHERI Referring Provider Dr. Aidan Bright MD Attending Provider Krysten ARDON, Dr. Garber Referring Provider Dr. Aidan Bright MD Primary Care Physician Krysten ARDON, Dr. Garber Attending Physician GANTA, AIDAN Primary Care Unavailable OLDER, CHERI Attending Unavailable GANTA, AIDAN Primary Care Unavailable OLDER, CHERI Attending Unavailable HSIA, KAMILAH T Attending Unavailable GANTA, AIDAN Primary Care Unavailable SELF Referring Unavailable GANTA, AIDAN Primary Care Unavailable OLDER, CHERI Attending Unavailable GANTA, AIDAN Primary Care Unavailable OLDER, CHERI Attending Unavailable Ganta, Aidan Attending Unavailable Ganta, Aidan Referring Unavailable Ganta, Aidan Primary Care Unavailable Ganta, Aidan Attending Unavailable Ganta, Aidan Referring Unavailable Ganta, Aidan Primary Care Unavailable Ganta, Aidan Primary Care Unavailable OLDER, CHERI Attending Unavailable OLDER, CHERI Referring Unavailable Ganta, Aidan Primary Care Unavailable Boateng, Daniel Attending Unavailable Boateng, Daniel Referring Unavailable Wunning, John Attending Unavailable Wunning, John Referring Unavailable Ganta, Aidan Primary Care Unavailable Ganta, Aidan Primary Care Unavailable OLDER, CHERI Attending Unavailable OLDER, CHERI Referring Unavailable DELL, MARAGRET Attending Unavailable DELL, MARAGRET Referring Unavailable Ganta, Aidan Primary Care Unavailable Ganta, Aidan Primary Care Unavailable Boateng, Daniel Attending Unavailable Ganta, Aidan Referring Unavailable Ahmad, Arsal Attending Unavailable Ganta, Aidan Primary Care Unavailable OLDER, CHERI Referring Unavailable OLDER, CHERI Consulting Unavailable Ganta, Aidan Primary Care Unavailable OLDER, CHERI Attending Unavailable OLDER, CHERI Referring Unavailable Ganta, Aidan Primary Care Unavailable Ganta, Aidan Attending Unavailable Ganta, Aidan Referring Unavailable Allergies Allergy Classification Reported Allergen(s) Allergy Type Date of Onset Reaction(s) Facility (20 sources) Azithromycin; Translations: [AZITHROMYCIN] Drug Allergy 8 GI Upset, Dyspepsia [facility] Work Phone: (20 sources) Lisinopril; Translations: [LISINOPRIL] Drug Allergy 9 Cough [facility] Work Phone: (1 source) Lisinopril Propensity to adverse reactions to drug 9 Cough [facility] (1 source) Azithromycin Drug Allergy 4 [facility] Repository Medications Current Medications Medication Drug Class(es) Dates Sig (Normalized) Sig (Original) CPAP (20 sources) Start: 08-29-2021 CPAP Initiate [...] Auto PAP @ 7-15 cm of water wit h humidification. Mask (per patient preference) optional chin strap (if indicated) , filters, tubing, humidifier and lifetime supplies. tirzepatide, weight loss (ZEPBOUND) 2.5 mg/0.5 mL pen injector (12 sources) Start: 025 inject 2.5 mg by subcutaneous injection every week tirzepatide, weight loss (ZEPBOUND) 2.5 mg/0.5 mL pen injector Indications: BMI 29.0-29.9,adult , At high risk for cardiovascular disease , Hyperinsulinemia , Prediabetes Inject 2.5 mg subcutaneously one time a week. 6 mL 11/14/2024 Active Start: 08-15-2024 End: 11-14-2024 tirzepatide, weight loss (ZE PBOUND) 2.5 mg/0.5 mL pen injector Indications: Class 1 obesity with serious comorbidity and body mass index (BMI) of 31.0 to 31.9 in adult, unspecified obesity type , At high risk for cardiovascular disease , Hyperinsulinemia , Prediabetes Inject 2.5 mg subcutaneously one time a week. 6 mL 08/15/2024 11/14/2024 Discontinued Start: 08-15-2024 tirzepatide, w eight loss (ZEPBOUND) 2.5 mg/0.5 [...] a week. 6 mL 06/27/2024 Active valACYclovir 500 mg oral tablet (20 sources) Herpesvirus Nucleoside Analog DNA Polymerase Inhibitor, Herpes Simplex Virus Nucleoside Analog DNA Polymerase Inhibitor, Herpes Zoster Virus Nucleoside Analog DNA Polymerase Inhibitor Start: 04-19-2024 take 1 tablet by mouth twice daily as needed Start: 01-29-2023 End: 02-07-2023 take 1 tablet by mouth three times daily valACYclovir (VALTREX) 1 gram Take 1 tablet by mouth three times daily for 3 days. 9 tablet 0 02/04/2023 02/07/2023 Active Start: 10-10-2022 End: 11-14-2024 take 2 tablets by mouth twice daily valACYclovir (VALTREX) 1 gram tablet Indications: Herpes simplex labialis Take by mouth. 2 tablets twice a day 32 tablet 2 11/14/2024 Active Start: 09-26-2022 take 2 tablets by [...] Start: 05-13-2021 take 2 tablets by mo uth twice daily valACYclovir (VALTREX) 1 gram Indications: Herpes simplex labialis Take by mouth. 2 tablets twice a day 32 tablet 2 05/13/2021 Active Comment on above: Take by mouth. 2 tab lets twice a day Take 1 tablet by krysten th once daily. Take for 5 days Take 1 tablet by krysten th three times daily for 7 days. Take 1 tablet by krysten th three times daily for 3 days. Completed/Discontinued Medications Medication Drug Class(es) Dates Sig (Normalized) Sig (Original) amLODIPine 10 mg oral tablet (20 sources) Dihydropyridine Calcium Channel Fátima Start: 12-21-2022 End: 12-09-2023 take 1 tablet by mouth once daily Amlodipine 10 mg tablet Discontinued 10 mg PO DAILY 3 December 08, 2023 8:37am December 09, 2023 5:10pm Start: 11-18-2022 End: [...] 1 tablet by mouth once daily Amlodipine 5 mg tablet Discontinued 5 mg PO DAILY 90 3 June 30, 2022 1:00am November 18, 2022 4:17pm Comment on above: Take 1 tablet by krysten th once daily. Take 5 mg by mouth. amoxicillin 875 mg / clavulanate 125 mg oral tablet (20 sources) Penicillin-class Antibacterial Start: 12-14-2022 End: 12-21-2022 Amoxicillin-Pot Clavulanate 875-125 mg tablet Discontinued 1 {tbl} PO TWICE A DAY 14 7 0 December 14, 2022 12:00am December 20, 2022 12:00am December 21, 2022 12:03am Start: 12-14-2022 End: 12-21-2022 take 1 tablet by mouth twice daily Amoxicillin-Pot Clavulanate Discontinued 1 TABLET PO TWICE A DAY 14 7 December 14, 2022 12:00am December 21, 2022 12:03am Start: 11-30-2020 End: 12-10-2020 Amoxicillin-Pot Clavulanate (Augmentin) 875-125 mg tablet Discontinued 1 {tbl} PO Q12H 20 10 0 November 30, 2020 12:00am December 09, 2020 12:00am December 10, 2020 12:01am Acute sinusitis, unspecified aspirin 81 mg delayed release oral tablet (20 sources) Platelet Aggregation Inhibitor, Nonsteroidal Anti-inflammatory Drug Start: 10-13-2007 End: 11-30-2020 take 1 tablet by mouth once daily Aspirin 81 mg tablet,delayed release (DR/EC) Discontinued 81 mg PO daily May 04, 2017 1:00am November 30, 2020 11:28am Comment on above: Take one(1) tablet d aily. cyclobenzaprine hydrochloride 5 mg oral tablet (20 sources) Muscle Relaxant Start: 12-14-2022 End: 12-21-2022 take 1 tablet by mouth three times daily as needed for muscle spasms Cyclobenzaprine 5 mg tablet Discontinued 5 mg PO THREE TIMES A DAY as needed for muscle spasm 21 7 0 December 14, 2022 12:00am December 20, 2022 [...] on above: Take 1 capsule by mo [facility] daily at bedtime for 60 days. hydroCHLOROthiazide 25 mg oral tablet (20 sources) Thiazide Diuretic Start: 2016 End: 2022 take 1 tablet by mouth once daily Hydrochlorothiazide 25 mg tablet Discontinued 25 mg PO daily May 04, 2017 1:00am June 30, 2022 12:49pm Comment on above: Take 1 tablet by krysten once daily. hydrOXYzine hydrochloride 25 mg oral tablet (4 sources) Antihistamine Start: 2022 End: 2023 take 1 tablet by mouth every eight hours as needed hydrOXYzine HCl (ATARAX) 25 mg tablet Take 1 tablet by mouth three times a day as needed for anxiety (and/or insomnia). 30 tablet 1 05/01/2023 07/15/2023 Discontinued Comment on above: Take 1 tablet by krysten th three times a day as needed for anxiety (and/or insomnia). predniSONE 10 mg oral tablet (7 sources) Start: 2022 End: 2022 Prednisone 10 mg tablet Discontinued 10 mg PO .COMPLEX 35 15 0 December 14, 2022 12:00am December 28, 2022 12:00am December 21, 2022 10:30am 10 mg orally; 40mg x5 days, 20mg x5 days, 10mg x5 days Start: 12-14-2022 End: 12-21-2022 Prednisone Discontinued 10 M G PO .COMPLEX 35 15 December 14, 2022 12:00am December 21, 2022 [...] 1 tablet by krysten th once daily. sulfamethoxazole 800 mg / trimethoprim 160 mg oral tablet (18 sources) Dihydrofolate Reductase Inhibitor Antibacterial, Sulfonamide Antimicrobial Start: 09-17-2023 End: 01-21-2024 Sulfamethoxazole-T rimethoprim 800-160 mg tablet Discontinued 1 {tbl} PO TWICE A DAY September 17, 2023 12:00am January 21, 2024 2:20pm Start: 09-17-2023 take 1 tablet by krysten th twice daily Sulfamethoxazole-Trimethoprim Active 1 T ABLET PO TWICE A DAY September 17, 2023 12:00am Start: 05-04-2017 End: 05-09-2017 Sulfamethoxazole-Trimethopri m 800-160 mg tablet Discontinued 1 {tbl} PO TWICE A DAY 10 5 May 04, 2017 1:00am May 08, 2017 1:00am May 09, 2017 1:06am Start: 05-04-2017 End: 05-09-2017 take 1 tablet by mouth twice daily Sulfamethoxazole-Trimethoprim Discontinu ed 1 TABLET PO TWICE A DAY 10 5 May 04, 2017 1:00am May 09, 2017 1:06am Problems Active Problems Problem Classification Problem Date Documented Date Episodic/Chronic Administrative/social admission (2 sources) Sickness in the family; Translations: [Other stressful life events affecting family and household] 05-03-2023 Episodic Anxiety disorders (3 sources) Anxiety; Translations: [Other specified anxiety disorders] 04-10-2023 Chronic Disorders of lipid metabolism (16 sources) Mixed hyperlipidemia; Translations: [Mixed hyperlipidemia] Onset: 11-14-2024 Chronic Essential hypertension (20 sources) Benign hypertension; Translations: [Essential (primary) hypertension] Onset: 10-04-2007 Chronic Genitourinary symptoms and ill-defined conditions (1 source) Increased frequency of urination; Translations: [Frequency of micturition] 07-15-2023 Episodic Hyperplasia of prostate (3 sources) Benign prostatic hyperplasia; Translations: [Benign prostatic hyperplasia with lower urinary tract symptoms] Onset: 10-30-2023 10-30-2023 Chronic Immunizations and screening for infectious disease (20 sources) Patient encounter status; Translations: [Encounter for screening for COVID-19] Onset: 08-05-2007 Episodic Mood disorders (2 sources) Reactive depression (situational); Translations: [Major depressive disorder, single episode, unspecified] 05-03-2023 Chronic Other and unspecified benign neoplasm (2 sources) Neuroma; Translations: [Benign neoplasm of peripheral nerves and autonomic nervous system, unspecified] 08-15-2024 Episodic Other connective tissue disease (7 sources) Spasm; Translations: [Other muscle spasm] 12-14-2022 Episodic Other connective tissue disease (1 source) Pain in right foot; Translations: [Pain in right foot] 02-03-2024 Episodic Other connective tissue disease (2 sources) Metatarsalgia of right foot; Translations: [Metatarsalgia, right foot] 08-15-2024 Episodic Other endocrine disorders (3 sources) Hyperinsulinism; Translations: [Other hypoglycemia] 06-27-2024 Chronic Other endocrine disorders (1 source) Other hypoglycemia; Translations: [Hyperinsulinemia] Onset: 11-14-2024 Chronic Other lower respiratory disease (1 source) Chronic cough; Translations: [Chronic cough] Episodic Other male genital disorders (13 sources) Pain of right testicle; Translations: [Right testicular pain] 05-21-2022 Episodic Other nervous system disorders (3 sources) Sural neuropathy; Translations: [Unspecified mononeuropathy of unspecified lower limb] 03-28-2024 Chronic Other nervous system disorders (1 source) Polyneuropathy, unspecified; Translations: [Small fiber neuropathy] Onset: 02-14-2025 Chronic Other nervous system disorders (1 source) Other chronic pain; Translations: [Chronic bilateral low back pain without sciatica] Onset: 02-14-2025 Chronic Other nervous system disorders (1 source) Numbness of toe; Translations: [Anesthesia of skin] 04-10-2023 Episodic Other nervous system disorders (9 sources) Numbness of foot ; Translations: [Anesthesia [...] nutritional; endocrine; and metabolic disorders (1 source) Overweight in adulthood with body mass index of 25 or more but less than 30; Translations: [Body mass index (BMI) 29.0-29.9, adult] 11-14-2024 Episodic Other screening for suspected conditions (not mental disorders or infectious disease) (2 sources) Encounter for screening for malignant neoplasm of prostate; Translations: [Encounter for screening for malignant neoplasm of prostate] Onset: 10-30-2023 Episodic Other upper respiratory infections (20 sources) Acute sinusitis; Translations: [Acute sinusitis, unspecified] 05-21-2022 Episodic Residual codes; unclassified (3 sources) Sleep apnea; Translations: [Other sleep apnea] Chronic Residual codes; unclassified (9 sources) Obstructive sleep apnea syndrome; Translations: [Obstructive sleep apnea (adult) (pediatric)] 05-21-2022 Chronic Residual codes; unclassified (13 sources) Other specified health status; Translations: [Patient travels] 03-06-2021 Episodic Residual codes; unclassified (2 sources) Insomnia; Translations: [Insomnia, unspecified] 05-03-2023 Episodic Spondylosis; intervertebral disc disorders; other back problems (4 sources) Lumbar spondylosis; Translations: [Spondylosis without myelopathy or radiculopathy, lumbar region] 04-19-2024 Chronic Spondylosis; intervertebral disc disorders; other back problems (10 sources) Radiculopathy due to lumbar intervertebral disc disorder; Translations: [Lumbar radiculopathy] 11-21-2024 Episodic Syncope (12 sources) Vasovagal syncope; Translations: [Syncope and collapse] Episodic Unclassified (1 source) Chronic bilateral low back pain without sciatica; Translations: [Chronic bilateral low back pain without sciatica] Onset: 02-14-2025 Unclassified (1 source) Class 2 severe obesity with serious comorbidity and body mass index (BMI) of 35.0 to 35.9 in adult, unspecified obesity type (HCC); Translations: [Class 2 severe obesity with serious comorbidity and body mass index (BMI) of 35.0 to 35.9 in adult, unspecified obesity type (HCC)] Onset: 06-22-2024 Unclassified (2 sources) Low back pain, unspecified; Translations: [Low back pain, unspecified] Onset: 04-19-2024 Urinary tract infections (5 sources) Acute urinary tract infection; Translations: [Urinary tract infection, site not specified] 09-17-2023 Episodic Past or Other Problems Problem Classification Problem Date Documented Date Episodic/Chronic Abdominal pain (17 sources) Abdominal pain; Translations: [Unspecified abdominal pain] Onset: 04-14-2005 Resolved: 12-29-2014 12-29-2014 Episodic Biliary tract disease (17 sources) Biliary calculus; Translations: [Calculus of gallbladder without cholecystitis without obstruction] Onset: 06-11-2012 Resolved: 09-21-2017 09-21-2017 Episodic Diabetes mellitus without complication (9 sources) Prediabetes; Translations: [Prediabetes] Onset: 11-14-2024 07-15-2023 Episodic Headache; including migraine (17 sources) Migraine; Translations: [Migraine, unspecified, not intractable, without status migrainosus] Onset: 03-31-2011 Resolved: 12-29-2014 12-29-2014 Chronic Inflammatory conditions of male genital organs (17 sources) Prostatocystitis; Translations: [Prostatocystitis] Onset: 04-14-2005 Resolved: 12-29-2014 12-29-2014 Episodic Other connective tissue disease (1 source) Metatarsalgia, right foot; Translations: [Metatarsalgia, right foot] Onset: 09-29-2024 Episodic Other diseases of veins and lymphatics (17 sources) Varicocele; Translations: [Scrotal varices] Onset: 04-14-2005 Resolved: 09-21-2017 09-21-2017 Episodic Other male genital disorders (17 sources) Male infertility; Translations: [Male infertility, unspecified] Onset: 04-14-2005 Resolved: 12-29-2014 12-29-2014 Episodic Other male genital disorders (17 sources) Pain in testicle; Translations: [Testicular pain, unspecified] Onset: 09-04-2009 Resolved: 12-29-2014 12-29-2014 Episodic Other nervous system disorders (3 sources) Anesthesia of skin; Translations: [Numbness in feet] Onset: 03-31-2024 Episodic Other nutritional; endocrine; and metabolic disorders (1 source) Body mass index (BMI) 29.0-29.9, adult; Translations: [BMI 29.0-29.9,adult] Onset: 11-14-2024 Episodic Residual codes; unclassified (4 sources) Other specified personal risk factors, not elsewhere classified; Translations: [Other specified personal history presenting hazards to health] Onset: 11-14-2024 06-27-2024 Episodic Viral infection (7 sources) Herpes labialis; Translations: [Herpesviral vesicular dermatitis] Onset: 11-14-2024 Episodic Results Test Name Value Interpretation Reference Range Facility Inital Evaluation (1) - PTon 02-27-2025 Inital Evaluation (1) - PT [facility] [address] [place] [address]. [address] [place] [address] / REHABILITATION SERVICES INITIAL EVALUATION MR#: [id number] Acct: [id number] Name: ROGER MASON Rep #: [id number] : 1970 54 From: Jan Hopson PT, Cert. MD Wright, OCS Referring DrChung: KAMILAH MIR Status: REG RCR Insurance: [employer] S[employer] INSURANCE Patient's Visit Information Visit Information Visit Information: ROGER MASON is a 54 year old M referred to Physical Therapy by KAMILAH MIR with a diagnosis of CHRONIC BACL PAIN ,SPONDYLOSIS. Date of Evaluation: 02/27/25 Physical Therapist: Jan Hopson, PT, Cert MDT, OCS Visit Plan Frequency: 1-2x /Week Duration: 4 Weeks Plan: PT INTERVENTIONS ,JAS EX'S DLS ,LE FLEXABILITY ,POSTURAL EX'S AND PATIENT EDUCATION POSTURE Subjective Subjective: This 54 y/o male presents to physical therapy with chronic low back pain . Patient noticed paresthesia in feet. Patient tries shockwave therapy inserts orthotics. Did not help . Seen podiatrists no findings. Patient had MRI showed DDD ,protruding discs L5-S1. X-RAYS DDD. Seen debt collection specialist doesn't think coming from back . Also had EMG test for neuropathy -. No medication.No pain management .Patient some back pain radiates to left hip which is aggravating. NW/NB walking ,bending/lifting. Coughing/sneezing-. Bowel/bladder- Pain in LBP with stiffness with extended laying. Patient no h/o trauma/injury. Patient condition affects QOL /function. SOCIAL: VOCATION: retired LEISURE : [employer] Objective Objective: POSTURE: mild forward posture ,rounded shoulders GAIT: reciprocal pattern NEURO: c/o paresthesia toes ,reflexes L3-4,L4-5 ,L5-S1 2/3 PALPATION: unremarkable MMT: QUADS/HAMS 4/5 ,hip flexion right 4-/5,left 4/5 ,ankle 4/5 FLEXABILITY: hamstrings mod tight Special Tests L/S Slump test left side: Negative L/S Slump test right side: Negative L/S Left Straight Leg Raise: Negative L/S Right Straight Leg Raise: Negative Lumbar Standing: Flexion - Mechanical Response: No effect Lumbar Standing: Flexion - Symptoms During Testing: No effect Lumbar Standing: Flexion - Symptoms After Testing: No effect Lumbar Standing: Extension - Mechanical Response: No effect Lumbar Standing: Extension - Symptoms During Testing: No effect Lumbar Standing: Extension - Symptoms After Testing: No effect Lumbar Standing: Right Side Glides - Mechanical Response: No effect Lumbar Standing: Right Side Rosalie - Symptoms During Testing: No effect Lumbar Standing: Right Side Rosalie - Symptoms After Testing: No effect Lumbar Standing: Left Side Rosalie - Mechanical Response: No effect Lumbar Standing: Left Side Rosalie - Symptoms During Testing: No effect Lumbar Standing: Left Side Rosalie - Symptoms After Testing: No effect Balance/Special Test Scores Oswestry Low Back Score: 5 Goals Goal 1:: Patient to be I with HEP for back Goal Time Frame: 2-4 Weeks Goal 2:: Patient to reduce symptom by 40% to improve function of recovery for job demands Goal Time Frame: 2-4 Weeks Goal 3:: Patient to improve back oswestry score by 2-3 points to improve function Goal Time Frame: 2-4 Weeks Goal 4:: Patient to improve improve lumbar ROM for function of recovery Goal Time Frame: 2-4 Weeks Rehabilitation Potential Physical Therapy Diagnosis: This patient has mild LBP with symptoms radiating to hip left with pain with positioning ,but no NW/NB with paresthesia in toes thus benefit from skilled PT Rehabilitation Potential: Fair Anticipated Interventions Patient/Client Instruction: Educate patient on: Condition and Plan of Care For the Purpose of:: To decrease pain, To increase ROM, To improve muscle performance and motor function, To improve ability of physical actions for home/community/work/l eisure, To improve health of tissue, To decrease soft tissue restriction and To increase flexibility/ROM Therapeutic Exercise to Include: Strength training, Body mechanics, Postural training, Flexibilty training and Dynamic Lumbar Stabilization For the Purpose of:: To decrease pain, To increase ROM, To improve muscle performance and motor function, To increase tolerance to activity/condition/po sition, To improve ability of physical actions for home/community/work/l eisure, To improve health of tissue and To decrease soft tissue restriction Text: Thank you for the opportunity to evaluate your patient. For Medicare and Medicare HMO plans, please review the plan of care and approve it. It will need to be FAXED BACK to us at [phone] for Medicare purposes. For Medicare only, by signing this I certify the plan of care. Please let me know if there are questions or concerns regarding this plan of care. Physician Signature: Date : 02/27/25 (more content not included)... Normal [facility] CNCOon 02-14-2025 CNCO Letter Text Normal [facility] CNOVon 02-14-2025 CNOV Office Visit (SPMWIL ) ROGER MASON ([id number]) 1970 M Date Time Provider Department 02/14/25 3:40 PM KAMILAH MIR SPMWIL During your visit today, we recorded the following information about you: Pulse Respiration Blood pressure Weight 50/minute 20/minute 145/85 95.8 kg Height 1.791 m Kamilah Mir MD 02/14/2025 8:20 PM Signed AMB ROOMING INTAKE FLOWSHEET DATA Risk Screening Do you have concerns about personal safety or safety in the home?: No Pain Pain Level: 6 Pain Location: Back-Lower (Left side.) Description: Aching, Burning Duration Amount of Time: 40 Duration Units: Years (Intertmittent episodes of pain.) Frequency: (Back pain is intermittent - numbness is constant.) Intervention/Comfort measure: Positioning, Reposition, Relaxation, Medication Comments: He has been to PT for his feet. He has seen chiropractor. He tried insoles for the numbness. He has left sided low back pain that radiates to his hip. His right foot has been niumb for aboutr a year. Left foot just starting to get numb. He has more numbness is feet than pain in his back. He has tried many modalities to decrease the foot numbness. ROE Vicente Augusto T, MD 02/14/2025 8:20 PM Signed [facility] NEW VISIT PROGRESS NOTE CHIEF COMPLAIN low back pain x 40 year right anterior foot ,toes numbness 1 year 4-5months lateral left foot numbness REQUESTED BY: Self Rgoer Mason was seen by Kamilah Mir MD on 02/14/2025. HPI: Roger Mason is a pleasant 54 year old male referred by Self for evaluation of a complaint of back pain. The pain has been present for Roger Mason is a 54-year-old male presenting for evaluation of bilateral foot numbness and intermittent back pain. He is accompanied by his , who provides additional history. Roger reports experiencing constant numbness in both feet for over a year, which began in the right foot and spread to the left foot after 4-5 months. The numbness is described as a sensation of his socks being bunched up around his toes and affects the entire foot, including the bottom. He does not endorse any pain, burning, or tingling sensations. The numbness is present 100% of the time and does not vary throughout the day. He has not experienced any issues with walking, running, or playing sports. Roger has a history of intermittent back pain, which he describes as coming and going. He does not believe that the back pain is related to the numbness in his feet, as the numbness is constant regardless of the presence or severity of back pain. He has not undergone physical therapy for his back pain. Roger has tried various treatments for the numbness, including a cream prescribed by a foot and ankle clinic and a therapy involving a device that applied pressure to his legs. These treatments provided temporary relief during application but did not result in any lasting improvement. He has not tried any other medications or treatments for the numbness. Roger has a history of pre-diabetes, with an A1c of 6.4% in June. He started taking Zepbound in June and has since lost weight, going from 255 lbs to 205-210 lbs. His most recent A1c was 5.6%. He does not endorse any other medical conditions, such as thyroid issues. He is not taking any other medications for weight loss. Roger has undergone various diagnostic tests, including nerve studies, x-rays of his feet, MRIs of his feet, and x-rays of his back. The nerve study was reportedly normal. He has also tried special fitted insoles recommended by a patient service rep, but these did not alleviate the numbness. 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 He does not engage in much physical labor due to union regulations. He does not endorse any issues with his hands or fingers. Past Diagnostic Results: Imaging - MRI Feet: Normal. - X-ray Feet: Normal. - X-ray Back: Normal. Tests - Nerve Study: Normal. PT - blood sugar issues last year lost 50 lbs emg shows bilateral sural neuropathy ROS: 14 systems reviewed and otherwise negative unless mentioned above. PROMIS Score Percentiles 04/07/2022 04/09/2023 PROMIS Global Health Scale Physical Health Percentile 31 31 31 41 Mental Health Percentile 9 9 9 19* Multiple values from one day are sorted in reverse-chronological order Percentiles provide an indication of how the patient's score ranks in relation to the general population. Higher percentile rankings indicate better function/quality of life. 50th percentile is the average of the general population and indicates half of respondents had a worse score. Depression Screenin02/13/2025 PHQ-9 Score 0 02/13/2025 PHQ-9 Self-harm Question Qu (more content not included)... Normal [facility] CNOVon 02-13-2025 CNOV Office Visit (INTMWS ) ROGER MASON ([id number]) 1970 M Date Time Provider Department 02/13/25 3:20 PM CHERI TORRES INTMWS During your visit today, we recorded the following information about you: Pulse Respiration Blood pressure Weight 60/minute 16/minute 130/84 95.3 kg Cheri Torres APRN.CNP 02/13/2025 4:03 PM Signed CC: Patient presents with: Recheck: 3 month follow up HPI Roger Mason is a 54 year old male who presents today for follow up. Recording using [employer] Parking software for draft documentation of the visit was discussed with the patient/authorized account service representative; all questions welcomed and answered. Patient/authorized account service representative agreed to proceed Prediabetes: - Recent A1c was 5.6%; prior to tirzepatide, A1c was 6.2%. - Fasting glucose was 94 mg/dL; - Roger denies increased thirst, hunger, or urination. HTN: - Roger denies chest pain, dyspnea, edema, palpitations, or headaches. - Roger has not been checking blood pressure at home. - taking medication as ordered Weight Management: - Current BMI is greater then 29. - Roger lost 2 lbs since last visit. - Roger is tolerating tirzepatide well; no nausea or abdominal pain unless consuming large meals after prolonged fasting. - Bowel movements are regular. - Roger engages in regular physical activity, including playing pickleball and using the gym facilities on a recent cruise. - Roger's diet includes high-protein, low-fat foods. REVIEW OF SYSTEMS See HPI PAST MEDICAL HISTORY Diagnosis Date Unspecified essential hypertension 10/04/2007 PAST SURGICAL HISTORY Procedure Laterality Date EXC VARICOCELE/LIGATION SPERMATIC VEINS SPX 2006 Variocele repair LAPS SURG CHOLECSTC W/EXPL COMMON DUCT 06-22-12 [facility] VASECTOMY 2007 ALLERGIES Lisinopril and Zithromax Z-Ender [Azithromycin] MEDICATIONS amLODIPine (NORVASC) 5 mg tablet Take 1 tablet by mouth once daily. tirzepatide, weight loss (ZEPBOUND) 5 mg/0.5 mL pen injector Inject 5 mg subcutaneously one time a week. valACYclovir (VALTREX) 1 gram tablet Take by mouth. 2 tablets twice a day CPAP Initiate Auto PAP @ 7-15 cm of water with humidification. Mask (per patient preference) optional chin strap (if indicated) , filters, tubing, humidifier and lifetime supplies. FAMILY HISTORY Problem Relation Age of Onset Heart Father enlarged heart Hypertension Mother SOCIAL HISTORY[1] PHYSICAL EXAM BP 130/84 Pulse 60 Resp 16 Wt 95.3 kg (210 lb) SpO2 98% BMI 29.56 kg/m? General Appearance: well appearing, in no acute distress, alert Lungs: Lungs clear to auscultation. No wheezing, rhonchi, rales. Heart: RRR without murmur, gallop, or rubs. No ectopy Abdomen: Abdomen soft, non-tender. Bowel sounds normal. No masses, organomegaly Health maintenance reviewed with patient: Depression Screening Never done Anxiety Screening Never done Hepatitis B Vaccine(1 of 3 - 19+ 3-dose series) Never done Diabetes Screening due on 09/21/2020 Shingrix Vaccine(1 of 2) Never done Lipid Screening due on 09/21/2022 Hepatitis C Screening due on 08/15/2025 HIV Screening due on 08/15/2025 Influenza Vaccine(1) due on 11/21/2025 Colorectal Cancer Screening due on 01/23/2031 Annual PCP Team Chronic Disease Visit due on 02/13/2026 DTaP,Tdap,Td Vaccine(3 - Td or Tdap) due on 10/10/2032 Pneumococcal Vaccine: 50+ Completed DATA REVIEWED: Most recent labs Assessment/Plan 1. Essential hypertension (I10) 2. At high risk for cardiovascular disease (Z91.89) - controlled - will further improve with further weight loss and continued healthy lifestyle choices - No chest pain, shortness of breath, edema, palpitations, or headaches reported. - Encouraged regular home BP monitoring. - Advised continuation of regular physical activity. 3. Prediabetes (R73.03) 4. Hyperinsulinemia (E16.1) 5. BMI 29.0-29.9,adult (Z68.29) - Significant improvement in glycemic control and lipid profile since initiation of tirzepatide in June. - Most recent labs: HbA1c 5.6% (previously 6.2%), fasting glucose 94 mg/dL (previously 120 mg/dL), total cholesterol 186 mg/dL (previously 215 mg/dL), triglycerides 80 mg/dL (previously 131 mg/dL), HDL 47 mg/dL (previously 44 mg/dL), LDL 123 mg/dL (previously 145 mg/dL). - Weight loss ongoing; BMI currently 29. - Increase tirzepatide dose to 5 mg. - Advised to monitor for side effects and report any issues with medication tolerance. - Provided dietary counseling: encouraged high-protein, low-fat diet; advised moderation with high-fat foods (e.g., butter, steak). - Discussed goal BMI <27; will consider reducing tirzepatide dose to 2.5 mg for maintenance once target weight is achieved. - Follow-up in 3 months. Prescription instructions reviewed with patient as applicable. Potential red flag symptoms discussed with the patient. Reviewed appropriat (more content not included)... Normal [facility] Anion gap in Serum or Plasma Ordered By: Aidan Bright on 02-10-2025 Anion gap [Moles/Vol] 10 mmol/L 5-15 [facility] BUN/creatinine ratioOrdered By: Aidan Bright on 02-10-2025 Urea nitrogen/Creatinine [Mass ratio] 18.9 mg/mg - [facility] Basic Metabolic Profile (BMP )on 02-10-2025 BUN/CRE 18.9 RATIO Normal - [facility] Comment on above: Performed By: #### L 500.4100, L500.2500, L501.9985 ####[facility] [address] [place], [address] Calcium [Mass/Vol] 9.5 mg/dL Normal 7.6-11.0 [facility] Comment on above: Performed By: #### L 500.4100, L500.2500, L501.9985 ####[facility] [address] [place], [address] Chloride [Moles/Vol] 104 mmol/L Normal 98-108 [facility] Comment on above: Performed By: #### L 500.4100, L500.2500, L501.9985 ####[facility] [address] [place], [address] CO2 [Moles/Vol] 25.1 mmol/L Normal 21.0-32.0 [facility] Comment on above: Performed By: #### L 500.4100, L500.2500, L501.9985 ####[facility] [address] [place], [address] Creatinine [Mass/Vol] 0.82 mg/dL Normal 0.70-1.20 [facility] Comment on above: Performed By: #### L 500.4100, L500.2500, L501.9985 ####[facility] [address] [place], [address] GAP 10 Normal 5-15 [facility] Comment on above: Performed By: #### L 500.4100, L500.2500, L501.9985 ####[facility] [address] [place], [address] GFR/1.73 sq M.predicted among non-blacks MDRD (S/P/Bld) [Vol rate/Area] 104 mL/min/{1.73_m2} Normal >60 [facility] Comment on above: Result Comment: mL/m in/1.73m2 CKD-EPI Creatinine Equation (2020) Performed By: #### L 500.4100, L500.2500, L501.9985 ####[facility] [address] [place], [address] Glucose [Mass/Vol] 94 mg/dL Normal 70-99 [facility] Comment on above: Performed By: #### L 500.4100, L500.2500, L501.9985 ####[facility] [address] [place], [address] Potassium [Moles/Vol] 4.6 mmol/L Normal 3.3-5.1 [facility] Comment on above: Performed By: #### L 500.4100, L500.2500, L501.9985 ####[facility] [address] [place], [address] Sodium [Moles/Vol] 139 mmol/L Normal 133-145 [facility] Comment on above: Performed By: #### L 500.4100, L500.2500, L501.9985 ####[facility] [address] [place], [address] Urea nitrogen [Mass/Vol] 16 mg/dL Normal 4-19 [facility] Comment on above: Performed By: #### L 500.4100, L500.2500, L501.9985 ####[facility] [address] [place], [address] Calculated very low density lipoprotein (VLDL) cholesterol measurementOrdered By: Aidan Bright on 02-10-2025 Calculated very low density lipoprotein (VLDL) cholesterol measurement 16 mg/dL 5-40 [facility] Carbon dioxide, total [Moles /volume] in Central venous bloodOrdered By: Aidan Bright on 02-10-2025 CO2 [Moles/Vol] 25.1 mmol/L 21.0-32.0 [facility] Chloride assayOrdered By: Ted Bright on 02-10-2025 Chloride [Moles/Vol] 104 mmol/L 98-108 [facility] Glomerular filtration rate ( GFR) estimation/1.73 sq m using serum, plasma, or whole bOrdered By: Aidan Bright on 02-10-2025 GFR/1.73 sq M.predicted among non-blacks MDRD (S/P/Bld) [Vol rate/Area] 104 mL/min/{1.73_m2} >60 [facility] Comment on above: mL/min/1.73m2 CKD-EP I Creatinine Equation (2020) Hemoglobin A1con 02-10-2025 HbA1c (Bld) [Mass fraction] 5.6 % Normal <=5.6 [facility] Comment on above: Result Comment: Norm al < 5.7 % Prediabetic 5.7 - 6.4 % Diabetic >or= 6.5 % Please note range changes. Performed By: #### L 500.4100, L500.2500, L501.9985 #### [facility] [address] [place], [place], [id number] Hemoglobin A1c percentageOrd ered By: Aidan Bright on 02-10-2025 HbA1c (Bld) [Mass fraction] 5.6 % <5.7 [facility] Comment on above: Normal < 5.7 % Predi abetic 5.7 - 6.4 % Diabetic >or= 6.5 % Please note range changes. LDL calc ser/plasOrdered By: Aidan Bright on 02-10-2025 Cholesterol in LDL [Mass/Vol] 123 mg/dL [facility] Comment on above: Rmwkamwwkg=229-212 m g/dL & Higher Hnpn=465 mg/dL or greaterFriedwald Equation for LDL-C Lipid Profileon 02-10-2025 CHOL:HDL 3.92 Normal [facility] Comment on above: Performed By: #### L 500.4100, L500.2500, L501.9985 ####[facility] [address] [place], [address] Cholesterol [Mass/Vol] 186 mg/dL Normal <=200 [facility] Comment on above: Result Comment: Chol esterol level, Desirable <200 mg/dL Borderline high cholesterol 200-239 mg/dL High cholesterol >=240 mg/dL Recommendations of the NCEP Adult Treatment Panel for the following risk-cutoff thresholds for the [place] Citizen population. Performed By: #### L 500.4100, L500.2500, L501.9985 ####[facility] [address] [place], [address] Cholesterol in HDL [Mass/Vol] 47 mg/dL Normal [facility] Comment on above: Result Comment: Estela onal Cholesterol Education Program (NCEP) guidelines: <40 mg/dL: Low HDL-cholesterol (major risk factor for CHD) >= 60 mg/dL: High HDL-cholesterol (negative risk factor for CHD) HDL-cholesterol is affected by a number of factors, e.g. smoking, exercise, hormones, sex and age. Performed By: #### L 500.4100, L500.2500, L501.9985 ####[facility] [address] [place], [address] Cholesterol in LDL [Mass/Vol] 123 mg/dL Normal [facility] Comment on above: Result Comment: Bord qogupd=687-449 mg/dL Higher Dpxm=495 mg/dL or greater Friedwald Equation for LDL-C Performed By: #### L 500.4100, L500.2500, L501.9985 ####[facility] [address] [place], [address] Cholesterol in VLDL [Mass/Vol] 16 mg/dL Normal 5-40 [facility] Comment on above: Performed By: #### L 500.4100, L500.2500, L501.9985 ####[facility] [address] [place], [address] Triglyceride [Mass/Vol] 80 mg/dL Normal [facility] Comment on above: Result Comment: The drugs N-Acetylcysteine and Metamizole may falsely depress this assay. Normal range: <150 mg/dL Borderline High: 150-199 mg/dL High: 200-499 mg/dL Very High: >500 mg/dL Performed By: #### L 500.4100, L500.2500, L501.9985 ####[facility] [address] [place], [place], [address] Potassium measurement (mass/ volume)Ordered By: Aidan Bright on 02-10-2025 Potassium (Unsp spec) [Mass/Vol] 4.6 mmol/L 3.3-5.1 [facility] Screening total cholesterol/ high density lipoprotein (HDL) cholesterol ratioOrdered By: Aidan Bright on 02-10-2025 Cholesterol.total/Choles terol in HDL [Mass ratio] 3.92 {ratio} [facility] Serum creatinine measurement (mass/volume)Ordered By: Aidan Bright on 02-10-2025 Creatinine [Mass/Vol] 0.82 mg/dL 0.70-1.20 [facility] Serum glucose measurement (m ass/volume)Ordered By: Aidan Bright on 02-10-2025 Glucose [Mass/Vol] 94 mg/dL 70-99 [facility] Serum or plasma calcium jacki urement (mass/volume)Ordered By: Aidan Bright on 02-10-2025 Calcium [Mass/Vol] 9.5 mg/dL 7.6-11.0 [facility] Serum or plasma cholesterol in HDL measurement (mass/volume)Ordered By: Aidan Bright on 02-10-2025 Cholesterol in HDL [Mass/Vol] 47 mg/dL >40 [facility] Comment on above: National Cholesterol Education Program (NCEP) guidelines:<40 mg/dL: Low HDL-cholesterol (major risk factor for CHD)>= 60 mg/dL: High HDL-cholesterol (negative risk factor for CHD)HDL-cholesterol is affected by a number of factors, e.g. smoking, exercise, hormones, sex and age. Serum or plasma cholesterol measurement (mass/volume)Ordered By: Aidan Bright on 02-10-2025 Cholesterol [Mass/Vol] 186 mg/dL <201 [facility] Comment on above: Cholesterol level, D esirable <200 mg/dLBorderline high cholesterol 200-239 mg/dLHigh cholesterol >=240 mg/dLRecommendations of the NCEP Adult Treatment Panel for the following risk-cutoff thresholds for the [place] Citizen population. Serum or plasma urea nitroge n measurement (mass/volume)Ordered By: Aidan Bright on 02-10-2025 Urea nitrogen [Mass/Vol] 16 mg/dL - [facility] Sodium levelOrdered By: Jomar Bright on 02-10-2025 Sodium [Moles/Vol] 139 mmol/L 133-145 [facility] Triglycerides measurementOrd ered By: Aidan Bright on 02-10-2025 Triglyceride [Mass/Vol] 80 mg/dL <199 [facility] Comment on above: The drugs N-Acetylcy steine and Metamizole may falsely depress this assay. Normal range: <150 mg/dLBorderline High: 150-199 mg/dLHigh: 200-499 mg/dLVery High: >500 mg/dL Magnetic resonance imaging r eportOrdered By: Roger Durham on 12-30-2024 Study report [facility] Imaging Services [address] [place], [place] [id number] Spine Lumbar (Routine) MR#: [id number] Acct: [id number] Name: ROGER MASON Rep #: [id number] : 1970 M 54 From: Ran Durham MD PCP: Dr. Aidan Bright MD Status: ELVA WARREN Study:Spine Lumbar (Routine) Date of Exam: 12/28/24 Exam# [id number] Ordering Dr: Ted Bright MD PROCEDURE: MRI SPINE LUMBAR (ROUTINE) 12/28/2024 REASON FOR EXAM: LBP SCIATICA TECHNIQUE: MRI SPINE LUMBAR (ROUTINE) COMPARISON: Lumbar spine study of 02/22/2024. FINDINGS: Vertebrae: No acute osseous signal changes seen. No fracture site is evident. Alignment: No subluxation is seen. No evidence of spondylolysis. Conus Medullaris: Unremarkable appearance, terminating at the L1 level. L1-2: Mild posterior facet and ligamentum flavum hypertrophy is seen. No significant spinal canal stenosis or neural foraminal narrowing is seen. L2-3: Mild posterior facet and ligamentum flavum hypertrophy is seen. A very mild diffuse disc bulge is seen. No significant degree of spinal canal stenosis or neural foraminal narrowing is seen. L3-4: Mild posterior facet and ligamentum flavum hypertrophy is seen. A very mild diffuse disc bulge is noted. No significant spinal canal stenosis. Mild bilateral neural foraminal narrowing is noted. L4-5: Mild posterior facet and ligamentum flavum hypertrophy is noted. A mild broad-based disc protrusion is noted. Mild spinal canal narrowing is noted, as well as [id number]-pl-ecfmmtco bilateral neural foraminalnarrowing. L5-S1: Asymmetric mild right posterior facet hypertrophy is seen. A mild broad-based disc protrusion is noted. No significant spinal canal stenosis is seen. Moderate right and probable mild left neural foraminal narrowing also noted. Sacrum: Limited imaging shows mild bilateral sacroiliac joint degenerative changes. MRI/Spine Lumbar (Routine) IMPRESSION: Multilevel lumbar degenerative disc disease, as described. Reading Location: [place] [address] CC: Dr. Aidan Bright MD ~ Radio Division Lieutenant: Signed [facility] Spine Lumbar (Routine)on Spine Lumbar (Routine) [facility] Imaging Services [address] [place] [address] Spine Lumbar (Routine) MR#: [id number] Acct: [id number] Name: ROGER MASON Rep #: [id number] : 1970 M 54 From: Roger Gutierrez PCP: Dr. Aidan Bright MD Status: REG CLI Study: Spine Lumbar (Routine) Date of Exam: 12/28/24 Exam# [id number] Ordering Dr: Aidan Bright MD PROCEDURE: MRI SPINE LUMBAR (ROUTINE) 12/28/2024 REASON FOR EXAM: LBP SCIATICA TECHNIQUE: MRI SPINE LUMBAR (ROUTINE) COMPARISON: Lumbar spine study of 02/22/2024. FINDINGS: Vertebrae: No acute osseous signal changes seen. No fracture site is evident. Alignment: No subluxation is seen. No evidence of spondylolysis. Conus Medullaris: Unremarkable appearance, terminating at the L1 level. L1-2: Mild posterior facet and ligamentum flavum hypertrophy is seen. No significant spinal canal stenosis or neural foraminal narrowing is seen. L2-3: Mild posterior facet and ligamentum flavum hypertrophy is seen. A very mild diffuse disc bulge is seen. No significant degree of spinal canal stenosis or neural foraminal narrowing is seen. L3-4: Mild posterior facet and ligamentum flavum hypertrophy is seen. A very mild diffuse disc bulge is noted. No significant spinal canal stenosis. Mild bilateral neural foraminal narrowing is noted. L4-5: Mild posterior facet and ligamentum flavum hypertrophy is noted. A mild broad-based disc protrusion is noted. Mild spinal canal narrowing is noted, as well as [id number] bilateral neural foraminal narrowing. L5-S1: Asymmetric mild right posterior facet hypertrophy is seen. A mild broad-based disc protrusion is noted. No significant spinal canal stenosis is seen. Moderate right and probable mild left neural foraminal narrowing also noted. Sacrum: Limited imaging shows mild bilateral sacroiliac joint degenerative changes. MRI/Spine Lumbar (Routine) IMPRESSION: Multilevel lumbar degenerative disc disease, as described. Reading Location: [place] [address] CC: Dr. Aidan Bright MD Radio Division Lieutenant: Signed Normal [facility] 11-28-2024 [facility] Telephone (INTMWS) ROGER MASON ([id number]) 1970 M Date Time Provider Department 11/28/24 AIDAN BRIGHT During your visit today, we recorded the following information about you: Rasheeda Sanchez LPN 11/28/2024 3:51 PM Signed Patient needs MRI placed for back before Dr. Julián Moreno Neurologist will see him. Please place order. ROE Velasquez Joy, APRN.CNP 11/28/2024 5:31 PM Signed Order placed. Please let patient know so order can be printed and faxed to [facility] as patient has to have diagnostics completed there due to insurance. Thank you Cheri Torres APRN.Clua Love RN 11/30/2024 8:49 AM Signed Patient's calls and requests order to be faxed to [facility] Central Scheduling. Order faxed as requested. KURT Young Brittany L, MA 12/21/2024 3:06 PM Signed Referral started AND closed d/t no authorization is required. Faxed appt. Desk confirmation to [phone] CARISSA Sauer Brittany L, MA 12/21/2024 4:29 PM Signed Advised no authorization was needed that the MRI is now authorized. will r/s imaging d/t [facility] cancelling. Marisol Stout MA Allergies As of Date: 11/28/2024 Noted Allergy Reaction LISINOPRIL 01/09/2009 3 - Cough ZITHROMAX Z-ENDER (AZITHROMYCIN) 08/11/2007 8 - GI Upset Date Reviewed: 11/14/2024 Reviewed by: Cheri Torres APRN.CNP - Fully Assessed Reason for Visit: Orders [681] Primary Visit Diagnosis:Chronic midline low back pain, unspecified whether sciatica present [M54.50, G89.29] Other Visit Diagnoses:Radiculopat hy due to lumbar intervertebral disc disorder [M51.16] Radiculopathy of lumbar region [M54.16] Numbness in feet [R20.0] Order(s):MRI LUMBAR SPINE [facility] [[id number]] Order #: [id number] FUTURE Prescriptions as of 12/22/2024 - tirzepatide, weight loss (ZEPBOUND) 2.5 mg/0.5 mL pen injector Inject 2.5 mg subcutaneously one time a week. - valACYclovir (VALTREX) 1 gram tablet Take by mouth. 2 tablets twice a day - amLODIPine (NORVASC) 5 mg tablet Take 1 tablet by mouth once daily. - CPAP Initiate Auto PAP @ 7-15 cm of water with humidification. Mask (per patient preference) optional chin strap (if indicated) , filters, tubing, humidifier and lifetime supplies. 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] 04/14/2005 09/21/2017 STERILIZATION [Z30.2] 08/05/2007 Essential hypertension [I10] 10/04/2007 Pain in testicle [N50.819] 09/04/2009 12/29/2014 Migraine [G43.909] 03/31/2011 12/29/2014 Cholelithiasis [K80.20] 06/11/2012 09/21/2017 Encounter for annual health examination [Z00.00]07/22/2012 [facility]2012 12/26/2012 Encounter Status:Closed by CLAU BOOKER on 11/30/24 [facility] 11-21-2024 [facility] Telephone (INTMWS) ROGER MASON ([id number]) 1970 M Date Time Provider Department 11/21/24 AIDAN BRIGHT INTWS During your visit today, we recorded the following information about you: Jose Billingsley RN 11/21/2024 12:32 PM Signed Spouse (Michelle) calls to notify provider that they are not able to schedule an appointment with Dr. Julián Miguel until they have results of MRI of back to take with them to an appointment. Michelle reports that she was not able to come to appointment on 11/14/2024 with Cheri but was under the impression that it was supposed to be taken care of at that time. Michelle voices frustration that provider won't order the MRI of back. Patient was instructed to follow up with Dr. Boateng and Michelle reports that patient is not seeing Dr. Boateng as they wouldn't do anything for him previously. Patient asking if Dr. Bright would order the MRI of back for on-going foot numbness since Cheri is out until 11/28/2024. Patient last seen by Dr. Brigth on 04/11/2022. Please review and advise, KURT Rodriguez Chitra, MD 11/21/2024 12:59 PM Signed I ordered the test Please see it if will be covered Regards, Brittany Caputo MD, MA 11/21/2024 1:34 PM Signed Pt informed. Advised pt to check with insurance regarding coverage. Brittany Goldsmith MA Allergies As of Date: 11/21/2024 Noted Allergy Reaction LISINOPRIL 01/09/2009 3 - Cough ZITHROMAX Z-ENDER (AZITHROMYCIN) 08/11/2007 8 - GI Upset Date Reviewed: 11/14/2024 Reviewed by: Cheri Torres APRN.BOATSWAIN MATE - Fully Assessed Reason for Visit: Orders [681] Primary Visit Diagnosis:Radiculopat hy due to lumbar intervertebral disc disorder [M51.16] Other Visit Diagnosis:Radiculopat hy of lumbar region [M54.16] Order(s):MRI LUMBAR SPINE WO IVCON [1508273] Order #: [id number] FUTURE Prescriptions as of 11/22/2024 - tirzepatide, weight loss (ZEPBOUND) 2.5 mg/0.5 mL pen injector Inject 2.5 mg subcutaneously one time a week. - valACYclovir (VALTREX) 1 gram tablet Take by mouth. 2 tablets twice a day - amLODIPine (NORVASC) 5 mg tablet Take 1 tablet by mouth once daily. - CPAP Initiate Auto PAP @ 7-15 cm of water with humidification. Mask (per patient preference) optional chin strap (if indicated) , filters, tubing, humidifier and lifetime supplies. 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] 04/14/2005 09/21/2017 STERILIZATION [Z30.2] 08/05/2007 Essential hypertension [I10] 10/04/2007 Pain in testicle [N50.819] 09/04/2009 12/29/2014 Migraine [G43.909] 03/31/2011 12/29/2014 Cholelithiasis [K80.20] 06/11/2012 09/21/2017 Encounter for annual health examination [Z00.00]07/22/2012 [facility] at [facility]12/26/2012 12/26/2012 Encounter Status:Closed by JOSE BILLINGSLEY on 11/22/24 [facility] CNOVdaryl 11-14-2024 CNOV Office Visit (INTMWS ) ROGER MASON ([id number]) 1970 M Date Time Provider Department 11/14/24 3:20 PM CHERI TORRES During your visit today, we recorded the following information about you: Pulse Respiration Blood pressure Weight 80/minute 16/minute 130/82 96.2 kg Height 1.795 m Cheri Torres APRN.CNP 11/14/2024 4:05 PM Signed CC: Patient presents with: Yearly Exam HPI Roger Mason is a 54 year old male who presents today for annual exam. Recording using [employer] Parking software for draft documentation of the visit was discussed with the patient/authorized account service representative; all questions welcomed and answered. Patient/authorized account service representative agreed to proceed Annual Wellness Exam: - Engages in outdoor activities and yard work; plans to start indoor exercise and biking. - Follows a healthy diet, avoiding fried foods and soda, focusing on portion control. - No recurrent infections, fever, chills, cough, or wheezing. Weight Loss: - Currently on Zepbound 2.5 mg. - Weight reduced from 255 lbs to 212 lbs since July. - Initial mild nausea, now resolved; denies abdominal pain, constipation, diarrhea, or emesis. Prediabetes: - Recent HbA1c improved to 5.8% from 6.2%. - Fasting blood sugar levels normal. - Denies polyuria, polydipsia, polyphagia, or new paresthesia. - No episodes of hypoglycemia. Hyperlipidemia: - Total cholesterol improved from 215 to 180 mg/dL. - Triglycerides decreased from 131 to 71 mg/dL. - HDL remains in the 40s. - LDL reduced from 145 to 125 mg/dL. Hypertension: - Managed with amlodipine 5 mg daily. - Home BP readings: 120s-130s/80s mmHg. - Denies chest pain or dyspnea. Foot Numbness: - Persistent numbness in the foot. - Recent MRI of the foot showed no evidence of neuroma as suspected by neurology. - Previous nerve testing showed no abnormalities. - Has been using special insoles and new shoes as recommended by podiatry, gone to direct care staffer, and had physical therapy with no improvement of symptoms. - has not followed up with Dr. Boateng spine/alon as instructed for no improvement. REVIEW OF SYSTEMS General: no fevers, no [...] No history of dysuria, frequency or incontinence Endocrine: no fatigue, no polyuria, no polyphagia, and no polydipsia Neurologic: No headache, weakness, numbness, tingling, dizziness, memory loss, syncope. PAST MEDICAL HISTORY Diagnosis Date Unspecified essential hypertension 10/04/2007 PAST SURGICAL HISTORY Procedure Laterality Date EXC VARICOCELE/LIGATION SPERMATIC VEINS SPX 2006 Variocele repair LAPS SURG CHOLECSTC W/EXPL COMMON DUCT 06-22-12 [facility] VASECTOMY 2006 ALLERGIES Lisinopril and Zithromax Z-Ender [Azithromycin] MEDICATIONS tirzepatide, weight loss (ZEPBOUND) 2.5 mg/0.5 mL pen injector Inject 2.5 mg subcutaneously one time a week. valACYclovir (VALTREX) 1 gram tablet Take by [...] use: Yes Comment: occasional PHYSICAL EXAM BP 130/82 Pulse 80 Resp 16 Ht 179.5 cm (5' 10.67) Wt 96.2 kg (212 lb) SpO2 97% BMI 29.85 kg/m? General Appearance: well appearing, in no acute distress, alert Pysch: mood and affect broad and appropriate Eyes: conjunctiva pink and moist, no icterus, sclera white, non-injected Neck: Thyroid normal size and symmetric without palpable nodules, Neck supple, No adenopathy Lymph nodes: No cervical lymphadenopathy and No supraclavicular lymphadenopathy Lungs: Lungs clear to auscultation. No wheezing, rhonchi, rales. Heart: RRR without murmur, gallop, or rubs. No ectopy Abdomen: Abdomen soft, non-tender. Bowel sounds normal. No masses, organomegaly Health maintenance reviewed with patient: Depression Screening Never done Anxiety Screening Never done Diabetes Screening due on 09/21/2020 Shingrix Vaccine(1 of 2) Never done Lipid Screening due on 09/21/2022 Hepatitis B Vaccine(1 of 3 - 19+ 3-dose series) due on 02/02/2025 Hepatitis C Screening due on 08/15/2025 HIV Screening due on 08/15/2025 Colorectal Cancer Screening due on 01/23/2031 Influenza (more content not included)... Normal [facility] Anion gap in Serum or Plasma Ordered By: Aidan Bright on 11-09-2024 Anion gap [Moles/Vol] 10 mmol/L - [facility] BUN/creatinine ratioOrdered By: Aidan Bright on 11-09-2024 Urea nitrogen/Creatinine [Mass ratio] 19.7 mg/mg - [facility] Basic Metabolic Profile (BMP )on 11-09-2024 BUN/CRE 19.7 RATIO Normal - [facility] Comment on above: Performed By: #### L 500.4100, L501.9985, L500.2500 #### [facility] [address] [place], [address] Calcium [Mass/Vol] 8.9 mg/dL Normal 7.6-11.0 [facility] Comment on above: Performed By: #### L 500.4100, L501.9985, L500.2500 #### [facility] [address] [place], [address] Chloride [Moles/Vol] 102 mmol/L Normal 98-108 [facility] Comment on above: Performed By: #### L 500.4100, L501.9985, L500.2500 #### [facility] [address] [place], [address] CO2 [Moles/Vol] 25.5 mmol/L Normal 21.0-32.0 [facility] Comment on above: Performed By: #### L 500.4100, L501.9985, L500.2500 #### [facility] [address] [place], [address] Creatinine [Mass/Vol] 0.79 mg/dL Normal 0.70-1.20 [facility] Comment on above: Performed By: #### L 500.4100, L501.9985, L500.2500 #### [facility] [address] [place], [address] GAP 10 Normal 5-15 [facility] Comment on above: Performed By: #### L 500.4100, L501.9985, L500.2500 #### [facility] [address] [place], [address] GFR/1.73 sq M.predicted among non-blacks MDRD (S/P/Bld) [Vol rate/Area] 106 mL/min/{1.73_m2} Normal >60 [facility] Comment on above: Result Comment: mL/m in/1.73m2 CKD-EPI Creatinine Equation (2020) Performed By: #### L 500.4100, L501.9985, L500.2500 #### [facility] [address] [place], [address] Glucose [Mass/Vol] 87 mg/dL Normal 70-99 [facility] Comment on above: Performed By: #### L 500.4100, L501.9985, L500.2500 #### [facility] [address] [place], [address] Potassium [Moles/Vol] 4.4 mmol/L Normal 3.3-5.1 [facility] Comment on above: Performed By: #### L 500.4100, L501.9985, L500.2500 #### [facility] [address] [place], [address] Sodium [Moles/Vol] 138 mmol/L Normal 133-145 [facility] Comment on above: Performed By: #### L 500.4100, L501.9985, L500.2500 #### [facility] [address] [place], [address] Urea nitrogen [Mass/Vol] 16 mg/dL Normal 4-19 [facility] Comment on above: Performed By: #### L 500.4100, L501.9985, L500.2500 #### [facility] [address] [place], [place], [address] Calculated very low density lipoprotein (VLDL) cholesterol measurementOrdered By: Aidan Bright on 11-09-2024 Calculated very low density lipoprotein (VLDL) cholesterol measurement 14 mg/dL 5-40 [facility] Carbon dioxide, total [Moles /volume] in Central venous bloodOrdered By: Aidan Bright on 11-09-2024 CO2 [Moles/Vol] 25.5 mmol/L 21.0-32.0 [facility] Chloride assayOrdered By: Ted Bright on 11-09-2024 Chloride [Moles/Vol] 102 mmol/L 98-108 [facility] Glomerular filtration rate ( GFR) estimation/1.73 sq m using serum, plasma, or whole bOrdered By: Aidan Bright on 11-09-2024 GFR/1.73 sq M.predicted among non-blacks MDRD (S/P/Bld) [Vol rate/Area] 106 mL/min/{1.73_m2} >60 [facility] Comment on above: mL/min/1.73m2 CKD-EP I Creatinine Equation (2020) Hemoglobin A1con 11-09-2024 HbA1c (Bld) [Mass fraction] 5.8 % High <=5.6 [facility] Comment on above: Result Comment: Norm al < 5.7 % Prediabetic 5.7 - 6.4 % Diabetic >or= 6.5 % Please note range changes. Performed By: #### L 500.0390, L501.9985, L500.2500 #### [facility] [address] [place], [place], [address] Hemoglobin A1c percentageOrd ered By: Aidan Bright on 11-09-2024 HbA1c (Bld) [Mass fraction] 5.8 % High <5.7 [facility] Comment on above: Normal < 5.7 % Predi abetic 5.7 - 6.4 % Diabetic >or= 6.5 % Please note range changes. LDL calc ser/plasOrdered By: Aidan Bright on 11-09-2024 Cholesterol in LDL [Mass/Vol] 125 mg/dL [facility] Comment on above: Xrzrfybbcm=697-086 m g/dL & Higher Jgmf=461 mg/dL or greater Lipid Profileon 11-09-2024 CHOL:HDL 4.42 Normal [facility] Comment on above: Performed By: #### L 500.4100, L501.9985, L500.2500 #### [facility] [address] [place], [address] Cholesterol [Mass/Vol] 180 mg/dL Normal <=200 [facility] Comment on above: Result Comment: Chol esterol level, Desirable <200 mg/dL Borderline high cholesterol 200-239 mg/dL High cholesterol >=240 mg/dL Recommendations of the NCEP Adult Treatment Panel for the following risk-cutoff thresholds for the [place] Citizen population. Performed By: #### L 500.4100, L501.9985, L500.2500 #### [facility] [address] [place], [address] Cholesterol in HDL [Mass/Vol] 41 mg/dL Normal [facility] Comment on above: Result Comment: Estela onal Cholesterol Education Program (NCEP) guidelines: <40 mg/dL: Low HDL-cholesterol (major risk factor for CHD) >= 60 mg/dL: High HDL-cholesterol (negative risk factor for CHD) HDL-cholesterol is affected by a number of factors, e.g. smoking, exercise, hormones, sex and age. Performed By: #### L 500.4100, L501.9985, L500.2500 #### [facility] [address] [place], [address] Cholesterol in LDL [Mass/Vol] 125 mg/dL Normal [facility] Comment on above: Result Comment: Bord icedea=648-820 mg/dL Higher Gwhe=479 mg/dL or greater Performed By: #### L 500.4100, L501.9985, L500.2500 #### [facility] [address] [place], [address] Cholesterol in VLDL [Mass/Vol] 14 mg/dL Normal 5-40 [facility] Comment on above: Performed By: #### L 500.4100, L501.9985, L500.2500 #### [facility] [address] [place], [address] Triglyceride [Mass/Vol] 71 mg/dL Normal [facility] Comment on above: Result Comment: The drugs N-Acetylcysteine and Metamizole may falsely depress this assay. Normal range: <150 mg/dL Borderline High: 150-199 mg/dL High: 200-499 mg/dL Very High: >500 mg/dL Performed By: #### L 500.4100, L501.9985, L500.2500 #### [facility] [address] [place], [place], [address] Potassium measurement (mass/ volume)Ordered By: Aidan Bright on 11-09-2024 Potassium (Unsp spec) [Mass/Vol] 4.4 mmol/L 3.3-5.1 [facility] Screening total cholesterol/ high density lipoprotein (HDL) cholesterol ratioOrdered By: Aidan Bright on 11-09-2024 Cholesterol.total/Choles terol in HDL [Mass ratio] 4.42 {ratio} [facility] Serum creatinine measurement (mass/volume)Ordered By: Aidan Bright on 11-09-2024 Creatinine [Mass/Vol] 0.79 mg/dL 0.70-1.20 [facility] Serum glucose measurement (m ass/volume)Ordered By: Aidan Bright on 11-09-2024 Glucose [Mass/Vol] 87 mg/dL 70-99 [facility] Serum or plasma calcium jacki urement (mass/volume)Ordered By: Aidan Bright on 11-09-2024 Calcium [Mass/Vol] 8.9 mg/dL 7.6-11.0 [facility] Serum or plasma cholesterol in HDL measurement (mass/volume)Ordered By: Aidan Bright on 11-09-2024 Cholesterol in HDL [Mass/Vol] 41 mg/dL >40 [facility] Comment on above: National Cholesterol Education Program (NCEP) guidelines:<40 mg/dL: Low HDL-cholesterol (major risk factor for CHD)>= 60 mg/dL: High HDL-cholesterol (negative risk factor for CHD)HDL-cholesterol is affected by a number of factors, e.g. smoking, exercise, hormones, sex and age. Serum or plasma cholesterol measurement (mass/volume)Ordered By: Aidan Bright on 11-09-2024 Cholesterol [Mass/Vol] 180 mg/dL <201 [facility] Comment on above: Cholesterol level, D esirable <200 mg/dLBorderline high cholesterol 200-239 mg/dLHigh cholesterol >=240 mg/dLRecommendations of the NCEP Adult Treatment Panel for the following risk-cutoff thresholds for the [place] Citizen population. Serum or plasma urea nitroge n measurement (mass/volume)Ordered By: Aidan Bright on 11-09-2024 Urea nitrogen [Mass/Vol] 16 mg/dL 4-19 [facility] Sodium levelOrdered By: Jomar Bright on 11-09-2024 Sodium [Moles/Vol] 138 mmol/L 133-145 [facility] Triglycerides measurementOrd ered By: Aidan Bright on 11-09-2024 Triglyceride [Mass/Vol] 71 mg/dL <199 [facility] Comment on above: The drugs N-Acetylcy steine and Metamizole may falsely depress this assay. Normal range: <150 mg/dLBorderline High: 150-199 mg/dLHigh: 200-499 mg/dLVery High: >500 mg/dL CNPNon [facility] ROG[facility] MAS[facility] ([id number]) 1970 M Date Time Provider Department 10/18/24 AIDAN BRIGHT During your visit today, we recorded the following information about you: Juana Reece LPN 10/18/2024 4:31 PM Signed Pt's last OV: 08/15/24 calls in regards to MRI of right foot done at [facility] on 09/24/24(results scanned in pt's chart). [...] detailed message on 's secure VM. Clau Booker RN 11/01/2024 10:03 AM Signed Patient's calls back and states that she had contacted Dr. Julián Miguel office with [facility]. states that this is where patient would like to go. states that this office is requiring PCP to order the MRI of Back. asking if provider can order this and fax order to [facility]. requesting to be notified if able to place order and when order is faxed to [facility]. Please review and advise, KURT Young [...] Diagnosis:Numbness in feet [R20.0] Order(s):CONSULT TO NEUROLOGY [9026] Order #: [id number]: 1 FUTURE Prescriptions as of 11/04/2024 - [...] [Z00.00]07/22/2012 Routine general medical examination at a [facility]*12/26/2012 12/26/2012 Encounter Status:Closed by DAYSI ANDERSON on 11/04/24 [facility] Lower Ext/No Jt/w/oon 2024 Lower Ext/No Jt/w/o [facility] [address] [place], [place] [address], [place] [address] Lower Ext/No Jt/w/o MR#: [id number] Acct: [id number] Name: ROGER MASON Rep #: [id number] : 1970 M 53 From: Joe Valentino DO PCP: Dr. Aidan Bright MD Status: REG CLI Study: Lower Ext/No Jt/w/o Date of Exam: 09/24/24 Exam# [id number] Ordering Dr: CHERI TORRES EXAM: MRI right [...] edema, or degenerative changes identified. Reading Location: [facility] CC: KE TORRES; Dr. Aidan Bright MD Radio Division Lieutenant: Signed Normal [facility] Magnetic resonance imaging r eportOrdered By: Joe Valentino on 09-24-2024 Study report [facility] [address] [place] [address] Lower Ext/No Jt/w/o MR#: [id number] Acct: [id number] Name: ROGER MASON Rep #: [id number] : 1970 M 53 From: Joe Valentino DO PCP: Dr. Aidan Bright MD Status: REG C LI Study:Lower Ext/No Jt/w/o Date of Exam: 09/24/24 Exam# [id number] Ordering Dr: MAGDALENA TORRES EXAM: MRI right foot without contrast [...] edema, or degenerative changes identified. Reading Location: [facility] CC: KE TORRES; Dr. Aidan Bright MD ~ Radio Division Lieutenant: Signed [facility] 08-15-2024 [facility] Office Visit (INTMWS ) ROGER MASON ([id number]) 1970 M Date Time Provider Department 08/15/24 3:20 PM CHERI TORRES During your visit today, we recorded the following information about you: Pulse Respiration Blood pressure Weight 72/minute 16/minute 132/80 103 kg Cheri Torres APRN.BOATSWAIN MATE 08/15/2024 4:31 PM Signed CC: Patient presents [...] LAPS SURG CHOLECSTC W/EXPL COMMON DUCT 06-22-12 [facility] VASECTOMY 2006 ALLERGIES Lisinopril and Zithromax [...] YAQUELIN Cope (more content not included)... Normal [facility] 06-24-2024 CNPN Telephone (FAMWS) ROSLNYROGER Malachi ([id number]) 1970 M Date Time Provider Department 06/24/24 CHERI TORRES During your visit today, we recorded the following information about you: Cheri Torres APRN.CHARLES 06/24/2024 1:18 PM Signed Results received and reviewed from [facility]. Cholesterol slightly elevated and JpnLo5y remains in prediabetic range at 6.2. Weight [...] like to try? Thank you Cheri Torres APRN.BOATSWAIN MATE Vesta Lorenzo MA 06/24/2024 2:39 PM Signed Left message for return call. Cydney Carey RN 06/24/2024 3:04 PM Signed Patient returned call and given provider's message below with verbalized understanding. Patient agreeable to try the phentermine, since it is covered by insurance, he thinks. Rasheeda Montes De Oca, RN 06/24/2024 3:28 PM Signed patient return called and spoke with his insurance co. Insurance co informed him that with prior auth injectable medication is covered at a 90 supply. patient is asking to have the injectable prior auth completed. PRIOR AUTHORIZATION Medication for Prior Authorization: injectable weight loss medication Other formulary meds available : NO Insurance Company: [employer]) Insurance Company phone number: [phone] Patient insurance ID number: rx card: [id number] - [facility] card: [id number] Patient would like called when this is [...] general medical examination at a health*12/26/2012 12/26/2012 Prescriptions ordered this encounter Disp Refills Start End TIRZEPATIDE (WEIGHT LOSS) 2.5 MG/0.5* 6 mL 0 06/27/2024 Route: SUBCUTANEOUS Sig: Inject 2.5 mg subcutaneously one time a week. (more content not included)... Normal [facility] Albumin to globulin ratioOrd ered By: CHERI TORRES on 06-23-2024 Albumin/Globulin [Mass ratio] 1.1 {ratio} 0.9-2.4 [facility] Bilirubin, totalOrdered By: CHERI TORRES on 06-23-2024 Bilirubin [Mass/Vol] 0.50 mg/dL 0.20-1.00 [facility] Comment on above: For patients on eltr ombopag therapy, use of Dimension [place] TBIL is not recommended. Blood urea nitrogen (BUN)/cr eatinine ratioOrdered By: CHERI TORRES on 06-23-2024 Urea nitrogen/Creatinine [Mass ratio] 18.0 mg/mg 10- [facility] CBC-Complete Blood Cnt No Di micaela 06-23-2024 Erythrocyte distribution width (RBC) [Ratio] 12.6 % Normal 11.6-14.6 [facility] Comment on above: Performed By: #### L 100.0500, L501.9520, L501.9985, L500.4050, L500.4100 ####[facility] [address] [place], [address] Hematocrit (Bld) [Volume fraction] 43.4 % Normal 40-54 [facility] Comment on above: Performed By: #### L 100.0500, L501.9520, L501.9985, L500.4050, L500.4100 ####[facility] [address] [place], [address] Hemoglobin (Bld) [Mass/Vol] 15.0 g/dL Normal 13.0-16.5 [facility] Comment on above: Performed By: #### L 100.0500, L501.9520, L501.9985, L500.4050, L500.4100 ####[facility] [address] [place], [address] MCH (RBC) [Entitic mass] 30.6 pg Normal 27.0-32.0 [facility] Comment on above: Performed By: #### L 100.0500, L501.9520, L501.9985, L500.4050, L500.4100 ####[facility] [address] [place], [address] MCHC (RBC) [Mass/Vol] 34.6 g/dL Normal 32-36 [facility] Comment on above: Performed By: #### L 100.0500, L501.9520, L501.9985, L500.4050, L500.4100 ####[facility] [address] [place], [address] MCV (RBC) [Entitic vol] 88.6 fL Normal 80-94 [facility] Comment on above: Performed By: #### L 100.0500, L501.9520, L501.9985, L500.4050, L500.4100 ####[facility] [address] [place], [address] Platelet mean volume (Bld) [Entitic vol] 9.6 fL Normal 6.2-12.0 [facility] Comment on above: Performed By: #### L 100.0500, L501.9520, L501.9985, L500.4050, L500.4100 ####[facility] [address] [place], [address] Platelets (Bld) [#/Vol] 247 10*3/uL Normal 150-450 [facility] Comment on above: Performed By: #### L 100.0500, L501.9520, L501.9985, L500.4050, L500.4100 ####[facility] [address] [place], [address] RBC (Bld) [#/Vol] 4.90 10*6/uL Normal 4.6-6.2 [facility] Comment on above: Performed By: #### L 100.0500, L501.9520, L501.9985, L500.4050, L500.4100 ####[facility] [address] [place], [address] RDW SD 40.8 fl Normal 35.1-43.9 [facility] Comment on above: Performed By: #### L 100.0500, L501.9520, L501.9985, L500.4050, L500.4100 ####[facility] [address] [place], [address] WBC (Bld) [#/Vol] 5.5 10*3/uL Normal 4.4-11.0 [facility] Comment on above: Performed By: #### L 100.0500, L501.9520, L501.9985, L500.4050, L500.4100 ####[facility] [address] [place], [place], [address] Carbon dioxide measurementOr dered By: CHERI TORRES on 06-23-2024 CO2 [Moles/Vol] 26.0 mmol/L 21.0-32.0 [facility] Chloride measurementOrdered By: CHERI TORRES on 06-23-2024 Chloride [Moles/Vol] 105 mmol/L 98-107 [facility] Comprehensive Metabolic Prof ilon 06-23-2024 Albumin [Mass/Vol] 3.6 g/dL Normal 3.2-5.0 [facility] Comment on above: Performed By: #### L 100.0500, L501.9520, L501.9985, L500.4050, L500.4100 ####[facility] [address] [place], [address] Albumin/Globulin [Mass ratio] 1.1 {ratio} Normal 0.9-2.4 [facility] Comment on above: Performed By: #### L 100.0500, L501.9520, L501.9985, L500.4050, L500.4100 ####[facility] [address] [place], [address] ALK P 63 U/L Normal 45-117 [facility] Comment on above: Performed By: #### L 100.0500, L501.9520, L501.9985, L500.4050, L500.4100 ####[facility] [address] [place], [address] ALT [Catalytic activity/Vol] 29 U/L Normal 16-61 [facility] Comment on above: Performed By: #### L 100.0500, L501.9520, L501.9985, L500.4050, L500.4100 ####[facility] [address] [place], [address] AST [Catalytic activity/Vol] 18 U/L Normal 15-37 [facility] Comment on above: Performed By: #### L 100.0500, L501.9520, L501.9985, L500.4050, L500.4100 ####[facility] [address] [place], [address] Bilirubin [Mass/Vol] 0.50 mg/dL Normal 0.20-1.00 [facility] Comment on above: Result Comment: For patients on eltrombopag therapy, use of Dimension [place] TBIL is not recommended. Performed By: #### L 100.0500, L501.9520, L501.9985, L500.4050, L500.4100 ####[facility] [address] [place], [address] BUN/CRE 18.0 RATIO Normal 10-20 [facility] Comment on above: Performed By: #### L 100.0500, L501.9520, L501.9985, L500.4050, L500.4100 ####[facility] [address] [place], [address] CA,Total 8.5 mg/dL Normal 8.5-10.1 [facility] Comment on above: Performed By: #### L 100.0500, L501.9520, L501.9985, L500.4050, L500.4100 ####[facility] [address] [place], [address] Chloride [Moles/Vol] 105 mmol/L Normal 98-107 [facility] Comment on above: Performed By: #### L 100.0500, L501.9520, L501.9985, L500.4050, L500.4100 ####[facility] [address] [place], [address] CO2 [Moles/Vol] 26.0 mmol/L Normal 21.0-32.0 [facility] Comment on above: Performed By: #### L 100.0500, L501.9520, L501.9985, L500.4050, L500.4100 ####[facility] [address] [place], [address] Creatinine [Mass/Vol] 0.83 mg/dL Normal 0.70-1.30 [facility] Comment on above: Result Comment: The validity of the calculated GFR GFRAA in patients over 70 years has not been determined. Clinical correlation is essential. Performed By: #### L 100.0500, L501.9520, L501.9985, L500.4050, L500.4100 ####[facility] [address] [place], [address] EST GFR - AA 124 mL/min Normal >60 [facility] Comment on above: Result Comment: Afri can [place] Citizen GFR Calc Performed By: #### L 100.0500, L501.9520, L501.9985, L500.4050, L500.4100 ####[facility] [address] [place], [address] GAP 6 Normal 5-15 [facility] Comment on above: Performed By: #### L 100.0500, L501.9520, L501.9985, L500.4050, L500.4100 ####[facility] [address] [place], [address] GFR/1.73 sq M.predicted among non-blacks MDRD (S/P/Bld) [Vol rate/Area] 102 mL/min/{1.73_m2} Normal >60 [facility] Comment on above: Result Comment: Non- GFR Calc Performed By: #### L 100.0500, L501.9520, L501.9985, L500.4050, L500.4100 ####[facility] [address] [place], [address] Globulin (S) [Mass/Vol] 3.3 g/dL Normal 2.2-4.2 [facility] Comment on above: Performed By: #### L 100.0500, L501.9520, L501.9985, L500.4050, L500.4100 ####[facility] [address] [place], [address] Glucose [Mass/Vol] 120 mg/dL High 74-106 [facility] Comment on above: Result Comment: Fast ing Glucose result from 100 to 125 mg/dL suggests IMPAIRED HOMEOSTASIS per A.D.A. criteria. Performed By: #### L 100.0500, L501.9520, L501.9985, L500.4050, L500.4100 ####[facility] [address] [place], [address] Potassium [Moles/Vol] 4.3 mmol/L Normal 3.5-5.1 [facility] Comment on above: Performed By: #### L 100.0500, L501.9520, L501.9985, L500.4050, L500.4100 ####[facility] [address] [place], [address] Sodium [Moles/Vol] 137 mmol/L Normal 136-145 [facility] Comment on above: Performed By: #### L 100.0500, L501.9520, L501.9985, L500.4050, L500.4100 ####[facility] [address] [place], [address] T PROT 6.9 g/dL Normal 6.4-8.2 [facility] Comment on above: Performed By: #### L 100.0500, L501.9520, L501.9985, L500.4050, L500.4100 ####[facility] [address] [place], [place], [address] Urea nitrogen [Mass/Vol] 15 mg/dL Normal 7-18 [facility] Comment on above: Performed By: #### L 100.0500, L501.9520, L501.9985, L500.4050, L500.4100 ####[facility] [address] [place], [place], [address] Erythrocyte distribution wid th ratioOrdered By: CHERI TORRES on 06-23-2024 Erythrocyte distribution width (RBC) [Ratio] 12.6 % 11.6-14.6 [facility] Erythrocyte distribution wid th standard deviationOrdered By: CHERI TORRES on 06-23-2024 Erythrocyte distribution width (RBC) [Ratio] 40.8 fl 35.1-43.9 [facility] Glomerular filtration rate ( GFR) estimationOrdered By: CHERI TORRES on 06-23-2024 GFR/1.73 sq M.predicted among non-blacks MDRD (S/P/Bld) [Vol rate/Area] 102 mL/min/{1.73_m2} >60 [facility] Comment on above: Non- GFR Calc Glucose measurementOrdered B y: CHERI TORRES on 06-23-2024 Glucose [Mass/Vol] 120 mg/dL High 74-106 [facility] Comment on above: Fasting Glucose resu lt from 100 to 125 mg/dL suggests IMPAIRED HOMEOSTASIS per A.D.A. criteria. Hematocrit Auto (Bld) [Volum e fraction]Ordered By: CHERI TORRES on 06-23-2024 Hematocrit (Bld) [Volume fraction] 43.4 % 40-54 [facility] Hemoglobin A1con 06-23-2024 HbA1c (Bld) [Mass fraction] 6.2 % High 3.8-5.6 [facility] Comment on above: Result Comment: Norm al < 5.7 % Prediabetic 5.7 - 6.4 % Diabetic >or= 6.5 % Please note range changes. Performed By: #### L 100.0500, L501.9520, L501.9985, L500.4050, L500.4100 ####[facility] [address] [place], [address] Hemoglobin A1c percentageOrd ered By: CHERI TORRES on 06-23-2024 HbA1c (Bld) [Mass fraction] 6.2 % High 3.8-5.6 [facility] Comment on above: Normal < 5.7 % Predi abetic 5.7 - 6.4 % Diabetic >or= 6.5 % Please note range changes. Hemoglobin measurementOrdere d By: CHERI TORRES on 06-23-2024 Hemoglobin (Bld) [Mass/Vol] 15.0 g/dL 13.0-16.5 [facility] High density lipoprotein (HD L) measurementOrdered By: CHERI TORRES on 06-23-2024 Cholesterol in HDL [Mass/Vol] 44 mg/dL >40 [facility] Comment on above: The drugs N-Acetylcy steine and Metamizole may falsely depress this assay. Reference Range HDL <40 mg/dL Low HDL Cholesterol HDL >or= 60 mg/dL High HDL Cholesterol Laboratory - Chemistry and C hemistry - challengeOrdered By: CHERI TORRES on 06-23-2024 AST [Catalytic activity/Vol] 18 U/L 15-37 [facility] Lipid Profileon 06-23-2024 Cholesterol [Mass/Vol] 215 mg/dL High 200 [facility] Comment on above: Result Comment: <200 mg/dL Desirable 200-240 mg/dL Borderline >240 mg/dL High Risk Performed By: #### L 100.0500, L501.9520, L501.9985, L500.4050, L500.4100 ####[facility] [address] [place], [place], [address] Cholesterol in HDL [Mass/Vol] 44 mg/dL Normal [facility] Comment on above: Result Comment: The drugs N-Acetylcysteine and Metamizole may falsely depress this assay. Reference Range HDL <40 mg/dL Low HDL Cholesterol HDL >or= 60 mg/dL High HDL Cholesterol Performed By: #### L 100.0500, L501.9520, L501.9985, L500.4050, L500.4100 ####[facility] [address] [place], [address] Cholesterol in LDL [Mass/Vol] 145 mg/dL High 0-130 [facility] Comment on above: Performed By: #### L 100.0500, L501.9520, L501.9985, L500.4050, L500.4100 ####[facility] [address] [place], [address] Cholesterol in VLDL [Mass/Vol] 26 mg/dL Normal 5-40 [facility] Comment on above: Performed By: #### L 100.0500, L501.9520, L501.9985, L500.4050, L500.4100 ####[facility] [address] [place], [address] Triglyceride [Mass/Vol] 131 mg/dL Normal [facility] Comment on above: Result Comment: The drugs N-Acetylcysteine and Metamizole may falsely depress this assay. Serum Triglycerides Reference Interval Normal <150 mg/dL Borderline high 150 - 199 mg/dL High 200 - 499 mg/dL Very High > or = 500 mg/dL Performed By: #### L 100.0500, L501.9520, L501.9985, L500.4050, L500.4100 ####[facility] [address] [place], [address] Low density lipoprotein (LDL ) cholesterol measurementOrdered By: CHERI TORRES on 06-23-2024 Cholesterol in LDL [Mass/Vol] 145 mg/dL High 0-130 [facility] MCV (mean corpuscular volume ) determinationOrdered By: CHERI TORRES on 06-23-2024 MCV (RBC) [Entitic vol] 88.6 fL 80-94 [facility] Mean corpuscular hemoglobin (MCH) determinationOrdered By: CHERI TORRES on 06-23-2024 MCH (RBC) [Entitic mass] 30.6 pg 27.0-32.0 [facility] Mean corpuscular hemoglobin concentration (MCHC) determinationOrdered By: CHERI TORRES on 06-23-2024 MCHC (RBC) [Mass/Vol] 34.6 g/dL 32-36 [facility] Mean platelet volume determi nationOrdered By: CHERI TORRES on 06-23-2024 Platelet mean volume (Bld) [Entitic vol] 9.6 fL 6.2-12.0 [facility] Platelet countOrdered By: MAGDALENA TORRES on 06-23-2024 Platelets (Bld) [#/Vol] 247 10*3/uL 150-450 [facility] Potassium measurementOrdered By: CHERI TORRES on 06-23-2024 Potassium [Moles/Vol] 4.3 mmol/L 3.5-5.1 [facility] RBC Auto (Bld) [#/Vol]Ordere d By: CHERI TORRES on 06-23-2024 RBC (Bld) [#/Vol] 4.90 10*6/uL 4.6-6.2 [facility] Serum anion gap measurementO rdered By: CHERI TORRES on 06-23-2024 Anion gap [Moles/Vol] 6 mmol/L 5-15 [facility] Serum globulin measurementOr dered By: CHERI TORRES on 06-23-2024 Globulin (S) [Mass/Vol] 3.3 g/dL 2.2-4.2 [facility] Serum or plasma alanine parsons otransferase (ALT) measurementOrdered By: CHERI TORRES on 06-23-2024 ALT [Catalytic activity/Vol] 29 U/L 16-61 [facility] Serum or plasma albumin jacki urement (mass/volume)Ordered By: CHERI TORRES on 06-23-2024 Albumin [Mass/Vol] 3.6 g/dL 3.2-5.0 [facility] Serum or plasma alkaline swetha sphatase measurementOrdered By: CHERI TORRES on 06-23-2024 ALP [Catalytic activity/Vol] 63 U/L 45-117 [facility] Serum or plasma calcium jacki urement (mass/volume)Ordered By: CHERI TORRES on 06-23-2024 Calcium [Mass/Vol] 8.5 mg/dL 8.5-10.1 [facility] Serum or plasma cholesterol measurement (mass/volume)Ordered By: CHERI TORRES on 06-23-2024 Cholesterol [Mass/Vol] 215 mg/dL High <200 [facility] Comment on above: <200 mg/dL Desirable 200-240 mg/dL Borderline >240 mg/dL High Risk Serum or plasma creatinine m easurement (mass/volume)Ordered By: CHERI TORRES on 06-23-2024 Creatinine [Mass/Vol] 0.83 mg/dL 0.70-1.30 [facility] Comment on above: The validity of the calculated GFR & GFRAA in patients over 70 years has not been determined. Clinical correlation is essential. Serum or plasma thyroid stim ulating hormone (TSH) measurement (units/volume)Ordered By: CHERI TORRES on 06-23-2024 TSH Qn 1.620 uIU/mL 0.358-3.740 [facility] Serum or plasma urea nitroge n measurement (mass/volume)Ordered By: CHERI TORRES on 06-23-2024 Urea nitrogen [Mass/Vol] 15 mg/dL 7-18 [facility] Sodium levelOrdered By: CHERI TORRES on 06-23-2024 Sodium [Moles/Vol] 137 mmol/L 136-145 [facility] Thyroid Stim Hormone (TSH)on 06-23-2024 TSH 1.620 uIU/mL Normal 0.358-3.740 [facility] Comment on above: Performed By: #### L 100.0500, L501.9520, L501.9985, L500.4050, L500.4100 ####[facility] [address] [place], [place], [id number] Total proteinOrdered By: CHERI TORRES on 06-23-2024 Protein [Mass/Vol] 6.9 g/dL 6.4-8.2 [facility] Triglycerides measurementOrd ered By: CHERI TORRES on 06-23-2024 Triglyceride [Mass/Vol] 131 mg/dL <199 [facility] Comment on above: The drugs N-Acetylcy steine and Metamizole may falsely depress this assay.Serum Triglycerides Reference Interval Normal <150 mg/dL Borderline high 150 - 199 mg/dL High 200 - 499 mg/dL Very High > or = 500 mg/dL Very low density lipoprotein (VLDL) cholesterol measurementOrdered By: CHERI TORRES on 06-23-2024 Very low density lipoprotein (VLDL) cholesterol measurement 26 mg/dL 5-40 [facility] White blood cell (WBC) count Ordered By: CHERI BRIAN on 06-23-2024 WBC (Bld) [#/Vol] 5.5 10*3/uL 4.4-11.0 [facility] CNOVon 06-22-2024 CNOV Office Visit (INTMWS ) ROGER MASON ([id number]) 1970 M Date Time Provider Department 06/22/24 3:20 PM CHERI TORRES INTMGT During your visit today, we recorded the following information about you: Pulse Respiration Blood pressure Weight 74/minute 16/minute 132/80 115.7 kg Cheri Torres APRN.[place] MATE 06/22/2024 5:33 PM Signed CC: Patient presents [...] thyroid cancer, headaches, dizziness, weakness, syncope, increased thirst/hunger/urinati on, or intolerance to heat/cold. HTN: Mr. Mason [...] LAPS SURG CHOLECSTC W/EXPL COMMON DUCT 06-22-12 [facility] V[facility] 2007 ALLERGIES Lisinopril and Zithromax [...] feet - ICD9: 782.0, ICD10: R20.0 Call patient service rep for further evaluation (more content not included)... Normal [facility] PT D/C Summary (1)on 025 PT D/C Summary (1) [facility] [address] [place] [address]. [address] [place] [address] / REHABILITATION SERVICES DISCHARGE SUMMARY MR#: [id number] Acct: [id number] Name: ROGER MASON Rep #: [id number] : 1970 53 From: Brice Fuller DPT Referring DrChung: LUPIS Mckeon Status: REG R Insurance: [employer] SELF PAY INSURANCE Discharge Summary D/C summary: It has been my pleasure to treat ROGER MASON referred by Dr. 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 Thank you for the referral of this patient. Sincerely, Brice Fuller DPT Balance/Gait/Function al tests Balance/Special Test Scores Lower Extremity Functional Score: 76 05/30/24 0741 CC: LUPIS Mckeon; Dr. Aidan Bright MD CLS Signed Normal [facility] Inital Evaluation (1) - PTon 05-04-2024 Inital Evaluation (1) - PT [facility] Physical Therapy [address] [place] [address] / REHABILITATION SERVICES INITIAL EVALUATION MR#: [id number] Acct: [id number] Name: ROGER MASON Rep #: [id number] : 1970 53 From: Marcus Whitney DPT, OCS, CSCS Referring Dr.: Dr. John Mckeon DPM Status: REG R Insurance: [employer] S[employer]F PAY INSURANCE Patient's Visit Information Visit [...] toes. Sleep is OK. 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 50/50 stand and [...] to be FAXED BACK to us at [phone] for Medicare purposes. For Medicare only, by signing this I certify the plan of care. Please let me know if there are questions or concerns regarding this plan of care. Physician Signature: Date : 05/04/24 1520 CC: LUPIS Mckeon; Dr. Aidan Bright MD EBG Signed Normal [facility] L/S Spine Bending Flex/[place] 04-19-2024 L/S Spine Bending Flex/Ext [facility] [address] [place] [id number] L/S Spine Bending Flex/Ext MR#: [id number] Acct: [id number] Name: ROGER MASON Rep #: [id number] : 1970 M 53 From: Frederick Gutierrez PCP: Dr. Aidan Bright MD Status: REG CLI Study: L/S Spine Bending Flex/Ext Date of Exam: 04/19 Exam# [id number] Ordering Dr: Daniel Boateng MD [id number] STUDY: X-RAY - LUMBAR SPINE REASON FOR [...] Daniel Boateng MD; Dr. Aidan Bright MD Radio Division Lieutenant: Signed Normal [facility] Orthopedic Visit Reporton Orthopedic Visit Report [facility] [address] [place] [address] OFFICE VISIT Date of Service: 04/19/24 MR#: [id number] Acct: [id number] Name: ROGER MASON Rep #: [id number] : 1970 Provider: Dr. Daniel Boateng MD Age/Sex: 53/M Location: [facility].PEG Status: Signed Intake Vital Signs 01/21/24 14:19 [...] agreement. 04/19/24 1036 Date Daniel Boateng MD [facility] Signature: Date (if applicable) CC: DPM Dr. John Mark (more content not included)... Normal [facility] CNPNon 03-28-2024 CNPN Telephone (FAMPST) ROGER MASON ([id number]) 1970 M Date Time Provider Department 03/28/24 AIDAN BRIGHT During your visit today, we recorded the following information about you: Daphne Sher 03/28/2024 10:46 AM Signed Roger is calling Aidan Bright MD today to request the results of the recent radiology as well as the EMG procedure completed at [facility] , have they been sent to Dr. Bright? Per , Michelle on the phone these show resulted , please call with results. Patient has been identified by name and birthdate. Duration of symptoms: N/A Person calling: self Call patient at: cell -verified [phone] (cell) Was an appointment scheduled: No Closing statement: Results or non-symptom based questions: Thank you for calling [facility], your call will be returned within the next business day. Daphne Garcia [facility] Ashanti Fitzpatrick MA 03/28/2024 10:48 AM Signed Cheri, please review and advise. View External Procedures - Neurology [ID [id number]] CARISSA Pond Joy, APRN.[place] MATE 03/28/2024 12:32 PM Signed EMG showing sural [...] [R20.0] Order(s):CONSULT TO NEUROLOGY [9019] Order #: [id number]: 1 FUTURE Prescriptions as of 03/28/2024 - [...] Status:Closed by EMIL REYES on 03/28/24 Normal [facility] NCS and/or EMG Patienton NCS and/or EMG Patient [facility] Pulmonary Services/Neurology [address] [place] [address] MR#: [id number] Acct: [id number] Name: ROGER MASON Rep #: [id number] : 1970 53 From: Jeremias Brown MD Referring Dr: CHERI TORRES COUNTERPERSON-C Status: REG CLI Location: [facility] Date: 03/09/24 Sex: M C NCS and/or [...] Multi Select Codes Neurology Neurology Interp Codes: 02858-44 Musc test done w/n test comp (interp) (2) and 30536-76 Nrv cndj test 9-10 studies (interp) 03/09/24 1202 Date Jeremias Brown MD CC: KE TORRES; Dr. Jeremias Brown MD; Dr. Aidan Bright MD Date Dictated: 03/09/241199 Date Transcribed: 03/09/241199 Radio Division Lieutenant: ANTELMO Signed Normal [facility] POCT URINE DIPSTICK AUTOMATE DOrdered By: Elaine Ling on 10-30-2023 Amorphous sediment LM Ql (Urine sed) [facility] Appearance (U) Clear [facility] Bacteria LM Ql (Urine sed) [facility] Bilirubin Ql (U) Negative [facility] Casts LM.LPF (Urine sed) [#/Area] [facility] Color (U) Yellow [facility] Crystals LM Nom (Urine sed) [facility] Epithelial cells.squamous LM.HPF (Urine sed) [#/Area] [facility] Flow cytometry specialist review Roberto (Unsp spec) [Interp] [facility] Glucose Auto test strip (U) [Mass/Vol] Negative mg/dL [facility] Ketones [Mass/Vol] Negative mg/dL [facility] Leukocyte esterase Qn (U) [facility] Leukocyte esterase Test strip Ql (U) Negative [facility] Microscopic observation Gram stain Nom (Bronch spec) [facility] Nitrite Ql (U) Negative [facility] pH (U) 6.0 [pH] 5 - 7 [facility] Protein Ql (U) Negative mg/dL [facility] RBC LM.HPF (Urine sed) [#/Area] [facility] RBC Ql (U) Negative [facility] Specific gravity (U) [Rel density] 1.030 1.001 - 1.035 [facility] Transitional cells LM Ql (Urine sed) [facility] Urobilinogen Qn (U) 0.2 [facility] WBC LM.HPF (Urine sed) [#/Area] [facility] Absolute lymphocyte countOrd ered By: Anuel Hawk on 09-17-2023 Lymphocytes Auto (Unsp spec) [#/Vol] 0.94 10*3/uL 0.83-4.51 [facility] Automated lymphocyte count a s percentage of total leukocytesOrdered By: Anuel Hawk on 09-17-2023 Lymphocytes/100 WBC Auto (Unsp spec) 5.2 % 19-41 [facility] Basophil percentageOrdered B y: Anuel Hawk on 09-17-2023 Basophil percentage >100 SEEN /hpf 0-5 [facility] Basophils/100 WBC (Bld) 0.1 % 0-1 [facility] Chloride [Moles/Vol] 100 mmol/L 98-107 [facility] Eosinophils/100 WBC (Bld) 0.0 % 0-5 [facility] Glucose [Mass/Vol] 165 mg/dL 74-106 [facility] Comment on above: Fasting Glucose resu lt greater than or equal to 126 mg/dL suggests DIABETES MELLITUS per A.D.A. criteria. Hemoglobin (Bld) [Mass/Vol] 15.3 g/dL 13.0-16.5 [facility] Monocytes/100 WBC (Bld) 7.3 % 0-10 [facility] Neutrophils (Bld) [#/Vol] 15.7 10*3/uL 2.0-7.7 [facility] Neutrophils/100 WBC (Bld) 86.8 % 47-70 [facility] Potassium [Moles/Vol] 4.3 mmol/L 3.5-5.1 [facility] Sodium [Moles/Vol] 134 mmol/L 136-145 [facility] WBC (Bld) [#/Vol] 18.0 10*3/uL 4.4-11.0 [facility] Bilirubin Test strip Ql (U)O rdered By: Anuel Hawk on 09-17-2023 Bilirubin Ql (U) Negative Negative [facility] Determination of erythrocyte mean corpuscular volume (MCV)Ordered By: Anuel Hawk on 09-17-2023 MCV (RBC) [Entitic vol] 90.6 fL 80-94 [facility] Erythrocyte distribution wid th ratioOrdered By: Anuel Hawk on 09-17-2023 Erythrocyte distribution width (RBC) [Ratio] 12.8 % 11.6-14.6 [facility] Erythrocyte distribution wid th standard deviationOrdered By: Anuel Hawk on 09-17-2023 Erythrocyte distribution width (RBC) [Entitic vol] 42.4 fL 35.1-43.9 [facility] Hematocrit Auto (Bld) [Volum e fraction]Ordered By: Anuel Hawk on 09-17-2023 Hematocrit (Bld) [Volume fraction] 46.2 % 40-54 [facility] Immature granulocytes/100 WB C Auto (Bld)Ordered By: Anuel Hawk on 09-17-2023 Immature granulocytes/100 WBC (Bld) 0.600 % 0.0-0.9 [facility] Comment on above: IG% - Immature Granu locytes (promyelocytes, myelocytes and metamyelocytes) > 1% indicates that a LEFT SHIFT is Present. Ketones Test strip Ql (U)Ord ered By: Anuel Hawk on 09-17-2023 Ketones Ql (U) Negative Negative [facility] Laboratory - Chemistry and C hemistry - challengeOrdered By: Anuel Hawk on 09-17-2023 CO2 [Moles/Vol] 28.0 mmol/L 21.0-32.0 [facility] Urea nitrogen/Creatinine [Mass ratio] 13.6 mg/mg 10-20 [facility] [facility] - Hematology and Cell countsOrdered By: Anuel Hawk on 09-17-2023 MCH (RBC) [Entitic mass] 30.0 pg 27.0-32.0 [facility] MCHC (RBC) [Mass/Vol] 33.1 g/dL 32-36 [facility] Nucleated RBC/100 WBC (Bld) [Ratio] 0 % 0-5 [facility] Platelet mean volume (Bld) [Entitic vol] 9.6 fL 6.2-12.0 [facility] Platelets (Bld) [#/Vol] 227 10*3/uL 150-450 [facility] Mucus LM Ql (Urine sed)Order ed By: Anuel Hawk on 09-17-2023 Mucus Ql (Urine sed) 0 SEEN /hpf [facility] Nitrite Test strip Ql (U)Ord ered By: Anuel Hawk on 09-17-2023 Nitrite Ql (U) Positive Negative [facility] No Panel InformationOrdered By: Anuel Hawk on 09-17-2023 Urine RBC 0 SEEN /hpf 0-5 [facility] Estimated Creatinine Clearance Calc 103.69 ml/min [facility] Estimated GFR (MDRD) Amer 97 mL/min >60 [facility] Comment on above: GFR Calc Estimated GFR (MDRD) Non-Af Amer 80 mL/min >60 [facility] Comment on above: Non- GFR Calc Protein Test strip Ql (U)Ord ered By: Anuel Hawk on 09-17-2023 Protein Ql (U) 30 mg/dl Negative [facility] RBC Auto (Bld) [#/Vol]Ordere d By: Anuel Hawk on 09-17-2023 RBC (Bld) [#/Vol] 5.10 10*6/uL 4.6-6.2 [facility] Serum or plasma calcium jacki urement (mass/volume)Ordered By: Anuel Hawk on 09-17-2023 Calcium [Mass/Vol] 9.4 mg/dL 8.5-10.1 [facility] Serum or plasma creatinine m easurement (mass/volume)Ordered By: Anuel Hawk on 09-17-2023 Creatinine [Mass/Vol] 1.03 mg/dL 0.70-1.30 [facility] Comment on above: The validity of the calculated GFR & GFRAA in patients over 70 years has not been determined. Clinical correlation is essential. Serum or plasma urea nitroge n measurement (mass/volume)Ordered By: Anuel Hawk on 09-17-2023 Urea nitrogen [Mass/Vol] 14 mg/dL 7-18 [facility] Squamous epithelial cells de tection in urine sediment by light microscopyOrdered By: Anuel Hawk on 09-17-2023 Epithelial cells.squamous LM Ql (Urine sed) 0 SEEN /hpf 0-5 [facility] Thin prep Papanicolaou smear with manual screeningOrdered By: Anuel Hawk on 09-17-2023 Thin prep Papanicolaou smear with manual screening 6 5-15 [facility] Urine blood detectionOrdered By: Anuel Hawk on 09-17-2023 RBC Ql (U) 150 /ul Negative [facility] Urine clarityOrdered By: Ender Hawk on 09-17-2023 Clarity (U) Cloudy Clear [facility] Urine color determinationOrd ered By: Anuel Hawk on 09-17-2023 Color (U) Yellow Yellow [facility] Urine glucose detectionOrder ed By: Anuel Hawk on 09-17-2023 Glucose Ql (U) Normal mg/dl Normal [facility] Urine leukocyte esterase det ection by dipstickOrdered By: Anuel Hawk on 09-17-2023 Leukocyte esterase Test strip Ql (U) 500 /ul Negative [facility] Urine pHOrdered By: Anuel wise on 09-17-2023 pH (U) 5.0 [pH] 5.0 - 8.0 [facility] Urine sediment bacteria coun t by microscopy (number/high power field)Ordered By: Anuel Hawk on 09-17-2023 Bacteria LM.HPF (Urine sed) [#/Area] 1 /[HPF] None Seen [facility] Urine specific gravity measu rementOrdered By: Anuel Hawk on 09-17-2023 Specific gravity (U) [Rel density] 1.030 1.002-1.030 [facility] Urine urobilinogen measureme ntOrdered By: Anuel Hawk on 09-17-2023 Urobilinogen Ql (U) Normal mg/dl Normal [facility] Basophil percentageOrdered B y: CHERI OLDER on 08-10-2023 Basophil percentage 1.04 ng/mL 0.0-4.0 [facility] Comment on above: This test was perfor med using the TPSA assay method for the[employer] chemistry system. Values obtained with differentassay methods cannot be used interchangably.When changing PSA assays in the course of monitoring apatient, additional sequential testing should be carriedout to confirm baseline values. UA DIP, URINE (POC)on 2023 BILIRUBIN UA (POCT) Negative Negative [facility] CLARITY UA (POCT) [facility] COLOR UA (POCT) Yellow [facility] GLUCOSE UA (POCT) Negative Negative mg/dL [facility] Hemoglobin Ql (U) Negative Negative [facility] KETONE UA (POCT) Negative Negative mg/dL [facility] LEUKOCYTES [facility] (POCT) [facility] ([facility]) Negative Negative [facility] PH UA (POCT) 6.0 4.5 - 8.0 [facility] Protein Ql (U) Negative Negative mg/dL [facility] SPECIFIC GRAVITY UA (POCT) >=1.030 1.005 - 1.030 [facility] UROBILINOGEN UA (POCT) 0.2 E.U./dL Kirsten l E.U./dL [facility] Basophil percentageOrdered B y: Aidan Bright on 07-13-2023 Chloride [Moles/Vol] 106 mmol/L 98-107 [facility] Cholesterol [Mass/Vol] 210 mg/dL <200 [facility] Comment on above: <200 mg/dL Desirable 200-240 mg/dL Borderline >240 mg/dL High Risk Glucose [Mass/Vol] 98 mg/dL 74-106 [facility] Potassium [Moles/Vol] 4.2 mmol/L 3.5-5.1 [facility] Sodium [Moles/Vol] 138 mmol/L 136-145 [facility] Triglyceride [Mass/Vol] 114 mg/dL <199 [facility] Comment on above: The drugs N-Acetylcy steine and Metamizole may falsely depress this assay.Serum Triglycerides Reference Interval Normal <150 mg/dL Borderline high 150 - 199 mg/dL High 200 - 499 mg/dL Very High > or = 500 mg/dL Laboratory - Chemistry and C hemistry - challengeOrdered By: Aidan Bright on 07-13-2023 Cholesterol in HDL [Mass/Vol] 46 mg/dL >40 [facility] Comment on above: The drugs N-Acetylcy steine and Metamizole may falsely depress this assay. Reference Range HDL <40 mg/dL Low HDL Cholesterol HDL >or= 60 mg/dL High HDL Cholesterol Cholesterol in LDL [Mass/Vol] 141 mg/dL 0-130 [facility] CO2 [Moles/Vol] 30.0 mmol/L 21.0-32.0 [facility] Urea nitrogen/Creatinine [Mass ratio] 20.2 mg/mg 10-20 [facility] No Panel InformationOrdered By: Aidan Bright on 07-13-2023 Estimated GFR (MDRD) Amer 123 mL/min >60 [facility] Comment on above: GFR Calc Estimated GFR (MDRD) Non-Af Amer 101 mL/min >60 [facility] Comment on above: Non- GFR Calc VLDL Cholesterol 23 mg/dL 5-40 [facility] Serum or plasma calcium jacki urement (mass/volume)Ordered By: Aidan Bright on 07-13-2023 Calcium [Mass/Vol] 9.1 mg/dL 8.5-10.1 [facility] Serum or plasma creatinine m easurement (mass/volume)Ordered By: Aidan Bright on 07-13-2023 Creatinine [Mass/Vol] 0.84 mg/dL 0.70-1.30 [facility] Comment on above: The validity of the calculated GFR & GFRAA in patients over 70 years has not been determined. Clinical correlation is essential. Serum or plasma urea nitroge n measurement (mass/volume)Ordered By: Aidan Bright on 07-13-2023 Urea nitrogen [Mass/Vol] 17 mg/dL 7-18 [facility] Thin prep Papanicolaou smear with manual screeningOrdered By: Aidan Bright on 07-13-2023 Thin prep Papanicolaou smear with manual screening 2 5-15 [facility] Whole blood hemoglobin A1c/t otal hemoglobin ratio (mass fraction)Ordered By: Aidan Bright on 07-13-2023 HbA1c (Bld) [Mass fraction] 6.2 % 3.8-5.6 [facility] Comment on above: Normal < 5.7 % Predi abetic 5.7 - 6.4 % Diabetic >or= 6.5 % Please note range changes. Basophil percentageOrdered B y: Dr. Bright on 04-12-2022 Bilirubin [Mass/Vol] 0.60 mg/dL 0.20-1.00 [facility] Comment on above: For patients on eltr ombopag therapy, use of Dimension [place] TBIL is not recommended. Chloride [Moles/Vol] 102 mmol/L 98-107 [facility] Cholesterol [Mass/Vol] 189 mg/dL <200 [facility] Comment on above: <200 mg/dL Desirable 200-240 mg/dL Borderline >240 mg/dL High Risk Glucose [Mass/Vol] 143 mg/dL 74-106 [facility] Comment on above: Fasting Glucose resu lt greater than or equal to 126 mg/dL suggests DIABETES MELLITUS per A.D.A. criteria. Potassium [Moles/Vol] 4.0 mmol/L 3.5-5.1 [facility] Protein [Mass/Vol] 7.4 g/dL 6.4-8.2 [facility] Sodium [Moles/Vol] 137 mmol/L 136-145 [facility] Triglyceride [Mass/Vol] 131 mg/dL <199 [facility] Comment on above: The drugs N-Acetylcy steine and Metamizole may falsely depress this assay.Serum Triglycerides Reference Interval Normal <150 mg/dL Borderline high 150 - 199 mg/dL High 200 - 499 mg/dL Very High > or = 500 mg/dL Laboratory - Chemistry and C hemistry - challengeOrdered By: Dr. Bright on 04-12-2022 ALP [Catalytic activity/Vol] 68 U/L 45-117 [facility] ALT [Catalytic activity/Vol] 26 U/L 16-61 [facility] CO2 [Moles/Vol] 33.0 mmol/L 21.0-32.0 [facility] Cobalamin (Vitamin B12) [Mass/Vol] 421 pg/mL 211-911 [facility] Globulin (S) [Mass/Vol] 3.5 g/dL 2.2-4.2 [facility] Magnesium [Mass/Vol] 2.2 mg/dL 1.6-2.6 [facility] Urea nitrogen/Creatinine [Mass ratio] 17.0 mg/mg 10-20 [facility] No Panel InformationOrdered By: Dr. Bright on 04-12-2022 Estimated GFR (MDRD) Amer 109 mL/min >60 [facility] Comment on above: GFR Calc Estimated GFR (MDRD) Non-Af Amer 90 mL/min >60 [facility] Comment on above: Non- GFR Calc Thyroid Stimulating Hormone (TSH) 1.06 uIU/mL 0.358-3.74 [facility] Serum or plasma albumin jacki urement (mass/volume)Ordered By: Dr. Bright on 04-12-2022 Albumin [Mass/Vol] 3.9 g/dL 3.2-5.0 [facility] Serum or plasma albumin/glob ulin mass ratioOrdered By: Dr. Bright on 04-12-2022 Albumin/Globulin [Mass ratio] 1.1 {ratio} 0.9-2.4 [facility] Serum or plasma calcium jacki urement (mass/volume)Ordered By: Dr. Bright on 04-12-2022 Calcium [Mass/Vol] 9.2 mg/dL 8.5-10.1 [facility] Serum or plasma cholesterol in HDL measurement (mass/volume)Ordered By: Dr. Bright on 04-12-2022 Cholesterol in HDL [Mass/Vol] 42 mg/dL >40 [facility] Comment on above: The drugs N-Acetylcy steine and Metamizole may falsely depress this assay. Reference Range HDL <40 mg/dL Low HDL Cholesterol HDL >or= 60 mg/dL High HDL Cholesterol Serum or plasma cholesterol in VLDL measurement (mass/volume)Ordered By: Dr. Bright on 04-12-2022 Cholesterol in VLDL [Mass/Vol] 26 mg/dL 5-40 [facility] Serum or plasma creatinine m easurement (mass/volume)Ordered By: Dr. Bright on 04-12-2022 Creatinine [Mass/Vol] 0.94 mg/dL 0.70-1.30 [facility] Comment on above: The validity of the calculated GFR & GFRAA in patients over 70 years has not been determined. Clinical correlation is essential. Serum or plasma low density lipoprotein (LDL) cholesterol measurement (mass/volume)Ordered By: Dr. Bright on 04-12-2022 Cholesterol in LDL [Mass/Vol] 121 mg/dL 0-130 [facility] Serum or plasma urea nitroge n measurement (mass/volume)Ordered By: Dr. Bright on 04-12-2022 Urea nitrogen [Mass/Vol] 16 mg/dL 7-18 [facility] Thin prep Papanicolaou smear with manual screeningOrdered By: Dr. Bright on 04-12-2022 Thin prep Papanicolaou smear with manual screening 12 U/L 15-37 [facility] Thin prep Papanicolaou smear with manual screening 2 5-15 [facility] No Panel Informationon 11-09 POC SARS CoV-2 Antigen Negative [facility] Work Phone: Laboratory - Microbiology an d Antimicrobial susceptibilityon 08-08-2021 SARS-CoV-2 (COVID-19) RNA SANKET+probe Ql (Unsp spec) Not detected Not Detect [facility] Work Phone: Comment on above: Normal Reference Ran ge: Not DetectedMethod:(RT-PCR) real-time reverse transcriptase PCRLuminex MLEISSA Instrument*The Food and Drug Administration (FDA) has [...] Ql (Unsp spec) Not detected Not Detect [facility] Work Phone: Comment on above: Normal [...] Ql (Unsp spec) Not detected Not Detect [facility] Work Phone: Comment on above: Normal [...] Ql (Unsp spec) Not detected Not Detected [facility] Work Phone: Comment on above: This [...] of in vitro diagnostic tests for detection [id number] virus and/or diagnosis of COVID-19 infectionunder section [...] Prostate Specific Antigen Screen 0.94 ng/mL 0.00-4.00 [facility] Work Phone: Comment on above: This test was perfor med using the TPSA assay method for [employer] chemistry system. Values obtained with differentassay methods cannot be used interchangably.When changing PSA assays in the course of monitoring apatient, additional sequential testing should be carriedout to confirm baseline values. Basophil percentageon 2020 Chloride [Moles/Vol] 105 mmol/L 98-107 [facility] Work Phone: Cholesterol [Mass/Vol] 192 mg/dL <200 [facility] Work Phone: Comment on above: <200 mg/dL Desirable 200-240 mg/dL Borderline >240 mg/dL High Risk Glucose [Mass/Vol] 111 mg/dL 74-106 [facility] Work Phone: Comment on above: Fasting Glucose resu lt from 100 to 125 mg/dL suggests IMPAIRED HOMEOSTASIS per A.D.A. criteria.Please note revised GLUCOSE reference range effective 2017. Potassium [Moles/Vol] 4.4 mmol/L 3.5-5.1 [facility] Work Phone: Sodium [Moles/Vol] 139 mmol/L 136-145 [facility] Work Phone: Triglyceride [Mass/Vol] 107 mg/dL [facility] Work Phone: Comment on above: The drugs N-Acetylcy steine and Metamizole may falsely depress this assay.Serum Triglycerides Reference Interval Normal <150 mg/dL Borderline high 150 - 199 mg/dL High 200 - 499 mg/dL Very High > or = 500 mg/dL WBC (Bld) [#/Vol] 4.5 10*3/uL 4.4-11.0 [facility] Work Phone: Blood erythrocytes count (nu mber/volume)on 05-11-2021 RBC (Bld) [#/Vol] 4.99 10*6/uL 4.6-6.2 [facility] Work Phone: Blood hemoglobin measurement (mass/volume)on 05-11-2021 Hemoglobin (Bld) [Mass/Vol] 15.0 g/dL 13.0-16.5 [facility] Work Phone: [phone] Blood platelet mean volumeon 05-11-2021 Platelet mean volume (Bld) [Entitic vol] 9.7 fL 6.2-12.0 [facility] Work Phone: Determination of erythrocyte mean corpuscular volume (MCV)on 05-11-2021 MCV (RBC) [Entitic vol] 91.2 fL 80-94 [facility] Work Phone: [phone] Hematocrit Auto (Bld) [Volum e fraction]on 05-11-2021 Hematocrit (Bld) [Volume fraction] 45.5 % 40-54 [facility] Work Phone: Laboratory - Chemistry and C hemistry - challengeon 05-11-2021 CO2 [Moles/Vol] 29.0 mmol/L 21.0-32.0 [facility] Work Phone: [phone] Urea nitrogen/Creatinine [Mass ratio] 20.7 mg/mg 10-20 [facility] Work Phone: [phone] Laboratory - Hematology and Cell countson 05-11-2021 Erythrocyte distribution width (RBC) [Entitic vol] 41.1 fL 35.1-43.9 [facility] Work Phone: [phone] Erythrocyte distribution width (RBC) [Ratio] 12.4 % 11.6-14.6 [facility] Work Phone: [phone] MCH (RBC) [Entitic mass] 30.1 pg 27.0-32.0 [facility] Work Phone: [phone] MCHC Auto (RBC) [Mass/Vol]on 05-11-2021 MCHC (RBC) [Mass/Vol] 33.0 g/dL 32-36 [facility] Work Phone: No Panel Informationon 05-11 Estimated GFR (MDRD) Amer 119 mL/min >60 [facility] Work Phone: Comment on above: GFR Calc Estimated GFR (MDRD) Non-Af Amer 99 mL/min >60 [facility] Work Phone: Comment on above: Non- GFR Calc Platelets bldon 05-11-2021 Platelets (Bld) [#/Vol] 258 10*3/uL 150-450 [facility] Work Phone: Serum or plasma calcium jacki urement (mass/volume)on 05-11-2021 Calcium [Mass/Vol] 9.1 mg/dL 8.5-10.1 [facility] Work Phone: Serum or plasma cholesterol in HDL measurement (mass/volume)on 05-11-2021 Cholesterol in HDL [Mass/Vol] 43 mg/dL [facility] Work Phone: Comment on above: The drugs N-Acetylcy steine and Metamizole may falsely depress this assay. Reference Range HDL <40 mg/dL Low HDL Cholesterol HDL >or= 60 mg/dL High HDL Cholesterol Serum or plasma cholesterol in VLDL measurement (mass/volume)on 05-11-2021 Cholesterol in VLDL [Mass/Vol] 21 mg/dL 5-40 [facility] Work Phone: Serum or plasma creatinine m easurement (mass/volume)on 05-11-2021 Creatinine [Mass/Vol] 0.87 mg/dL 0.70-1.30 [facility] Work Phone: Comment on above: The validity of the calculated GFR & GFRAA in patients over 70 years has not been determined. Clinical correlation is essential. Serum or plasma low density lipoprotein (LDL) cholesterol measurement (mass/volume)on 05-11-2021 Cholesterol in LDL [Mass/Vol] 128 mg/dL 0-130 [facility] Work Phone: Serum or plasma urea nitroge n measurement (mass/volume)on 05-11-2021 Urea nitrogen [Mass/Vol] 18 mg/dL 7-18 [facility] Work Phone: Thin prep Papanicolaou smear with manual screeningon 05-11-2021 Thin prep Papanicolaou smear with manual screening 5 5-15 [facility] Work Phone: Whole blood hemoglobin A1c/t otal hemoglobin ratio (mass fraction)on 05-11-2021 HbA1c (Bld) [Mass fraction] 6.0 % 3.8-5.6 [facility] Work Phone: Comment on above: Normal < 5.7 % Predi abetic 5.7 - 6.4 % Diabetic >or= 6.5 % Please note range changes. COVID-19 virus antigen assay SARS-CoV-2 (COVID-19) Ag IA.rapid Ql (Resp) [facility] Work Phone: Vital Signs Date Time Vital Sign Value Performing Clinician Facility 11-14-2024 15:45-0400 Diastolic blood pressure 82 mm[Hg] Cheri Older [employer] Work Phone: [facility] 11-14-2024 15:45-0400 Systolic blood pressure 130 mm[Hg] Cheri Older [employer] Work Phone: [facility] 11-14-2024 15:15-0400 Body height 179.5 cm Cheri Older [employer] Work Phone: [facility] 11-14-2024 15:15-0400 Body mass index (BMI) [Ratio] 29.85 kg/m2 Cheri Older [employer] Work Phone: [facility] 11-14-2024 15:15-0400 Body weight 96.16 kg Cheri Older [employer] Work Phone: [facility] 11-14-2024 15:15-0400 Heart rate 80 /min Cheri Older [employer] Work Phone: [facility] 11-14-2024 15:15-0400 Respiratory rate 16 /min Cheri Older [employer] Work Phone: [facility] 11-14-2024 15:15-0400 SaO2% (BldA) [Mass fraction] 97 % Cheri Older [employer] Work Phone: [facility] 08-15-2024 14:54-0400 Body mass index (BMI) [Ratio] 31.43 kg/m2 Cheri Older [employer] Work Phone: [facility] 08-15-2024 14:54-0400 Body weight 102.97 kg Cheri Older [employer] Work Phone: [facility] 08-15-2024 14:54-0400 Diastolic blood pressure 80 mm[Hg] Cheri Older [employer] Work Phone: [facility] 08-15-2024 14:54-0400 Heart rate 72 /min Cheri Older [employer] Work Phone: [facility] 08-15-2024 14:54-0400 Respiratory rate 16 /min Cheri Older [employer] Work Phone: [facility] 08-15-2024 14:54-0400 SaO2% (BldA) [Mass fraction] 97 % Cheri Older [employer] Work Phone: [facility] 08-15-2024 14:54-0400 Systolic blood pressure 132 mm[Hg] Cheri Older [employer] Work Phone: [facility] 06-22-2024 15:21-0500 Body mass index (BMI) [Ratio] 35.31 kg/m2 Cheri Older [employer] Work Phone: [facility] 06-22-2024 15:21-0500 Body weight 115.67 kg Cheri Older [employer] Work Phone: [facility] 06-22-2024 15:21-0500 Diastolic blood pressure 80 mm[Hg] Cheri Older [employer] Work Phone: [facility] 06-22-2024 15:21-0500 Heart rate 74 /min Cheri Older [employer] Work Phone: [facility] 06-22-2024 15:21-0500 Respiratory rate 16 /min Cheri Older [employer] Work Phone: [facility] 06-22-2024 15:21-0500 SaO2% (BldA) [Mass fraction] 95 % Cheri Older [employer] Work Phone: [facility] 06-22-2024 15:21-0500 Systolic blood pressure 132 mm[Hg] Cheri Older [employer] Work Phone: [facility] 02-03-2024 16:44-0400 Diastolic blood pressure 78 mm[Hg] Cheri Older [employer] Work Phone: [facility] 02-03-2024 16:44-0400 Systolic blood pressure 130 mm[Hg] Cheri Older [employer] Work Phone: [facility] 02-03-2024 16:19-0400 Body mass index (BMI) [Ratio] 34.77 kg/m2 Cheri Older [employer] Work Phone: [facility] 02-03-2024 16:19-0400 Body weight 113.9 kg Cheri Older [employer] Work Phone: [facility] 02-03-2024 16:19-0400 Heart rate 73 /min Cheri Older [employer] Work Phone: [facility] 02-03-2024 16:19-0400 SaO2% (BldA) [Mass fraction] 97 % Cheri Older [employer] Work Phone: [facility] 10-30-2023 15:52-0400 Body height 177.8 cm Marcus Nunez MD Work Phone: [facility] 10-30-2023 15:52-0400 Body mass index (BMI) [Ratio] 35.44 kg/m2 Marcus Nunez MD Work Phone: [facility] 10-30-2023 15:52-0400 Body temperature 98.6 [degF] Marcus Nunez MD Work Phone: [facility] 10-30-2023 15:52-0400 Body weight 112.04 kg Marcus Nunez MD Work Phone: [facility] 10-30-2023 15:52-0400 Diastolic blood pressure 98 mm[Hg] Marcus Nunez MD Work Phone: [facility] 10-30-2023 15:52-0400 Heart rate 80 /min Marcus Nunez MD Work Phone: [facility] 10-30-2023 15:52-0400 SaO2% (BldA) [Mass fraction] 96 % Marcus Nunez MD Work Phone: [facility] 10-30-2023 15:52-0400 Systolic blood pressure 152 mm[Hg] Marcus Nunez MD Work Phone: [facility] 09-17-2023 18:09-0400 Body temperature 95.4 [degF] [facility] 09-17-2023 18:09-0400 Diastolic blood pressure 87 mm[Hg] [facility] 09-17-2023 18:09-0400 Heart rate 74 /min [facility] 09-17-2023 18:09-0400 Respiratory rate 18 /min [facility] 09-17-2023 18:09-0400 SaO2% (BldA) [Mass fraction] 98 % [facility] 09-17-2023 18:09-0400 Systolic blood pressure 157 mm[Hg] [facility] 09-17-2023 13:47-0400 Body height 178 cm [facility] 09-17-2023 13:47-0400 Body mass index (BMI) [Ratio] 34.4 kg/m2 [facility] 09-17-2023 13:47-0400 Body weight 108.95 kg [facility] 07-15-2023 16:50-0500 Diastolic blood pressure 82 mm[Hg] Cheri Older MANAGER ATHLETICS.[employer] Work Phone: [facility] 07-15-2023 16:50-0500 Systolic blood pressure 128 mm[Hg] Cheri Older MANAGER ATHLETICS.[employer] Work Phone: [facility] 07-15-2023 16:17-0500 Body height 181 cm Cheri Older MANAGER ATHLETICS.[employer] Work Phone: [facility] 07-15-2023 16:17-0500 Body weight 110.22 kg Cheri Older MANAGER ATHLETICS.[employer] Work Phone: [facility] 07-15-2023 16:17-0500 Heart rate 68 /min Cheri Older MANAGER ATHLETICS.[employer] Work Phone: [facility] 07-15-2023 16:17-0500 Respiratory rate 16 /min Cheri Older MANAGER ATHLETICS.[employer] Work Phone: [facility] 07-15-2023 16:17-0500 SaO2% (BldA) [Mass fraction] 98 % Cheri Older MANAGER ATHLETICS.[employer] Work Phone: [facility] 04-09-2023 15:32-0500 Diastolic blood pressure 85 mm[Hg] Cheri Older MANAGER ATHLETICS.[employer] Work Phone: [facility] 04-09-2023 15:32-0500 Systolic blood pressure 132 mm[Hg] Cheri Older MANAGER ATHLETICS.[employer] Work Phone: [facility] 04-09-2023 15:03-0500 Body weight 112.67 kg Cheri Older MANAGER ATHLETICS.[employer] Work Phone: [facility] 04-09-2023 15:03-0500 Heart rate 62 /min Cheri Older MANAGER ATHLETICS.[employer] Work Phone: [facility] 04-09-2023 15:03-0500 Respiratory rate 16 /min Cheri Older MANAGER ATHLETICS.[employer] Work Phone: [facility] 04-09-2023 15:03-0500 SaO2% (BldA) [Mass fraction] 96 % Cheri Older MANAGER ATHLETICS.[employer] Work Phone: [facility] 02-04-2023 18:00-0400 Body temperature 98.49 [degF] Cheri Older MANAGER ATHLETICS.[employer] Work Phone: [facility] 02-04-2023 18:00-0400 Body weight 114.76 kg Cheri Older MANAGER ATHLETICS.[employer] Work Phone: [facility] 02-04-2023 18:00-0400 Diastolic blood pressure 92 mm[Hg] Cheri Older MANAGER ATHLETICS.[employer] Work Phone: [facility] 02-04-2023 18:00-0400 Heart rate 78 /min Cheri Older MANAGER ATHLETICS.[employer] Work Phone: [facility] 02-04-2023 18:00-0400 Respiratory rate 16 /min Cheri Older MANAGER ATHLETICS.[employer] Work Phone: [facility] 02-04-2023 18:00-0400 SaO2% (BldA) [Mass fraction] 97 % Cheri Older MANAGER ATHLETICS.[employer] Work Phone: [facility] 02-04-2023 18:00-0400 Systolic blood pressure 154 mm[Hg] Cheri Older MANAGER ATHLETICS.[employer] Work Phone: [facility] 01-29-2023 08:53-0400 Body temperature 98.2 [degF] Cheri Older MANAGER ATHLETICS.[employer] Work Phone: [facility] 01-29-2023 08:53-0400 Body weight 113.85 kg Cheri Older MANAGER ATHLETICS.[employer] Work Phone: [facility] 01-29-2023 08:53-0400 Diastolic blood pressure 90 mm[Hg] Cheri Older MANAGER ATHLETICS.[employer] Work Phone: [facility] 01-29-2023 08:53-0400 Heart rate 60 /min Cheri Older MANAGER ATHLETICS.[employer] Work Phone: [facility] 01-29-2023 08:53-0400 Respiratory rate 16 /min Cheri Older MANAGER ATHLETICS.[employer] Work Phone: [facility] 01-29-2023 08:53-0400 Systolic blood pressure 142 mm[Hg] Cheri Older MANAGER ATHLETICS.[employer] Work Phone: [facility] 07-28-2022 13:22-0500 Body height 177.[address] Aidan Bright Work Phone: [facility] 07-28-2022 13:22-0500 Body mass index (BMI) [Ratio] 34.4 kg/m2 Dr. Aidan Bright Work Phone: 2(794)145-781325 [place] [address] 07-28-2022 13:22-0500 Body temperature 97.9 [degF] Dr. Aidan Bright Work Phone: 5(528)386-835625 [place] [address] 07-28-2022 13:22-0500 Body weight 108.[address] Aidan Bright Work Phone: 8(251)046-858525 [place] [address] 07-28-2022 13:22-0500 Diastolic blood pressure 87 mm[Hg] Dr. Aidan Bright Work Phone: 4(605)810-220025 [place] [address] 07-28-2022 13:22-0500 Heart rate 59 /min Dr. Aidan Bright Work Phone: 9(052)872-940325 [place] [address] 07-28-2022 13:22-0500 Respiratory rate 16 /min Dr. Aidan Bright Work Phone: 8(455)491-746925 [place] [address] 07-28-2022 13:22-0500 SaO2% (BldA) [Mass fraction] 97 % Dr. Aidan Bright Work Phone: 3(233)805-620068 [place] [address] 07-28-2022 13:22-0500 Systolic blood pressure 146 mm[Hg] Dr. Aidan Bright Work Phone: 4(080)705-058325 [place] [address] 06-11-2022 15:03-0500 Body height 177.[address] Aidan Bright Work Phone: 4(681)016-636325 [place] [address] 06-11-2022 15:03-0500 Body mass index (BMI) [Ratio] 34.1 kg/m2 Dr. Aidan Bright Work Phone: 0(232)535-067725 [place] [address] 06-11-2022 15:03-0500 Body weight 107.[address] Aidan Bright Work Phone: [facility] 06-11-2022 15:03-0500 Diastolic blood pressure 79 mm[Hg] Dr. Aidan Bright Work Phone: [facility] 06-11-2022 15:03-0500 Heart rate 56 /min Dr. Aidan Bright Work Phone: [facility] 06-11-2022 15:03-0500 Respiratory rate 16 /min Dr. Aidan Bright Work Phone: [facility] 06-11-2022 15:03-0500 SaO2% (BldA) [Mass fraction] 95 % Dr. Aidan Bright Work Phone: [facility] 06-11-2022 15:03-0500 Systolic blood pressure 129 mm[Hg] Dr. Aidan Bright Work Phone: 0(833)236-792968 [place] [address] 04-11-2022 15:52-0500 Body height 177.8 cm Aidan Bright MD Work Phone: [facility] 04-11-2022 15:52-0500 Body temperature 98.4 [degF] Aidan Bright MD Work Phone: [facility] 04-11-2022 15:52-0500 Body weight 105.23 kg Aidan Bright MD Work Phone: [facility] 04-11-2022 15:52-0500 Diastolic blood pressure 76 mm[Hg] Aidan Bright MD Work Phone: [facility] 04-11-2022 15:52-0500 Heart rate 60 /min Aidan Bright MD Work Phone: [facility] 04-11-2022 15:52-0500 Respiratory rate 14 /min Aidan Bright MD Work Phone: [facility] 04-11-2022 15:52-0500 SaO2% (BldA) [Mass fraction] 97 % Aidan Bright MD Work Phone: [facility] 04-11-2022 15:52-0500 Systolic blood pressure 138 mm[Hg] Aidan Bright MD Work Phone: [facility] 01-13-2022 13:00-0400 Body height 177.8 cm Aidan Bright MD Work Phone: [facility] 01-13-2022 13:00-0400 Body temperature 98.91 [degF] Aidan Bright MD Work Phone: [facility] 01-13-2022 13:00-0400 Body weight 113.4 kg Aidan Bright MD Work Phone: [facility] 01-13-2022 13:00-0400 Diastolic blood pressure 80 mm[Hg] Aidan Bright MD Work Phone: [facility] 01-13-2022 13:00-0400 Heart rate 63 /min Aidan Bright MD Work Phone: [facility] 01-13-2022 13:00-0400 Respiratory rate 12 /min Aidan Bright MD Work Phone: [facility] 01-13-2022 13:00-0400 SaO2% (BldA) [Mass fraction] 96 % Aidan Bright MD Work Phone: [facility] 01-13-2022 13:00-0400 Systolic blood pressure 122 mm[Hg] Aidan Bright MD Work Phone: [facility] 11-09-2021 11:33-0400 Body temperature 98.1 [degF] Dr. Aidan Bright Work Phone: [facility] Work Phone: 11-09-2021 11:33-0400 Diastolic blood pressure 96 mm[Hg] Dr. Aidan Bright Work Phone: [facility] Work Phone: 11-09-2021 11:33-0400 Heart rate 61 /min Dr. Aidan Bright Work Phone: [facility] Work Phone: 06-18-2022 11:33-0400 Respiratory rate 14 /min Dr. Aidan Bright Work Phone: [facility] Work Phone: 11-09-2021 11:33-0400 SaO2% (BldA) [Mass fraction] 97 % Dr. Aidan Bright Work Phone: [facility] Work Phone: 11-09-2021 11:33-0400 Systolic blood pressure 132 mm[Hg] Dr. Aidan Bright Work Phone: [facility] Work Phone: Encounters Encounter Date Encounter Type Care Provider Facility Start: 02-27-2025 ambulatory NACHO HARO Facility: [facility] Start: 02-14-2025 End: 02-14-2025 ambulatory KAMILAH MIR Facility:[facility] Start: 02-13-2025 End: 02-13-2025 [facility] Start: 02-10-2025 End: 02-10-[address] Aidan Bright MD Work Phone: -Laboratory Start: 02-10-2025 End: 02-10-[address] Aidan Bright MD -Laboratory Work Phone: Start: 02-10-2025 End: 02-10-2025 ambulatory Aidan Bright Facility:[facility] Start: 02-02-2025 End: 02-02-2025 ambulatory Cheri Torres APRN.[employer] Work Phone: [facility] [place] Comment on above: Lab work for my Feb 13, appt. Start: 01-31-2025 End: 02-03-2025 ambulatory Aidan Bright MD Work Phone: Internal Medicine [facility] Start: 01-11-2025 End: 01-20-2025 Chart abstracting Julián Miguel MD Work Phone: Neurology Start: 12-28-2024 End: 12-28-[address] Aidan Bright MD Work Phone: -[facility] Start: 12-28-2024 End: 12-28-[address] Aidan Bright MD -[facility] Work Phone: Start: 12-28-2024 End: 12-28-2024 ambulatory Aidan Bright Facility:[facility] Start: 11-28-2024 End: 11-30-2024 Telephone encounter Aidan Bright MD Work Phone: [facility] [place] Comment on above: Orders Start: 11-21-2024 End: 11-22-2024 Telephone encounter Aidan Bright MD Work Phone: [facility] [place] Comment on above: Orders Start: 11-14-2024 End: 11-14-2024 Periodic preventive med est patient 40-64yrs Cheri Torres MANAGER ATHLETICS.[employer] Work Phone: [facility] [place] Comment on above: Annual physical exam (Primary Dx); BMI 29.0-29.9,adult; Essential hypertension; At high risk for cardiovascular disease; Prediabetes; Hyperlipidemia, unspecified hyperlipidemia type; Herpes simplex labialis; Hyperinsulinemia; Numbness in feet Start: 11-14-2024 End: 11-14-2024 ambulatory [facility] Facility:[facility] Start: 11-14-2024 End: 11-14-2024 Patient encounter procedure Cheri Brian MANAGER ATHLETICS.[employer] Work Phone: [facility] Work Phone: Start: 11-09-2024 End: 11-09-[address] Aidan Bright MD Work Phone: [facility] Work Phone: Start: 11-09-2024 End: 11-09-[address] Aidan Bright MD -Laboratory Work Phone: Start: 11-09-2024 End: 11-09-2024 ambulatory Aidan Bright Facility:[facility] Start: 11-01-2024 End: 11-04-2024 ambulatory Aidan Bright MD Work Phone: Internal [facility] [place] [phone] Start: 10-18-2024 End: 11-04-2024 Telephone encounter Aidan Bright MD Work Phone: [facility] Comment on above: Results; Orders Start: 09-24-2024 End: 09-24-[address] Aidan Bright MD Work Phone: [facility] Work Phone: Start: 09-24-2024 End: 09-24-2024 Patient encounter procedure CHERI DEMPSEY -MRI - [facility] Work Phone: Start: 09-24-2024 End: 09-24-2024 ambulatory [facility] Facility:[facility] Start: 08-15-2024 End: 08-15-2024 ambulatory [facility] Facility:[facility] Start: 08-15-2024 End: 08-15-2024 Patient encounter procedure Cheri Torres APRN.[employer] Work Phone: [facility] Comment on above: Class 1 obesity with serious comorbidity and body mass index (BMI) of 31.0 to 31.9 in adult, unspecified obesity type (Primary Dx); Metatarsalgia of right foot; Neuroma; At high risk for cardiovascular disease; Hyperinsulinemia; Prediabetes; Encounter for immunization Start: 07-12-2024 Encounter for genera l adult medical examination without abnormal findings [facility] Start: 06-24-2024 End: 06-29-2024 Telephone encounter Cheri Torres APRN.[employer] Work Phone: [facility] Comment on above: Results Start: 06-23-2024 End: 06-23-2024 Patient encounter procedure CHERI TORRES NP-C -Laboratory Work Phone: Start: 06-22-2024 End: 06-22-2024 Patient encounter procedure Cheri Torres MANAGER ATHLETICS.[employer] Work Phone: Internal [facility] Comment on above: Essential hypertensi on (Primary Dx); Prediabetes; Class 2 severe obesity with serious comorbidity and body mass index (BMI) of 35.0 to 35.9 in adult, unspecified obesity type (HCC); Numbness in feet; Annual physical exam; Herpes simplex labialis Start: 06-22-2024 End: 06-23-2024 ambulatory [facility] Facility:[facility] Start: 05-23-2024 End: 05-23-2024 ambulatory John Mckeon Facility:[facility] Start: 04-19-2024 End: 04-19-2024 ambulatory Aidan [facility] Facility:[facility] Start: 04-19-2024 End: 04-19-2024 ambulatory [facility] Facility:[facility] Start: 03-28-2024 End: 03-28-2024 Telephone encounter Aidan Bright MD Work Phone: [facility] Comment on above: Results Refill Request Start: 03-09-2024 ambulatory Jeremias Benjaminmtvera [facility] Start: 03-09-2024 End: 03-09-2024 ambulatory [facility] Facility:[facility] Start: 02-08-2024 End: 02-08-2024 Telephone encounter Cheri Torres APRN.CNP Work Phone: [facility] [place] Comment on above: Orders Start: 02-03-2024 End: 02-03-2024 Patient encounter procedure Cheri Torres APRN.CNP Work Phone: [facility] [place] Comment on above: Prediabetes (Primary Dx); Essential hypertension; Other sleep apnea; Numbness in feet; Right foot pain Start: 01-05-2024 ambulatory Aidan Gutierrez Work Phone: [facility] [place] [id number] Start: 10-30-2023 End: 10-30-2023 Office outpatient new 30 minutes Marcus Nunez MD Work Phone: [facility] Comment on above: Benign non-nodular p rostatic hyperplasia with lower urinary tract symptoms (Primary Dx); Screening for prostate cancer Start: 10-30-2023 ambulatory SELF SELF Facility:[facility] Start: 09-17-2023 Telephone encounter Aidan aquino MD Work Phone: [facility] [place] Comment on above: Patient concern Start: 09-17-2023 End: 09-17-2023 Emergency department patient visit [facility]gency Department Work Phone: Start: 08-11-2023 Telephone encounter Cheri Older MANAGER ATHLETICS.[employer] Work Phone: [facility] Comment on above: Results Start: 08-10-2023 End: 08-10-2023 [facility] Work Phone: Start: 08-10-2023 End: 08-10-2023 Patient encounter procedure [facility]-Laboratory Work Phone: Start: 08-10-2023 Telephone encounter Cheri Older MANAGER ATHLETICS.[employer] Work Phone: [facility] Comment on above: Orders Start: 07-15-2023 End: 07-15-2023 Patient encounter procedure Cheri Older MANAGER ATHLETICS.[employer] Work Phone: [facility] Comment on above: Increased urinary fr equency (Primary Dx); Essential hypertension; Prediabetes; Mixed hyperlipidemia; Other sleep apnea; Reactive depression; Situational anxiety; Insomnia, unspecified type Start: 07-13-2023 End: 07-13-2023 [facility] Work Phone: Start: 07-13-2023 End: 07-13-2023 Patient encounter procedure [facility]-Laboratory Work Phone: Start: 07-02-2023 Patient Msg Linda Veloz MA [facility] Comment on above: Your PCP has placed lab orders for your upcoming appointment Start: 06-30-2023 ambulatory Aidan Gutierrez Work Phone: [facility] Start: 05-01-2023 End: 05-01-2023 ambulatory Cheri Older MANAGER ATHLETICS.[employer] Work Phone: [facility] Comment on above: Reactive depression (Primary Dx); Situational anxiety; Insomnia, unspecified type; Parent coping with child illness or disability; Dependent family member needing care at home Start: 05-01-2023 End: 05-01-2023 Telemedicine consultation with patient Cheri Older MANAGER ATHLETICS.[employer] Work Phone: [facility] Start: 04-22-2023 Telephone encounter Cheri Older MANAGER ATHLETICS.[employer] Work Phone: [facility] [place] Comment on above: Patient Question Start: 04-09-2023 End: 04-09-2023 Patient encounter procedure Cheri Older MANAGER ATHLETICS.[employer] Work Phone: [facility] [place] Comment on above: Essential hypertensi on (Primary Dx); Numbness of toes; Situational anxiety Start: 03-24-2023 ambulatory Aidan Gutierrez Work Phone: Internal [facility] Start: 02-04-2023 End: 02-04-2023 Patient encounter procedure Cheri Older MANAGER ATHLETICS.[employer] Work Phone: [facility] [place] Comment on above: Herpes zoster withou t complication (Primary Dx); Essential hypertension Start: 01-29-2023 End: 01-29-2023 Patient encounter procedure Cheri Older MANAGER ATHLETICS.[employer] Work Phone: [facility] [place] Comment on above: Herpes zoster withou t complication (Primary Dx) Start: 10-22-2022 Telephone encounter Aidan aquino MD Work Phone: [facility] [place] Comment on above: Medication Request Start: 09-25-2022 Patient Msg [facility] Provider [facility] Comment on above: Your primary care ph ysician has placed lab orders for your upcoming appointment. Start: 09-24-2022 Telephone encounter Aidan aquino MD Work Phone: [facility] [place] Comment on above: Medication Question Start: 09-23-2022 ambulatory Aidan Gutierrez Work Phone: [facility] Start: 07-28-2022 Non-patient / Non-visit Dr. Ted Bright Work Phone: [facility] Start: 07-28-2022 End: 07-28-[address] Aidan Bright Work Phone: [facility] Work Phone: Start: 07-28-2022 End: 07-28-[address] Aidan Bright Work Phone: [facility] Start: 06-20-2022 Non-patient / Non-visit Dr. Ted Bright Work Phone: [facility] Start: 06-20-2022 End: 06-20-[address] Aidan Bright Work Phone: [facility] Work Phone: Start: 06-20-2022 End: 06-20-[address] Aidan Bright Work Phone: [facility] Start: 06-11-2022 End: 06-11-[address] Aidan Bright Work Phone: [facility] Start: 04-12-2022 End: 04-12-2022 ambulatory [facility] Work Phone: Start: 04-12-2022 End: 04-12-2022 Patient encounter procedure [facility]Labor[facility] Start: 04-11-2022 End: 04-11-2022 Patient encounter procedure Aidan Bright MD Work Phone: [facility] [place] Comment on above: Chronic cough (Prima ry Dx); Neurocardiogenic syncope; Essential hypertension; Mixed hyperlipidemia Start: 01-23-2022 End: 01-23-[address] Aidan Bright Work Phone: [facility] Work Phone: Start: 01-23-2022 End: 01-23-[address] Aidan Bright Work Phone: [facility]-Laboratory, Specimen Start: 01-13-2022 End: 01-13-2022 Patient encounter procedure Aidan Bright MD Work Phone: [facility] [place] Comment on above: Other sleep apnea (P rimary Dx); Essential hypertension Start: 01-07-2022 Refill Aidan Gutierrez Work Phone: [facility] [place] Comment on above: Refill Request Start: 12-12-2021 End: 12-12-[address] [facility] Start: 11-09-2021 End: 11-09-[address] Aidan Bright Work Phone: [facility] Start: 08-19-2021 End: 08-19-[address] [facility] Start: 08-08-2021 End: 08-08-[address] Aidan [facility] Start: 07-10-2021 End: 07-10-[address] [facility] Start: 06-21-2021 End: 06-21-[address] Aidan [facility] Start: 06-13-2021 End: 06-13-[address] Aidan [facility] Start: 05-31-2021 End: 05-31-[address] Aidan [facility] Start: 05-31-2021 End: 05-31-[address] Aidan Bright Work Phone: [facility] Start: 05-13-[address] [facility] Start: 05-11-[address] [facility] Start: 12-26-2012 End: 12-26-2012 Patient encounter status Aidan Bright MD Work Phone: [facility] Start: 07-22-2012 Patient encounter procedure Aidan Bright MD Work Phone: [facility] Procedures Date Procedure Procedure Detail Performing Clinician Start: 12-28-2024 MRI of lumbar spine Dr. Aidan Bright MD Work Phone: Start: 09-24-2024 MRI of lower extremity Dr. Aidan Bright MD Work Phone: Start: 06-23-2024 Measurement of renal function Dr. Aidan Bright MD Work Phone: Comment on above: GFR Calc Start: 10-30-2023 Urnls dip stick/tabl et rgnt auto w/o microscopy Marcus Nunez MD Work Phone: Start: 09-17-2023 Computed tomography of abdomen and pelvis with intravenous contrast Start: 07-15-2023 Urnls dip stick/tabl et rgnt auto w/o microscopy Cheri Torres MANAGER ATHLETICS.[employer] Work Phone: Start: 07-28-2022 CT angiography of co ronary arteries Dr. Aidan Bright Work Phone: Start: 01-13-2022 Adult depression scr eening assessment Aidan Bright MD Work Phone: Start: 02-15-2021 Colonoscopy Aidan aquino MD Work Phone: Start: 12-06-2018 Adult depression scr eening assessment Aidan Bright MD Work Phone: Start: 09-21-2017 Lipid 1996 panel - S elbert or Plasma Cheri Torres MANAGER ATHLETICS.[employer] Work Phone: Viral antigen assay Dr. Jomar Bright Work Phone: Plan of Treatment Date Care Activity Detail Author Start: 10-10-2032 Tetanus vaccination [facility] Start: 10-10-2032 Urine microalbumin profile [facility] Start: 01-23-2031 COLORECTAL CANCER SCREENING COLORECTAL CANCER SCREENING [facility] Comment on above: Postponed from 10/15 (Postponed To Appropriate Date) Start: 01-23-2031 Screening for malign ant neoplasm of colon [facility]orectal Cancer Screening [facility] [facility] Comment on above: Postponed from 10/15 (Postponed To Appropriate Date) Start: 11-14-2025 Annual PCP Team Rx Specialist jessica Disease Visit Annual PCP Team Chronic Disease Visit [facility] Start: 08-15-2025 Annual PCP Team Rx Specialist jessica Disease Visit Annual PCP Team Chronic Disease Visit [facility] Start: 08-15-2025 Hepatitis C screening Hepatitis C Sc angus [facility] Comment on above: Postponed from 10/15 (Declined at this time) Start: 08-15-2025 HIV screening HIV Screening [facility] Comment on above: Postponed from 10/15 (Declined at this time) Start: 06-22-2025 Annual PCP Team Rx Specialist jessica Disease Visit Annual PCP Team Chronic Disease Visit [facility] Start: 02-14-2025 End: 02-14-2025 Patient encounter procedure 02/14/2025 3:40 PM EDT Office Visit [facility] [address] [place] [address] Kamilah Mir MD [address] [place], [place] [id number] Back Pain [facility] Comment on above: Back Pain Start: 02-13-2025 End: 02-13-2025 Patient encounter procedure 02/13/2025 3:20 PM EDT Office Visit [facility] [place] [address] [place] [address] Cheri Torres APRN.[employer]ATE [address] [place], [place] [id number] 3 month follow up [facility] [place] Comment on above: 3 month follow up Start: 02-02-2025 Annual PCP Team Rx Specialist jessica Disease Visit Annual PCP Team Chronic Disease Visit [facility] Start: 02-02-2025 Hepatitis B Vaccine (1 of 3 - 19+ 3-dose series) Hepatitis B Vaccine (1 of 3 - 19+ 3-dose series) [facility] Comment on above: Postponed from 10/15 (Declined at this time) Start: 01-31-2025 End: 05-02-2025 Lipid 1996 panel - Serum or Plasma LIPID PANEL, FASTING Lab Routine Hyperlipidemia, unspecified hyperlipidemia type Expected: 01/31/2025, Expires: 05/02/[address] [facility] Work Phone: Comment on above: Expected: 01/31/2025 , Expires: 05/02/2025 Start: 01-23-2025 Influenza vaccination [facility] Start: 11-21-2024 Influenza vaccination Influenza Vacc ine (#1) [facility] Comment on above: Postponed from 01/23 (Declined at this time) Start: 11-15-2024 End: 02-14-2025 Basic metabolic 2000 panel - Serum or Plasma BASIC METABOLIC PANEL Lab Routine Prediabetes Expected: 11/15/2024 (Approximate), Expires: 02/14/2025 [facility] Comment on above: Expected: 11/15/2024 (Approximate), Expires: 02/14/2025 Start: 11-15-2024 End: 02-14-2025 Hemoglobin A1c in Blood HEMOGLOBIN A1C Lab Routine Prediabetes Expected: 11/15/2024 (Approximate), Expires: 02/14/2025 [facility] Comment on above: Expected: 11/15/2024 (Approximate), Expires: 02/14/2025 Start: 11-14-2024 End: 11-14-2024 Patient encounter procedure 11/14/2024 3:20 PM EDT Office Visit [facility] [place] [address] [place], [place] [id number] Cheri Torres APRN.[employer]ATE [address] [place] [address] 3 month follow up [facility] [place] Comment on above: 3 month follow up Start: 11-01-2024 End: 01-31-2025 Lipid 1996 panel - Serum or Plasma LIPID PANEL, FASTING Lab Routine Essential hypertension Expected: 11/01/2024, Expires: 01/31/[address] [facility] Work Phone: Comment on above: Expected: 11/01/2024 , Expires: 01/31/2025 Start: 10-29-2024 Prostate specific antigen measurement PROSTATE CANCER SCREENING DISCUSSION [facility] Start: 08-10-2024 End: 08-10-2024 Patient encounter procedure 08/10/2024 4:20 PM EDT Office Visit [facility] [place] [address] [place] [address] Cheri Torres APRN.[employer] MATE [address] [place] [address] 6 month follow up [facility] [place] Comment on above: 6 month follow up Start: 08-03-2024 End: 08-03-2024 Patient encounter procedure 08/03/2024 4:00 PM EDT Office Visit [facility] [place] [address] [place] [place] [address] Cheri Torres APRN.[employer]ATE [address] [place] [place] [address] 6 month follow up [facility] [place] Comment on above: 6 month follow up Start: 07-15-2024 Annual PCP Team Rx Specialist jessica Disease Visit Annual PCP Team Chronic Disease Visit [facility] Start: 06-22-2024 End: 09-21-2024 CBC panel - Blood by Automated count COMPLETE BLOOD COUNT Lab Routine Essential hypertension Prediabetes Annual physical exam Class 2 severe obesity with serious comorbidity and body mass index (BMI) of 35.0 to 35.9 in adult, unspecified obesity type (HCC) Expected: 06/22/2024, Expires: 09/21/2024 [facility] Comment on above: Expected: 06/22/2024 , Expires: 09/21/2024 Start: 06-22-2024 End: 09-21-2024 Comprehensive metabolic 2000 panel - Serum or Plasma COMPREHENSIVE METABOLIC PANEL Lab Routine Essential hypertension Prediabetes Annual physical exam Class 2 severe obesity with serious comorbidity and body mass index (BMI) of 35.0 to 35.9 in adult, unspecified obesity type (HCC) Expected: 06/22/2024, Expires: 09/21/2024 [facility] Comment on above: Expected: 06/22/2024 , Expires: 09/21/2024 Start: 06-22-2024 End: 09-21-2024 Hemoglobin A1c in Blood HEMOGLOBIN A1C Lab Routine Essential hypertension Prediabetes Annual physical exam Class 2 severe obesity with serious comorbidity and body mass index (BMI) of 35.0 to 35.9 in adult, unspecified obesity type (HCC) Expected: 06/22/2024, Expires: 09/21/2024 [facility] Comment on above: Expected: 06/22/2024 , Expires: 09/21/2024 Start: 06-22-2024 End: 09-21-2024 Lipid 1996 panel - Serum or Plasma LIPID PANEL BASIC Lab Routine Annual physical exam Class 2 severe obesity with serious comorbidity and body mass index (BMI) of 35.0 to 35.9 in adult, unspecified obesity type (HCC) Expected: 06/22/2024, Expires: 09/21/[address] [facility] Work Phone: Comment on above: Expected: 06/22/2024 , Expires: 09/21/2024 Start: 06-22-2024 End: 09-21-2024 Thyrotropin [Units/volume] in Serum or Plasma THYROID STIMULATING HORMONE Lab Routine Prediabetes Class 2 severe obesity with serious comorbidity and body mass index (BMI) of 35.0 to 35.9 in adult, unspecified obesity type (HCC) Expected: 06/22/2024, Expires: 09/21/2024 [facility] Comment on above: Expected: 06/22/2024 , Expires: 09/21/2024 Start: 05-01-2024 Annual PCP Team Rx Specialist jessica Disease Visit Annual PCP Team Chronic Disease Visit [facility] Start: 04-09-2024 Annual PCP Team Rx Specialist jessica Disease Visit Annual PCP Team Chronic Disease Visit [facility] Start: 04-09-2024 Covid-19 Vaccine ( season) Covid-19 Vaccine ( season) [facility] Comment on above: Postponed from 01/23 (Declined at this time) Start: 02-05-2024 Annual PCP Team Rx Specialist jessica Disease Visit Annual PCP Team Chronic Disease Visit [facility] Start: 01-30-2024 Annual PCP Team Rx Specialist jessica Disease Visit Annual PCP Team Chronic Disease Visit [facility] Start: 01-24-2024 Influenza vaccination [facility] Start: 01-20-2024 End: 01-20-2024 Patient encounter procedure 01/20/2024 4:00 PM EDT Office Visit [facility] [place] [address] [place] [address] Cheri Torres APRN.[employer] MATE [address] [place] [address] 6 month follow up [facility] [place] Comment on above: 6 month follow up Start: 01-05-2024 End: 04-05-2024 Basic metabolic 2000 panel - Serum or Plasma BASIC METABOLIC PANEL Lab Routine Essential hypertension Expected: 01/05/2024, Expires: 04/05/[address] [facility] Work Phone: Comment on above: Expected: 01/05/2024 , Expires: 04/05/2024 Start: 01-05-2024 End: 04-05-2024 Hemoglobin A1c in Blood HEMOGLOBIN A1C Lab Routine Prediabetes Expected: 01/05/2024, Expires: 04/05/2024 [facility] Comment on above: Expected: 01/05/2024 , Expires: 04/05/2024 Start: 01-05-2024 End: 04-05-2024 Lipid 1996 panel - Serum or Plasma LIPID PANEL BASIC Lab Routine Mixed hyperlipidemia Expected: 01/05/2024, Expires: 04/05/2024 [facility] Comment on above: Expected: 01/05/2024 , Expires: 04/05/2024 Start: 11-22-2023 Influenza vaccination Influenza Vacc ine (#1) [facility] Comment on above: Postponed from 01/23 (Declined at this time) Start: 10-11-2023 ANNUAL PCP TEAM ANIMAL PATHOLOGIST JESSICA DISEASE VISIT ANNUAL PCP TEAM CHRONIC DISEASE VISIT [facility] Start: 10-11-2023 COVID-19 VACCINE (3 - Booster for Leeroy series) COVID-19 VACCINE (3 - Booster for Leeroy series) [facility] Comment on above: Postponed from 07/24 (Declined at this time) Start: 10-11-2023 HEPATITIS B (1 of 3 - 3-dose series) HEPATITIS B (1 of 3 - 3-dose series) [facility] Comment on above: Postponed from 10/15 (Declined at this time) Start: 10-11-2023 Hepatitis B Vaccine (1 of 3 - 19+ 3-dose series) Hepatitis B Vaccine (1 of 3 - 19+ 3-dose series) [facility] Comment on above: Postponed from 10/15 (Declined at this time) Start: 10-11-2023 Hepatitis B Vaccine (1 of 3 - 3-dose series) Hepatitis B Vaccine (1 of 3 - 3-dose series) [facility] Comment on above: Postponed from 10/15 (Declined at this time) Start: 10-11-2023 HEPATITIS C SCREENING HEPATITIS C [facility] Comment on above: Postponed from 10/15 (Declined at this time) Start: 10-11-2023 Hepatitis C screening Hepatitis C [facility] Comment on above: Postponed from 10/15 (Declined at this time) Start: 10-11-2023 HIV SCREENING HIV SCREENING [facility] Comment on above: Postponed from 10/15 (Declined at this time) Start: 10-11-[address] HIV [address] HIV Screening [facility] Comment on above: Postponed from 10/15 (Declined at this time) Start: 10-11-2023 SHINGRIX VACCINE (1 of 2) SHINGRIX VACCINE (1 of 2) [facility] Comment on above: Postponed from 10/15 (Declined at this time) Start: 09-17-2023 [facility] Start: 09-17-2023 End: 09-17-2023 Blood culture [facility] Start: 09-17-2023 [facility] Start: 09-17-2023 Bacteria identified in Blood by Culture Blood Culture [facility] Start: 09-17-2023 Bacteria identified in Urine by Culture [facility] Start: 07-15-2023 End: 10-14-2023 Prostate specific Ag [Mass/volume] in Serum or Plasma PSA/PROSTSPECAG DIAG Lab Routine Increased urinary frequency Expected: 07/15/2023, Expires: 10/14/[address] [facility] Work Phone: Comment on above: Expected: 07/15/2023 , Expires: 10/14/2023 Start: 06-30-2023 End: 09-29-2023 Basic metabolic 2000 panel - Serum or Plasma BASIC METABOLIC PNL Lab Routine Essential hypertension Expected: 06/30/2023, Expires: 09/29/[address] [facility] Work Phone: Comment on above: Expected: 06/30/2023 , Expires: 09/29/2023 Start: 06-30-2023 End: 09-29-2023 Hemoglobin A1c in Blood HGB A1C Lab Routine Medication management Expected: 06/30/2023, Expires: 09/29/[address] [facility] Work Phone: Comment on above: Expected: 06/30/2023 , Expires: 09/29/2023 Start: 06-30-2023 End: 09-29-2023 Lipid 1996 panel - Serum or Plasma LIPID PANEL BASIC Lab Routine Essential hypertension Expected: 06/30/2023, Expires: 09/29/[address] [facility] Work Phone: Comment on above: Expected: 06/30/2023 , Expires: 09/29/2023 Start: 05-25-2023 Behavioral Health Screening Behavioral Health Screening [facility] Start: 05-25-2023 Depression Assessment Depression Ass essment [facility] Start: 04-11-2023 ANNUAL PCP TEAM ANIMAL PATHOLOGIST JESSICA DISEASE VISIT ANNUAL PCP TEAM CHRONIC DISEASE VISIT [facility] Start: 03-24-2023 End: 06-23-2023 Basic metabolic 2000 panel - Serum or Plasma BASIC METABOLIC PNL Lab Routine Essential hypertension Expected: 03/24/2023, Expires: 06/23/[address] [facility] Work Phone: Comment on above: Expected: 03/24/2023 , Expires: 06/23/2023 Start: 03-24-2023 End: 06-23-2023 Hemoglobin A1c in Blood HGB A1C Lab Routine Medication management Expected: 03/24/2023, Expires: 06/23/[address] [facility] Work Phone: Comment on above: Expected: 03/24/2023 , Expires: 06/23/2023 Start: 03-24-2023 End: 06-23-2023 Lipid 1996 panel - Serum or Plasma LIPID PANEL BASIC Lab Routine Essential hypertension Expected: 03/24/2023, Expires: 06/23/[address] [facility] Work Phone: Comment on above: Expected: 03/24/2023 , Expires: 06/23/2023 Start: 01-23-2023 Covid-19 Vaccine () Covid-19 Vaccine () [facility] Start: 01-23-2023 Influenza vaccination [facility] Start: 01-13-2023 Adult depression screening assessment DEPRESSION SCREENING [facility] Start: 01-13-2023 ANNUAL PCP TEAM ANIMAL PATHOLOGIST JESSICA DISEASE VISIT ANNUAL PCP TEAM CHRONIC DISEASE VISIT [facility] Start: 09-23-2022 End: 11-23-2022 Basic metabolic 2000 panel - Serum or Plasma BASIC METABOLIC PNL Lab Routine Essential hypertension Expected: 09/23/2022, Expires: 11/23/[address] [facility] Work Phone: Comment on above: Expected: 09/23/2022 , Expires: 11/23/2022 Start: 09-23-2022 End: 11-23-2022 CBC panel - Blood by Automated count CBC Lab Routine Medication management Expected: 09/23/2022, Expires: 11/23/[address] [facility] Work Phone: Comment on above: Expected: 09/23/2022 , Expires: 11/23/2022 Start: 09-23-2022 End: 11-23-2022 Hemoglobin A1c in Blood HGB A1C Lab Routine Medication management Expected: 09/23/2022, Expires: 11/23/[address] [facility] Work Phone: Comment on above: Expected: 09/23/2022 , Expires: 11/23/2022 Start: 09-23-2022 End: 11-23-2022 Lipid 1996 panel - Serum or Plasma LIPID PANEL BASIC Lab Routine Essential hypertension Expected: 09/23/2022, Expires: 11/23/[address] [facility] Work Phone: Comment on above: Expected: 09/23/2022 , Expires: 11/23/2022 Start: 09-21-2022 Lipid 1996 panel - Serum or Plasma Lipid Screening [facility] Start: 09-21-2022 Lipid panel Lipid Screening [facility] Start: 09-21-2022 LIPID SCREEN LIPID SCREEN [facility] Start: 05-25-2022 DEPRESSION ASSESSMENT DEPRESSION ASS ESSMENT [facility] Start: 05-13-2022 ANNUAL PCP TEAM ANIMAL PATHOLOGIST JESSICA DISEASE VISIT ANNUAL PCP TEAM CHRONIC DISEASE VISIT [facility] Start: 05-13-2022 BP CONTROLLED (<130/80) BP CONTROLLE D (<130/80) [facility] Start: 04-11-2022 End: 06-11-2022 Cobalamin (Vitamin B12) [Mass/volume] in Serum or Plasma VITAMIN B12 BLOOD Lab Routine Neurocardiogenic syncope Expected: 04/11/2022, Expires: 06/11/[address] [facility] Work Phone: Comment on above: Expected: 04/11/2022 , Expires: 06/11/2022 Start: 04-11-2022 End: 06-11-2022 Comprehensive metabolic 2000 panel - Serum or Plasma COMP METABOLIC PANEL Lab Routine Neurocardiogenic syncope Expected: 04/11/2022, Expires: 06/11/[address] [facility] Work Phone: Comment on above: Expected: 04/11/2022 , Expires: 06/11/2022 Start: 04-11-2022 End: 06-11-2022 Lipid 1996 panel - Serum or Plasma LIPID PANEL BASIC Lab Routine Mixed hyperlipidemia Expected: 04/11/2022, Expires: 06/11/[address] [facility] Work Phone: Comment on above: Expected: 04/11/2022 , Expires: 06/11/2022 Start: 04-11-2022 End: 06-11-2022 Magnesium [Mass/volume] in Serum or Plasma MAGNESIUM BLD Lab Routine Neurocardiogenic syncope Expected: 04/11/2022, Expires: 06/11/[address] [facility] Work Phone: Comment on above: Expected: 04/11/2022 , Expires: 06/11/2022 Start: 04-11-2022 End: 06-11-2022 Thyrotropin [Units/volume] in Serum or Plasma TSH BLD Lab Routine Neurocardiogenic syncope Expected: 04/11/2022, Expires: 06/11/[address] [facility] Work Phone: Comment on above: Expected: 04/11/2022 , Expires: 06/11/2022 Start: 02-15-2022 Colonoscopy COLONOSCOPY [facility] Start: 02-15-2022 COLORECTAL CANCER SCREENING COLORECTAL CANCER SCREENING [facility] Start: 02-15-2022 Screening for malign ant neoplasm of colon Colonoscopy [facility] Start: 01-23-2022 Influenza vaccination INFLUENZA (#1) [facility] Start: 09-26-2021 COVID-19 VACCINE (3 - Booster for Leeroy series) COVID-19 VACCINE (3 - Booster for Leeroy series) [facility] Start: 07-24-2021 COVID-19 VACCINE (3 - Booster for Leeroy series) COVID-19 VACCINE (3 - Booster for Leeroy series) [facility] Start: 10-25-2020 COVID-19 VACCINE (2 - Booster for Leeroy series) COVID-19 VACCINE (2 - Booster for Leeroy series) [facility] Start: 2020 Pneumococcal Vaccine : 50+ (1 of 1 - PCV) Pneumococcal Vaccine: 50+ (1 of 1 - PCV) [facility] Start: 2020 SHINGRIX VACCINE (1 of 2) SHINGRIX VACCINE (1 of 2) [facility] Start: 2020 Zoster vaccine hzv l jamarcus for subcutaneous use ZOSTER (SHINGLES) VACCINE (1 of 2) [facility] Start: 09-21-2020 DIABETES SCREEN DIABETES SCREEN [facility] Start: 09-21-2020 Diabetes Screening Diabetes Screenin g [facility] Start: 12-07-2019 Adult depression screening assessment DEPRESSION SCREENING [facility] Start: 10-12-2017 Urine microalbumin profile DTAP,TDAP,TD (2 - Td or Tdap) [facility] Start: 10-16-2015 COLOGUARD (FIT-DNA) COLOGUARD (FIT-D NA) [facility] Start: 10-16-[address] COLONOGRAPHY [facility] Start: 10-16-2015 FECAL OCCULT BLOOD FECAL OCCULT BLOO D [facility] Start: 10-16-2015 Screening for malign ant neoplasm of colon [facility] Start: 10-16-[address] [facility] Start: 2010 Lipid panel LIPID SCREENING [facility] Start: 1989 Hepatitis B vaccination HEP B VACCINE (1 of 3 - 19+ 3-dose series) [facility] Start: 1989 Hepatitis B Vaccine (1 of 3 - 19+ 3-dose series) Hepatitis B Vaccine (1 of 3 - 19+ 3-dose series) [facility] Start: 1988 Anxiety Screening Anxiety Screening [facility] Start: 1988 BP CONTROLLED (<130/80) BP CONTROLLE D (<130/80) [facility] Start: 1988 Depression Screening Depression Scre [facility] Start: 1988 HEPATITIS C SCREENING HEPATITIS C [facility] Start: 1988 Hepatitis C screening Hepatitis C [facility] Start: 1988 HIV SCREENING HIV SCREENING [facility] Start: 1988 HIV screening HIV Screening [facility] Start: 1985 HIV screening HIV SCREENING DISCUSSI ON [facility] Start: 1970 HEPATITIS B (1 of 3 - 3-dose series) HEPATITIS B (1 of 3 - 3-dose series) [facility] Start: 1970 Hepatitis C screening HEPATITI S C VIRUS SCREENING [facility] CT angiography of coronary arteries [facility] End: 04-09-2024 EMG(NEURO/NI) EMG(NEURO/NI) EMG Routine Numbness of toes 1 Occurrences starting 04/09/2023 until 04/09/[address] [facility] Work Phone: Comment on above: 1 Occurrences starti ng 04/09/2023 until 04/09/2024 End: 02-02-2025 EMG(NEURO/NI) EMG(NEURO/NI) EMG Routine Numbness in feet 1 Occurrences starting 02/03/2024 until 02/02/2025 [facility] Comment on above: 1 Occurrences starti ng 02/03/2024 until 02/02/2025 End: 02-07-2025 EMG(NEURO/NI) EMG(NEURO/NI) EMG Routine Numbness in feet 1 Occurrences starting 02/08/2024 until 02/07/[address] [facility] Work Phone: Comment on above: 1 Occurrences starti ng 02/08/2024 until 02/07/2025 End: 09-14-2025 MR Foot - right WO contrast MRI FOOT/TOES WO IVCON RIGHT Radiology Routine Metatarsalgia of right foot Neuroma 1 Occurrences starting 08/15/2024 until 09/14/[address] [facility] Work Phone: Comment on above: 1 Occurrences starti ng 08/15/2024 until 09/14/2025 End: 12-21-2025 MR Lumbar spine WO contrast MRI LUMBAR SPINE WO IVCON Radiology Routine Radiculopathy due to lumbar intervertebral disc disorder Radiculopathy of lumbar region 1 Occurrences starting 11/21/2024 until 12/21/[address] [facility] Work Phone: Comment on above: 1 Occurrences starti ng 11/21/2024 until 12/21/2025 End: 12-28-2025 MR Lumbar spine WO contrast MRI LUMBAR SPINE WO IVCON Radiology Routine Chronic midline low back pain, unspecified whether sciatica present Radiculopathy due to lumbar intervertebral disc disorder Radiculopathy of lumbar region Numbness in feet 1 Occurrences starting 11/28/2024 until 12/28/[address] [facility] Work Phone: Comment on above: 1 Occurrences starti ng 11/28/2024 until 12/28/2025 Patient Education [facility] Work Phone: Patient referral [facility] Work Phone: End: 10-31-2023 NE POST VOID RESIDUAL NE POST VOID RESIDUAL NE - OFFICE PERFORMED Routine Benign non-nodular prostatic hyperplasia with lower urinary tract symptoms Once a week for 1 Occurrences starting 10/30/2023 until 10/31/2023 [facility] Comment on above: Once a week for 1 Oc currences starting 10/30/2023 until 10/31/2023 End: 05-08-2024 Radex spine lumbosacral 2/3 views XR LUMBAR GENERAL 3V AP/LAT/L5-S1 Radiology Routine Numbness of toes 1 Occurrences starting 04/09/2023 until 05/08/[address] [facility] Work Phone: Comment on above: 1 Occurrences starti ng 04/09/2023 until 05/08/2024 End: 03-04-2025 XR Lumbar spine 3 Views XR LUMBAR GENERAL 3V AP/LAT/L5-S1 Radiology Routine Numbness in feet 1 Occurrences starting 02/03/2024 until 03/04/[address] [facility] Work Phone: Comment on above: 1 Occurrences starti ng 02/03/2024 until 03/04/2025 [facility] Immunizations Immunization Date Immunization Notes Care Provider 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.[employer] Work Phone: [facility] 10-10-2022 tetanus toxoid, redu pete diphtheria toxoid, and acellular pertussis vaccine, adsorbed Aidan Bright MD Work Phone: [facility] Work Phone: 03-05-2021 influenza, seasonal, injectable Aidan Bright MD Work Phone: [facility] 03-05-2021 influenza virus vaccine, unspecified formulation Cheri Torres MANAGER 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.[employer] Work Phone: [facility] 10-13-2007 tetanus toxoid, redu pete diphtheria toxoid, and acellular pertussis vaccine, adsorbed Aidan Bright MD Work Phone: [facility] Work Phone: Payers Date Payer Category Payer [facility] BLUE CARD PPO OOS [id number] 2024 Self-pay [id number] 2012 Unknown [id number] 2012 Unknown [id number] 2010 Unknown [id number] 1970 Unknown [id number] Unknown [id number] .462 Unknown [id number] .462 Unknown [id number] .462 Unknown [id number] .462 Unknown [id number] .462 Unknown [id number] .462 Unknown [id number] .462 Unknown [id number] .462 Unknown [id number] .462 Unknown [id number] .462 Unknown [id number] .462 Social History Date Type Detail Facility Start: 03-06-2021 End: 09-17-2023 Tobacco smoking status WVIS Unknown if ever smoked [facility] Start: 09-26-2020 None [facility] Start: 09-26-2020 Non-smoker [facility] Start: 1970 Sex Assigned At Male [facility] Start: 11-15-2010 End: 09-17-2023 Tobacco smoking status NHIS Never smoked tobacco [facility] Work Phone: Start: 11-15-2010 End: 10-30-2023 Tobacco use and exposure Smokeless tobacco non-user [facility] Work Phone: Start: 05-13-2021 End: 11-14-2024 Alcohol intake Current drinker of alcohol (finding) [facility] Start: 1970 Sex Assigned At Not on file [facility] Start: 12-28-2021 End: 01-13-2022 Exposure to SARS-CoV-2 (event) Not sure [facility] Start: 04-07-2022 History SDOH Alcohol Frequency 5 [facility] Start: 04-07-2022 History SDOH Alcohol Std Drinks 1 [facility] Start: 04-07-2022 History SDOH Social Connections Get Together 2 [facility] Start: 04-07-2022 History SDOH Social Connections Living 3 [facility] Start: 04-07-2022 History SDOH Stress 4 [facility] Start: 04-07-2022 End: 10-10-2022 History of Social function [facility] Start: 04-07-2022 End: 10-10-2022 Social connection and isolation panel [facility] Do you belong to any clubs or organizations such as protestant groups, unions, fraternal or athletic groups, or school groups? Yes [facility] Are you now , , , , never or living with a partner? [facility] How often to you hav e a drink containing alcohol? 4 or more times a week [facility] How many standard dr inks containing alcohol do you have on a typical day? 1 or 2 [facility] How often do you hav e 6 or more drinks on 1 occasion? Never [facility] Start: 04-25-2012 How hard is it for you to pay for the very basics like food, housing, medical care, and heating Not hard at all [facility] Do you feel stress - tense, restless, nervous, or anxious, or unable to sleep at night because your mind is troubled all the time - these days [OSQ] Rather much [facility] (I/We) worried ajay er (my/our) food would run out before (I/we) got money to buy more. Never true [facility] In the past 12 month s, was there a time when you were not able to pay the mortgage or rent on time? No [facility] How often to you hav e a drink containing alcohol? 2-4 times a month [facility] Do you feel stress - tense, restless, nervous, or anxious, or unable to sleep at night because your mind is troubled all the time - these days [OSQ] To some extent [facility] Start: 10-30-2023 Alcoholic beverage intake Ex-drinker (finding) [facility] Start: 09-30-2023 Gender identity Identifies as male gender (finding) [facility] Start: 09-30-2023 Sexual orientation Heterosexual (finding) [facility] Functional Status Date Assessment Result Facility 12-29-2014 Are you deaf, or do you have serious difficulty hearing No 12/29/2014 3:36 PM Tonie Tong RN No [facility] 12-29-2014 Are you blind, or do you have serious difficulty seeing, even when wearing glasses No 12/29/2014 3:36 PM Tonie Tong RN No [facility] 12-29-2014 Do you have serious difficulty walking or climbing stairs No 12/29/2014 3:36 PM Tonie Tong RN No [facility] 12-29-2014 Do you have difficul ty dressing or bathing No 12/29/2014 3:36 PM Tonie Tong RN No [facility] 12-29-2014 Because of a physica l, mental, or emotional condition, do you have difficulty doing errands alone such as visiting a physician's office or shopping No 12/29/2014 3:36 PM EDT Tonie Desir RN No [facility] Mental Status Date Assessment Result Facility 07-28-2022 Cognitive function Voice/Name [facility] Work Phone: 12-29-2014 Because of a physica l, mental, or emotional condition, do you have serious difficulty concentrating, remembering, or making decisions No 12/29/2014 3:36 PM EDT Tonie Desir RN No [facility] Clinical Notes 12-26-2012 to 02-14-2025 Maira Dickinson PA-C - 01/20/2025 11:40 AM EDTTetRoger hinson - 01/11/2025 2:27 PM EDTTelephone Clau Veloz RN - 11/30/2024 8:49 AM EDTPatient InstructionsPatient Instructions Note Date & Type Note Facility 02-14-2025 Note HNO ID: [id number] Author: KAMILAH MIR MD Service: ? Author Type: Physician Type: Progress Notes Filed: 02/14/2025 20:20 Note Text: [facility] Neurological Dwarf - [facility] NEW VISIT PROGRESS NOTE CHIEF COMPLAIN low back pain x 40 year right anterior foot ,toes numbness 1 year 4-5months lateral left foot numbness REQUESTED BY: Self Roger Mason was seen by Kamilah Mir MD on 02/14/2025. HPI: Roger Mason is a pleasant 54 year old male referred by Self for evaluation of a complaint of back pain. The pain has been present for Roger Mason is a 54-year-old male presenting for evaluation of bilateral foot numbness and intermittent back pain. He is accompanied by his , who provides additional history. Roger reports experiencing constant numbness in both feet for over a year, which began in the right foot and spread to the left foot after 4-5 months. The numbness is described as a sensation of his socks being bunched up around his toes and affects the entire foot, including the bottom. He does not endorse any pain, burning, or tingling sensations. The numbness is present 100% of the time and does not vary throughout the day. He has not experienced any issues with walking, running, or playing sports. Roger has a history of intermittent back pain, which he describes as coming and going. He does not believe that the back pain is related to the numbness in his feet, as the numbness is constant regardless of the presence or severity of back pain. He has not undergone physical therapy for his back pain. Roger has tried various treatments for the numbness, including a cream prescribed by a foot and ankle clinic and a therapy involving a device that applied pressure to his legs. These treatments provided temporary relief during application but did not result in any lasting improvement. He has not tried any other medications or treatments for the numbness. Roger has a history of pre-diabetes, with an A1c of 6.4% in June. He started taking Zepbound in June and has since lost weight, going from 255 lbs to 205-210 lbs. His most recent A1c was 5.6%. He does not endorse any other medical conditions, such as thyroid issues. He is not taking any other medications for weight loss. Roger has undergone various diagnostic tests, including nerve studies, x-rays of his feet, MRIs of his feet, and x-rays of his back. The nerve study was reportedly normal. He has also tried special fitted insoles recommended by a patient service rep, but these did not alleviate the numbness. 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 He does not engage in much physical labor due to union regulations. He does not endorse any issues with his hands or fingers. Past Diagnostic Results: Imaging - MRI Feet: Normal. - X-ray Feet: Normal. - X-ray Back: Normal. Tests - Nerve Study: Normal. PT - blood sugar issues last year lost 50 lbs emg shows bilateral sural neuropathy ROS: 14 systems reviewed and otherwise negative unless mentioned above. PROMIS Score Percentiles 04/07/2022 04/09/2023 PROMIS Global Health Scale Physical Health Percentile 31 31 31 41 Mental Health Percentile 9 9 9 19* Multiple values from one day are sorted in reverse-chronological order Percentiles provide an indication of how the patient's score ranks in relation to the general population. Higher percentile rankings indicate better function/quality of life. 50th percentile is the average of the general population and indicates half of respondents had a worse score. Depression Screenin02/13/2025 PHQ-9 Score 0 02/13/2025 PHQ-9 Self-harm Question Question 9 Not at all PHQ-9 Self-Harm (Item 9) response options: 0 Not at all 1 Several days 2 More than half the days 3 Nearly every day PHQ-9 Levels: 0-4 No - mild depression 5-9 Mild depression 10-14 Moderate depression 15-19 Moderately severe depression 20-27 Severe depression ACTIVE PROBLEM LIST Sterilization Essential Hypertension Encounter for Annual Health Examination PAST MEDICAL HISTORY Diagnosis Date Unspecified essential hypertension 10/04/2007 PAST SURGICAL HISTORY Procedure Laterality Date EXC VARICOCELE/LIGATION SPERMATIC VEINS SPX 2006 Variocele repair LAPS SURG CHOLECSTC W/EXPL COMMON DUCT 06-22-12 [facility] 2006 SOCIAL HISTORY[1] FAMILY HISTORY Problem Relation Age of Onset Heart Father enlarged heart Hypertension Mother ALLERGIES Allergen Reactions Lisinopril Cough Zithromax Z-Ender [Az* GI Upset CURRENT MEDICATIONS: amLODIPine (NORVASC) 5 mg tablet Take 1 tablet by mouth once daily. tirzepatide, weight loss (ZEPBOUND) 5 mg/0.5 mL pen injector Inject 5 mg subcutaneously one time a week. valACYclovir (VALTREX) 1 gram tablet Take by mouth. 2 tablets twice a day CPAP Initiate (more content not included)... [facility] 02-14-2025 Note HNO ID: [id number] Author: KAMILAH MIR MD Service: ? Author Type: Physician Type: Progress Notes Filed: 02/14/2025 20:20 Note Text: AMB ROOMING INTAKE FLOWSHEET DATA Risk Screening Do you have concerns about personal safety or safety in the home?: No Pain Pain Level: 6 Pain Location: Back-Lower (Left side.) Description: Aching, Burning Duration Amount of Time: 40 Duration Units: Years (Intertmittent episodes of pain.) Frequency: (Back pain is intermittent - numbness is constant.) Intervention/Comfort measure: Positioning, Reposition, Relaxation, Medication Comments: He has been to PT for his feet. He has seen chiropractor. He tried insoles for the numbness. He has left sided low back pain that radiates to his hip. His right foot has been niumb for aboutr a year. Left foot just starting to get numb. He has more numbness is feet than pain in his back. He has tried many modalities to decrease the foot numbness. Rasheeda Mcdonald LPN [facility] 02-13-2025 Note HNO ID: [id number] Author: CHERI TORRES APRN.[employer] Service: ? Author Type: Nurse Practitioner Type: Progress Notes Filed: 02/13/2025 16:03 Note Text: CC: Patient presents with: Recheck: 3 month follow up HPI Roger Mason is a 54 year old male who presents today for follow up. Recording using [employer] Park[employer] software for draft documentation of the visit was discussed with the patient/authorized account service representative; all questions welcomed and answered. Patient/authorized account service representative agreed to proceed Prediabetes: - Recent A1c was 5.6%; prior to tirzepatide, A1c was 6.2%. - Fasting glucose was 94 mg/dL; - Roger denies increased thirst, hunger, or urination. HTN: - Roger denies chest pain, dyspnea, edema, palpitations, or headaches. - Roger has not been checking blood pressure at home. - taking medication as ordered Weight Management: - Current BMI is greater then 29. - Roger lost 2 lbs since last visit. - Roger is tolerating tirzepatide well; no nausea or abdominal pain unless consuming large meals after prolonged fasting. - Bowel movements are regular. - Roger engages in regular physical activity, including playing pickleball and using the gym facilities on a recent cruise. - Roger's diet includes high-protein, low-fat foods. REVIEW OF SYSTEMS See HPI PAST MEDICAL HISTORY Diagnosis Date Unspecified essential hypertension 10/04/2007 PAST SURGICAL HISTORY Procedure Laterality Date EXC VARICOCELE/LIGATION SPERMATIC VEINS SPX 2006 Variocele repair LAPS SURG CHOLECSTC W/EXPL COMMON DUCT 06-22-12 [facility] VASECTOMY 2007 ALLERGIES Lisinopril and Zithromax Z-Ender [Azithromycin] MEDICATIONS amLODIPine (NORVASC) 5 mg tablet Take 1 tablet by mouth once daily. tirzepatide, weight loss (ZEPBOUND) 5 mg/0.5 mL pen injector Inject 5 mg subcutaneously one time a week. valACYclovir (VALTREX) 1 gram tablet Take by mouth. 2 tablets twice a day CPAP Initiate Auto PAP @ 7-15 cm of water with humidification. Mask (per patient preference) optional chin strap (if indicated) , filters, tubing, humidifier and lifetime supplies. FAMILY HISTORY Problem Relation Age of Onset Heart Father enlarged heart Hypertension Mother SOCIAL HISTORY[1] PHYSICAL EXAM BP 130/84 Pulse 60 Resp 16 Wt 95.3 kg (210 lb) SpO2 98% BMI 29.56 kg/m? General Appearance: well appearing, in no acute distress, alert Lungs: Lungs clear to auscultation. No wheezing, rhonchi, rales. Heart: RRR without murmur, gallop, or rubs. No ectopy Abdomen: Abdomen soft, non-tender. Bowel sounds normal. No masses, organomegaly Health maintenance reviewed with patient: Depression Screening Never done Anxiety Screening Never done Hepatitis B Vaccine(1 of 3 - 19+ 3-dose series) Never done Diabetes Screening due on 09/21/2020 Shingrix Vaccine(1 of 2) Never done Lipid Screening due on 09/21/2022 Hepatitis C Screening due on 08/15/2025 HIV Screening due on 08/15/2025 Influenza Vaccine(1) due on 11/21/2025 Colorectal Cancer Screening due on 01/23/2031 Annual PCP Team Chronic Disease Visit due on 02/13/2026 DTaP,Tdap,Td Vaccine(3 - Td or Tdap) due on 10/10/2032 Pneumococcal Vaccine: 50+ Completed DATA REVIEWED: Most recent labs Assessment/Plan 1. Essential hypertension (I10) 2. At high risk for cardiovascular disease (Z91.89) - controlled - will further improve with further weight loss and continued healthy lifestyle choices - No chest pain, shortness of breath, edema, palpitations, or headaches reported. - Encouraged regular home BP monitoring. - Advised continuation of regular physical activity. 3. Prediabetes (R73.03) 4. Hyperinsulinemia (E16.1) 5. BMI 29.0-29.9,adult (Z68.29) - Significant improvement in glycemic control and lipid profile since initiation of tirzepatide in June. - Most recent labs: HbA1c 5.6% (previously 6.2%), fasting glucose 94 mg/dL (previously 120 mg/dL), total cholesterol 186 mg/dL (previously 215 mg/dL), triglycerides 80 mg/dL (previously 131 mg/dL), HDL 47 mg/dL (previously 44 mg/dL), LDL 123 mg/dL (previously 145 mg/dL). - Weight loss ongoing; BMI currently 29. - Increase tirzepatide dose to 5 mg. - Advised to monitor for side effects and report any issues with medication tolerance. - Provided dietary counseling: encouraged high-protein, low-fat diet; advised moderation with high-fat foods (e.g., butter, steak). - Discussed goal BMI <27; will consider reducing tirzepatide dose to 2.5 mg for maintenance once target weight is achieved. - Follow-up in 3 months. Prescription instructions reviewed with patient as applicable. Potential red flag symptoms discussed with the patient. Reviewed appropriate action plan to take if red flag symptoms occur. Patient agreeable to treatment plan. Cheri Torres APRN.[employer] [1] Social History Tobacco Use Smoking status: Never Smokeless tobacco: Never Substance Use Topics Alcohol use: Yes Comment: occasion (more content not included)... [facility] 01-31-2025 Note Patient Outreach (IN TMMN) ROGER MASON ([id number]) 1970 M Date Time Provider Department 01/31/25 AIDAN BRIGHT During your visit today, we recorded the following information about you: Allergies As of Date: 01/31/2025 Noted Allergy Reaction LISINOPRIL 01/09/2009 3 - Cough ZITHROMAX Z-ENDER (AZITHROMYCIN) 08/11/2007 8 - GI Upset Date Reviewed: 11/14/2024 Reviewed by: Cheri Torres APRN.[employer] - Fully Assessed Visit Diagnosis:Hyperlipidemia, unspecified hyperlipidemia type [E78.5] Order(s):LIPID PANEL, FASTING [SQLIPB] Order #: [id number] FUTURE Prescriptions as of 02/03/2025 - tirzepatide, weight loss (ZEPBOUND) 2.5 mg/0.5 mL pen injector Inject 2.5 mg subcutaneously one time a week. - valACYclovir (VALTREX) 1 gram tablet Take by mouth. 2 tablets twice a day - amLODIPine (NORVASC) 5 mg tablet Take 1 tablet by mouth once daily. - CPAP Initiate Auto PAP @ 7-15 cm of water with humidification. Mask (per patient preference) optional chin strap (if indicated) , filters, tubing, humidifier and lifetime supplies. 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 Author Type: Physician Loss Control Consultant Type: Progress Notes Filed: 01/20/2025 11:42 Note Text: Based on imaging report without significant narrowing and no mention of CMT, recommend that patient start with evaluation with our medical spine team. [facility] 01-20-2025 History of Presen t illness Narrative Based on imaging report without significant narrowing and no mention of CMT, recommend that patient start with evaluation with our medical spine team. Patient name: Roger Mason Are you being referred by a [facility] Provider or Pain Management Provider at [facility]? No If answer is YES please schedule directly with surgeon, triage does not need to be completed. Is this a self-referral No If not, who is the Referring Provider Is this a 2nd opinion from another spine surgeon? Yes Were you offered surgery? Yes MRI/CT/myelogram within 12 months? Yes If NO, please refer to medical spine or PCP to complete above imaging, triage does not need to be completed If YES, please ask for the name/address of the facility where the MRI/CT/myelogram was completed: [facility] [address] [place] [address] MRI/CT/myelogram viewable in Epic: No If not, please provide [phone] to fax in imaging reports for review. Also, please inform patient to hand carry imaging disc to appointment. XR (spine) within 12 months: No If YES, please ask for the name/address of the facility where the XR was completed: Dr. Damian's patients: Have you had previous EMG/Nerve Conduction Study, Ultrasound, or MRI for these same symptoms? If YES, please ask for the name/address of the facility where they were completed: Requested provider (First and Last name): Dr. Miguel Are you interested in a virtual visit if offered? No 1. Where are you having symptoms related to this visit? Back pain Yes - lower back pain has hard time bending over and getting up from a sitting position. Leg pain No Arm pain No Neck pain No 2. Are you having any of the following symptoms: Difficulty walking Yes Numbness Yes both feet and toes Weakness No Trouble using your hands? No 3. What is your height? 5'9 What is your weight? 210 4. Are you a current smoker? No 5. Have you had any injections or physical therapy in the last 12 months? No If YES then please ask for the name/address of the facility where the injections and/or physical therapy was completed Have you tried any other kinds of non-surgical treatments in the last 12 months? (For example: NSAIDS, muscle relaxants, analgesics, oral steroids, Chiropractor, Acupuncture): NO 6. Are you currently taking daily prescribed narcotic medications for your current symptoms (For example Oxycodone, Hydrocodone, Tramadol, Morphine, Other)? No 7. Have you had previous spinal surgery for this same symptoms? No If YES please ask for the name of facility/address of where the surgery was completed: Additional Comments: C/B # [phone] documented in this encounter [facility] 01-11-2025 Note HNO ID: [id number] Author: ?, ?, ? Service: ? Author Type: ? Type: Progress Notes Filed: 01/20/2025 11:42 Note Text: Patient name: Roger Mason Are you being referred by a [facility] Provider or Pain Management Provider at [facility]? No If answer is YES please schedule directly with surgeon, triage does not need to be completed. Is this a self-referral No If not, who is the Referring Provider Is this a 2nd opinion from another spine surgeon? Yes Were you offered surgery? Yes MRI/CT/myelogram within 12 months? Yes If NO, please refer to medical spine or PCP to complete above imaging, triage does not need to be completed If YES,? please ask for the name/address of the facility where the MRI/CT/myelogram was completed: [address] [address] MRI/CT/myelogram viewable in Epic: No If not, please provide [phone] to fax in imaging reports for review. Also, please inform patient to hand carry imaging disc to appointment. XR (spine) within 12 months: No If YES,? please ask for the name/address of the facility where the XR was completed: Dr. Damian's patients: Have you had previous EMG/Nerve Conduction Study, Ultrasound, or MRI for these same symptoms? If YES,? please ask for the name/address of the facility where they were completed: Requested provider (First and Last name): Dr. Miguel Are you interested in a virtual visit if offered? No 1. Where are you having symptoms related to this visit? Back pain Yes - lower back pain has hard time bending over and getting up from a sitting position. Leg pain No Arm pain No Neck pain No 2. Are you having any of the following symptoms: Difficulty walking Yes Numbness Yes both feet and toes Weakness No Trouble using your hands? No 3. What is your height? 5'9 What is your weight? 210 4. Are you a current smoker? No 5. Have you had any injections or physical therapy in the last 12 months? No If YES then please ask for the name/address of the facility where the injections and/or physical therapy was completed Have you tried any other kinds of non-surgical treatments in the last 12 months? (For example: NSAIDS, muscle relaxants, analgesics, oral steroids, Chiropractor, Acupuncture): NO 6. Are you currently taking daily prescribed narcotic medications for your current symptoms (For example Oxycodone, Hydrocodone, Tramadol, Morphine, Other)? No 7. Have you had previous spinal surgery for this same symptoms? No If YES? please ask for the name of facility/address of where the surgery was completed: Additional Comments: C/B # [phone] [facility] 11-30-2024 Telephone encounter Note Patient's calls and requests order to be faxed to [facility] Central Scheduling. Order faxed as requested. Clau Booker RN [facility] 11-30-2024 Miscellaneous Notes Patient's calls and requests order to be faxed to [facility] Central Scheduling. Order faxed as requested. Clau Booker RN Order placed. Please let patient know so order can be printed and faxed to [facility] as patient has to have diagnostics completed there due to insurance. Thank you Cheri Torres APRN.[employer] Patient needs MRI placed for back before Dr. Julián Moreno Neurologist will see him. Please place order. Rasheeda Sanchez LPN documented in this encounter [facility] 11-28-2024 Telephone encounter Note Order placed. Please let patient know so order can be printed and faxed to [facility] as patient has to have diagnostics completed there due to insurance. Thank you Cheri Torres APRN.CHARLES [facility] 11-28-2024 Telephone encounter Note Patient needs MRI placed for back before Dr. Julián Moreno Neurologist will see him. Please place order. Rasheeda Sanchez LPN [facility] 11-21-2024 Telephone encounter Note Pt informed. Advised pt to check with insurance regarding coverage. Brittany Goldsmith MA [facility] 11-21-2024 Miscellaneous Notes Pt informed. Advised pt to check with insurance regarding coverage. Brittany Goldsmith MA I ordered the test Please see it if will be covered Aidan Toure MD Spouse (Michelle) calls to notify provider that they are not able to schedule an appointment with Dr. Julián Miguel until they have results of MRI of back to take with them to an appointment. Michelle reports that she was not able to come to appointment on 11/14/2024 with Cheri but was under the impression that it was supposed to be taken care of at that time. Michelle voices frustration that provider won't order the MRI of back. Patient was instructed to follow up with Dr. Boateng and Michelle reports that patient is not seeing Dr. Boateng as they wouldn't do anything for him previously. Patient asking if Dr. Bright would order the MRI of back for on-going foot numbness since Cheri is out until 11/28/2024. Patient last seen by Dr. Bright on 04/11/2022. Please review and adviseJose RN documented in this encounter [facility] 11-21-2024 Telephone encounter Note I ordered the test Please see it if will be covered Aidan Toure MD [facility] 11-21-2024 Telephone encounter Note Spouse (Michelle) calls to notify provider that they are not able to schedule an appointment with Dr. Julián Miguel until they have results of MRI of back to take with them to an appointment. Michelle reports that she was not able to come to appointment on 11/14/2024 with Cheri but was under the impression that it was supposed to be taken care of at that time. Michelle voices frustration that provider won't order the MRI of back. Patient was instructed to follow up with Dr. Boateng and Michelle reports that patient is not seeing Dr. Boateng as they wouldn't do anything for him previously. Patient asking if Dr. Bright would order the MRI of back for on-going foot numbness since Cheri is out until 11/28/2024. Patient last seen by Dr. Bright on 04/11/2022. Please review and advise, Jose Billingsley RN [facility] 11-14-2024 Instructions OlderCheri APRN.[employer]ATE - 11/14/2024 3:48 PM EDT - Continue ZepBound (tirzepatide) 2.5 mg at the current dose; refill has been sent to your pharmacy. - Continue Valtrex (valacyclovir); refill has been sent to [facility]. - Continue amlodipine 5 mg each morning; monitor your blood pressure at home aiming for readings in the 120s/70s range or lower. Limit salt in your diet. - Maintain a healthy diet with portion control, less fried food, no soda, and adequate protein to support muscle and heart health. - Keep up your physical activity: yard work is great--add structured exercise such as basement workouts and bike riding. - Use the inversion table for back stretch but limit sessions to 1-2 minutes at a time with someone nearby; stop if you feel dizzy or nauseous. - Review your lab results: Hemoglobin A1c improved from 6.2% to 5.8% Total cholesterol down from 215 to 180 mg/dL Triglycerides down from 131 to 71 mg/dL LDL decreased from 145 to 125 mg/dL Continue monitoring these values as part of your ongoing care. - If you experience any chest pain, worsening shortness of breath, dizziness, or other new symptoms, contact the office right away. - Follow up with Dr. Boateng (spine/pain) to arrange an MRI of your back to evaluate the cause of your foot numbness. - Schedule your next clinic visit in about three months to reassess your weight-loss treatment and medication dosing. documented in this encounter [facility] 11-14-2024 Note HNO ID: [id number] Author: CHERI TORRES APRN.CHARLES Service: ? Author Type: Nurse Practitioner Type: Progress Notes Filed: 11/14/2024 16:05 Note Text: CC: Patient presents with: Yearly Exam HPI Roger Mason is a 54 year old male who presents today for annual exam. Recording using [employer] Park[employer] software for draft documentation of the visit was discussed with the patient/authorized account service representative; all questions welcomed and answered. Patient/authorized account service representative agreed to proceed Annual Wellness Exam: - Engages in outdoor activities and yard work; plans to start indoor exercise and biking. - Follows a healthy diet, avoiding fried foods and soda, focusing on portion control. - No recurrent infections, fever, chills, cough, or wheezing. Weight Loss: - Currently on Zepbound 2.5 mg. - Weight reduced from 255 lbs to 212 lbs since July. - Initial mild nausea, now resolved; denies abdominal pain, constipation, diarrhea, or emesis. Prediabetes: - Recent HbA1c improved to 5.8% from 6.2%. - Fasting blood sugar levels normal. - Denies polyuria, polydipsia, polyphagia, or new paresthesia. - No episodes of hypoglycemia. Hyperlipidemia: - Total cholesterol improved from 215 to 180 mg/dL. - Triglycerides decreased from 131 to 71 mg/dL. - HDL remains in the 40s. - LDL reduced from 145 to 125 mg/dL. Hypertension: - Managed with amlodipine 5 mg daily. - Home BP readings: 120s-130s/80s mmHg. - Denies chest pain or dyspnea. Foot Numbness: - Persistent numbness in the foot. - Recent MRI of the foot showed no evidence of neuroma as suspected by neurology. - Previous nerve testing showed no abnormalities. - Has been using special insoles and new shoes as recommended by podiatry, gone to direct care staffer, and had physical therapy with no improvement of symptoms. - has not followed up with Dr. Boateng spine/alon as instructed for no improvement. REVIEW OF SYSTEMS General: no fevers, no [...] No history of dysuria, frequency or incontinence Endocrine: no fatigue, no polyuria, no polyphagia, and no polydipsia Neurologic: No headache, weakness, numbness, tingling, dizziness, memory loss, syncope. PAST MEDICAL HISTORY Diagnosis Date Unspecified essential hypertension 10/04/2007 PAST SURGICAL HISTORY Procedure Laterality Date EXC VARICOCELE/LIGATION SPERMATIC VEINS SPX 2006 Variocele repair LAPS SURG CHOLECSTC W/EXPL COMMON DUCT 06-22-12 [facility] VASECTOMY 2007 ALLERGIES Lisinopril and Zithromax Z-Ender [Azithromycin] MEDICATIONS tirzepatide, weight loss (ZEPBOUND) 2.5 mg/0.5 mL pen injector Inject 2.5 mg subcutaneously one time a week. valACYclovir (VALTREX) 1 gram tablet Take by [...] use: Yes Comment: occasional PHYSICAL EXAM BP 130/82 Pulse 80 Resp 16 Ht 179.5 cm (5' 10.67) Wt 96.2 kg (212 lb) SpO2 97% BMI 29.85 kg/m? General Appearance: well appearing, in no acute distress, alert Pysch: mood and affect broad and appropriate Eyes: conjunctiva pink and moist, no icterus, sclera white, non-injected Neck: Thyroid normal size and symmetric without palpable nodules, Neck supple, No adenopathy Lymph nodes: No cervical lymphadenopathy and No supraclavicular lymphadenopathy Lungs: Lungs clear to auscultation. No wheezing, rhonchi, rales. Heart: RRR without murmur, gallop, or rubs. No ectopy Abdomen: Abdomen soft, non-tender. Bowel sounds normal. No masses, organomegaly Health maintenance reviewed with patient: Depression Screening Never done Anxiety Screening Never done Diabetes Screening due on 09/21/2020 Shingrix Vaccine(1 of 2) Never done Lipid Screening due on 09/21/2022 Hepatitis B Vaccine(1 of 3 - 19+ 3-dose series) due on 02/02/2025 Hepatitis C Screening due on 08/15/2025 HIV Screening due on 08/15/2025 Colorectal Cancer Screening due on 01/23/2031 Influenza Vaccine(Season Ended) due on 01/23/2025 Annual PCP Team Chronic Disease Visit due on 11/14/2025 DTaP,Tdap,Td Vaccine(3 - Td or Tdap) due on 10/10/2032 Pneumococcal Vaccine: 50+ Completed Covid-19 Vaccine Discontinued DATA REVIEWED: Most recent labs Assessment/Plan (more content not included)... [facility] 11-14-2024 History of Presen t illness Narrative CC: Patient presents with: Yearly Exam HPI Roger Mason is a 54 year old male who presents today for annual exam. Recording using [employer] Park[employer] software for draft documentation of the visit was discussed with the patient/authorized account service representative; all questions welcomed and answered. Patient/authorized account service representative agreed to proceed Annual Wellness Exam: - Engages in outdoor activities and yard work; plans to start indoor exercise and biking. - Follows a healthy diet, avoiding fried foods and soda, focusing on portion control. - No recurrent infections, fever, chills, cough, or wheezing. Weight Loss: - Currently on Zepbound 2.5 mg. - Weight reduced from 255 lbs to 212 lbs since July. - Initial mild nausea, now resolved; denies abdominal pain, constipation, diarrhea, or emesis. Prediabetes: - Recent HbA1c improved to 5.8% from 6.2%. - Fasting blood sugar levels normal. - Denies polyuria, polydipsia, polyphagia, or new paresthesia. - No episodes of hypoglycemia. Hyperlipidemia: - Total cholesterol improved from 215 to 180 mg/dL. - Triglycerides decreased from 131 to 71 mg/dL. - HDL remains in the 40s. - LDL reduced from 145 to 125 mg/dL. Hypertension: - Managed with amlodipine 5 mg daily. - Home BP readings: 120s-130s/80s mmHg. - Denies chest pain or dyspnea. Foot Numbness: - Persistent numbness in the foot. - Recent MRI of the foot showed no evidence of neuroma as suspected by neurology. - Previous nerve testing showed no abnormalities. - Has been using special insoles and new shoes as recommended by podiatry, gone to direct care staffer, and had physical therapy with no improvement of symptoms. - has not followed up with Dr. Boateng spine/pain as instructed for no improvement. REVIEW OF SYSTEMS General: no fevers, no [...] No history of dysuria, frequency or incontinence Endocrine: no fatigue, no polyuria, no polyphagia, and no polydipsia Neurologic: No headache, weakness, numbness, tingling, dizziness, memory loss, syncope. PAST MEDICAL HISTORY Diagnosis Date Unspecified essential hypertension 10/04/2007 PAST SURGICAL HISTORY Procedure Laterality Date EXC VARICOCELE/LIGATION SPERMATIC VEINS SPX 2006 Variocele repair LAPS SURG CHOLECSTC W/EXPL COMMON DUCT 06-22-12 [facility] VASECTOMY 2006 ALLERGIES Lisinopril and Zithromax Z-Ender [Azithromycin] MEDICATIONS tirzepatide, weight loss (ZEPBOUND) 2.5 mg/0.5 mL pen injector Inject 2.5 mg subcutaneously one time a week. valACYclovir (VALTREX) 1 gram tablet Take by [...] use: Yes Comment: occasional PHYSICAL EXAM BP 130/82 Pulse 80 Resp 16 Ht 179.5 cm (5' 10.67) Wt 96.2 kg (212 lb) SpO2 97% BMI 29.85 kg/m General Appearance: well appearing, in no acute distress, alert Pysch: mood and affect broad and appropriate Eyes: conjunctiva pink and moist, no icterus, sclera white, non-injected Neck: Thyroid normal size and symmetric without palpable nodules, Neck supple, No adenopathy Lymph nodes: No cervical lymphadenopathy and No supraclavicular lymphadenopathy Lungs: Lungs clear to auscultation. No wheezing, rhonchi, rales. Heart: RRR without murmur, gallop, or rubs. No ectopy Abdomen: Abdomen soft, non-tender. Bowel sounds normal. No masses, organomegaly Health maintenance reviewed with patient: Depression Screening Never done Anxiety Screening Never done Diabetes Screening due on 09/21/2020 Shingrix Vaccine(1 of 2) Never done Lipid Screening due on 09/21/2022 Hepatitis B Vaccine(1 of 3 - 19+ 3-dose series) due on 02/02/2025 Hepatitis C Screening due on 08/15/2025 HIV Screening due on 08/15/2025 Colorectal Cancer Screening due on 01/23/2031 Influenza Vaccine(Season Ended) due on 01/23/2025 Annual PCP Team Chronic Disease Visit due on 11/14/2025 DTaP,Tdap,Td Vaccine(3 - Td or Tdap) due on 10/10/2032 Pneumococcal Vaccine: 50+ Completed Covid-19 Vaccine Discontinued DATA REVIEWED: Most recent labs Assessment/Plan 1. Annual physical exam (Z00.00) - Completed annual physical exam. - No new concerns at this time. States he feels great 2. BMI 29.0-29.9,adult (Z68.29) 3. At high risk for cardiovascular disease (Z91.89) - Significant weight loss from 255 lbs to 212 lbs achieved with Zepbound 2.5 mg. - No adverse effects from Zepbound; continue current dosage. - Encouraged continuation of healthy diet and exercise. - Follow-up in 3 months to reassess weight and medication dosage. 4. Essential hypertension (I10) - controlled - Blood pressure readings at home in the upper 120s to 130s over mid-80s. - Continue amlodipine 5 mg daily. - Advised to monitor salt intake and maintain exercise regimen. 5. Prediabetes (R73.03) 6. Hyperinsulinemia (E16.1) - Hemoglobin A1c improved from 6.2% to 5.8%. - Fasting blood sugar levels normal. - No symptoms of hypoglycemia, polyuria, polydipsia, or polyphagia. - Continue current management and follow-up in 3 months. 7. 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 Prescription instructions reviewed with patient as applicable. Potential red flag symptoms discussed with the patient. Reviewed appropriate action plan to take if red flag symptoms occur. Patient agreeable to treatment plan. Cheri Torres APRN.CNP documented in this encounter [facility] 11-04-2024 Telephone encounter Note Spoke to on 11/14 has appointment in office will keep and discuss than Daysi Anderson MA [facility] 11-04-2024 Miscellaneous Notes Spoke to on 11/14 has appointment in office will keep and discuss than Daysi Anderson MA Unfortunately he will need to come in for full exam and documentation for insurance to make sure this is covered. Thank you Cheri Torres APRN.CNP Patient's calls back and states that she had contacted Dr. Julián Miguel office with [facility] Neurology. states that this is where patient would like to go. states that this office is requiring PCP to order the MRI of Back. asking if provider can order this and fax order to [facility]. requesting to be notified if able to place order and when order is faxed to [facility]. Please review and advise, Clau Booker RN Left detailed message on 's secure VM. I agree, but with normal xrays, I would like him to see a neurologist for further examination prior to anymore diagostic studies. I have placed the order. Please fax consult to wherever they need it sent Thank you Cheri Torres APRN.CHARLES Pt's last OV: 08/15/24 calls in regards to MRI of right foot done at [facility] on 09/24/24(results scanned in pt's chart). reports she had wanted MRI of pt's back also. is requesting results of Mri of foot. Also requesting MRI of pt's back because issues with lower back can cause numbness in feet. Please review and advise. Juana Reece LPN documented in this encounter [facility] 11-04-2024 Telephone encounter Note Unfortunately he will need to come in for full exam and documentation for insurance to make sure this is covered. Thank you Cheri Torres APRN.CHARLES [facility] 11-01-2024 Telephone encounter Note Patient's calls back and states that she had contacted Dr. Julián Miguel office with [facility]. states that this is where patient would like to go. states that this office is requiring PCP to order the MRI of Back. asking if provider can order this and fax order to [facility]. requesting to be notified if able to place order and when order is faxed to [facility]. Please review and advise, Clau Booker RN [facility] 11-01-2024 Note Patient Outreach (IN TMMN) ROGER MASON ([id number]) 1970 M Date Time Provider Department 11/01/24 AIDAN BRIGHT During your visit today, we recorded the following information about you: Allergies As of Date: 11/01/2024 Noted Allergy Reaction LISINOPRIL 01/09/2009 3 - Cough ZITHROMAX Z-ENDER (AZITHROMYCIN) 08/11/2007 8 - GI Upset Date Reviewed: 08/15/2024 Reviewed by: Vesta Lorenzo MA - Fully Assessed Visit Diagnosis:Essential hypertension [I10] Order(s):LIPID PANEL, FASTING [SQLIPB] Order #: [id number] FUTURE Prescriptions as of 11/04/2024 - tirzepatide, [...] at [facility]*12/26/2012 12/26/2012 Encounter Status:Closed by AIDEE DÍAZ on 11/04/24 [facility] 10-21-2024 Telephone encounter Note Left detailed message on 's secure VM. [facility] 10-21-2024 Telephone encounter Note I agree, but with normal xrays, I would like him to see a neurologist for further examination prior to anymore diagostic studies. I have placed the order. Please fax consult to wherever they need it sent Thank you Cheri Torres, MANAGER ATHLETICS.[employer] [facility] 10-18-2024 Telephone encounter Note Pt's last OV: 08/15/24 calls in regards to MRI of right foot done at [facility] on 09/24/24(results scanned in pt's chart). reports she had wanted MRI of pt's back also. is requesting results of Mri of foot. Also requesting MRI of pt's back because issues with lower back can cause numbness in feet. Please review and advise. Juana Reece LPN [facility] 08-15-2024 Instructions Cheri Torres APRN.CNP - 08/15/2024 3:16 PM EDT Check with insurance regarding if shingles vaccine is covered. documented in this encounter [facility] 08-15-2024 Note HNO ID: [id number] Author: CHERI TORRES APRN.CNP Service: ? Author [...] LAPS SURG CHOLECSTC W/EXPL COMMON DUCT 06-22-12 [facility] VASECTOMY 2006 ALLERGIES Lisinopril and Zithromax [...] Patient agreeable to treatment plan. Cheri Torres APRN.[facility] 08-15-2024 History of Presen t illness Narrative [...] LAPS SURG CHOLECSTC W/EXPL COMMON DUCT 06-22-12 [facility] VASECTOMY 2006 ALLERGIES Lisinopril and Zithromax [...] Cheri Torres APRN.CNP documented in this encounter [facility] 06-28-2024 Telephone encounter Note PA approve Authorized from May 28, 2024 to February 22, 2025 Information received electronically from payer Patient was notified of approval going to check to see how much with [facility] and will call let us know if needs re-sent Daysi Anderson MA [facility] 06-28-2024 Miscellaneous Notes PA approve Authorized from May 28, 2024 to February 22, 2025 Information received electronically from payer Patient was notified of approval going to check to see how much with [facility] and will call let us know if needs re-sent Daysi Anderson MA PA submitted for zepbound Daysi Anderson MA Filed Aidan Toure MD Before PA can be done zepbound [...] formulary meds available : NO Insurance Company: [employer] Insurance Company phone number: [phone] Patient insurance ID number: rx card: [id number] - BS card: [id number] Patient would like called when this is completed. Rasheeda Montes De Oca LPN Patient returned call and given provider's message below with verbalized understanding. Patient agreeable to try the phentermine, since it is covered by insurance, he thinks. Left message for return call. Results received and reviewed from [facility]. Cholesterol slightly elevated and [id number] remains in prediabetic range at 6.2. Weight [...] to try? Thank you Cheri Torres APRN.CHARLES documented in this encounter [facility] 06-27-2024 Telephone encounter Note PA submitted for zepbound Daysi Anderson MA [facility] 06-27-2024 Telephone encounter Note Filed Aidan Toure MD [facility] 06-27-2024 Telephone encounter Note Before PA can be done zepbound need sent no rx on file Daysi Anderson MA [facility] 06-24-2024 Telephone encounter Note patient return called and spoke with his insurance co. Insurance co informed him that with prior auth injectable medication is covered at a 90 supply. patient is asking to have the injectable prior auth completed. PRIOR AUTHORIZATION Medication for Prior Authorization: injectable weight loss medication Other formulary meds available : NO Insurance Company: [employer] ([employer] Insurance Company phone number: [phone] Patient insurance ID number: rx card: [id number] - [employer] card: [id number] Patient would like called when this is completed. Rasheeda Montes De Oca LPN [facility] 06-24-2024 Telephone encounter Note Patient returned call and given provider's message below with verbalized understanding. Patient agreeable to try the phentermine, since it is covered by insurance, he thinks. [facility] 06-24-2024 Telephone encounter Note Left message for return call. [facility] 06-24-2024 Telephone encounter Note Results received and reviewed from [facility]. Cholesterol slightly elevated and [id number] remains in prediabetic range at 6.2. Weight [...] like to try? Thank you Cheri Torres APRN.[employer] [facility] 06-22-2024 Note HNO ID: [id number] Author: CHERI TORRES APRN.[employer] MATE Service: ? Author Type: Nurse Practitioner Type: [...] LAPS SURG CHOLECSTC W/EXPL COMMON DUCT 06-22-12 [facility] VASECTOMY 2007 ALLERGIES Lisinopril and Zithromax [...] feet - ICD9: 782.0, ICD10: R20.0 Call patient service rep for further evaluation 5. Annual physical exam - ICD9: V70.0, ICD10: Z00.00 Not discussed today, blood work ordered to be reviewed at next appointment. - LIPID PANEL BASIC - COMPLETE BLOOD COUNT - COMPREHENSIVE METABOLIC PANEL - HEMOGLOBIN A1C 6. Herpes simplex labialis - (more content not included)... [facility] 06-22-2024 History of Presen t illness Narrative [...] LAPS SURG CHOLECSTC W/EXPL COMMON DUCT 06-22-12 [facility] VASECTOMY 2007 ALLERGIES Lisinopril and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 Additional Instructions If you develop fever nausea vomiting worsening pain or have any concerns please return to emergency. I recommend following up with urology.-Please see referral aboveWMarietta [facility] Work Phone: Reason for referral (narrative)* Outpatient Procedure (Routine) - Pending Review Specialty Diagnoses / Procedures Referred By Contac t Referred To Contact [facility] Diagnoses Numbness of toes Procedures EMG(NEURO/NI) NERVE CONDUCTION STUDIES 9-10 STUDIES Cheri Torres APRN.[employer] [address] [place] [address] [facility] [address] [place] [address] Referral ID Status Reason Start Date Expiration Date Visits Requested Visits Authorized [id number] Pending Review Auto-Generat ed Referral 3 04/09/2024 1 1 * Diagnostic Procedure Only (Routine) - Pending Review Specialty Diagnoses / Procedures Referred By Contac t Referred To Contact XR IMAGING Diagnoses Numbness of toes Procedures XR LUMBAR GENERAL 3V AP/LAT/L5-S1 RADEX SPINE LUMBOSACRAL 2/3 VIEWS Cheri Torres APRN.[employer] [address] [place] [address] Xr Imaging [facility] Referral ID Status Reason Start Date Expiration Date Visits Requested Visits Authorized [id number] Pending Review Auto-Generat ed Referral 3 05/08/2024 1 1 [facility] for referral (narrative)* Outpatient Procedure (Routine) - New Request Specialty Diagnoses / Procedures Referred By Contac t Referred To Contact [facility] Diagnoses Numbness in feet Procedures EMG(NEURO/NI) NERVE CONDUCTION STUDIES 9-10 STUDIES Cheri Torres APRN.CNP [address] [place] [address] [facility] [address] [place] [address] Referral ID Status Reason Start Date Expiration Date Visits Requested Visits Authorized [id number] New Request Auto-Generat ed Referral 02/08/2024 02/07/2025 1 1 [facility]No reason for referral information availableWMarietta Memorial Hospital Work Phone: Chief Complaint and Reason for Visit Chief Complaint COVID TEST FELIPA, ARIN APPROVED ADD ON; LM 2 SEVERE FELIPA; LM 08/14 Chief Complaint SEVERE [...] FOOT METATARSALGIA September 24, 2024 7 :03am Chief Complaint Admit Date RIGHT FOOT METATARSALGIA September 24, 2024 7 :03am LABS November 09, 2024 2:50 pm Chief Complaint Admit Date RIGHT FOOT METATARSALGIA September 24, 2024 7 :03am LABS November 09, 2024 2:50 pm LUMBAR RAD December 28, 2024 2:2 1pm Chief Complaint Admit Date LABS November 09, 2024 2:50 pm LUMBAR RAD December 28, 2024 2:2 1pm Family History No Family History Records Found [...] No February 12, 2021 8:41am Power of Drywall Hanger Framer No January 8:41am Advance Directive Response Recorded Date/ Time Living Will No February 12, 2021 7:41am Power of Drywall Hanger Framer No January 7:41am Advance Directive Response Recorded Date/ Time Living Will No September 17, 2023 1:46pm Power of Drywall Hanger Framer No September 16 1:46pm Summary Purpose Reason for Referral Specialty Diagnoses / Procedures Referred By Contac t Referred To Contact Podiatry Diagnoses Numbness in feet Procedures CONSULT TO PODIATRY OFFICE/OUTPATIENT NEW HIGH [facility] 60 MINUTES Cheri Torres APRN.[employer] [address] [place] [address] Referral ID Status Reason Start Date Expiration Date Visits Requested Visits Authorized [id number] Authorized PCP Requested Referral 02/03/2024 02/02/2025 1 1 Specialty Diagnoses / Procedures Referred By Contac t Referred To Contact [facility] Diagnoses Numbness in feet Procedures EMG(NEURO/NI) NERVE CONDUCTION STUDIES 9-10 STUDIES Cheri Torres APRN.[employer] [address] [place] [address] [facility] [address] [place] [address] Referral ID Status Reason Start Date Expiration Date Visits Requested Visits Authorized [id number] New Request Auto-Generat ed Referral 02/03/2024 02/02/2025 1 1 Specialty Diagnoses / Procedures Referred By Contac t Referred To Contact XR IMAGING Diagnoses Numbness in feet Procedures XR LUMBAR GENERAL 3V AP/LAT/L5-S1 RADEX SPINE LUMBOSACRAL 2/3 VIEWS Cheri Torres APRN.[employer] [address] [place] [address] [place] [address] Referral ID Status Reason Start Date Expiration Date Visits Requested Visits Authorized [id number] New Request Auto-Generat ed Referral 02/03/2024 03/04/2025 1 1 Specialty Diagnoses / Procedures Referred By Contac t Referred To Contact Neurology Diagnoses Sural neuropathy, unspecified laterality Numbness in feet Procedures CONSULT TO NEUROLOGY OFFICE/OUTPATIENT NEW HIGH MDM 60 MINUTES Magdalena Torresy, MANAGER [employer]THLETICS.[employer] [address] [place] [address] Referral ID Status Reason Start Date Expiration Date Visits Requested Visits Authorized [id number] Authorized PCP Requested Referral 03/28/2024 03/28/2025 1 1 Specialty Diagnoses / Procedures Referred By Contac t Referred To Contact Diagnoses Class 2 obesity with body mass index (BMI) of 35.0 to 35.9 in adult, unspecified obesity type, unspecified whether serious comorbidity present At high risk for cardiovascular disease Hyperinsulinemia Prediabetes Aidan Bright MD [address] [place] [address] Referral ID Status Reason Start Date Expiration Date V isits Requested Visits Authorized [id number] Authorized 05/28/2024 02/22/2025 1 1 Additional Source [...] or prosecute any alcohol or drug abuse patient.[facility] the event this information is protected by the Federal Confidentiality of Alcohol and Drug Abuse Patient Records regulations: The Federal rules restrict any use of the information to criminally investigate or prosecute any alcohol or drug abuse patient.[facility] HospitalIn the event this information is protected by the Federal Confidentiality of Alcohol and Drug Abuse Patient Records regulations: The Federal rules restrict any use of the information to criminally investigate or prosecute any alcohol or drug abuse patient.[facility] HospitalIn the event this information is protected by the Federal Confidentiality of Alcohol and Drug Abuse Patient Records regulations: The Federal rules restrict any use of the information to criminally investigate or prosecute any alcohol or drug abuse patient.[facility] HospitalIn the event this information is protected by the Federal Confidentiality of Alcohol and Drug Abuse Patient Records regulations: The Federal rules restrict any use of the information to criminally investigate or prosecute any alcohol or drug abuse patient.[facility] HospitalIn the event this information is protected by the Federal Confidentiality of Alcohol and Drug Abuse Patient Records regulations: The Federal rules restrict any use of the information to criminally investigate or prosecute any alcohol or drug abuse patient.[facility] HospitalIn the event this information is protected by the Federal Confidentiality of Alcohol and Drug Abuse Patient Records regulations: The Federal rules restrict any use of the information to criminally investigate or prosecute any alcohol or drug abuse patient.[facility] HospitalIn the event this information is protected by the Federal Confidentiality of Alcohol and Drug Abuse Patient Records regulations: The Federal rules restrict any use of the information to criminally investigate or prosecute any alcohol or drug abuse patient.[facility] HospitalIn the event this information is protected by the Federal Confidentiality of Alcohol and Drug Abuse Patient Records regulations: The Federal rules restrict any use of the information to criminally investigate or prosecute any alcohol or drug abuse patient.[facility] HospitalIn the event this information is protected by the Federal Confidentiality of Alcohol and Drug Abuse Patient Records regulations: The Federal rules restrict any use of the information to criminally investigate or prosecute any alcohol or drug abuse patient.[facility] HospitalIn the event this information is protected by the Federal Confidentiality of Alcohol and Drug Abuse Patient Records regulations: The Federal rules restrict any use of the information to criminally investigate or prosecute any alcohol or drug abuse patient.[facility] HospitalIn the event this information is protected by the Federal Confidentiality of Alcohol and Drug Abuse Patient Records regulations: The Federal rules restrict any use of the information to criminally investigate or prosecute any alcohol or drug abuse patient.[facility] HospitalIn the event this information is protected by the Federal Confidentiality of Alcohol and Drug Abuse Patient Records regulations: The Federal rules restrict any use of the information to criminally investigate or prosecute any alcohol or drug abuse patient.[facility] HospitalIn the event this information is protected by the Federal Confidentiality of Alcohol and Drug Abuse Patient Records regulations: The Federal rules restrict any use of the information to criminally investigate or prosecute any alcohol or drug abuse patient.[facility] HospitalIn the event this information is protected by the Federal Confidentiality of Alcohol and Drug Abuse Patient Records regulations: The Federal rules restrict any use of the information to criminally investigate or prosecute any alcohol or drug abuse patient.[facility] HospitalIn the event this information is protected by the Federal Confidentiality of Alcohol and Drug Abuse Patient Records regulations: The Federal rules restrict any use of the information to criminally investigate or prosecute any alcohol or drug abuse patient.[facility] HospitalIn the event this information is protected by the Federal Confidentiality of Alcohol and Drug Abuse Patient Records regulations: The Federal rules restrict any use of the information to criminally investigate or prosecute any alcohol or drug abuse patient.[facility] HospitalIn the event this information is protected by the Federal Confidentiality of Alcohol and Drug Abuse Patient Records regulations: The Federal rules restrict any use of the information to criminally investigate or prosecute any alcohol or drug abuse patient.[facility] HospitalIn the event this information is protected by the Federal Confidentiality of Alcohol and Drug Abuse Patient Records regulations: The Federal rules restrict any use of the information to criminally investigate or prosecute any alcohol or drug abuse patient.[facility] HospitalIn the event this information is protected by the Federal Confidentiality of Alcohol and Drug Abuse Patient Records regulations: The Federal rules restrict any use of the information to criminally investigate or prosecute any alcohol or drug abuse patient.[facility] HospitalIn the event this information is protected by the Federal Confidentiality of Alcohol and Drug Abuse Patient Records regulations: The Federal rules restrict any use of the information to criminally investigate or prosecute any alcohol or drug abuse patient.[facility] HospitalIn the event this information is protected by the Federal Confidentiality of Alcohol and Drug Abuse Patient Records regulations: The Federal rules restrict any use of the information to criminally investigate or prosecute any alcohol or drug abuse patient.[facility] HospitalIn the event this information is protected by the Federal Confidentiality of Alcohol and Drug Abuse Patient Records regulations: The Federal rules restrict any use of the information to criminally investigate or prosecute any alcohol or drug abuse patient.[facility] HospitalIn the event this information is protected by the Federal Confidentiality of Alcohol and Drug Abuse Patient Records regulations: The Federal rules restrict any use of the information to criminally investigate or prosecute any alcohol or drug abuse patient.[facility] HospitalIn the event this information is protected by the Federal Confidentiality of Alcohol and Drug Abuse Patient Records regulations: The Federal rules restrict any use of the information to criminally investigate or prosecute any alcohol or drug abuse patient.[facility] HospitalIn the event this information is protected by the Federal Confidentiality of Alcohol and Drug Abuse Patient Records regulations: The Federal rules restrict any use of the information to criminally investigate or prosecute any alcohol or drug abuse patient.[facility] HospitalIn the event this information is protected by the Federal Confidentiality of Alcohol and Drug Abuse Patient Records regulations: The Federal rules restrict any use of the information to criminally investigate or prosecute any alcohol or drug abuse patient.[facility] HospitalIn the event this information is protected by the Federal Confidentiality of Alcohol and Drug Abuse Patient Records regulations: The Federal rules restrict any use of the information to criminally investigate or prosecute any alcohol or drug abuse patient.[facility] HospitalIn the event this information is protected by the Federal Confidentiality of Alcohol and Drug Abuse Patient Records regulations: The Federal rules restrict any use of the information to criminally investigate or prosecute any alcohol or drug abuse patient.[facility] HospitalIn the event this information is protected by the Federal Confidentiality of Alcohol and Drug Abuse Patient Records regulations: The Federal rules restrict any use of the information to criminally investigate or prosecute any alcohol or drug abuse patient.[facility] HospitalIn the event this information is protected by the Federal Confidentiality of Alcohol and Drug Abuse Patient Records regulations: The Federal rules restrict any use of the information to criminally investigate or prosecute any alcohol or drug abuse patient.[facility] HospitalIn the event this information is protected by the Federal Confidentiality of Alcohol and Drug Abuse Patient Records regulations: The Federal rules restrict any use of the information to criminally investigate or prosecute any alcohol or drug abuse patient.[facility] HospitalIn the event this information is protected by the Federal Confidentiality of Alcohol and Drug Abuse Patient Records regulations: The Federal rules restrict any use of the information to criminally investigate or prosecute any alcohol or drug abuse patient.[facility] HospitalIn the event this information is protected by the Federal Confidentiality of Alcohol and Drug Abuse Patient Records regulations: The Federal rules restrict any use of the information to criminally investigate or prosecute any alcohol or drug abuse patient.[facility] HospitalIn the event this information is protected by the Federal Confidentiality of Alcohol and Drug Abuse Patient Records regulations: The Federal rules restrict any use of the information to criminally investigate or prosecute any alcohol or drug abuse patient.[facility] Reason for Visit (unrecogniz ed section [...] Medication follow up Reason Comments Results Orders Reason Comments Yearly Exam Care Teams (unrecognized sec tion and content) Retread Technician Relationship Specialty Start Date End Date Aidan Bright MD [address] [place] [address] PCP - General Internal Medicine 09/21/17 Retread Technician Relationship Specialty Start Date End Date Aidan Bright MD [address] [place] [address] PCP - General Internal Medicine 09/21/17 Team [...] MD Attending Provider, Other Provide r Active Retread Technician Relationship Specialty Start Date End Date Aidan Bright MD [address] [place] [address] PCP - General Internal Medicine 09/21/17 Retread Technician Relationship Specialty Start Date End Date Aidan Bright MD [address] [place] [address] PCP - General Internal Medicine 09/21/17 Retread Technician Relationship Specialty Start Date End Date Aidan rBight MD [address] [place] [address] PCP - General Internal Medicine 09/21/17 Retread Technician Relationship Specialty Start Date End Date Aidan Bright MD [address] [place] [address] PCP - General Internal Medicine 09/21/17 Retread Technician Relationship Specialty Start Date End Date Aidan Bright MD [address] [place] [address] PCP - General Internal Medicine 09/21/17 Retread Technician Relationship Specialty Start Date End Date Aidan Bright MD [address] [place] [address] PCP - General Internal Medicine 09/21/17 Retread Technician Relationship Specialty Start Date End Date Adian Bright MD [address] [place] [address] PCP - General Internal Medicine 09/21/17 Retread Technician Relationship Specialty Start Date End Date Aidan Bright MD [address] [place] [address] PCP - General Internal Medicine 09/21/17 Retread Technician Relationship Specialty Start Date End Date Aidan Bright MD [address] [place] [address] PCP - General Internal Medicine 09/21/17 Retread Technician Relationship Specialty Start Date End Date Aidan Bright MD [address] [place] [address] PCP - General Internal Medicine 09/21/17 Retread Technician Relationship Specialty Start Date End Date Aidan Bright MD [address] [place] [address] PCP - General Internal Medicine 09/21/17 Team Status: Inactive Member Role Status Dates Dr. Aidan Bright MD Primary Care Provider, Attending Provider Active Retread Technician Relationship Specialty Start Date End Date Aidan Bright MD [address] [facility] [place] [address] PCP - General Internal Medicine 09/21/17 Team Status: Inactive Member Role Status Dates Dr. Aidan Bright MD Primary Care Provider Active CHERI TORRES , COUNTERPERSON-C Attending Provider, Referring Provide r Active Team Status: Inactive Member Role Status Dates Dr. Aidan Bright MD Primary Care Provider Active Dr. Anuel Hawk DO Emergency Provider Active Retread Technician Relationship Specialty Start Date End Date Aidan Bright MD [address] [facility] [place] [address] PCP - General Internal Medicine 09/21/17 Retread Technician Relationship Specialty Start Date End Date Aidan Bright MD [address] [place] [address] PCP - General Internal Medicine 10/30/23 Retread Technician Relationship Specialty Start Date End Date Aidan Bright MD [address] [facility] [place] [address] PCP - General Internal Medicine 09/21/17 Retread Technician Relationship Specialty Start Date End Date Aidan Bright MD [address] [facility] [place] [address] PCP - General Internal Medicine 09/21/17 Retread Technician Relationship Specialty Start Date End Date Aidan Bright MD [address] [place] [address] PCP - General Internal Medicine 09/21/17 Retread Technician Relationship Specialty Start Date End Date Aidan Bright MD [address] [place] [address] PCP - General Internal Medicine 09/21/17 Ashanti Santos PA-C [address] [place] [address] Racing Manager Family Medicine 05/01/24 Cheri Torres APRN.[employer] MATE [address] [place] [address] Racing Manager Internal Medicine 05/01/24 Zoila Tobar PA-C [address] [place] [address] Racing Manager Family Medicine 05/01/24 Retread Technician Relationship Specialty Start Date End Date Aidan Bright MD [address] [place] [address] PCP - General Internal Medicine 09/21/17 Ashanti Santos PA-C [address] [place] [id number] Racing Manager Family Medicine 05/01/24 Cheri Torres, MANAGER ATHLETICS.[employer] MATE [address] [place] [address] Racing Manager Internal Medicine 05/01/24 Zoila Tobar PA-C [address] [place] [address] Racing Manager Family Medicine 05/01/24 Retread Technician Relationship Specialty Start Date End Date Aidan Bright MD [address] [facility] [place], [place] [id number] PCP - General Internal Medicine 09/21/17 Cheri Torres APRN.[employer] MATE [address] [facility], [place] [address] Racing Manager Internal Medicine 05/01/24 Team Status: Active Member Role Status Dates Dr. Aidan Bright MD Primary Care Provider Active Team Status: Inactive Member Role Status Dates Dr. Aidan Bright MD Primary Care Provider Active Start: June 23, 2024 End: June 23, 2024 CHERI OLDER , COUNTERPERSON-C Attending Provider Active Start : June 23, 2024 End: June 23, 2024 CHERI OLDER , COUNTERPERSON-C Referring Provider Active Start : June 23, 2024 End: June 23, 2024 Team Status: Inactive Member Role Status Dates Dr. Aidan Bright MD Primary Care Provider Active Start: September 24, 2024 End: September 24, 2024 CHERI OLDER , COUNTERPERSON-C Attending Provider Active Start : September 24, 2024 End: September 24, 2024 CHERI OLDER , COUNTERPERSON-C Referring Provider Active Start : September 24, 2024 End: September 24, 2024 Retread Technician Relationship Specialty Start Date End Date Aidan Bright MD [address] [facility] [place], [place] [id number] PCP - General Internal Medicine 09/21/17 Cheri Torres APRN.[employer] MATE [address] [facility], [place] [id number] Racing Manager Internal Medicine 05/01/24 Retread Technician Relationship Specialty Start Date End Date Aidan Bright MD [address] [facility] [place], [place] [id number] PCP - General Internal Medicine 09/21/17 Cheri Torres APRN.[employer] MATE [address] [facility] [place] [address] Racing Manager Internal Medicine 05/01/24 Retread Technician Relationship Specialty Start Date End Date Aidan Bright MD [address] [place] [address] PCP - General Internal Medicine 09/21/17 Cheri Torres APRN.[employer] MATE [address] [place] [address] Racing Manager Internal Medicine 05/01/24 Team Status: Inactive Member Role Status Dates Dr. Aidan Bright MD Primary Care Provider Active Start: November 09, 2024 End: November 09, 2024 Dr. Aidan Bright MD Attending Provider Active Start: November 09, 2024 End: November 09, 2024 Dr. Aidan Bright MD Referring Provider Active Start: November 09, 2024 End: November 09, 2024 Retread Technician Relationship Specialty Start Date End Date Aidan Bright MD [address] [place] [address] PCP - General Internal Medicine 09/21/17 Cheri Torres APRN.[employer] MATE [address] [place] [address] Racing Manager Internal Medicine 05/01/24 Retread Technician Relationship Specialty Start Date End Date Aidan Bright MD [address] [place], [place] [address] [phone] PCP - General Internal Medicine 09/21/17 Cheri Torres APRN.[employer] MATE [address] [place] [address] Racing Manager Internal Medicine 05/01/24 Team Status: Active Member Role/Relationship Status Dates Dr. Aidan Bright MD Primary Care Provider Active Team Status: Inactive Member Role/Relationship Status Dates Dr. Aidan Bright MD Primary Care Provider Active Start: September 24, 2024 End: September 24, 2024 CHERI TORRES COUNTERPERSON-C Attending Provider Active Start : September 24, 2024 End: September 24, 2024 CHERI TORRES COUNTERPERSON-C Referring Provider Active Start : September 24, 2024 End: September 24, 2024 Team Status: Inactive Member Role/Relationship Status Dates Dr. Aidan Bright MD Primary Care Provider Active Start: November 09, 2024 End: November 09, 2024 Dr. Aidan Bright MD Attending Provider Active Start: November 09, 2024 End: November 09, 2024 Dr. Aidan Bright MD Referring Provider Active Start: November 09, 2024 End: November 09, 2024 Team Status: Inactive Member Role/Relationship Status Dates Dr. Aidan Bright MD Primary Care Provider Active Start: December 28, 2024 End: December 28, 2024 Dr. Aidan Bright MD Attending Provider Active Start: December 28, 2024 End: December 28, 2024 Dr. Aidan Bright MD Referring Provider Active Start: December 28, 2024 End: December 28, 2024 Retread Technician Relationship Specialty Start Date End Date Aidan Bright MD [address] [place], [place] [id number] PCP - General Internal Medicine 09/21/17 Cheri Torres APRN.[employer] MATE [address] [place], [place] [id number] Racing Manager Internal Medicine 05/01/24 Retread Technician Relationship Specialty Start Date End Date Aidan Bright MD [address] [place], [place] [address] PCP - General Internal Medicine 09/21/17 OlderCheri APRN.[employer] MATE [address] [place], [place] [id number] [facility] Internal Medicine 05/01/24 Team Status: Active Member Role/Relationship Status Dates Dr. Aidan Bright MD Primary care physician Active Team Status: Inactive Member Role/Relationship Status Dates Dr. Aidan Bright MD Primary care physician Active Start: November 09, 2024 End: November 09, 2024 Dr. Aidan Bright MD Attending physician Active Start: November 09, 2024 End: November 09, 2024 Dr. Aidan Bright MD Referring Provider Active Start: November 09, 2024 End: November 09, 2024 Team Status: Inactive Member Role/Relationship Status Dates Dr. Aidan Bright MD Primary care physician Active Start: December 28, 2024 End: December 28, 2024 Dr. Aidan Bright MD Attending physician Active Start: December 28, 2024 End: December 28, 2024 Dr. Aidan Bright MD Referring Provider Active Start: December 28, 2024 End: December 28, 2024 Team Status: Inactive Member Role/Relationship Status Dates Dr. Aidan Bright MD Primary care physician Active Start: February 10, 2025 End: February 10, 2025 Dr. Aidan Bright MD Attending physician Active Start: February 10, 2025 End: February 10, 2025 Dr. Aidan Bright MD Referring Provider Active Start: February 10, 2025 End: February 10, 2025 (unrecognized sect ion and content) No Status Records FoundNo Status Records FoundNo Status Records Found INFORMATION SOURCE (unrecogn ized section and content) DATE CREATED AUTHOR 11/01/2023 [facility] DATE CREATED AUTHOR AUTHOR'S ORGANIZ ATION 02/25/2025 [facility] DATE CREATED AUTHOR AUTHOR'S ORGANIZ ATION 02/28/2025 [facility] FOR RECORDS PERTAINING TO PATIENTS WHO ARE [...] BE BASED ON THE PRIMARY CLINICAL RECORDS. [facility]. provides no warranty or guarantee of the accuracy or completeness of information in this document.
[2025-05-19 12:05] LABS: Hematocrit 45.9 % (40-54); Hemoglobin 15.5 g/dL (13.0-16.5); Immature Granulocytes Count 0.020 X10^3/uL (0.0-0.0); Mean Corp Hgb Conc 33.8 g/dL (32-36); Mean Corpuscular Volume 92.0 fL (80-94); Mean Platelet Vol. 9.3 fl (6.2-12.0); NRBC Flagged by Analyzer 0 % (0-5); Platelet Count 243 K/mm3 (150-450); RBC Distribution Width CV 12.5 % (11.6-14.6); RBC Distribution Width SD 42.0 fl (35.1-43.9); Red Blood Count 4.99 M/mm3 (4.6-6.2); White Blood Count 4.5 K/mm3 (4.4-11.0)
[2025-05-19 12:45] LABS: FOLATES,SERUM (FOLIC ACID) 13.00 ng/mL (4.60-34.80)
[2025-05-19 12:46] LABS: Cholesterol 191 mg/dL (<=200); Low Density Lipoprotein Calc. 129 mg/dL; Triglycerides 65 mg/dL; Very Low Density Lipoprotein 13 mg/dL (5-40); Vitamin B12 417 pg/mL (180-914); cholesterol:hdl ratio screen 3.80
[2025-05-19 12:50] LABS: AST(SGOT) 20 U/L (<=37); Alanine Aminotransfer ALT/SGPT 18 U/L (<=46); Albumin, Serum 4.4 g/dL (3.5-5.0); Alkaline Phosphatase 53 U/L (40-129); Anion Gap 8 (7-18); BUN 19 mg/dL (4-19); BUN/Creat Ratio 25.7 RATIO (10-20); Calcium,Total 9.1 mg/dL (7.6-11.0); Carbon Dioxide 26.4 mmol/L (20.0-29.0); Chloride 103 mmol/L (96-106); Globulin 2.8 g/dL (2.2-4.2); Glucose 102 mg/dL (70-99); Potassium 4.7 mmol/L (3.5-5.1)
[2025-05-22 12:08] LABS: Methylmalonic Acid Bld 192 nmol/L (0-378)
[2025-05-23 16:09] LABS: Copper, Serum or Plasma 79 ug/dL (69-132); Immunoglobulin A 214 mg/dL (90-386); Immunoglobulin G 1187 mg/dL (603-1613); Immunoglobulin M 115 mg/dL (20-172); VITAMIN B6 23.7 ug/L (3.4-65.2)
== END | disposition home or self-care (01) ==
PROVIDERS: PCP Internal Medicine; Referring Provider Internal Medicine; Visit Provider Internal Medicine
DX: G62.9 Polyneuropathy, unspecified (principal); E78.5 Hyperlipidemia, unspecified
CPT/HCPCS: 36415; 80053; 80061; 82390; 82525; 82607; 82746; 82784; 83921; 84207; 85025; 86235; 86334